=== PATIENT | female | born 1975 | race Caucasian/White ===

== ENCOUNTER → 2018-08-14 | Outpatient (CLI) | payer BC, SELFPAY ==
[2018-08-14 13:14] VITALS: BMI 26.8
[2018-08-19 13:08] LABS: HPV APTIMA, High Risk Negative (Negative)
== END | disposition home or self-care (01) ==
LOC: LABSPEC 17:12
PROVIDERS: Referring Provider Nurse Practitioner Women's Health; Visit Provider Nurse Practitioner Women's Health
DX: Z12.4 Encounter for screening for malignant neoplasm of cervix (principal)
CPT/HCPCS: 87624; 88175; G0145

== ENCOUNTER → 2018-08-22 07:54 | Outpatient (CLI) | payer BC, SELFPAY ==
[2018-08-14 13:14] VITALS: BMI 26.8
--- NOTE | 2018-08-22 07:56 | US_ITS ---
STUDY: ULTRASOUND TRANSVAGINAL CLINICAL: Female, 42 years old. Menorrhagia. Uterine fibroid. LMP: July 20, 2018 TECHNIQUE: Transabdominal and Transvaginal, the latter used to improve visualization in this patient with a nearly empty urinary bladder. COMPARISON: None. FINDINGS: Normal size of the retroverted uterus, tilted right of midline, measuring 9.5 x 5.5 x 5.2 cm. There are no myometrial masses. Upper normal endometrial thickness measuring 9 mm. Endometrium is hyperechoic. There are no endometrial masses, and there is no fluid in the endometrial cavity. There is a well-defined nearly 1 cm anechoic nabothian cyst in the cervix. Normal right ovary, measuring 3.2 x 2.0 x 1.3 cm. There are a few small follicles without a dominant cyst. Normal left ovary, measuring 3.2 x 3.0 x 2.4 cm. There are 1 or 2 small follicles without a dominant cyst. Also seen is a poorly defined, heterogeneous 1.7 x 1.5 x 1.3 cm area of indeterminate etiology. There is no free fluid in the pelvis. The volume of the urinary bladder at the time of scanning was 77.7 mL. Polycystic ovary disease: No. US/Pelvic (Non ) IMPRESSION: 1. Retroverted uterus, tilted to the right of midline, with upper normal endometrial thickness and 1 cm nabothian cyst in the cervix. There is no demonstrated myometrial mass/fibroid. 2. 1.7 cm heterogeneous, incompletely defined solid lesion of indeterminate etiology seen in the left ovary. Differential includes a recently ruptured/collapsed dominant follicle, and follow-up immediately following the next 1-2 menstrual cycles would be useful in demonstrating stability or resolution. 3. Unremarkable right ovary. Electronically Signed: Flaco Quick MD at 18:09 EDT , Service support ,
--- NOTE | 2018-08-22 07:56 | US_ITS ---
STUDY: ULTRASOUND TRANSVAGINAL CLINICAL: Female, 42 years old. Menorrhagia. Uterine fibroid. LMP: July 20, 2018 TECHNIQUE: Transabdominal and Transvaginal, the latter used to improve visualization in this patient with a nearly empty urinary bladder. COMPARISON: None. FINDINGS: Normal size of the retroverted uterus, tilted right of midline, measuring 9.5 x 5.5 x 5.2 cm. There are no myometrial masses. Upper normal endometrial thickness measuring 9 mm. Endometrium is hyperechoic. There are no endometrial masses, and there is no fluid in the endometrial cavity. There is a well-defined nearly 1 cm anechoic nabothian cyst in the cervix. Normal right ovary, measuring 3.2 x 2.0 x 1.3 cm. There are a few small follicles without a dominant cyst. Normal left ovary, measuring 3.2 x 3.0 x 2.4 cm. There are 1 or 2 small follicles without a dominant cyst. Also seen is a poorly defined, heterogeneous 1.7 x 1.5 x 1.3 cm area of indeterminate etiology. There is no free fluid in the pelvis. The volume of the urinary bladder at the time of scanning was 77.7 mL. Polycystic ovary disease: No. US/Transvaginal Non- IMPRESSION: 1. Retroverted uterus, tilted to the right of midline, with upper normal endometrial thickness and 1 cm nabothian cyst in the cervix. There is no demonstrated myometrial mass/fibroid. 2. 1.7 cm heterogeneous, incompletely defined solid lesion of indeterminate etiology seen in the left ovary. Differential includes a recently ruptured/collapsed dominant follicle, and follow-up immediately following the next 1-2 menstrual cycles would be useful in demonstrating stability or resolution. 3. Unremarkable right ovary. Electronically Signed: Flaco Quick MD at 18:09 EDT , Service support ,
== END ==
PROVIDERS: Referring Provider Nurse Practitioner Women's Health; Visit Provider Nurse Practitioner Women's Health
DX: N92.0 Excessive and frequent menstruation with regular cycle (principal); D25.9 Leiomyoma of uterus, unspecified
CPT/HCPCS: 76830; 76856; 93976

== ENCOUNTER → 2018-09-01 07:39 | Outpatient (CLI) | payer BC, SELFPAY ==
[2018-08-14 13:14] VITALS: BMI 26.8
[2018-08-27 13:48] VITALS: BMI 26.8
--- NOTE | 2018-09-01 07:41 | BI_ITS ---
MAMMOGRAPHY - BILATERAL SCREENING REASON FOR EXAM: Female, 42 years old. Routine annual screening examination. PERTINENT HISTORY: Aunt with breast cancer. TECHNIQUE: Digital bilateral breast carmen (3D mammographic acquisition) in the CC and MLO projections. 2-D mediolateral oblique (MLO) and craniocaudad (CC) views of both breasts were obtained. CAD: Full Field Digital Mammography with Computer Added Detection was performed. COMPARISON: No comparison mammograms available at this time. If any prior films become available, an addendum to this report can be generated. FINDINGS: Breast Composition: The breasts are heterogeneously dense, which may obscure small masses. There are no dominant masses or suspicious calcifications. Small benign-appearing bilateral axillary lymph nodes. No other significant abnormalities are identified. BI/SCREEN MAMM (CAD) W/CARMEN BILAT IMPRESSION: Negative screening mammogram. Yearly followup mammogram recommended. (A) ASSESSMENT CATEGORY: BIRADS Category 2: Benign. A letter regarding these results will be sent to the patient by the facility within 30 days. Approximately 10% of breast cancers are not detected by mammography. A normal mammogram should not delay biopsy of a clinically suspicious abnormality. [id number] Electronically Signed: Sergio Buchanan, at 9:14 EDT , Service support ,
== END ==
PROVIDERS: Referring Provider Nurse Practitioner Women's Health; Visit Provider Nurse Practitioner Women's Health
DX: Z12.31 Encounter for screening mammogram for malignant neoplasm of breast (principal)
CPT/HCPCS: 77063; 77067

== ENCOUNTER → 2018-10-03 13:05 | Outpatient (CLI) | payer BC, SELFPAY ==
[2018-10-03 12:08] VITALS: BMI 26.8
--- NOTE | 2018-10-03 12:36 | EMB_PTH ---
PATIENT: CIARRA ALBA LOC: [facility] U#:[id number] AGE/SX: 49/F ROOM: RE10/03/[address]: Dr. Natasha Banegas MD : 1975 BED: DIS: SPEC #: [id number] RECD: 10/03/18 13:03 STATUS: CHRISTINA OFELIA #: [id number] DELTA: 10/03/18 12:[address]: Natasha Banegas DEPT: SURGICAL PATHOLOGY RECD BY: Deborah Cuello ENTERED: 10/03/18 14:52 SP TYPE: ENDOM BX/C BETI DR: No Primary Care Phys Tissues: Endometrium, NOS Procedures: Surgery Specimen Level IV HEADER OPERATION: Endometrial biopsy PRE-OP DIAGNOSIS: Menorrhagia with irregular cycle TISSUE SUBMITTED: Endometrial lining MICROSCOPIC DIAGNOSIS Endometrium, biopsy: Secretory endometrium. Rare strips of benign superficial endocervix. AM:doris 10/06/18 MICROSCOPIC DESCRIPTION Slides are reviewed. GROSS DESCRIPTION Received is one container labeled with the patient's name and not further designated. The specimen consists of multiple irregular fragments of pink soft tissue that in aggregate measure 2.5 x 2 x 0.2 cm. The entire specimen is submitted in one cassette. / SJ:doris 10/03/18 TC:5 CPT: 96111
== END ==
PROVIDERS: Referring Provider Obstetrics & Gynecology; Visit Provider Obstetrics & Gynecology
DX: N92.0 Excessive and frequent menstruation with regular cycle (principal)
CPT/HCPCS: 88305

== ENCOUNTER → 2018-10-07 16:23 | Outpatient (CLI) | payer BC, SELFPAY ==
[2018-10-03 12:08] VITALS: BMI 26.8
--- NOTE | 2018-10-07 16:24 | US_ITS ---
HISTORY: Menorrhagia COMPARISON: None. TECHNIQUE: Real-time transvaginal sonographic imaging of the pelvis was performed. # of images incl. paperwork: 78 FINDINGS: Uterus: Uterus measures 10.2 x 5.7 x 4.9cm. No focal myoma. Endometrium: Endometrium measures 23mm in thickness. No endometrial fluid. Ovaries: The ovaries are normal in size with physiologic follicles. Normal arterial and venous waveforms are seen within bilateral ovaries. Adnexa: No adnexal mass or abnormality. Free fluid: No free fluid in the pelvic cul-de-sac. US/Pelvic (Non ) IMPRESSION: 1. Thickened endometrium measuring 23 mm. Correlate with LMP to determine whether further evaluation to exclude endometrial hyperplasia/neoplasia is warranted. at 2027 Reported and signed by: Pepito Ernandez MD Electronically Signed: Pepito Ernandez MD at 20:26 EDT Tel , Service support ,
--- NOTE | 2018-10-07 16:34 | US_ITS ---
HISTORY: Menorrhagia COMPARISON: None. TECHNIQUE: Real-time transvaginal sonographic imaging of the pelvis was performed. # of images incl. paperwork: 78 FINDINGS: Uterus: Uterus measures 10.2 x 5.7 x 4.9cm. No focal myoma. Endometrium: Endometrium measures 23mm in thickness. No endometrial fluid. Ovaries: The ovaries are normal in size with physiologic follicles. Normal arterial and venous waveforms are seen within bilateral ovaries. Adnexa: No adnexal mass or abnormality. Free fluid: No free fluid in the pelvic cul-de-sac. US/Transvaginal Non- IMPRESSION: 1. Thickened endometrium measuring 23 mm. Correlate with LMP to determine whether further evaluation to exclude endometrial hyperplasia/neoplasia is warranted. at 2027 Reported and signed by: Pepito Ernandez MD Electronically Signed: Pepito Ernandez MD at 20:26 EDT Tel , Service support ,
== END ==
PROVIDERS: Referring Provider Obstetrics & Gynecology; Visit Provider Obstetrics & Gynecology
DX: N92.0 Excessive and frequent menstruation with regular cycle (principal)
CPT/HCPCS: 76830; 76856; 93976

== ENCOUNTER 2018-10-16 11:34 | Day surgery (SDC) | payer BC, SELFPAY ==
[2018-08-27 13:48] VITALS: BMI 26.8
[2018-10-03 12:08] VITALS: BMI 26.8
--- NOTE | 2018-10-09 23:45 | HP.PCM_ITS ---
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 Supplemental Nurse Required: No Is patient in pain?: No Allergies No Known Allergies Allergy (Verified 10/03/18 12:07) Medications NK 08/14/18 [History Confirmed 10/03/18] Is last menstrual period known: Yes Last Menstral Period: 09/15/18 Post menopausal: No Patient : No : No PFSH Surgical History S/P bunionectomy (Resolved) s/p right hand surgery (Resolved) Family History Grandfather Lung cancer Social History (Updated 10/03/18 @ 13:44 by Natasha Banegas MD) Smoking Status: Never smoker alcohol intake: never substance use type: does not use caffeine: Yes what type of physical activity do you participate in: other details: crossfit frequency: 5-6 times per week seatbelt use: always do you feel safe at home: Yes additional social history: [employer] employed Patient works [employer] 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 she has AUB nd an endocervical polyp. also has an ovarian cyst and needs repeat imaging. Female Reproductive History Last Menstral Period: 09/15/18 Pregancy History 2 Elective abortions Hx Para 2 Spontaneous abortions Hx # Term Pregnancies Ectopic pregnancies Hx # Pregnancies Multiple births # of living children Past Pregnancies Del. Date Name GA/Weeks Outcome Route Bth Weight Gen Labor Lgth Anesthesia Del Locatn Provider FOB Unknown Kevin-2000 Unknown Keshawn-2002 ROS Const Constitutional: Denies fatigue, fever(s), headache(s), increased appetite, poor appetite, weight gain or weight loss Cardio Card: Denies chest pain Resp Resp: Denies cough or dyspnea GI GI: Reports as per HPI; denies abdominal pain, constipation, nausea or vomiting : Reports as per HPI; denies difficulty urinating, painful urination, nipple discharge, urinary frequency, urinary incontinence, urinary hesitancy, urinary urgency, vaginal discharge, vaginal dryness, vaginal odor or vaginal itching Skin Skin/Breast: Denies change in hair, breast lump, breast pain, breast skin changes or nipple discharge Exam Const General: cooperative, healthy appearing, comfortable, no acute distress, well developed Nutritional Appearance: average body habitus Orientation: alert [facility] Head: normal to inspection, normocephalic Neck Neck: normal visual inspection, trachea midline Thyroid: thyroid normal Resp Effort & Inspection: normal respiratory effort GI Inspection: normal to inspection, non-distended Palpation: soft, no hepatosplenomegaly General: bladder normal to palpation External Female Exam: normal external appearance, normal appearance of the urethra Urethra: normal appearance of the urethra, normal palpation, no discharge Speculum Exam - Vagina: normal appearance of the vagina, normal vaginal discharge Speculum Exam - Cervix: abnormal appearance of the cervix, cervical lesion (3 cm x 3 cm), nontender Bimanual Exam- Vagina & Uterus: normal bimanual exam, uterine size normal, bladder normal to palpation, uterine shape normal, No cervical tenderness, uterine mobility normal, uterine consistency normal, normal cervical palpation, uterus non-tender Bimanual Exam- Adnexa, other: normal adnexae, adnexae mobile, no adnexal masses, pelvic support normal Pelvic Support: normal Skin General: no rashes or lesions noted Office Procedures Endometrial Biopsy Endometrial Biopsy Details: Cervix prepped with betadine and pipelle inserted into uterus without complication. Specimen obtained and sent to lab for analysis. All instruments removed from vagina without complications. Excellent hemostasis noted. Assessment & Plan Problems 1. Menorrhagia with regular cycle N92.0 emb done recommend ablation 2. Endocervical polyp N84.1 recommend removal at time of ablation Plan discussed surgical risks including risks of anesthesia, infection, bleeding, injury to bowel, bladder or blood vessels, and patient wishes to proceed with surgery. Orders Orders: Endometrial Biopsy Today Coding Level of Care Code No Charge Diagnoses Menorrhagia with regular cycle N92.0 Endocervical polyp N84.1 UPDATE- I have seen the patient and performed any clinically relevant updates to the history and physical exam. Natasha Banegas MD
[2018-10-16] VITALS (7 sets, daily range): BP systolic 106–114; BP diastolic 69–79; PULSE 54–69; RESP 16; TEMP 36–37.2; O2SAT 100; BMI 26.1
[2018-10-16 12:04] LABS: Internal QC Validated? YES +Cl - CLEAR BKGD; Pregnancy, Urine Negative Negative
[2018-10-16 12:07] LABS: Hematocrit 38.8 % (37-47); Hemoglobin 12.6 g/dL (12.0-15.0); Mean Corp Hgb Conc 32.5 g/dL (32-36); Mean Corpuscular Hgb 27.5 pg (27.0-32.0); Mean Corpuscular Volume 84.5 fL (81-99); Mean Platelet Vol. 10.6 fl (6.2-12.0); Platelet Count 267 K/mm3 (150-450); RBC Distribution Width CV 13.5 % (11.6-14.6); RBC Distribution Width SD 41.1 fl (35.1-43.9); Red Blood Count 4.59 M/mm3 (4.2-5.4); White Blood Count 6.3 K/mm3 (4.4-11.0)
--- NOTE | 2018-10-16 13:15 | EMB_PTH ---
PATIENT: CIARRA ALBA LOC: [facility] [place] U#:[id number] AGE/SX: 43/F ROOM: RE10/16/[address]: Dr. Natasha Banegas MD : 1975 BED: DIS: 10/16/2018 SPEC #: [id number] RECD: 10/16/18 16:00 STATUS: CHRISTINA OFELIA #: [id number] DELTA: 10/16/18 13:[address]: Natasha Banegas DEPT: SURGICAL PATHOLOGY RECD BY: Naga Nelson ENTERED: 10/17/18 08:04 SP TYPE: ENDOM BX/C OT DR: Lluvia Primary Care Phys Tissues: A - Endometrium, NOS B - Endometrium, NOS Procedures: Surgery Specimen Level IV HEADER OPERATION: Hysteroscopy D & C; removal of endometrial mass PRE-OP DIAGNOSIS: Menorrhagia with regular cycle; endocervical polyp TISSUE SUBMITTED: A - Endometrial curettings, B - Endometrial mass MICROSCOPIC DIAGNOSIS A. Endometrium, curettings: Transitional endometrium with glandular and stromal breakdown. Rare fragments of benign superficial endocervix and squamous mucosa. B. Endometrial mass, biopsy: Fragment of benign ectocervical-endocervical polyp with nabothian cysts, mildly inflamed. See comment. AM:doris 10/20/18 COMMENT B. Endometrium is not represented in the biopsy. Clinical correlation is suggested. MICROSCOPIC DESCRIPTION Slides are reviewed. GROSS DESCRIPTION A - Received in fixative is one container labeled with the patient's name and designated endometrial curettings. The specimen consists of multiple irregular fragments of light to dark garcia soft tissue that in aggregate measure 2 x 1.2 x 0.1 cm. The specimen is totally submitted in one cassette. B - Received in fixative is one container labeled with the patient's name and designated endocervical mass. The specimen consists of polypoid fragments of pink-garcia soft tissue that in aggregate measure 4.5 x 4 x 0.2 cm. The specimen is submitted in its entirety in three cassettes. / AM:doris 10/17/18 TC:1 CPT:67121 x2
[2018-10-16] MEDS: FERRIC SUBSULFATE 8 GM SOLN (13:39)
--- NOTE | 2018-10-16 15:08 | DCINST_ITS ---
Discharge Diet: No Restrictions Discharge Activity: Return to Normal Activity, May Shower, May Take a Tub Bath Allergies/Adverse Reactions: Allergies No Known Allergies Allergy (Verified 10/06/18 13:00) Medications to take at Discharge NK 08/14/18 Primary Care Physician: Care Physician,No Primary [Primary Care Provider] - Test Results: Test results from this visit will be discussed in further detail at your follow- up appointment, if applicable. Please Follow Up With: Natasha Banegas MD - [phone]
--- NOTE | 2018-10-17 04:28 | PCM.OPRPT ---
Problem List (1) Endocervical polyp Status: Acute Comment: recommend removal at time of ablation (2) Menorrhagia with regular cycle Status: Acute Comment: emb done recommend ablation Report of Operation Date of Procedure: 10/16/18 Pre-Operative Diagnosis: polyp, aub Post-Operative Diagnosis: same Surgery/Procedure Performed:: Partial LEEP of the cervix, D&C hysteroscopy Description of Surgical Findings:: Large endocervical polyp with significant cervical dilation Type of Anesthesia:: Local MAC Special Medications: monsels Specimen's removed: Endocervical polyp and endometrial curettings Drains: none Estimated Blood Loss (mL): 100 Fluids Replaced: crystalloid Description of Procedure: Patient was taken to the operating room and placed under MAC local anesthesia was prepped and draped in normal sterile fashion in dorsolithotomy position. Paracervical block was performed with 1% lidocaine and large endocervical polyp was seen which was initially removed with a ring forcep but had significant bleeding and involved a large portion of the inside of the cervix and therefore a partial LEEP was performed of the posterior cervical lip to remove the entire base of the lesion. Significant vasculature was noted and was cauterized with the ball electrode. Hysteroscopy was then attempted and the lining of the uterus was noted to be within normal limits with no significant abnormalities. Significant cervical dilation was noted due to the large polyp that was extending up into the endocervical canal. I was unable to maintain distention and seal of the endocervical canal and therefore the sanya ablation was not able to be performed. Sharp curettage of the lining of the uterus was performed. monsel's paste Applied to the cervix and excellent hemostasis noted Grafts/Implants Used: none - Complications none Multi Select Codes - Urinary/Genital Urinary/Genital CPT Codes: 38478 Hysteroscopy biopsy, Other Procedure See Report - [id number]
== END 2018-10-16 15:29 | disposition home or self-care (01) ==
LOC: SDC 11:37 → AC 11:37
PROVIDERS: Referring Provider Obstetrics & Gynecology; Visit Provider Obstetrics & Gynecology
PROC: 0U5B8ZZ Destruction of Endometrium, Via Natural or Artificial Opening Endoscopic (ICD-10-PCS; CPT 58558; principal; 2018-10-16 13:00)
DX: N84.1 Polyp of cervix uteri (principal); N88.8 Other specified noninflammatory disorders of cervix uteri; N92.0 Excessive and frequent menstruation with regular cycle
CPT/HCPCS: 57522; 36415; 81025; 85027; 86850; 86900; 88305; J7120; J2405

== ENCOUNTER 2018-12-11 09:42 | Day surgery (SDC) | payer BC, SELFPAY ==
[2018-11-18 13:14] VITALS: BMI 26.1
--- NOTE | 2018-12-11 04:48 | PCM.HPOB.BLA ---
- Problem List (1) Menorrhagia with regular cycle Status: Acute Comment: emb done recommend ablation History and Physical Date of Admission: 12/11/18 Intake Vital Signs 11/18/18 Body Mass Index (BMI) 26.1 11/18/18 Height 5 ft 5 in 11/18/18 Weight: 167 lb 2 oz 11/18/18 Body Mass Index (BMI) 27.8 11/18/18 Blood Pressure 116/80 Intake Visit Reasons: post op discussion Protective Signal Operator Required: No Is patient in pain?: No Allergies No Known Allergies Allergy (Verified 11/18/18 13:09) Medications NK 08/14/18 [History Confirmed 11/18/18] Post menopausal: No Patient : No : No PFSH Surgical History (Updated 11/18/18 @ 13:10 by Mihaela Peña) S/P LEEP (Acute ~10/16/18) S/P bunionectomy (Resolved) s/p right hand surgery (Resolved) Family History Grandfather Lung cancer Social History (Updated 11/18/18 @ 13:26 by Natasha Banegas MD) Smoking Status: Never smoker alcohol intake: never substance use type: does not use caffeine: Yes what type of physical activity do you participate in: other details: crossfit frequency: 5-6 times per week seatbelt use: always do you feel safe at home: Yes additional social history: [employer] employed Patient works [employer] HPI post op discussion: Details: CIARRA ALBA is a 43 year old who presents for endometrial ablation consult. she had a recent surgery but was too dilated to do an ablation Pregancy History 2 Elective abortions Hx Para 2 Spontaneous abortions Hx # Term Pregnancies Ectopic pregnancies Hx # Pregnancies Multiple births # of living children Past Pregnancies Del. Date Name GA/Weeks Outcome Route Bth Weight Infant Gen Labor Lgth Anesthesia Del Locatn Provider FOB Unknown Kevin-2000 Unknown Keshawn-2002 ROS Const Constitutional: Denies fatigue, fever(s), headache(s), increased appetite, poor appetite, weight gain or weight loss Cardio Card: Denies chest pain Resp Resp: Denies cough or dyspnea GI GI: Reports as per HPI; denies abdominal pain, constipation, nausea or vomiting : Reports as per HPI; denies difficulty urinating, painful urination, nipple discharge, urinary frequency, urinary incontinence, urinary hesitancy, urinary urgency, vaginal discharge, vaginal dryness, vaginal odor or vaginal itching Skin Skin/Breast: Denies change in hair, breast lump, breast pain, breast skin changes or nipple discharge Exam Const General: cooperative, healthy appearing, comfortable, no acute distress, well developed Nutritional Appearance: average body habitus Orientation: alert [facility] Head: normal to inspection, normocephalic Neck Neck: normal visual inspection, trachea midline Thyroid: thyroid normal Resp Effort & Inspection: normal respiratory effort GI Inspection: normal to inspection, non-distended Palpation: soft, no hepatosplenomegaly General: bladder normal to palpation External Female Exam: normal external appearance, normal appearance of the urethra Urethra: normal appearance of the urethra, normal palpation, no discharge Speculum Exam - Vagina: normal appearance of the vagina, normal vaginal discharge Speculum Exam - Cervix: normal appearance of the cervix, nontender Bimanual Exam- Vagina & Uterus: normal bimanual exam, uterine size normal, bladder normal to palpation, uterine shape normal, No cervical tenderness, uterine mobility normal, uterine consistency normal, normal cervical palpation, uterus non-tender Bimanual Exam- Adnexa, other: normal adnexae, adnexae mobile, no adnexal masses, pelvic support normal Pelvic Support: normal Skin General: no rashes or lesions noted Assessment & Plan Problems 1. Menorrhagia with regular cycle N92.0 emb done recommend ablation Plan plan sanya ablation Coding Level of Care Code No Charge Diagnoses Menorrhagia with regular cycle N92.0
[2018-12-11 09:58] VITALS: BP 121/80; PULSE 63; RESP 16; TEMP 36.8; O2SAT 100; BMI 28.3
[2018-12-11 10:06] LABS: Hematocrit 37.1 % (37-47); Hemoglobin 11.5 g/dL (12.0-15.0); Mean Corpuscular Hgb 25.6 pg (27.0-32.0); Mean Corpuscular Volume 82.6 fL (81-99); Mean Platelet Vol. 10.2 fl (6.2-12.0); Platelet Count 247 K/mm3 (150-450); RBC Distribution Width CV 13.3 % (11.6-14.6); RBC Distribution Width SD 40.2 fl (35.1-43.9); Red Blood Count 4.49 M/mm3 (4.2-5.4); White Blood Count 8.5 K/mm3 (4.4-11.0)
[2018-12-11 10:11] LABS: Internal QC Validated? YES +Cl - CLEAR BKGD; Pregnancy, Urine Negative Negative
[2018-12-11] MEDS: Lactated Ringers 1,000 ML 100 ML IV (10:11)
[2018-12-11 13:16] VITALS: BP 121/80; BP 122/82; PULSE 70; RESP 16; TEMP 36.5; O2SAT 97
[2018-12-11 13:30] VITALS: BP 116/84; BP 121/80; PULSE 60; RESP 16; O2SAT 96
[2018-12-11 13:45] VITALS: BP 113/79; BP 121/80; PULSE 65; RESP 16; O2SAT 98
--- NOTE | 2018-12-11 13:53 | PCM.OPRPT ---
Problem List (1) Menorrhagia with regular cycle Status: Acute Comment: emb done recommend ablation Report of Operation Date of Procedure: 12/12/18 Pre-Operative Diagnosis: aub Post-Operative Diagnosis: same Surgery/Procedure Performed:: shanthi ablation Type of Anesthesia:: MAC Special Medications: none Specimen's removed: none Drains: none Estimated Blood Loss (mL): 10 Fluids Replaced: crystalloid Description of Procedure: Patient was prepped and draped in a normal sterile fashion under MAC anesthesia. A weighted speculum was placed in the vagina and the anterior lip of the cervix was grasped with a single-tooth tenaculum. Cervix was progressively dilated to allow The Shanthi device which was opened and the cavity length was found to be 5.5cm. Device was inserted into the uterus and balloon inflated and device deployed. Integrity of the cavity was confirmed and a 2 minute treatment cycle was completed with one interruption with 34 sec less, handpiece was replaced and the full treatment cycle completed All instruments were removed from the vagina and excellent hemostasis was noted. Patient was awoken and taken to recovery in stable condition. Grafts/Implants Used: none - Complications none - Admit VTE Documentation VTE Present on Admission: No Multi Select Codes - Urinary/Genital Urinary/Genital CPT Codes: 54328 Shanthi/Novasure
--- NOTE | 2018-12-11 13:57 | DCINST_ITS ---
Discharge Diet: No Restrictions Discharge Activity: Return to Normal Activity, May Shower, May Take a Tub Bath Allergies/Adverse Reactions: Allergies No Known Allergies Allergy (Verified 12/11/18 09:57) Medications to take at Discharge NK 08/14/18 Primary Care Physician: Care Physician,No Primary [Primary Care Provider] - Test Results: Test results from this visit will be discussed in further detail at your follow- up appointment, if applicable. Please Follow Up With: Natasha Banegas MD - [phone]
[2018-12-11 14:07] VITALS: BP 116/78; BP 121/80; PULSE 52; RESP 16; TEMP 36.9; O2SAT 99
[2018-12-11] MEDS: HYDROcodone Bitartrate/Apap 5/325 Tablet PO ×2 (14:28→15:34)
[2018-12-11 16:00] VITALS: BP 121/80
== END 2018-12-11 16:11 | disposition home or self-care (01) ==
LOC: SDC 09:42 → AC 09:43
PROVIDERS: Anesthesiology; Referring Provider Obstetrics & Gynecology; Visit Provider Obstetrics & Gynecology
PROC: 0U5B8ZZ Destruction of Endometrium, Via Natural or Artificial Opening Endoscopic (ICD-10-PCS; CPT 58558; principal; 2018-12-11 11:20)
DX: N92.0 Excessive and frequent menstruation with regular cycle (principal)
CPT/HCPCS: 00940; 58353; 36415; 81025; 85027; 86850; 86900; 86901; J7120; J2405

== ENCOUNTER → 2019-10-19 15:45 | Outpatient (CLI) | payer BC, SELFPAY ==
[2019-10-19 15:05] VITALS: BMI 28.3
[2019-10-19 16:47] LABS: Absolute Lymphocyte Count 2.22 X10^3/uL (0.83-4.51); Absolute Neutrophil Count 4.2 X10^3/uL (2.0-7.7); Basophil# 0.02 X10^3/uL; Basophil% 0.3 % (0-1); Eosinophil# 0.08 X10^3/uL; Eosinophils% 1.2 % (0-5); Hematocrit 42.6 % (37-47); Hemoglobin 14.1 g/dL (12.0-15.0); Lymphocyte # 2.22 X10^3/ul (4.0); Lymphocyte % 32.1 % (19-41); Mean Corp Hgb Conc 33.1 g/dL (32-36); Mean Corpuscular Hgb 29.1 pg (27.0-32.0); Mean Platelet Vol. 10.3 fl (6.2-12.0); Monocyte# 0.44 X10^3/uL; Monocyte% 6.4 % (0-10); NRBC Flagged by Analyzer 0 % (0-5); Neutrophil # 4.15 X10^3/uL (2.7-7.7); Neutrophil % 59.9 % (47-70); Platelet Count 233 K/mm3 (150-450); RBC Distribution Width CV 12.8 % (11.6-14.6); RBC Distribution Width SD 41.1 fl (35.1-43.9); Red Blood Count 4.84 M/mm3 (4.2-5.4); White Blood Count 6.9 K/mm3 (4.4-11.0)
[2019-10-19 17:03] LABS: AST(SGOT) 20 U/L (15-37); Alanine Aminotransfer ALT/SGPT 22 U/L (13-56); Albumin, Serum 3.9 g/dL (3.2-5.0); Alkaline Phosphatase 58 U/L (45-117); Anion Gap 4 (5-15); BUN 11 mg/dL (7-18); BUN/Creat Ratio 12.9 RATIO (10-20); Calcium,Total 8.7 mg/dL (8.5-10.1); Chloride 108 mmol/L (98-107); Cholesterol 202 mg/dL (200); Creatinine, Serum 0.85 mg/dL (0.55-1.02); EST Glomerular Filtration Rate 77 mL/min (>60); Est Glom Filt Rate - Afr Amer 94 mL/min (>60); Globulin 3.9 g/dL (2.2-4.2); Glucose 92 mg/dL (74-106); High Density Lipoprotein 33 mg/dL; Potassium 3.9 mmol/L (3.5-5.1); Protein, Total 7.8 g/dL (6.4-8.2); Sodium Level 139 mmol/L (136-145); Triglycerides 433 mg/dL
== END ==
PROVIDERS: PCP Internal Medicine; Referring Provider Internal Medicine; Visit Provider Internal Medicine
DX: Z00.00 Encounter for general adult medical examination without abnormal findings (principal); K64.9 Unspecified hemorrhoids
CPT/HCPCS: 36415; 80053; 80061; 85025

== ENCOUNTER → 2019-10-20 07:11 | Outpatient (CLI) | payer BC, SELFPAY ==
[2018-12-25 10:47] VITALS: BMI 28.3
[2019-10-19 15:05] VITALS: BMI 28.3
--- NOTE | 2019-10-20 07:12 | BI_ITS ---
MAMMOGRAPHY - BILATERAL SCREENING REASON FOR EXAM: Female, 44 years old. Routine annual screening examination. PERTINENT HISTORY: Aunt with breast cancer. TECHNIQUE: Digital bilateral breast carmen (3D mammographic acquisition) in the CC and MLO projections. 2-D mediolateral oblique (MLO) and craniocaudad (CC) views of both breasts were obtained. CAD: Full Field Digital Mammography with Computer Added Detection was performed. COMPARISON: Comparison is made with prior study dated 09/01/2018. FINDINGS: Breast Composition: The breasts are extremely dense, which lowers the sensitivity of mammography. There are no dominant masses or suspicious calcifications. No other significant abnormalities are identified. There has been no significant change since the prior study. BI/SCREEN MAMM (CAD) W/CAREMN BILAT IMPRESSION: Stable bilateral screening mammogram. Yearly follow-up mammogram recommended. (A) ASSESSMENT CATEGORY: BIRADS Category 1: Negative. A letter regarding these results will be sent to the patient by the facility within 30 days. Approximately 10% of breast cancers are not detected by mammography. A normal mammogram should not delay biopsy of a clinically suspicious abnormality. [id number] Electronically Signed: Sergio Buchanan, at 9:03 EDT , Service support ,
== END ==
PROVIDERS: PCP Internal Medicine; Referring Provider Obstetrics & Gynecology; Visit Provider Obstetrics & Gynecology
DX: Z12.31 Encounter for screening mammogram for malignant neoplasm of breast (principal); Z80.3 Family history of malignant neoplasm of breast
CPT/HCPCS: 77063; 77067

== ENCOUNTER 2019-12-12 20:09 | Emergency (ER) | payer BC, SELFPAY ==
[2019-10-19 15:05] VITALS: BMI 28.3
[2019-12-12 20:09] VITALS: BP 152/91; PULSE 90; RESP 18; TEMP 36.2; O2SAT 100; BMI 28.3
--- NOTE | 2019-12-12 20:22 | EKG12_ITS ---
Test Reason : DYSRHYTHMIA Blood Pressure : / mmHG Vent. Rate : 087 BPM Atrial Rate : 087 BPM P-R Int : 172 ms QRS Dur : 098 ms QT Int : 368 ms P-R-T Axes : 046 031 029 degrees QTc Int : 442 ms Normal sinus rhythm Normal ECG Confirmed by MARIA LUISA CARTER, ALDO ([id number]), features editor ADAN BENAVIDEZ ([id number]) on 12/17/2019 8:23:22 AM Referred By: RORY Confirmed By:ZACK GLASS MD
--- NOTE | 2019-12-12 20:24 | ED.VISSUMM ---
- ER Visit Summary Date of Service: 12/12/19 Chief Complaint: Shortness of breath History of Present Illness: The patient is a [address] Smart. She reports that she has had shortness of breath intermittently over the past 2 weeks. It is much worse today. She denies a cough. No fever or chills. Patient reports that she has chest tightness that began this morning is been constant all day. Is 3 out of 10 in severity currently and at worst. There is no change with exertion or walking. Nothing seems to make this better. Patient reports that her father was diagnosed with coronavirus November 15. She had not seen him for 10 days prior to that. She denies any known exposure to coronavirus. No personal family hist DVT. No recent travel. No ankle swelling or calf pain. Physical Examination: Vitals: Stable. Afebrile. General: Well-nourished and well-developed. Head: Normocephalic atraumatic. Neck: Supple, no lymphadenopathy. No JVD. Nontender. Cardiovascular: Regular rate and rhythm. No murmurs. Respiratory: No respiratory distress. Clear to auscultation bilaterally. Abdominal: Soft, nontender, nondistended, normal bowel sounds. No guarding, rebound, or peritoneal signs. Back: Nontender. Extremities: Nontender, no edema. Skin: Normal color, no rash. Neurologic: Alert and oriented ?3. Cranial nerves II through XII are intact. Normal strength and sensation. Psych: Normal affect. Test Results: EKG is sinus at [address] changes. Troponin is negative. D-dimer is negative. test is negative. Chem-7 shows a chloride of 108. CBC is normal. Clinical Impression(s) from Imaging Studies Chest X-Ray 12/12/19 20:50 IMPRESSION: Normal x-ray examination of the chest. Electronically Signed: Keyur Contreras MD at 21:23 EDT , Service support , Emergency Department Course and Treatment: Patient is rested comfortably during her stay here. Her COVID-19 is pending. Treatment Plan: This time I do not have an alternative explanation for her dyspnea. Patient is instructed to quarantine until she is improved. Follow-up with her primary care physician in 10 to 14 days if not improving. Return to the emergency department for any worsening symptoms. Disposition: To home in improved and stable condition. Impression: 1. Dyspnea, uncertain cause. This note was generated with [employer] dictation software. It may contain incorrect words, spelling, and punctuation that were not noted in review of the chart prior to signing ED Disposition - Plan for ED Patient: Instructions: ED Dyspnea Referrals: Claribel Smart MD [Primary Care Provider] - 10-14 Days if not better
[2019-12-12] MEDS: 0.9% Normal Saline 1,000 ML 150 ML IV (20:38)
[2019-12-12 20:49] VITALS: BP 127/74; PULSE 95; RESP 18; TEMP 36.2; O2SAT 97
[2019-12-12 20:50] LABS: Absolute Lymphocyte Count 2.22 X10^3/uL (0.83-4.51); Absolute Neutrophil Count 4.6 X10^3/uL (2.0-7.7); Basophil# 0.02 X10^3/uL; Basophil% 0.3 % (0-1); Eosinophil# 0.06 X10^3/uL; Eosinophils% 0.8 % (0-5); Hematocrit 40.1 % (37-47); Hemoglobin 13.6 g/dL (12.0-15.0); Lymphocyte # 2.22 X10^3/ul (4.0); Lymphocyte % 30.2 % (19-41); Mean Corp Hgb Conc 33.9 g/dL (32-36); Mean Corpuscular Hgb 30.4 pg (27.0-32.0); Mean Corpuscular Volume 89.5 fL (81-99); Mean Platelet Vol. 10.1 fl (6.2-12.0); Monocyte# 0.44 X10^3/uL; NRBC Flagged by Analyzer 0 % (0-5); Neutrophil % 62.6 % (47-70); Platelet Count 233 K/mm3 (150-450); RBC Distribution Width CV 12.7 % (11.6-14.6); RBC Distribution Width SD 41.5 fl (35.1-43.9); Red Blood Count 4.48 M/mm3 (4.2-5.4); White Blood Count 7.4 K/mm3 (4.4-11.0)
--- NOTE | 2019-12-12 20:50 | RAD_ITS ---
STUDY: X-RAY CHEST REASON FOR EXAM: Female, 44 years old. Shortness of breath x2 weeks worsening today. TECHNIQUE: Single AP portable view of the chest. COMPARISON: None. FINDINGS: The lungs are clear and expanded. There is no demonstrated pleural abnormality. Normal size heart. Normal mediastinum and leo. Normal visualized pulmonary arteries. Normal visualized aortic arch and descending thoracic aorta. Normal visualized thoracic spine. Normal visualized ribs, clavicles, and shoulders. There is no demonstrated abnormality of the visualized soft tissue structures of the upper abdomen. RAD/Chest 1 View (Portable) IMPRESSION: Normal x-ray examination of the chest. Electronically Signed: Keyur Contreras MD at 21:23 EDT , Service support ,
[2019-12-12 21:02] LABS: D-Dimer Quantitative (DVT/PE) 0.45 FEU/ug/m (0.27-0.49); Internal QC Validated? YES +Cl - CLEAR BKGD; Pregnancy, Serum, hCG Quali. NEGATIVE Negative
[2019-12-12 21:13] LABS: Anion Gap 4 (5-15); BUN 9 mg/dL (7-18); BUN/Creat Ratio 10.6 RATIO (10-20); Calcium,Total 8.9 mg/dL (8.5-10.1); Chloride 108 mmol/L (98-107); Creatinine, Serum 0.85 mg/dL (0.55-1.02); EST Glomerular Filtration Rate 78 mL/min (>60); Est Glom Filt Rate - Afr Amer 94 mL/min (>60); Estimated Creatinine Clearance 76.79 ml/min; Glucose 99 mg/dL (74-106); Potassium 3.8 mmol/L (3.5-5.1); Sodium Level 139 mmol/L (136-145)
[2019-12-12 21:48] VITALS: BP 128/80; PULSE 83; RESP 21; O2SAT 97
== END 2019-12-12 22:01 | disposition home or self-care (01) ==
LOC: ED 20:41
PROVIDERS: Emergency Provider Emergency Medicine; PCP Internal Medicine
DX: R06.00 Dyspnea, unspecified (principal); R06.02 Shortness of breath; R07.89 Other chest pain
CPT/HCPCS: 71045; 80048; 84484; 84703; 85025; 85379; 87635; 93005; 96360; 96361; 99284; J7030; A4216; U0003

== ENCOUNTER → 2019-12-21 09:19 | Outpatient (CLI) | payer BC, SELFPAY ==
[2019-12-21 08:50] VITALS: BMI 28.3
[2019-12-23 06:57] LABS: SARS-COV-2 TOTAL ABS Nonreactive (Nonreactive)
== END ==
PROVIDERS: PCP Internal Medicine; Visit Provider Internal Medicine
DX: Z20.828 Contact with and (suspected) exposure to other viral communicable diseases (principal)
CPT/HCPCS: 36415; 86769

== ENCOUNTER → 2020-10-31 08:42 | Outpatient (CLI) | payer OTHER, SELFPAY ==
[2020-10-31 08:22] VITALS: BMI 28.3
[2020-10-31 12:02] LABS: Absolute Lymphocyte Count 1.97 X10^3/uL (0.83-4.51); Absolute Neutrophil Count 3.2 X10^3/uL (2.0-7.7); Basophil# 0.03 X10^3/uL; Basophil% 0.5 % (0-1); Eosinophils% 1.7 % (0-5); Hematocrit 41.4 % (37-47); Hemoglobin 13.7 g/dL (12.0-15.0); Lymphocyte # 1.97 X10^3/ul (0.83-4.51); Lymphocyte % 34.2 % (19-41); Mean Corp Hgb Conc 33.1 g/dL (32-36); Mean Corpuscular Hgb 29.1 pg (27.0-32.0); Mean Corpuscular Volume 87.9 fL (81-99); Mean Platelet Vol. 10.6 fl (6.2-12.0); Monocyte# 0.42 X10^3/uL; Monocyte% 7.3 % (0-10); NRBC Flagged by Analyzer 0 % (0-5); Neutrophil # 3.23 X10^3/uL (2.7-7.7); Neutrophil % 56.1 % (47-70); Platelet Count 240 K/mm3 (150-450); RBC Distribution Width CV 12.6 % (11.6-14.6); RBC Distribution Width SD 41.2 fl (35.1-43.9); Red Blood Count 4.71 M/mm3 (4.2-5.4); White Blood Count 5.8 K/mm3 (4.4-11.0)
[2020-10-31 12:15] LABS: ALB/GLOB Ratio 1.1 RATIO (0.9-2.4); AST(SGOT) 20 U/L (15-37); Alanine Aminotransfer ALT/SGPT 27 U/L (13-56); Albumin, Serum 3.9 g/dL (3.2-5.0); Alkaline Phosphatase 68 U/L (45-117); Anion Gap 4 (5-15); BUN 12 mg/dL (7-18); BUN/Creat Ratio 14.2 RATIO (10-20); Calcium,Total 8.8 mg/dL (8.5-10.1); Chloride 106 mmol/L (98-107); Cholesterol 173 mg/dL (200); Creatinine, Serum 0.85 mg/dL (0.55-1.02); EST Glomerular Filtration Rate 77 mL/min (>60); Est Glom Filt Rate - Afr Amer 94 mL/min (>60); Globulin 3.6 g/dL (2.2-4.2); Glucose 85 mg/dL (74-106); High Density Lipoprotein 43 mg/dL; Potassium 3.9 mmol/L (3.5-5.1); Protein, Total 7.5 g/dL (6.4-8.2); Sodium Level 139 mmol/L (136-145); Triglycerides 107 mg/dL; Very Low Density Lipoprotein 21 mg/dL (5-40)
== END ==
PROVIDERS: PCP Internal Medicine; Referring Provider Internal Medicine; Visit Provider Internal Medicine
DX: E78.5 Hyperlipidemia, unspecified (principal)
CPT/HCPCS: 36415; 80053; 80061; 85025

== ENCOUNTER → 2020-11-17 16:23 | Outpatient (CLI) | payer OTHER, SELFPAY ==
--- NOTE | 2020-11-17 16:25 | BI_ITS ---
MAMMOGRAPHY - BILATERAL SCREENING 3-D TOMOSYNTHESIS REASON FOR EXAM: Female, 45 years old. Breat Cancer Screening PERTINENT HISTORY: No significant family history. TECHNIQUE: 2-D mammograms and 3-D Tomosynthesis of the breast (s) were performed. CAD was performed. COMPARISON: 10/20/2019 FINDINGS: The breast composition is Extermely dense tissue. Scattered benign calcifications are seen. No dense spiculated masses or suspicious microcalcifications are identified. No architectural distortion is identified. There is no skin thickening or retraction. There has been no significant change since the prior study. BI/SCRN MAMM (CAD)W/CARMEN BILAT IMPRESSION: No mammographic signs of malignancy. Routine yearly mammograms recommended. ASSESSMENT CATEGORY: BIRADS Category 1: Negative. A letter regarding these results will be sent to the patient by the facility within 30 days. FOLLOW UP RECOMMENDATION: Yearly follow up mammogram recommended. (A) Approximately 10% of breast cancers are not detected by mammography. A normal mammogram should not delay biopsy of a clinically suspicious abnormality. Electronically Signed: Kayden Blas MD at 17:20 EDT Tel , Service support ,
== END ==
PROVIDERS: PCP Internal Medicine; Referring Provider Internal Medicine; Visit Provider Internal Medicine
DX: Z12.31 Encounter for screening mammogram for malignant neoplasm of breast (principal)
CPT/HCPCS: 77063; 77067

== ENCOUNTER 2021-04-30 15:39 | Emergency (ER) | payer BC, SELFPAY ==
[2021-04-30 15:40] VITALS: BP 125/75; PULSE 79; RESP 18; TEMP 35.5; O2SAT 97; BMI 25.2
--- NOTE | 2021-04-30 16:02 | RAD_ITS ---
HISTORY: injury to 5th digit, left hand. TECHNIQUE: XR Fingers Min 2 Views. Number of images including paperwork: 3. COMPARISON: None. FINDINGS: OSSEOUS STRUCTURES: No acute fracture. Mineralization unremarkable. JOINT SPACES: Dorsal dislocation of the fifth proximal interphalangeal joint. SOFT TISSUES: Overlying soft tissue deformity. RAD/Finger(s) Min 2 Views IMPRESSION: Dislocation of the left fifth proximal interphalangeal joint. at 1618 Reported and signed by: Karen Haider MD Electronically Signed: Karen Haider MD at 16:16 EST ,
[2021-04-30] MEDS: Lidocaine 1% (20 ml mdv) 20 ML Vial 10 ML INFILT (16:38)
--- NOTE | 2021-04-30 16:43 | EDS_ITS ---
HPI History of Present Illness Chief Complaint: Upper Extremity Injury Informant: patient Onset/Context/Timing Onset: Today Current Severity: Moderate Maximum Severity: Moderate Narrative Narrative: Patient presents secondary to left fifth finger injury. Her finger was met with another person's foot. She is an obvious deformity to the PIP joint of the left fifth finger. She is right-hand dominant. [facility] Medical History GERD (gastroesophageal reflux disease) Health care maintenance Hyperlipemia Home Medications hydrocortisone 2.5 % topical cream with perineal applicator 1 applic RC QD-BID PRN #30 g 10/19/19 [Rx Last Taken Unknown] gemfibrozil 600 mg tablet 600 mg PO BID #180 tab 09/13/20 [Rx Last Taken Unknown] omeprazole 40 mg capsule,delayed release 40 mg PO DAILY #90 cap 09/13/20 [Rx Last Taken Unknown] Allergy/AdvReac Type Severity Reaction Status Date / Time No Known Allergies Allergy Verified 04/30/21 15:40 Family History Grandfather Lung cancer Surgical History History of endometrial ablation S/P bunionectomy S/P LEEP (~10/16/18) s/p right hand surgery Social History Smoking Status: Never smoker alcohol intake: never substance use type: does not use caffeine: Yes what type of physical activity do you participate in: other details: crossfit frequency: 5-6 times per week seatbelt use: always do you feel safe at home: Yes additional social history: Htntrvj-Lnnx-Zasy employed Patient works [employer] ROS ROS ED Constitutional Constitutional ED: Denies chills or fever(s) Eyes Eyes: Denies change in vision ENT ENT ED: Denies sore throat Cardiovascular Cardiovascular: Denies chest pain Respiratory/Chest Respiratory/Chest: Denies cough or dyspnea Gastrointestinal Gastrointestinal: Denies abdominal pain, nausea or vomiting Musculoskeletal Musculoskeletal: Reports other Details: Left hand pain ; Denies back pain Integumentary Denies rash Neurologic Neurologic: Reports paresthesias; Denies headache(s) or weakness Psychiatric Psychiatric: Denies anxiety or depression Allergic/Immunologic Allergic/Immunologic ED: Denies urticaria EXAM Physical Exam Const Vital Signs: 04/30/21 15:40 Temperature 96 F L Temperature Source Temporal Pulse Rate 79 Respiratory Rate 18 Blood Pressure 125/75 H Blood Pressure Mean 91 Pulse Ox 97 Oxygen Delivery Method Room Air Positive well nourished and well developed General Appearance ED: well developed Eyes PERRL and EOMs intact bilaterally Neck supple Chest Wall inspection of chest normal and palpation of chest normal Resp normal respiratory effort and clear to auscultation bilaterally Cardio regular rate and regular rhythm Extremity Extremity Narrative: Deformity noted at the PIP joint of the left fifth finger. Good cap refill distally. Neuro oriented x3 Sensorium / Orientation: alert MDM MDM MDM Narrative Medical decision making narrative: Left fifth finger x-rays obtained per nursing protocol. Radiography Diagnostic Testing: Clinical Impression(s) from Imaging Studies Finger X-Ray 04/30/21 16:02 IMPRESSION: Dislocation of the left fifth proximal interphalangeal joint. at 1618 Reported and signed by: Karen Haider MD Electronically Signed: Karen Haider MD at 16:16 EST , Treatment and Re-Evaluation Comments:: X-ray discussed with patient and spouse. Digital block performed with 2 cc of 1% lidocaine. Following this traction on the digit reduced the dislocation easily. Patient does have good range of motion following reduction. She will be placed in an AlumaFoam splint. Discharge Plan Triage Chief Complaint: Upper Extremity Injury ED Provider: Padmini Velez Dx/Rx/DC Orders Clinical Impression: Dislocated finger Instructions: ED Finger Dislocation Prescriptions: No Action hydrocortisone 2.5 % cream with perineal applicator 1 applic RC QD-BID PRN (Reason: hemorrhoids) Qty: 30 RF: 2 gemfibrozil 600 mg tablet 600 mg PO BID Qty: 180 RF: 2 omeprazole 40 mg capsule,delayed release(DR/EC) 40 mg PO DAILY Qty: 90 RF: 2 Primary Care Provider: Claribel Smart Referrals: Claribel Smart MD [Primary Care Provider] - As Needed Disposition Disposition: Home, Self Care
[2021-04-30 16:59] VITALS: BP 120/59; PULSE 64; RESP 15; O2SAT 100
== END 2021-04-30 17:00 | disposition home or self-care (01) ==
PROVIDERS: Emergency Provider Emergency Medicine; PCP Internal Medicine; Visit Provider Emergency Medicine
DX: S63.287A Dislocation of proximal interphalangeal joint of left little finger, initial encounter (principal); W51.XXXA Accidental striking against or bumped into by another person, initial encounter; E78.5 Hyperlipidemia, unspecified; K21.9 Gastro-esophageal reflux disease without esophagitis
CPT/HCPCS: 73140; 99283

== ENCOUNTER 2021-08-31 08:30 | Outpatient (RCR) | payer BC, SELFPAY ==
--- NOTE | 2021-07-18 15:11 | HP.OTEVAL_ITS ---
Patient's Visit Information CIARRA ALBA is a 45 year old F, referred to Occupational Therapy by Dr. Steve Webb MD, with a diagnosis of dislocation of L finger PIP joint. Date of Evaluation: 07/18/21 Occupational Therapist: Alla Crawley, MIGELR/L, CHT - Subjective Pt. is a 45 y/o female who injured her L PF on April 30, 2021, while playing game blindfolded colliding with brother and family. She had went to ER stating it was dislocated. Iced for awhile. Pt. then felt that it was bothering her and so she pursued orthopedic consult. Pt. then went to [facility] last week and is recommending serial casting. Dr. Webb referred her for dislocation of L finger PIP joint. Feels that her watch and clock repairer strength is challenged in L hand. She would like to return to [facility] with work and exercise routine. - ADLs Kitchen: Open jars Comments: lives with and 2 boys. pt. voiced no difficulties with ADL's. 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 does cross fit for exercise. - ROM MP: L +10/90 PIP: L -11/85 DIP: L 0/55 ROM Comments: can make composite fist on L. R hand WNL - Strength Door Hanger: R 65# L 40# Lateral Pinch: R 14#, L 16# Tripod Pinch: R 18#, L 17# Tip-to-Tip Pinch: R 16#, L 17# - Sensation Sensation Comments: No c/o of numbness, tingling or decreased sensation - Quick DASH-Disab of Arm,Shoulder& Hand Quick DASH Score: 5.0000 - Goals Goal:: Pt. will increase watch and clock repairer strength by 15# from 40# to 55# to increase participation with cross fit exercises by dc. Goal:: Pt. will increase L PF PIP extension by 11* (from-11* to 0*) to use keyboard with body positioning/hand positioning by dc Goal:: Pt. will tolerate serial casting and demonstrate understanding of precautions related to skin care by end of 1st session. - Rehabilitation General Assessment: Dr. Webb referred her for dislocation of L finger PIP joint. is recommending serial casting to increase pts extension followed with flexion after extension is gained. Pt. dislocated her LF 04-30-21, 11 weeks ago. CHT educated pt. on serial casting and monitoring. She has L watch and clock repairer strength deficit and ROM deficits related to dislocation. She would benefit from skilled OT services 1 x week for 4-6 weeks to monitor Left LF serial cast/refit and then strengthening and ROM to return to PLOF. Pt. verbalized understanding and agree to POC. ( therapy session was directly supervised and doc. reviewed and approved by Alla Crawley OTR/L,CHT. Rehabilitation Potential: Good - Anticipated Interventions A/AAROM/PROM, Strengthening, Orthoses, Education re Skin Care and Precautions, Home Program - Visit Plan Frequency: 1x/Week Duration: 6 Weeks General Plan: check on serial casting 1 x week for 6 weeks. TEXT: Thank you for the opportunity to evaluate your patient. For Medicare and Medicare HMO plans, please review the plan of care and approve it. It will need to be FAXED BACK to us at [phone] for Medicare purposes. Please let me know if there are questions or concerns regarding this plan of care. Physician Signature: Date:
== END 2021-08-31 19:00 | disposition home or self-care (01) ==
LOC: OT 08:30
PROVIDERS: PCP Internal Medicine; Referring Provider Orthopaedic Surgery Hand Surgery; Visit Provider Orthopaedic Surgery Hand Surgery
DX: S63.289D Dislocation of proximal interphalangeal joint of unspecified finger, subsequent encounter (principal)
CPT/HCPCS: 97110; 97140; 97166; 97763

== ENCOUNTER → 2021-11-06 | Outpatient (CLI) | payer BC, SELFPAY ==
[2021-11-06 12:37] LABS: Absolute Lymphocyte Count 2.24 X10^3/uL (0.83-4.51); Absolute Neutrophil Count 3.1 X10^3/uL (2.0-7.7); Basophil# 0.02 X10^3/uL; Basophil% 0.3 % (0-1); Eosinophils% 1.7 % (0-5); Hematocrit 41.3 % (37-47); Hemoglobin 13.8 g/dL (12.0-15.0); Lymphocyte # 2.24 X10^3/ul (0.83-4.51); Lymphocyte % 37.9 % (19-41); Mean Corp Hgb Conc 33.4 g/dL (32-36); Mean Corpuscular Hgb 29.9 pg (27.0-32.0); Mean Corpuscular Volume 89.6 fL (81-99); Mean Platelet Vol. 10.7 fl (6.2-12.0); Monocyte# 0.48 X10^3/uL; Monocyte% 8.1 % (0-10); NRBC Flagged by Analyzer 0 % (0-5); Neutrophil # 3.06 X10^3/uL (2.7-7.7); Neutrophil % 51.8 % (47-70); Platelet Count 220 K/mm3 (150-450); RBC Distribution Width SD 42.5 fl (35.1-43.9); Red Blood Count 4.61 M/mm3 (4.2-5.4); White Blood Count 5.9 K/mm3 (4.4-11.0)
[2021-11-06 12:59] LABS: AST(SGOT) 19 U/L (15-37); Alanine Aminotransfer ALT/SGPT 19 U/L (13-56); Albumin, Serum 3.8 g/dL (3.2-5.0); Alkaline Phosphatase 54 U/L (45-117); Anion Gap 7 (5-15); BUN 11 mg/dL (7-18); BUN/Creat Ratio 13.5 RATIO (10-20); Calcium,Total 8.8 mg/dL (8.5-10.1); Chloride 108 mmol/L (98-107); Cholesterol 175 mg/dL (200); Creatinine, Serum 0.81 mg/dL (0.55-1.02); EST Glomerular Filtration Rate 81 mL/min (>60); Est Glom Filt Rate - Afr Amer 98 mL/min (>60); Globulin 3.7 g/dL (2.2-4.2); Glucose 85 mg/dL (74-106); High Density Lipoprotein 46 mg/dL; Potassium 4.2 mmol/L (3.5-5.1); Protein, Total 7.5 g/dL (6.4-8.2); Sodium Level 139 mmol/L (136-145); Triglycerides 62 mg/dL; Very Low Density Lipoprotein 12 mg/dL (5-40)
== END | disposition home or self-care (01) ==
LOC: BIMLAB 08:32
PROVIDERS: PCP Internal Medicine; Referring Provider Internal Medicine; Visit Provider Internal Medicine
DX: Z00.00 Encounter for general adult medical examination without abnormal findings (principal)
CPT/HCPCS: 36415; 80053; 80061; 85025

== ENCOUNTER → 2021-12-18 | Outpatient (CLI) | payer BC, SELFPAY ==
--- NOTE | 2021-12-18 08:11 | BI_ITS ---
MAMMOGRAPHY - BILATERAL SCREENING REASON FOR EXAM: Female, 46 years old. Routine annual screening examination. PERTINENT HISTORY: Non-contributory. TECHNIQUE: Digital bilateral breast carmen (3D mammographic acquisition) in the CC and MLO projections. 2-D mediolateral oblique (MLO) and craniocaudad (CC) views of both breasts were obtained. CAD: Full Field Digital Mammography with Computer Added Detection was performed. COMPARISON: Comparison is made with prior study 11/17/2020 and 10/20/2019. FINDINGS: Breast Composition: The breasts are extremely dense, which lowers the sensitivity of mammography. There are no dominant masses or suspicious calcifications. No other significant abnormalities are identified. There has been no significant change since the prior study. BI/SCRN MAMM (CAD)W/CARMEN BILAT IMPRESSION: Stable bilateral screening mammogram. Yearly follow-up mammogram recommended. (A) ASSESSMENT CATEGORY: BIRADS Category 1: Negative. A letter regarding these results will be sent to the patient by the facility within 30 days. Approximately 10% of breast cancers are not detected by mammography. A normal mammogram should not delay biopsy of a clinically suspicious abnormality. [id number] Electronically Signed: Sergio Buchanan MD at 10:19 EDT ,
== END | disposition home or self-care (01) ==
LOC: OPBI 08:10
PROVIDERS: PCP Internal Medicine; Visit Provider Internal Medicine
DX: Z12.31 Encounter for screening mammogram for malignant neoplasm of breast (principal)
CPT/HCPCS: 77063; 77067

== ENCOUNTER 2022-03-02 07:55 | Day surgery (SDC) | payer BC, SELFPAY ==
[2022-03-02 08:33] VITALS: BP 114/79; PULSE 90; RESP 18; TEMP 36.4; O2SAT 100; BMI 28.2
[2022-03-02] MEDS: Lactated Ringers 1,000 ML 15 ML IV (08:35)
--- NOTE | 2022-03-02 08:56 | H&P.OPEN ---
HPI - General HPI Narrative CIARRA ALBA, is a 46 F who presents for screening colonoscopy. Patient is never had a colonoscopy in the past. She denies abdominal pain or family history of colon cancer. [facility] Medical History (Updated 03/01/22 @ 09:38 by Denise Hickman) Colon cancer screening Gastric reflux GERD (gastroesophageal reflux disease) Health care maintenance High cholesterol Hyperlipemia Preventative health [facility] Medications hydrocortisone 2.5 % topical cream with perineal applicator 1 applic GA QD-BID PRN hemorrhoids #30 grams 05/16/21 [Rx Last Taken Unknown] gemfibrozil 600 mg tablet 600 mg PO DAILY 11/06/21 [History Last Taken Unknown] omeprazole 40 mg capsule,delayed release 40 mg PO DAILY #90 caps 12/11/21 [Rx Last Taken Unknown] Cholest Md 2 tab PO/SL DAILY 03/01/22 [History Last Taken Unknown] krill 1,000 mg-omega-3 170 mg-dha 50 mg-epa 80 xr-zcxxte-geevl capsule (krill oil) 2 cap PO DAILY 03/01/22 [History Last Taken 02/28/22] Allergy/AdvReac Type Severity Reaction Status Date / Time No Known Allergies Allergy Verified 03/02/22 08:27 Family History Grandfather Lung cancer Surgical History History of endometrial ablation S/P bunionectomy S/P LEEP (~10/16/18) s/p right hand surgery Social History Smoking Status: Never smoker alcohol intake: never substance use type: does not use caffeine: Yes what type of physical activity do you participate in: other details: crossfit frequency: 5-6 times per week seatbelt use: always do you feel safe at home: Yes additional social history: Ojyqpsj-Rgiw-Iidh employed Patient works [employer] Past Medical/Surgical History Planned Operation Planned Operative Procedure/s: COLONOSCOPY-OA S.O.S: No Previous Hospitalizations/Surgeries HX Hospitalizations: No HX of Surgeries: hand surgery 1998 1996 foot surgery lasik bilat eyes epidural with childbirth x2 hysteroscopy d&c 10/2018 Any Problems With Anesthesia: Yes (n/v post epidural/delivery.. no issues with 10/2018 surgery) You/Your Family Experience Fever (Hyperthermia) With Anes: No Cholinesterase deficiency: No Cardiovascular Hx Chest Pain within Last 2 months: No Hx of Irregular Heartbeat and/or Afib: No Hx Heart Attack: No Hx Congestive Heart Failure: No Hx Rheumatic Fever: No Hx Hypertension: No Hx Internal Defibrillator: No Hx Pacemaker: No Hx Cardiac Catheterization: No Hx Cardiac Surgery/Stents/Etc.: No Hx Stress Test: No Hx Pain in Legs when Walking/Leg Cramps: No Respiratory Chronic Cough: No HX of Shortness of Breath: No (denies) Hoarseness: No Hx Chronic Obstructive Pulmonary Disease (COPD): No Hx Asthma: No Hx Emphysema: No Hx Sleep Apnea: No Hx Respiratory Tract Infection/Cold (presently): No Do You Snore Loudly (louder than talking or can be heard): No Do You Often Feel Tired/ Fatigued/ Sleepy Dring Daytime?: No Has Anyone Observed You Stop Breathing During Sleep?: No Result (for STOP score): Negative Hx Smoking: No Smoking Status: Never smoker Gastrointestinal Hx Gastroesophageal Reflux: No Hx Gastrointestinal Disorders: No Hx Gastrointestinal Bleed: No Hx Ulcer: No Hx Hiatal Hernia: No Difficulty Chewing/Swallowing: No Special diet followed at home: No Hx Unplanned Weight Loss of 20#: No HX Unplanned Weight Gain of 20#: No Neurological Hx Seizures: No HX Syncope/Blackout Spells/Unconsciousness: No Hx Transient Ischemic Attacks (TIA): No Hx Multiple Sclerosis: No Hx Parkinson's Disease: No Hx Head/Neck Injury: No Hx Headaches: No Hx Back Injury/Pain: No Recent Onset of Speech Difficulty: No Restless Legs: No Does patient have nerve stimulator: No Blood Disorder Hx Leukemia: No Bleeding Tendencies: No Hx Deep Vein Thrombosis: No Hx High Cholesterol: No Blood Transmitted Disease: No Hx Hepatitis: No Hx Cirrhosis: No Hx Anemia: No Hx Blood Disorders: No Reproduction : No Is Patient Lactating: No Hx Hysterectomy: No Hx Tubal Ligation: No Are You Post Menopause: No Genitourinary Hx Renal Disease: No Musculoskeletal Hx Arthritis: No Hx Rheumatoid Arthritis: No Hx Gout: No Recent Onset of an Orthopedic Problem: No Endocrine Hx Diabetes: No Thyroid Disease: No Hx Steroid Therapy: No Psycho/Social Hx Substance Use: No Hx Alcohol Use: No Hx Anxiety: No Hx Depression: No Mental Illness: No Hx Dementia: No Miscellaneous Hx Cancer: No Recent Exposure to Contagious Disease: No Hx of C-Diff: No Any Loose Teeth: No Allergies No Known Allergies Allergy (Verified 03/02/22 08:27) Discharge Is Pt Admitted From a Alf, or a Long Term: No After D/C, Where Do you Plan to Go: Return Home Vital Signs Vital Signs Vital Signs: 03/02/22 08:33 03/02/22 08:33 Temperature 97.6 F L Temperature Source Temporal Pulse Rate 90 Respiratory Rate 18 Respiratory Pattern Normal Blood Pressure 114/79 Blood Pressure Mean 90 Blood Pressure Source Monitor Blood Pressure Position Sitting Blood Pressure Location Left Arm Pulse Ox 100 Oxygen Delivery Method Room Air Weight Weight: 169 lb 12.095 oz Body Mass Index (BMI) 28.2 Physical Exam Const alert and oriented x3 HEENT normocephalic Eyes PERRL Resp normal respiratory effort and normal air movement Cardio regular rate and regular rhythm GI soft to palpation, non-tender and non-distended Extremity normal to inspection Assessment & Plan Assessment/Plan (1) Colon cancer screening: PLAN: I explained endoscopy in detail to the patient. I explained the risks including but not limited to stroke or heart attack with anesthesia, perforation of the GI tract, bleeding, infection. I explained that any of these could necessitate further emergency surgery. The patient understands and all questions were answered sufficiently. The patient wishes to proceed with procedure. Calos Mcgill MD Pager: [facility] [address] [place] [address], [address] [place] [address] Office: Surgery Risks - Colonoscopy Risks Include but are not Limited To: Risks include but are not limited to: Bleeding, perforation requiring further surgery, inability to complete colonoscopy requiring barium enema.
[2022-03-02 09:35] VITALS: BP 114/79; BP 96/65; PULSE 84; RESP 16; TEMP 37; O2SAT 99
--- NOTE | 2022-03-02 09:35 | OP.COLON_ITS ---
Patient Name: Deisy Chi Procedure Date: 03/02/2022 9:03 AM Date of : 1975 Age: 46 Procedure: Colonoscopy Indications: Screening for colorectal malignant neoplasm Providers: Calos Mcgill MD Medicines: Monitored Anesthesia Care Patient Profile: This is a 46 year old female. Refer to note in patient chart for documentation of history and physical. Last Colonoscopy: none. The patient's first colonoscopy is today. Complications: No immediate complications. Procedure: Pre-Anesthesia Assessment: - Prior to the procedure, a History and Physical was performed, and patient medications and allergies were reviewed. The patient's tolerance of previous anesthesia was also reviewed. The risks and benefits of the procedure and the sedation options and risks were discussed with the patient. All questions were answered, and informed consent was obtained. Prior Anticoagulants: The patient has taken no previous anticoagulant or antiplatelet agents. After reviewing the risks and benefits, the patient was deemed in satisfactory condition to undergo the procedure. After I obtained informed consent, the scope was passed under direct vision. Throughout the procedure, the patient's blood pressure, pulse, and oxygen saturations were monitored continuously. The colonoscope was introduced through the anus and advanced to the cecum, identified by appendiceal orifice and ileocecal valve. The colonoscopy was performed without difficulty. The patient tolerated the procedure well. The quality of the bowel preparation was good. Scope In: 9:13:24 AM Scope Withdrawal Time 0 hours 6 minutes 18 seconds Scope Out: 9:28:38 AM Total Procedure Duration Time 0 hours 15 minutes 14 seconds Findings: The entire examined colon appeared normal on direct and retroflexion views. Impression: - The entire examined colon is normal on direct and retroflexion views. - No specimens collected. Recommendation: - Discharge patient to home. - Resume previous diet. - Continue present medications. - Repeat colonoscopy in 10 years for screening purposes. Procedure Code(s): --- Professional --- 81816, Colonoscopy, flexible; diagnostic, including collection of specimen(s) by brushing or washing, when performed (separate procedure) Diagnosis Code(s): --- Professional --- Z12.11, Encounter for screening for malignant neoplasm of colon CPT copyright 2017 [employer]. All rights reserved. The codes documented in this report are preliminary and upon shore hand dredge or barge review may be revised to meet current compliance requirements. Calos Mcgill MD 03/02/2022 9:34:44 AM This report has been signed electronically. Number of Addenda: 0 Note Initiated On: 03/02/2022 9:03 AM
--- NOTE | 2022-03-02 09:36 | OP.CCLET_ITS ---
03/02/2022 Claribel Smart MD [address] [place] [address] [place] [address] Re : Colonoscopy procedure for Deisy Segalanabelle Dear Dr. Smart This procedure was performed on Wednesday, March 02, 2022. My impressions and recommendations are as follows: Impressions : - The entire examined colon is normal on direct and retroflexion views. - No specimens collected. Recommendations : - Discharge patient to home. - Resume previous diet. - Continue present medications. - Repeat colonoscopy in 10 years for screening purposes. My findings are described in the full procedure note, which is enclosed. If I can be of further assistance, please feel free to contact me at Doctor phone number(s): , Work: . Sincerely, Calos Mcgill MD 03/02/2022 9:34:44 AM This report has been signed electronically.
[2022-03-02 09:40] VITALS: BP 114/79; BP 99/60; PULSE 82; RESP 16; O2SAT 100
[2022-03-02 09:45] VITALS: BP 102/65; BP 114/79; PULSE 77; RESP 16; O2SAT 100
[2022-03-02 09:50] VITALS: BP 102/62; BP 114/79; PULSE 72; RESP 16; TEMP 37.2; O2SAT 100
[2022-03-02 10:19] VITALS: BP 114/79
== END 2022-03-02 10:30 | disposition home or self-care (01) ==
LOC: EN 07:56 → AC 08:02
PROVIDERS: PCP Internal Medicine; Referring Provider Internal Medicine; Visit Provider Surgery
PROC: 0DJD8ZZ Inspection of Lower Intestinal Tract, Via Natural or Artificial Opening Endoscopic (ICD-10-PCS; CPT 45378; principal; 2022-03-02 08:55)
DX: Z12.11 Encounter for screening for malignant neoplasm of colon (principal); K21.9 Gastro-esophageal reflux disease without esophagitis; Z79.899 Other long term (current) drug therapy
CPT/HCPCS: G0121; J7120; J2405

== ENCOUNTER → 2022-05-03 | Outpatient (CLI) | payer BC, SELFPAY ==
[2022-05-03 12:37] LABS: Vitamin B12 485 pg/mL (211-911)
[2022-05-03 12:43] LABS: Thyroid Stim Hormone (TSH) 1.02 uIU/mL (0.358-3.74)
[2022-05-03 12:45] LABS: Hemoglobin A1c 5.5 % (3.8-5.6)
== END | disposition home or self-care (01) ==
LOC: MFPLAB 10:24
PROVIDERS: PCP Family Medicine; Referring Provider Family Medicine; Visit Provider Family Medicine
DX: Z13.1 Encounter for screening for diabetes mellitus (principal); Z13.29 Encounter for screening for other suspected endocrine disorder; K21.9 Gastro-esophageal reflux disease without esophagitis
CPT/HCPCS: 36415; 82607; 83036; 84443

== ENCOUNTER → 2022-10-29 | Outpatient (CLI) | payer BC, SELFPAY ==
[2022-10-29 12:52] LABS: Cholesterol 197 mg/dL (200); High Density Lipoprotein 40 mg/dL; Triglycerides 147 mg/dL; Very Low Density Lipoprotein 29 mg/dL (5-40)
== END | disposition home or self-care (01) ==
LOC: MFPLAB 10:12
PROVIDERS: PCP Family Medicine; Visit Provider Family Medicine
DX: E78.5 Hyperlipidemia, unspecified (principal)
CPT/HCPCS: 36415; 80061

== ENCOUNTER → 2022-12-20 | Outpatient (CLI) | payer BC, SELFPAY ==
--- NOTE | 2022-12-20 07:56 | BI_ITS ---
MAMMOGRAPHY - BILATERAL SCREENING REASON FOR EXAM: Female, 47 years old. Routine annual screening examination. PERTINENT HISTORY: Non-contributory. TECHNIQUE: Digital bilateral breast carmen (3D mammographic acquisition) in the CC and MLO projections. 2-D mediolateral oblique (MLO) and craniocaudad (CC) views of both breasts were obtained. CAD: Full Field Digital Mammography with Computer Added Detection was performed. COMPARISON: Comparison is made with prior study dated December 18, 2021 and November 17, 2020. FINDINGS: Breast Composition: The breasts are extremely dense, which lowers the sensitivity of mammography. There are no dominant masses or suspicious calcifications. No other significant abnormalities are identified. There has been no significant change since the prior study. BI/SCRN MAMM (CAD)W/CARMEN BILAT IMPRESSION: Stable bilateral screening mammogram. Yearly follow-up mammogram recommended. (A) ASSESSMENT CATEGORY: BIRADS Category 1: Negative. A letter regarding these results will be sent to the patient by the facility within 30 days. Approximately 10% of breast cancers are not detected by mammography. A normal mammogram should not delay biopsy of a clinically suspicious abnormality. [id number] Electronically Signed: Sergio Buchanan MD at 8:43 EDT ,
== END | disposition home or self-care (01) ==
PROVIDERS: PCP Family Medicine; Referring Provider Nurse Practitioner Women's Health; Visit Provider Nurse Practitioner Women's Health
DX: Z12.31 Encounter for screening mammogram for malignant neoplasm of breast (principal)
CPT/HCPCS: 77063; 77067

== ENCOUNTER → 2023-05-16 | Outpatient (CLI) | payer BC, SELFPAY ==
--- NOTE | 2023-05-16 09:08 | RAD_ITS ---
STUDY: X-RAY - ABDOMEN/PELVIS REASON FOR EXAM: Female, 47 years old. No BM for one week TECHNIQUE: Frontal views COMPARISON: None. FINDINGS: Normal visualized lung bases. There is an unremarkable bowel gas pattern. There is no demonstrated free abdominal air. The visualized liver, spleen and kidneys are grossly normal in size and morphology. Normal soft tissue structures. Normal visualized osseous structures. RAD/Abdomen Single View IMPRESSION: No significant colonic fecal retention. Electronically Signed: Suresh Fitzpatrick DO at 23:30 EST ,
--- OUTSIDE RECORDS SUMMARY | 2023-05-16 10:17 | XMS RPT_ITS | CCD ---
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 Name Role Phone Jon CARTER, Steve Mccullough Unavailable Medications Completed/Discontinued Medications Medication Drug Class(es) Dates Sig (Normalized) Sig (Original) gemfibrozil 600 mg oral tablet (1 source) Peroxisome Proliferator Receptor alpha Agonist take 1 tablet by mouth once daily GEMFIBROZIL 600 MG TABS 1 tablet by mouth once a day gemfibrozil [id number] Elza Moyer AT Problems Active Problems Problem Classification Problem Date Documented Date Episodic/Chronic Joint disorders and dislocations; trauma-related (1 source) Dislocation of digit of hand; Translations: [Dislocation of proximal interphalangeal joint of unspecified finger, initial encounter] Onset: 07-10-2021 07-10-2021 Episodic Past or Other Problems Problem Classification Problem Date Documented Da te Episodic/Chronic Unclassified (1 source) Problem Results Test Name Value Interpretation Reference Range Facil ity Vital Signs Date Time Vital Sign Value Performing Clinician Facility NEGATED: Highlighted [id number] 09:16-0400 Body height 165.1 cm Elza Comfort AT [facility] Work Phone: NEGATED: Highlighted [id number] 09:16040 Body height 165 cm Elza Moyer AT [facility] Work Phone: NEGATED: Highlighted [id number] 09:16-0400 Body mass index (BMI) [Ratio] 28.06 kg/m2 Elza Comfort AT [facility] Work Phone: NEGATED: Highlighted [id number] 09:16-0400 Body weight 76.2 kg Elza Moyer AT [facility] Work Phone: NEGATED: Highlighted [id number] 09:160400 Body weight 76 kg Elza Moyer AT [facility] Work Phone: Encounters Encounter Date Encounter Type Care Provider Facility Start: 07-10-2021 End: 07-10-2021 Ot evaluation Steve Webb MD Work Phone: [facility] Work Phone: Procedures Date Procedure Procedure Detail Performing Clinician Start: 07-10-2021 End: 07-11-2021 BP scrn no perf at interval Steve Webb MD Work Phone: Start: 07-10-2021 End: 07-11-2021 Calc BMI out nrm ras nof/u Steve Webb MD Work Phone: Start: 07-10-2021 End: 07-11-2021 Current tobacco non-user cad cap copd pv dm Steve Webb MD Work Phone: Start: 07-10-2021 End: 07-11-2021 Docrev cur meds by hank Webb MD Work Phone: Start: 07-10-2021 End: 07-10-2021 FO w/o joints CF Steve Tripathi Work Phone: Start: 07-10-2021 End: 07-11-2021 Pain doc pos and plan Steve Webb MD Work Phone: Start: 07-10-2021 End: 07-11-2021 Patient encounter procedure Steve Webb MD Work Phone: Start: 07-10-2021 End: 07-10-2021 Radex hand minimum 3 views Steve Webb MD Work Phone: NEGATED: Highlighted rowStart: 07-10-2021 End: 07-10-2021 Documentation of current medications Elza Moyer AT Plan of Treatment Date Care Activity Detail Author Start: 08-07-2021 End: 08-07-2021 Patient encounter procedure Appointment [facility] Work Phone: Social History Date Type Detail Facility NEGATED: Highlighted rowStart: 07-10-2021 End: 07-10-2021 Alcohol use Alcohol use [facility] Work Phone: NEGATED: Highlighted rowStart: 07-10-2021 End: 07-10-2021 Details of drug misuse behavior Details of drug misuse behavior [facility] Work Phone: NEGATED: Highlighted rowStart: 07-10-2021 End: 07-10-2021 How many days of moderate to strenuous exercise, like a brisk walk, did you do in the last 7 days? How many days of moderate to strenuous exercise, like a brisk walk, did you do in the last 7 days? [facility] Work Phone: NEGATED: Highlighted rowStart: 07-10-2021 End: 07-10-2021 Assertion Never smoker [facility] Work Phone: Evaluation note Note Date & Type Note Facility Evaluation note There may be informa tion available, but it has not been provided by the sender. [facility] Work Phone: Instructions Note Date & Type Note Facility [facility] Work Phone: Chief Complaint Chief Complaint Description Start Date left hand pain Preliminary chief co mplaint data, not yet signed by the author as of Advance Directives There may be information available, but it has not been provided by the sender. Family History There may be information available, but it has not been provided by the sender. Additional Source Comments Reason for Visit (unrecogniz ed section and content) FOR RECORDS PERTAINING TO PATIENTS WHO ARE OR HAVE BEEN ENROLLED IN A CHEMICAL DEPENDENCY/SUBSTANCEABUSE PROGRAM, SOME INFORMATION MAY BE OMITTED. This clinical summary was aggregated from multiple sources. Caution should be exercised in using it in the provision of clinical care. This summary normalizes information from multiple sources, and as a consequence, information in this document may materially change the coding, format and clinical context of patient data. In addition, data may be omitted in some cases. CLINICAL DECISIONS SHOULD BE BASED ON THE PRIMARY CLINICAL RECORDS. [facility]. provides no warranty or guarantee of the accuracy or completeness of information in this document.
== END | disposition home or self-care (01) ==
PROVIDERS: PCP Family Medicine; Referring Provider Family Medicine; Visit Provider Family Medicine
DX: R10.30 Lower abdominal pain, unspecified (principal)
CPT/HCPCS: 74018

== ENCOUNTER → 2023-06-04 | Outpatient (CLI) | payer BC, SELFPAY ==
[2023-06-04 17:58] LABS: Absolute Neutrophil Count 3.9 X10^3/uL (2.0-7.7); Basophil# 0.01 X10^3/uL; Basophil% 0.1 % (0-1); Eosinophil# 0.07 X10^3/uL; Hematocrit 42.1 % (37-47); Hemoglobin 13.8 g/dL (12.0-15.0); Lymphocyte % 32.9 % (19-41); Mean Corp Hgb Conc 32.8 g/dL (32-36); Mean Corpuscular Hgb 29.2 pg (27.0-32.0); Mean Corpuscular Volume 89.2 fL (81-99); Mean Platelet Vol. 10.3 fl (6.2-12.0); Monocyte% 7.5 % (0-10); NRBC Flagged by Analyzer 0 % (0-5); Neutrophil # 3.89 X10^3/uL (2.7-7.7); Neutrophil % 58.2 % (47-70); Platelet Count 256 K/mm3 (150-450); RBC Distribution Width CV 12.6 % (11.6-14.6); RBC Distribution Width SD 41.4 fl (35.1-43.9); Red Blood Count 4.72 M/mm3 (4.2-5.4); White Blood Count 6.7 K/mm3 (4.4-11.0)
[2023-06-04 18:24] LABS: Hemoglobin A1c 5.2 % (3.8-5.6)
[2023-06-04 18:41] LABS: ALB/GLOB Ratio 1.1 RATIO (0.9-2.4); AST(SGOT) 19 U/L (15-37); Alanine Aminotransfer ALT/SGPT 22 U/L (13-56); Albumin, Serum 3.9 g/dL (3.2-5.0); Alkaline Phosphatase 53 U/L (45-117); Anion Gap 6 (5-15); BUN 7 mg/dL (7-18); BUN/Creat Ratio 7.2 RATIO (10-20); Calcium,Total 9.1 mg/dL (8.5-10.1); Chloride 104 mmol/L (98-107); Cholesterol 196 mg/dL (200); Creatinine, Serum 0.97 mg/dL (0.55-1.02); EST Glomerular Filtration Rate 66 mL/min (>60); Est Glom Filt Rate - Afr Amer 79 mL/min (>60); Globulin 3.6 g/dL (2.2-4.2); Glucose 89 mg/dL (74-106); High Density Lipoprotein 41 mg/dL; Protein, Total 7.5 g/dL (6.4-8.2); Sodium Level 138 mmol/L (136-145); Thyroid Stim Hormone (TSH) 1.21 uIU/mL (0.358-3.74); Triglycerides 246 mg/dL; Very Low Density Lipoprotein 49 mg/dL (5-40)
== END | disposition home or self-care (01) ==
LOC: MFPLAB 15:25
PROVIDERS: PCP Family Medicine; Visit Provider Family Medicine
DX: Z13.228 Encounter for screening for other metabolic disorders (principal); Z13.0 Encounter for screening for diseases of the blood and blood-forming organs and certain disorders involving the immune mechanism
CPT/HCPCS: 36415; 80053; 80061; 83036; 84443; 85025

== ENCOUNTER → 2023-07-11 | Outpatient (CLI) | payer BC, OTHER, SELFPAY ==
--- NOTE | 2023-07-11 14:56 | CT_ITS ---
STUDY: CT ABDOMEN AND PELVIS WITH CONTRAST REASON FOR EXAM: Female, 47 years old. lower abdominal pain RADIATION DOSAGE (If Supplied By Facility): CTDIvol = ( 11.84 ) mGy, DLP = ( 676.65 ) mGycm TECHNIQUE: Transaxial images were obtained from the dome of the diaphragm to the symphysis pubis with oral contrast. Oral and amp; IV Readi-CAT and amp; 100mL Isovue-300 was administered. Sagittal and coronal images were reconstructed. Individualized dose optimization techniques were used for this CT. COMPARISON: None. FINDINGS: The visualized lung bases are unremarkable. The visualized portions of the heart are within normal limits. There is decreased attenuation of the liver consistent with steatosis. There is a 1.4 cm probable liver cyst. Normal gallbladder and extrahepatic biliary system. Normal spleen. Normal pancreas. Normal bilateral adrenal glands. Normal right kidney. Normal left kidney. Normal visualized stomach. Normal small intestine. Normal colon. The appendix is visualized and appears normal. Normal abdominal aorta. Normal inferior vena cava. Normal retroperitoneum. Normal urinary bladder. Normal visualized uterus. There is a 4.9 cm fluid density mass of the right pelvis most likely ovarian cyst. Recommend pelvic ultrasound. Normal abdominal wall. Normal osseous structures. CT/Abdomen/Pelvis WITH Contrast IMPRESSION: 4.9 cm fluid density mass of the right pelvis most likely ovarian cyst. Recommend pelvic ultrasound. No other definite acute or significant abnormality seen. Electronically Signed: Keyur Contreras MD at 16:45 EDT ,
== END | disposition home or self-care (01) ==
PROVIDERS: PCP Family Medicine; Referring Provider Family Medicine; Visit Provider Family Medicine
DX: R10.30 Lower abdominal pain, unspecified (principal)
CPT/HCPCS: 74177; Q9967

== ENCOUNTER → 2023-07-16 | Outpatient (CLI) | payer BC, OTHER, SELFPAY ==
--- NOTE | 2023-07-16 12:13 | US_ITS ---
STUDY: ULTRASOUND OF THE FEMALE PELVIS - COMPLETE REASON FOR EXAM: Female, 47 years old. pelvic pain LMP: TECHNIQUE: Transabdominal and transvaginal TECHNICAL QUALITY: Adequate. COMPARISON: CT on July 11, 2023 FINDINGS: The uterus is anteverted and is in a midline position. The uterus measures 8.9 x 5.4 x 4.8 cm. Normal uterine cervix. The endometrium measures 4.3 mm in thickness, and is hyperechoic. There is no demonstrated endometrial mass. Myometrium is heterogeneous however there is no discrete fibroid.. I.U.D. - The patient does not have an I.U.D. The right ovary is visualized. The right ovary measures 3.5 x 2.9 x 1.6 cm. There is a cyst measuring 2.1 x 1.2 x 2.06. There is no visualized right adnexal mass or complex lesion. There is normal arterial and normal venous vascularity. The left ovary is visualized. The left ovary measures 2.8 x 2.5 x 1.9 cm. There is no left ovarian cyst or ovarian mass. There is no visualized left adnexal mass or complex lesion. There is normal arterial and normal venous vascularity. There is no fluid in the cul-de-sac. The pre void volume of the bladder was 645 ml. US/Pelvic w/ Transvaginal IMPRESSION: Small right ovarian cyst measuring approximately 2.1 x 1.2 x 2.06 cm Electronically Signed: Jose Rivera MD at 16:56 EDT ,
== END | disposition home or self-care (01) ==
PROVIDERS: PCP Family Medicine; Referring Provider Nurse Practitioner Women's Health; Visit Provider Nurse Practitioner Women's Health
DX: R10.2 Pelvic and perineal pain (principal)
CPT/HCPCS: 76830; 76856

== ENCOUNTER → 2023-07-17 | Outpatient (CLI) | payer BC, OTHER, SELFPAY | END | disposition home or self-care (01) | LOC: LABSPEC 17:09 | PROVIDERS: PCP Family Medicine; Referring Provider Nurse Practitioner Women's Health; Visit Provider Nurse Practitioner Women's Health | DX: R10.2 Pelvic and perineal pain (principal) | CPT/HCPCS: 87070; 87205 ==

== ENCOUNTER → 2023-07-23 | Outpatient (CLI) | payer BC, OTHER, SELFPAY ==
[2023-07-23 14:01] LABS: Estradiol 76.7 pg/mL; Follicle Stimulating Hormone 8.6 mIU/mL
== END | disposition home or self-care (01) ==
PROVIDERS: PCP Family Medicine; Referring Provider Obstetrics & Gynecology; Visit Provider Obstetrics & Gynecology
DX: R10.2 Pelvic and perineal pain (principal)
CPT/HCPCS: 36415; 82670; 83001; 87086

== ENCOUNTER → 2023-09-16 | Outpatient (CLI) | payer BC, OTHER, SELFPAY ==
--- NOTE | 2023-09-16 14:25 | US_ITS ---
INDICATION: pelvic pain EXAMINATION: Ultrasound US Pelvis Non OB Complete With Transvaginal Imaging TECHNIQUE: Transabdominal and transvaginal pelvic ultrasound was performed. Grayscale, spectral waveform, and color flow Doppler evaluation of the adnexa. COMPARISON: Prior study dated: 07/16/2023 FINDINGS: UTERUS: Anteverted and heterogeneous. The uterus measures 7 x 5.3 x 3.9 cm. There are 2 small lesions/fibroids measuring about 9 mm and 5 mm. The endometrial stripe measures 9 mm in AP diameter which is within normal limits. Nabothian cysts are seen in the cervix. RIGHT OVARY: 3.4 x 2.2 x 1.9 cm. Non-enlarged, normal echogenicity prominent follicle measuring about 1.4 cm. There is normal arterial inflow and venous outflow present in the right ovary. LEFT OVARY: 2.6 x 2.1 x 1.6 cm. Prominent follicle measures 1.3 cm. Non-enlarged, normal echogenicity. There is normal arterial inflow and venous outflow present in the left ovary. FREE FLUID: None. US/Pelvic w/ Transvaginal IMPRESSION: 1. Small uterine fibroids. 2. Nabothian cysts in the cervix. Electronically Signed: Ta Canchola MD at 15:35 EDT ,
== END | disposition home or self-care (01) ==
LOC: US 14:25
PROVIDERS: PCP Family Medicine; Referring Provider Obstetrics & Gynecology; Visit Provider Obstetrics & Gynecology
DX: R10.2 Pelvic and perineal pain (principal)
CPT/HCPCS: 76830; 76856

== ENCOUNTER → 2023-12-09 | Outpatient (CLI) | payer BC, OTHER, SELFPAY ==
[2023-12-16 15:08] LABS: HPV APTIMA, High Risk Negative (Negative)
== END | disposition home or self-care (01) ==
LOC: LABSPEC 14:51
PROVIDERS: PCP Family Medicine; Referring Provider Nurse Practitioner Women's Health; Visit Provider Nurse Practitioner Women's Health
DX: Z12.4 Encounter for screening for malignant neoplasm of cervix (principal)
CPT/HCPCS: 87624; 88175; G0145

== ENCOUNTER → 2024-03-25 | Outpatient (CLI) | payer BC, OTHER, SELFPAY ==
--- NOTE | 2024-03-25 12:16 | BI_ITS ---
MAMMOGRAPHY - BILATERAL SCREENING REASON FOR EXAM: Female, 48 years old. Routine annual screening examination. PERTINENT HISTORY: Non-contributory. TECHNIQUE: Digital bilateral breast carmen (3D mammographic acquisition) in the CC and MLO projections. 2-D mediolateral oblique (MLO) and craniocaudad (CC) views of both breasts were obtained. CAD: Full Field Digital Mammography with Computer Added Detection was performed. COMPARISON: Comparison is made with prior study dated December 20, 2022 and December 18, 2021. FINDINGS: Breast Composition: The breasts are extremely dense, which lowers the sensitivity of mammography. There are no dominant masses or suspicious calcifications. No other significant abnormalities are identified. There has been no significant change since the prior study. BI/SCRN MAMM (CAD)W/CARMEN BILAT IMPRESSION: Stable bilateral screening mammogram. Yearly follow-up mammogram recommended. (A) ASSESSMENT CATEGORY: BIRADS Category 1: Negative. A letter regarding these results will be sent to the patient by the facility within 30 days. Approximately 10% of breast cancers are not detected by mammography. A normal mammogram should not delay biopsy of a clinically suspicious abnormality. [id number] Electronically Signed: Sergio Buchanan MD at 12:57 EST ,
== END | disposition home or self-care (01) ==
LOC: OPBI 12:14
PROVIDERS: PCP Family Medicine; Referring Provider Nurse Practitioner Women's Health; Visit Provider Nurse Practitioner Women's Health
DX: Z12.31 Encounter for screening mammogram for malignant neoplasm of breast (principal)
CPT/HCPCS: 77063; 77067

== ENCOUNTER → 2024-04-30 | Outpatient (CLI) | payer BC, OTHER, SELFPAY ==
--- NOTE | 2024-04-30 08:23 | US_ITS ---
EXAM: US Pelvis Transvaginal CLINICAL INDICATION: TECHNIQUE: Real-time transvaginal pelvic ultrasound with image documentation. Transvaginal imaging was used for better evaluation of the endometrium and adnexa. COMPARISON: No relevant prior studies available. FINDINGS: UTERUS/CERVIX: Uterine fibroid measuring up to 1.0 cm. Normal endometrial stripe thickness. The uterus measures 8.3 x 6.0 x 7.7 cm. RIGHT OVARY: Unremarkable. Normal blood flow. The right ovary measures 2.8 x 3.0 x 1.9 cm. LEFT OVARY: Unremarkable. Normal blood flow. The left ovary measures 2.5 x 2.2 x 1.5 cm. FREE FLUID: No free fluid. BLADDER: Empty bladder which cannot be evaluated with this probe. US/Pelvic w/ Transvaginal IMPRESSION: Uterine fibroid. Reading Location: [facility]
== END | disposition home or self-care (01) ==
LOC: OPUS 08:22
PROVIDERS: PCP Family Medicine; Referring Provider Obstetrics & Gynecology; Visit Provider Obstetrics & Gynecology
DX: R10.2 Pelvic and perineal pain (principal); N80.03 Adenomyosis of the uterus
CPT/HCPCS: 76830; 76856

== ENCOUNTER 2024-06-02 16:43 | Observation (INO) | payer BC, OTHER, SELFPAY ==
--- NOTE | 2024-05-25 08:28 | EKG12_ITS ---
Test Reason : PREOP Blood Pressure : */* mmHG Vent. Rate : 71 BPM Atrial Rate : 71 BPM P-R Int : 168 ms QRS Dur : 92 ms QT Int : 390 ms P-R-T Axes : 41 37 27 degrees QTcB Int : 423 ms Normal sinus rhythm with sinus arrhythmia Low voltage QRS Borderline ECG Confirmed by Pepito Calvo ([id number]), loan expeditor DEWAYNE MORAN ([id number]) on 05/25/2024 11:02:11 AM Referred By: Natasha Banegas Confirmed By: Pepito Calvo
--- NOTE | 2024-05-25 12:24 | PAT.ANESEVAL ---
Pre-Assessment Diagnosis/Proposed Procedure Planned Operative Procedure(s): TOTAL VAGINAL HYSTERECTOMY, BILATERAL SALPINGECTOMY Anesthesia History Anesthesia History - senior health consultant: Anesthesia History - senior health consultant Hx Hospitalization No 05/19/24 15:25 Any Problems With Anesthesia No 05/19/24 15:25 Cholinesterase deficiency No 05/19/24 15:25 You/Your Family Experience No 05/19/24 15:25 fever (hyperthermia) with Relationship Recent Exposure to Contagious No 03/13/24 12:50 Disease Does patient have nerve No 05/19/24 15:25 stimulator Patient instructed to have device shut off --Does patient have Pacemaker or ICD? When Was Last Pacemaker Check QUESTION #4 FULL TEXT: You/Your Family Experience fever (hyperthermia) with Anesthesia Last Oral Intake Last Oral intake: Last Oral Intake NPO since Meds taken in AM with sips of water? Meds patient instructed to take am of surgery PONV PONV - senior health consultant: PONV - senior health consultant Female Yes 05/19/24 15:25 HX of Motion Sickness Yes 05/19/24 15:25 HX of N/V After Surgery No 05/19/24 15:25 Non-Smoker Yes 05/19/24 15:25 Duration of Surgery greater Yes 05/19/24 15:25 than 60 minutes Number of Risk Factors 4 05/19/24 15:25 PONV Score Severe Risk 05/19/24 15:25 Height & Weight Height & Weight: Anesthesia: Height & Weight Height 5 ft 5 in 03/13/24 12:50 Respiratory Assessment Respiratory Assessment - senior health consultant: Respiratory Tract Infection Hx - senior health consultant Hx Respiratory Tract Infection No 05/19/24 15:25 STOP Sleep Apnea STOP Sleep Apnea - senior health consultant: STOP Sleep Apnea - senior health consultant Hx Hypertension No 05/19/24 15:25 Hx Sleep Apnea No 05/19/24 15:25 CPAP BIPAP Do you snore loudly (louder No 05/19/24 15:25 than talking or can be heard Do you often feel tired/ No 05/19/24 15:25 fatigued/ sleepy during daytime? Has anyone observed you stop No 05/19/24 15:25 breathing during sleep? STOP Results Negative 05/19/24 15:25 QUESTION #5 FULL TEXT : Do you snore loudly (louder than talking or can be heard through closed doors)? 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 Specify any problems Hx of Preganancy in last 3 No 05/19/24 15:25 Months Nurse Filling Out Transfusion [id number] 05/19/24 15:25 & Questions: Date: 05/19/24 05/19/24 15:25 Time: 15:32 05/19/24 15:25 Patient unable to answer at this time (ie. confused, unrespo /Reproduction History /Reproductive History - senior health consultant: /Reproductive Hx- senior health consultant Hx Now No 05/19/24 15:25 Gestational Age (in weeks): EDC: Hx Hx Para Hx Section SAB No 05/19/24 15:25 PFSH Medical History (Updated 05/25/24 @ 10:[address] Natasha Banegas MD) Wears glasses Thyroid nodule High cholesterol Gastric reflux GERD (gastroesophageal reflux disease) Hyperlipemia Home Medications ?Medication ?Instructions ?Recorded ?Last Taken ?Type Saccharomyces boulardii 250 mg 250 mg PO DAILY 11/28/22 Unknown History capsule (Daily Probiotic (S. boulardii)) naproxen 500 mg tablet 500 mg PO BID PRN pain #30 tabs 10/07/23 Unknown Rx Allergy/AdvReac Type Severity Reaction Status Date / Time No Known Allergies Allergy Verified 05/25/24 09:29 Family History Grandfather Lung cancer Surgical History (Updated 05/25/24 @ 10:[address] Natasha Banegas MD) History of endometrial ablation S/P LEEP (~10/16/18) S/P bunionectomy s/p right hand surgery Social History Smoking Status: Never smoker alcohol intake: never substance use type: does not use caffeine: Yes what type of physical activity do you participate in: other details: crossfit frequency: 5-6 times per week seatbelt use: always do you feel safe at home: Yes additional social history: [employer] employed Patient works [employer] Audit: Pertinent Findings Pertinent Findings EKG Perinent findings: 05/25/2024. Normal sinus rhythm with sinus arrhythmia. 71 bpm. Recommendation Anesthesia Recommendation Anesthesia recommendation: OPTIMIZED for anesthesia
[2024-05-27 12:09] LABS: Hematocrit 43.3 % (37-47); Hemoglobin 14.3 g/dL (12.0-15.0); Mean Corpuscular Hgb 29.4 pg (27.0-32.0); Mean Corpuscular Volume 88.9 fL (81-99); Mean Platelet Vol. 10.6 fl (6.2-12.0); Platelet Count 254 K/mm3 (150-450); RBC Distribution Width CV 12.8 % (11.6-14.6); RBC Distribution Width SD 42.1 fl (35.1-43.9); Red Blood Count 4.87 M/mm3 (4.2-5.4); White Blood Count 6.2 K/mm3 (4.4-11.0)
[2024-05-27 12:54] LABS: Magnesium 2.3 mg/dL (1.5-2.2)
[2024-06-02] VITALS (13 sets, daily range): BP systolic 102–115; BP diastolic 58–83; PULSE 66–105; RESP 14–16; TEMP 36.1–36.9; O2SAT 93–100; BMI 28.2
--- NOTE | 2024-06-02 07:28 | HP.PCM_ITS ---
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 boulardii)) naproxen 500 mg tablet 500 mg PO BID PRN pain #30 tabs 10/07/23 05/25/24 Rx Is last menstrual period known: Yes Last Menstrual Period: 05/18/24 Post menopausal: No Patient : No : No PFSH PFSH Medical History (Updated 05/25/24 @ 10:[address] Natasha Banegas MD) Wears glasses Thyroid nodule High cholesterol Gastric reflux GERD (gastroesophageal reflux disease) Hyperlipemia Surgical History (Updated 05/25/24 @ 10:[address] Natasha Banegas MD) History of endometrial ablation S/P LEEP (~10/16/18) S/P bunionectomy s/p right hand surgery Family History Grandfather Lung cancer Social History Smoking Status: Never smoker alcohol intake: never substance use type: does not use caffeine: Yes what type of physical activity do you participate in: other details: crossfit frequency: 5-6 times per week seatbelt use: always do you feel safe at home: Yes additional social history: [employer] employed Patient works [employer] History 2 Elective abortions Hx Para 2 Spontaneous abortions Hx # Term Pregnancies Ectopic pregnancies Hx # Pregnancies Multiple births # of living children Past Pregnancies Del. Date Name GA/Weeks Outcome Route Bth Weight Gen Labor Lgth Anesthe eric Del Locatn Provider FOB Unknown Kevin-2000 Unknown Keshawn-2002 HPI hyst Details: CIARRA ALBA is a 48 year old who presents for preop visit. she has had persistent lower pelvic pain and irergular bleeding, had an ablationg 5 years ago that worked intiially but now is failing. she hasn't had an EMB but had a repeat pelvic US. discussed hysterecotmy back in september but was waiting to normalize thyroid and see if it helped and it hasn't. Female Reproductive History Last Menstrual Period: 05/18/24 Menopausal Symptoms: No night sweats ROS Const Constitutional: Denies fatigue, night sweats, weight gain or weight loss ENT ENT: Reports system reviewed and no additional complaints, except as documented Cardio Card: Denies chest pain Resp Resp: Denies cough or dyspnea GI GI: Reports as per HPI; Denies abdominal pain, constipation, nausea or vomiting : Denies nipple discharge, urinary frequency, urinary incontinence, urinary hesitancy, urinary urgency, vaginal discharge, vaginal dryness, vaginal odor or vaginal pruritus Musc Musc: Denies arthralgias, back pain or muscle weakness Skin Skin/Breast: Denies alopecia, change in hair, dry skin, breast mass, breast pain, breast skin changes or nipple discharge Neuro Neuro: Reports system reviewed and no additional complaints, except as documented Psych Psych: Reports system reviewed and no additional complaints, except as documented Endo Endo: Denies cold intolerance, excessive sweating, heat intolerance or polydipsia Owen/Lymph Hematologic/Lymphatic: Denies easy bleeding, Denies easy bruising and Denies lymphadenopathy Exam Const General: cooperative, healthy appearing, comfortable, no acute distress and well developed Orientation: alert [facility] Head: normal to inspection and normocephalic Ears: hearing grossly normal bilaterally and external ears normal Nose: external nose normal and nares normal Face and sinus: normal facial exam Neck Neck: normal visual inspection and no lymphadenopathy Thyroid: thyroid normal Chest Chest palpation & inspection: normal inspection of the chest Resp Effort & Inspection: normal respiratory effort Auscultation: clear to auscultation bilaterally Cardio Rate: regular rate Rhythm: regular rhythm Heart Sounds: S1 normal and S2 normal GI Inspection: normal to inspection and non-distended Palpation: soft and no hepatosplenomegaly General: bladder normal to palpation External Female Exam: normal external appearance and normal appearance of the urethra Urethra: normal appearance of the urethra, normal palpation and no discharge Speculum Exam - Vagina: normal appearance of the vagina and normal vaginal discharge Speculum Exam - Cervix: normal appearance of the cervix and nontender Bimanual Exam- Vagina & Uterus: normal bimanual exam, uterine size normal, bladder normal to palpation, uterine shape normal, No tender, uterine mobility normal, consistency normal, normal palpation and non-tender Bimanual Exam- Adnexa, other: normal adnexae, adnexae mobile, no masses and normal Pelvic Support: normal Musc Other: gross motor intact no deficits, full bilateral strength Skin General: no rashes or lesions noted Neuro General: patient alert, patient awake, moves all extremities and no focal motor deficits Motor: muscle tone normal throughout Extrem General: normal to inspection and no pedal edema Psych Appearance: grossly normal Mental Status: mental status grossly normal Affect: normal affect Speech and Movement: speech and movement normal Office Procedures Endometrial Biopsy Endometrial Biopsy Test: Yes Not Applicable Consent Signed: Yes Time out checklist: patient, procedure, site marked/identified, positioning of patient, supplies available, allergies confirmed and team agrees on procedure tenaculum used: No dilator used: No Details: Cervix prepped with betadine and pipelle attempted to be inserted and unable to be completed due to cervical stenosis. patient councseled regarding risk of not having preop emb and will proceed with surgery Results POC Urine Office , Urine Negative Last Edit by Jocelin Mancini on 05/25/24 09:4 1 Coding Level of Care Code Attention Location Manager Diagnoses Pelvic pain R10.2 Adenomyosis N80.03 CPT Codes Endometrial Biopsy (24027) Assessment and Plan Assessment and Plan (1) Pelvic pain: Status: Acute Comment: s/p pelvic US. suspect due to adenomyosis or pelvic congestion, post endometrial ablation. plan NSAIDs/failed. proceed with hysterectomy. unable to do EMB due to to stenosis. (2) Adenomyosis: Status: Acute Comment: discussed options for treatments, having pain, trial of NSAIDs/failed. Wishes to schedule w/ Sm TVHbs. Orders: Orders POC Urine Today Z30.9 - Encounter for contraceptive management, unspecified Endometrial Biopsy Today Plan After discussing the patient's diagnosis and treatment plan options, patient wishes to proceed with surgical management. I have discussed with the patient the risks, benefits, and alternatives of the procedure which include but are not limited to risks of anesthesia, bleeding, infection, possible damage to bowel, bladder, or surrounding vasculature which could lead to additional surgery to evaluate any complications. Patient agrees to procedure and wishes to proceed. ACOG/uptodate references given for additional information regarding procedure.
[2024-06-02] MEDS: Lactated Ringers 1,000 ML 40 ML IV (09:35)
[2024-06-02 09:44] LABS: Internal QC Validated? YES +Cl - CLEAR BKGD; Pregnancy, Urine Negative Negative; Record Kit Lot#,Urine Preg 899023
[2024-06-02] MEDS: Magnesium 1 GM over 15 mins IV (09:45)
[2024-06-02] MEDS: Enoxaparin 40 MG/0.4 ML Syringe SC (09:45)
[2024-06-02] MEDS: Scopolamine 1mg/72hr Patch 1 PATCH TD (09:58)
[2024-06-02] MEDS: Gabapentin 600 MG Tablet PO (09:59)
[2024-06-02] MEDS: Celecoxib 200 MG Capsule 400 MG PO (09:59)
[2024-06-02] MEDS: Acetaminophen 500 MG Tablet 1000 MG PO ×2 (09:59→18:21)
--- NOTE | 2024-06-02 10:10 | PCM.PRE.AN2 ---
ASA Classification* ASA Classification ASA Classification: 2 Assessment & Plan Anesthesia* Anesthesia Assessment Anesthesia Assessment: Discussed sedation and/or anesthesia options, risks, benefits, and alternatives with patient/parents/legal guardian/POA. Questions invited. The patient/parents/legal guardian/POA seems to understand and agrees to proceed with anesthesia plan. Reviewed the physical assessment, medical history, allergy history and patient home medications list prior to surgery/procedure/anesthetic and documented any changes. Performed airway and anesthesia risk assessments. Anesthesia Type Anesthesia Type: General History Source History Obtained from:: Patient and Chart Anesthesia Focused Assessment* Temperature: 98.4 F Pulse Rate: 74 Blood Pressure: 115/78 Respiratory Rate: 16 Pulse Ox: 100 Oxygen Delivery Method: Room Air Airway Assessment Mouth opens: >3 cm Mallampati Score: II Teeth Condition: Intact and Caps/Crowns (x1) Neck Range of motion (ROM): Full ROM Focused Labs Anesthesia Preop lab: CBC WBC 6.2 K/mm3 (4.4-11.0) 05/27/24 08:37 05/27/24 RBC 4.87 M/mm3 (4.2-5.4) 05/27/24 08:37 05/27/24 Hgb 14.3 g/dL (12.0-15.0) 05/27/24 08:37 05/27/24 Hct 43.3 % (37-47) 05/27/24 08:37 05/27/24 Plt Count 254 K/mm3 (150-450) 05/27/24 08:37 05/27/24 CHEMISTRY Potassium 4.0 mmol/L (3.5-5.1) 06/04/23 15:25 06/04/23 Sodium 138 mmol/L (136-145) 06/04/23 15:25 06/04/23 Magnesium 2.3 mg/dL (1.5-2.2) H 05/27/24 08:36 05/27/24 BUN 7 mg/dL (7-18) 06/04/23 15:25 06/04/23 Creatinine 0.97 mg/dL (0.55-1.02) 06/04/23 15:25 06/04/23 Glucose 89 mg/dL (74-106) 06/04/23 15:25 06/04/23 TSH 1.800 uIU/mL (0.300-4.200) 05/27/24 08:37 05/27/24 COAG Urine Test Negative Negative 06/02/24 09:22 06/02/24 Tst Clinic Negative 05/25/24 09:41 05/25/24 Pre-Assessment Diagnosis/Proposed Procedure Planned Operative Procedure(s): TOTAL VAGINAL HYSTERECTOMY, BILATERAL SALPINGECTOMY Anesthesia History 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 When Was Last Pacemaker Check QUESTION #4 FULL TEXT: You/Your Family Experience fever (hyperthermia) with Anesthesia Last Oral Intake Last Oral intake: Last Oral Intake NPO since 07:30 06/02/24 09:30 Meds taken in AM with sips of No 06/02/24 09:30 water? 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 Female Yes 05/19/24 15:25 HX of Motion Sickness Yes 05/19/24 15:25 HX of N/V After Surgery No 05/19/24 15:25 Non-Smoker Yes 05/19/24 15:25 Duration of Surgery greater Yes 05/19/24 15:25 than 60 minutes Number of Risk Factors 4 05/19/24 15:25 PONV Score Severe Risk 05/19/24 15:25 Height & Weight Height & Weight: Anesthesia: Height & Weight Height 5 ft 5 in 06/02/24 09:30 Weight: 77 kg 06/02/24 09:30 Body Mass Index (BMI) 28.2 06/02/24 09:30 Respiratory Assessment Respiratory Assessment - hydraulics teacher: Respiratory Tract Infection Hx - hydraulics teacher Hx Respiratory Tract Infection No 05/19/24 15:25 STOP Sleep Apnea STOP Sleep Apnea - hydraulics teacher: STOP Sleep Apnea - hydraulics teacher Hx Hypertension No 05/19/24 15:25 Hx Sleep Apnea No 05/19/24 15:25 CPAP BIPAP Do you snore loudly (louder No 05/19/24 15:25 than talking or can be heard Do you often feel tired/ No 05/19/24 15:25 fatigued/ sleepy during daytime? Has anyone observed you stop No 05/19/24 15:25 breathing during sleep? STOP Results Negative 05/19/24 15:25 QUESTION #5 FULL TEXT : Do you snore loudly (louder than talking or can be heard through closed doors)? 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 Specify any problems Hx of Preganancy in last 3 No 05/19/24 15:25 Months Nurse Filling Out Transfusion [id number] 05/19/24 15:25 & Questions: Date: 05/19/24 05/19/24 15:25 Time: 15:32 05/19/24 15:25 Patient unable to answer at this time (ie. 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: /Reproductive Hx- hydraulics teacher Hx Now No 05/19/24 15:25 Gestational Age (in weeks): EDC: Hx Hx Para Hx Section SAB No 05/25/24 09:32 Active Medications Active Medications: Current Medications Generic Name Dose Route Start Last Admin Trade Name Freq PRN Reason Stop Dose Admin Acetaminophen 1,000 mg 06/02/24 11:00 06/02/24 09:59 Acetaminophen 500 Mg Tablet PO 06/02/24 11:01 1,000 mg PREOP ONE Administration Celecoxib 400 mg 06/02/24 11:00 06/02/24 09:59 Celecoxib 200 Mg Capsule PO 06/02/24 11:01 400 mg X1 ONE Administration Enoxaparin Sodium 40 mg 06/02/24 11:00 06/02/24 09:45 Enoxaparin 40 Mg/0.4 Ml Syringe SC 06/02/24 11:01 40 mg X1 ONE Administration Gabapentin 600 mg 06/02/24 11:00 06/02/24 09:59 Gabapentin 600 Mg Tablet PO 06/02/24 11:01 600 mg PREOP ONE Administration Lactated Ringer's 1,000 mls @ 40 mls/hr 06/02/24 11:00 06/02/24 09:35 IV 40 mls/hr .Q25H CATHI Administration Cefazolin Sodium 2 gm/ N/A 20 mls @ 400 mls/hr 06/02/24 11:00 IV 06/02/24 11:02 PREOP ONE Magnesium Sulfate 1 gm/ 102 mls @ 408 mls/hr 06/02/24 11:00 06/02/24 09:45 Dextrose IV 06/02/24 11:14 408 mls/hr X1 ONE Administration Insulin Human Lispro 0 unit 06/02/24 11:00 Insulin Lispro 100 Unit/Ml Insuln.Pen SC 06/02/24 18:00 Q4H PRN PRN BG >/= 180, SEE PROTOCOL Protocol Ondansetron HCl 4 mg 06/02/24 11:00 Ondansetron 4 Mg/2 Ml Vial IV 06/02/24 11:01 X1 ONE Scopolamine HBr 1 patch 06/02/24 11:00 06/02/24 09:58 Scopolamine 1mg/72hr Patch TD 06/02/24 11:01 1 mg X1 ONE Administration PFSH Medical History Wears glasses Thyroid nodule High cholesterol Gastric reflux GERD (gastroesophageal reflux disease) Hyperlipemia Home Medications ?Medication ?Instructions ?Recorded ?Last Taken ?Type Saccharomyces boulardii 250 mg 250 mg PO DAILY 11/28/22 Unknown History capsule (Daily Probiotic (S. boulardii)) naproxen 500 mg tablet 500 mg PO BID PRN pain #30 tabs 10/07/23 05/31/24 Rx Allergy/AdvReac Type Severity Reaction Status Date / Time No Known Allergies Allergy Verified 06/02/24 09:45 Family History Grandfather Lung cancer Surgical History History of endometrial ablation S/P LEEP (~10/16/18) S/P bunionectomy s/p right hand surgery Social History Smoking Status: Never smoker alcohol intake: never substance use type: does not use caffeine: Yes what type of physical activity do you participate in: other details: crossfit frequency: 5-6 times per week seatbelt use: always do you feel safe at home: Yes additional social history: [employer] employed Patient works [employer] Addt'l Information Additional Findings: EKG: NSR with sinus arrhythmia Review of Systems (Anesthesia) ROS Narrative System reviewed and no additional complaints, except as documented. Physical Exam Const alert, oriented x3 and average body habitus Resp normal respiratory effort, normal air movement and clear to auscultation bilaterally Cardio regular rate, regular rhythm, no murmurs and diaphoretic
--- NOTE | 2024-06-02 11:00 | HYST_PTH ---
PATIENT: CIARRA ALBA LOC: MS3 U#:[id number] AGE/SX: 48/F ROOM: [facility] [place]02/[address]: Dr. Natasha Banegas MD : 1975 BED: 1 DIS: 06/03/2024 SPEC #: [id number] RECD: 06/03/24 09:13 STATUS: CHRISTINA GILBERT #: [id number] DELTA: 06/02/24 11:[address]: Natasha Banegas DEPT: SURGICAL PATHOLOGY RECD BY: Elie Nielson ENTERED: 06/03/24 09:13 SP TYPE: HYSTERECT OTHR DR: Katja Baron MD Tissues: A - Uterus, NOS Procedures: Surgery Specimen Level V HEADER OPERATION: ERAS, total vaginal hysterectomy converted to laparoscopic PRE-OP DIAGNOSIS: Pelvic pain, adenomyosis, adhesions TISSUE SUBMITTED: A- Uterus, cervix, bilateral fallopian tubes MICROSCOPIC DIAGNOSIS Uterus, cervix, and bilateral fallopian tubes, hysterectomy:Cervix: Nabothian cysts Chronic cervicitis and squamous metaplasiaEndometrium: Basal to secretory endometriumMyometrium: LeiomyomaBilateral fallopian tubes: 2 completely transected fallopian tubes 1 with cystic Lamine's nests Lauren Owens MD, 06/15/24 MICROSCOPIC DESCRIPTION Slides are reviewed. GROSS DESCRIPTION A. Received in fixative is one container labeled with the patient's name and designated Uterus, cervix, bilateral fallopian tubes. The specimen consists of one uterus and detached fallopian tubes weighing 126.5gm. One fallopian tube measures 4cm in length and 0.6cm in diameter. The second fallopian tube measures 4.5cm in length and 0.8cm in diameter. The uterus is 10cm in height, 6cm in width and 4.5cm in depth. The ectocervix measures 3.9 x 4cm. The os is 1.2 x 0.6cm. The uterus does not appear to be distorted by leiomyomata. The posterior uterine wall contains one small leiomyoma measuring 0.7 x 0.6 x 1cm. The entire uterine wall is 2.8cm in thickness. The endometrium appears to be 0.3cm of that total distance. Racing Secretary sections are submitted as follows: A1- anterior cervix A2- posterior cervix A3- anterior uterine wall A4- anterior uterine wall A5- anterior uterine wall A6-posterior uterine wall A7- posterior uterine wall A8- posterior uterine wall A9- one fallopian tube A10- second fallopian tube JS.mr 06/03/2024 CPT:88794, TC:4
[2024-06-02] MEDS: Cefazolin 2 GM in Syringe 10 ML IV (12:05)
[2024-06-02] MEDS: Vasopressin 20 UNITS/ML Vial (12:45)
[2024-06-02] MEDS: Bupivacaine 0.25% 30 ML Vial (16:25)
--- NOTE | 2024-06-02 16:39 | RAD_ITS ---
PROCEDURE: PELVIS 1 OR 2 VIEWS 06/02/2024 REASON FOR EXAM: CLOSING COUNT DISCREPANCY TECHNIQUE: 1 view(s) of the pelvis. FINDINGS: Hardware: No radiopaque density is demonstrated. Bones: Unremarkable Joints: Normal alignment at the hips and sacroiliac joints. soft tissues: Soft tissues are unremarkable. Other: RAD/Pelvis 1 or 2 Views IMPRESSION: No radiopaque density is demonstrated. Reading Location: [facility]
--- NOTE | 2024-06-02 16:56 | PCM.POST.ANE ---
Anesthesia: Postop Eval I Current Vital Signs Temperature: 97 F Pulse Rate: 85 Blood Pressure: 106/62 Respiratory Rate: 16 Pulse Ox: 93 Assessment Airway patent: Yes Spontaneous unlabored respirations: Yes nausea: No Vomiting: No Anesthesia Complication: No Fluid Hydration Crystalloid volume administer (ml): 2,800 Total IV fluid infused: 2,800 Progress Note Anesthesia document: Postop Eval 1 completed: Yes
--- NOTE | 2024-06-02 17:00 | PCM.OPRPT ---
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 Yield Improvement Engineer: Ventura Tucker Tasks completed by certified surgical tech/first assistant: Opening & closing, Trocar and Retracting Additional home based assistant?: No Type of Anesthesia: General RN Documented Start/Stop Times: Operation Date: 06/02/24 11:00 Case Time Into Pre-Op 06/02/24 09:02 Out of Pre-Op 06/02/24 11:56 Anesthesia Start 06/02/24 12:05 Into Room 06/02/24 12:05 Procedure Start 06/02/24 12:32 Procedure End 06/02/24 16:35 Anesthesia End 06/02/24 16:51 Out of Room 06/02/24 16:51 Into Recovery 06/02/24 16:55 Out of Recovery 06/02/24 17:58 Procedure Start Time: 12:32 Procedure Stop Time: 06:35 Select all DRAINS/GRAFTS/IMPLANTS that apply: None Estimated Blood Loss: 500 Fluids Replaced: crystalloid Specimen collected: Yes Description of specimen(s) removed: uterus tubes Description of surgery: Patient received preoperative antibiotics and SCDs were on preoperatively. Patient was taken back to the operating room and placed in the dorsal lithotomy position. General anesthesia was induced and patient was prepped and draped in normal sterile fashion. Haskins catheter placed in the bladder. Cervix was grasped with Archie clamps and circumferential incision was made after injecting with dilute vasopressin. The vaginal mucosa was dissected off of the cervix anteriorly and posteriorly. It was attempted to enter and posteriorly but dense tissue was encountered therefore anterior dissection was completed which was easy to enter and the anterior cul-de-sac was entered without complication. Attention was then paid to the posterior cul-de-sac which continued sharp dissection was made but was unable to be entered and therefore the first bite was taken bilaterally with the uterosacrals clamped cut and suture-ligated. Additional dissection hugging the uterus posteriorly to perform sharp dissection was performed and eventually entry was made into the posterior cul-de-sac and was evident that there were dense adhesions from the posterior cul-de-sac to the posterior uterine corpus with obliteration of the cul-de-sac. These were able to be swept down digitally and a endometriosis inclusion cyst was seen on the posterior wall of the uterus that was ruptured at this time is also noted that some of the pararectal space had been opened up although no bowel injury or compromise was seen. At this time due to the amount of scarring and the length of the surgery still yet to remain the decision was made to convert to laparoscopy. The bulb was placed in the vagina to maintain pneumoperitoneum. Drape was removed and the patient was prepped and draped in the normal sterile fashion for a laparoscopic procedure. The umbilicus was grasped with towel clamps and an intraumbilical incision was made after injecting with quarter percent Marcaine and a Veress needle entered into the abdomen confirmed to be intra-abdominal with a low opening pressure. Abdomen was insufflated with CO2 gas and the Veress needle removed and the 5 mm trocar was placed under direct visualization without complication. Right and left lower quadrants were transilluminated and injected with quarter percent Marcaine and 5 mm ports placed under direct visualization. Additional suprapubic port was placed to provide uterine manipulation since the uterine manipulator was unable to be placed. Additional rectosigmoid to uterine posterior wall adhesions were noted and taken down with the LigaSure. The pararectal space was inspected and no obvious signs of injury noted however the decision to consult general surgery for their opinion was also made. Dr Perdomo called and observed surgery and didn't see any areas of concern. He supervised the dissection of the posterior cul de sac and then stated he would return at the end of the procedure to evaluate. Bilateral fallopian tubes were transected across the mesosalpinx and the bilateral utero-ovarian ligaments were transected with the LigaSure. Broad ligament opened up and uterine arteries ligated with the LigaSure bilaterally. Additional dissection to meet the previous anterior colpotomy made. Additional scar tissue taken down and the left sigmoid to left anterior abdominal wall scar tissue taken down. Attention was then paid again to the vaginal portion of the procedure which 1 pedicle was clamped and cut bilaterally to separate the uterus from the pelvic sidewall bilaterally which was clamped cut and suture-ligated with 0 Monocryl and 0 Vicryl. Additional sutures were used to obtain hemostasis along the vaginal cuff due to increased pelvic vasculature. Good visualization after the uterus was removed was seen of the cul-de-sac and area of dissection where the scar tissue had been noted. The posterior vaginal mucosa was reapproximated with 3-0 Vicryl Rapide. The area of the dissection in the cul-de-sac was oversewn and connected to the cuff to obtain hemostasis. Heema blast had been placed over the area prior to this closure. Vaginal cuff closed with [id number] Vicryl sutures. Attention was then paid back to the abdominal portion of the procedure. Pelvis and cul-de-sac well-visualized and noted to be hemostatic. Right ovary had some bleeding which was cauterized for hemostasis. Dr Perdomo returned and observed then laparoscopically and approved of the cuff closure and reapproximation of the cul-de-sac. He filled the sigmoid colon with air as I looked laparoscopically and filled the lower pelvis with fluid and no air bubbles were seen so integrity of the bowel was confirmed. Fluid removed and pressure was taken down and the areas visualized and noted of excellent hemostasis. All ports were removed under direct visualization without complication and the abdomen was desufflated of air. The instruments removed from the abdomen and the vagina vaginal sweep was negative. Port sites on the abdomen were closed with 4-0 Monocryl interrupted sutures and Steri's and windows were applied. She was awoken and taken recovery in stable condition. Surgical Findings: obliteration of the cul de sac, endometriosis, sigmoid colon adhesions. Complications Complications: Yes Complication Details: unexpected adhesions, conversion to LAVH, adhesiolysis over 2 hours
[2024-06-02 17:19] LABS: Absolute Lymphocyte Count 1.01 X10^3/uL (0.83-4.51); Absolute Neutrophil Count 12.4 X10^3/uL (2.0-7.7); Basophil# 0.03 X10^3/uL; Basophil% 0.2 % (0-1); Hematocrit 37.2 % (37-47); Hemoglobin 12.6 g/dL (12.0-15.0); Lymphocyte # 1.01 X10^3/ul (0.83-4.51); Lymphocyte % 7.4 % (19-41); Mean Corp Hgb Conc 33.9 g/dL (32-36); Mean Corpuscular Hgb 29.9 pg (27.0-32.0); Mean Corpuscular Volume 88.4 fL (81-99); Mean Platelet Vol. 10.1 fl (6.2-12.0); Monocyte# 0.25 X10^3/uL; Monocyte% 1.8 % (0-10); NRBC Flagged by Analyzer 0 % (0-5); Neutrophil # 12.39 X10^3/uL (2.7-7.7); Neutrophil % 90.4 % (47-70); Platelet Count 189 K/mm3 (150-450); RBC Distribution Width CV 12.8 % (11.6-14.6); RBC Distribution Width SD 40.9 fl (35.1-43.9); Red Blood Count 4.21 M/mm3 (4.2-5.4); White Blood Count 13.7 K/mm3 (4.4-11.0)
--- NOTE | 2024-06-02 17:47 | POSTOPAN2_ITS ---
Anesthesia Postop Eval I Sum Postop Eval Completion status Anesthesia document: Postop Eval 1 completed: Yes Anesthesia Postop Eval I Summary Anesthesia Postop Eval I Summary: Anesthesia Postop Eval I: Assessment Summary Airway patent Yes 06/02/24 16:56 AEGIS CONSOLE OPERATOR [email or web address] Spontaneous unlabored Yes 06/02/24 16:56 AEGIS CONSOLE OPERATOR [email or web address] respirations Mental status nausea No 06/02/24 16:56 AEGIS CONSOLE OPERATOR [email or web address] Vomiting No 06/02/24 16:56 AEGIS CONSOLE OPERATOR [email or web address] Anesthesia Postop Eval I: Fluid Summary Crystalloid volume administer 2,800 06/02/24 16:56 AEGIS CONSOLE OPERATOR [email or web address] (ml) Colloids volume administered ( ml) Blood Product volume administered (ml) Total IV fluid infused 2,800 06/02/24 16:56 AEGIS CONSOLE OPERATOR [email or web address] Anesthesia Postop Eval I: Summary Notes Anesthesia Complication No 06/02/24 16:56 AEGIS CONSOLE OPERATOR [email or web address] Anesthesia Complication Comment: Post-operative progress note Anesthesia: Postop Eval II Evaluation Mental status: Awake and Calm Pain Level: 0 nausea: No Vomiting: No
--- NOTE | 2024-06-02 17:47 | PCM.POSTANE2 ---
Anesthesia Postop Eval I Sum Postop Eval Completion status Anesthesia document: Postop Eval 1 completed: Yes Anesthesia Postop Eval I Summary Anesthesia Postop Eval I Summary: Anesthesia Postop Eval I: Assessment Summary Airway patent Yes 06/02/24 16:56 BENCH LAY OUT [email or web address] Spontaneous unlabored Yes 06/02/24 16:56 BENCH LAY OUT [email or web address].[email or web address] respirations Mental status nausea No 06/02/24 16:56 BENCH LAY OUT [email or web address].[email or web address] Vomiting No 06/02/24 16:56 BENCH LAY OUT [email or web address] Anesthesia Postop Eval I: Fluid Summary Crystalloid volume administer 2,800 06/02/24 16:56 BENCH LAY OUT [email or web address].CSIR (ml) Colloids volume administered ( ml) Blood Product volume administered (ml) Total IV fluid infused 2,800 06/02/24 16:56 BENCH LAY OUT [email or web address] Anesthesia Postop Eval I: Summary Notes Anesthesia Complication No 06/02/24 16:56 BENCH LAY OUT [email or web address].[email or web address] Anesthesia Complication Comment: Post-operative progress note Anesthesia: Postop Eval II Evaluation Mental status: Awake and Calm Pain Level: 0 nausea: No Vomiting: No
[2024-06-02] MEDS: Ketorolac 30 MG/ML Syringe IV (18:21)
[2024-06-02] MEDS: Lactated Ringers 1,000 ML 70 ML IV (18:24)
--- NOTE | 2024-06-02 18:52 | DCINST_ITS ---
Discharge Instructions Diet Discharge Diet: No restrictions DC O2, CPAP, BIPAP needs Home O2 Discharge instructions: No Dressing / Incision May resume sexual activity in: 6 weeks Weight Bearing Status: Full weight bearing Dressing / Incision Call your doctor if your incision/area has: Continuous Slow Oozing, Sudden Increased Bleeding, Increased Pain/ Swelling, Increased Redness and Foul Smelling Discharge Call your doctor if you observe: Fever of 101 or Higher, Using more than 1 pad per hour, Shortness of breath, Chest pain and Uncontrolled pain Suture Line Care: Avoid Pulling/Pushing and Avoid Pinching/Bending Remove Dressing in: 1 week (if present) Cleanse incision/area with: Soap & Water and Keep Dressing Clean & Dry Follow Up Care Please Follow Up With: Natasha Banegas MD When: Call to make an appointment with your doctor for a postop visit in 2 and 6 weeks. Test Results: Test results from this visit will be discussed in further detail at your follow- up appointment, if applicable. Discharge Plan Admission Admit Date/Time: 06/02/24 16:43 Attending Provider: Natasha Banegas Primary Care Provider: Katja Baron Discharge Orders/Prescriptions Prescriptions: New oxycodone-acetaminophen [Percocet] 5-325 mg tablet 1 tab PO Q4H PRN (Reason: pain) 7 Days Qty: 20 0RF naproxen 500 mg tablet 500 mg PO BID PRN PRN (Reason: Pain) Qty: 30 1RF No Action Saccharomyces boulardii [Daily Probiotic (S. boulardii)] 250 mg capsule 250 mg PO DAILY naproxen 500 mg tablet 500 mg PO BID PRN (Reason: pain) Qty: 30 2RF Rx Instructions: administer with food or milk Other Ambulatory Orders: 12 Lead EKG (Routine) Timeframe: [id number] Location: None Selected Ordered By: Dr. Natasha Banegas Referrals / Follow Up: Katja Baron MD [Primary Care Provider] - Disposition Disposition (needs filled in before D/C Order can be placed): Home, Self Care
[2024-06-02] MEDS: Cefazolin 2 GM in Syringe IV (19:45)
[2024-06-02] MEDS: oxyCODONE 5 MG Tablet PO (20:03)
[2024-06-02] MEDS: Docusate Sodium 100 MG Capsule PO (21:09)
[2024-06-03] VITALS (9 sets, daily range): BP systolic 102–120; BP diastolic 59–78; PULSE 74–100; RESP 16–18; TEMP 36.7–37.1; O2SAT 94–98
[2024-06-03] MEDS: Cefazolin 2 GM in Syringe IV ×3 (00:11→11:44)
[2024-06-03] MEDS: Acetaminophen 500 MG Tablet 1000 MG PO ×3 (00:18→11:43)
[2024-06-03] MEDS: Ketorolac 30 MG/ML Syringe IV ×3 (00:18→11:43)
[2024-06-03] MEDS: 0.9% Saline Lock 10 ML Syringe IV ×2 (00:44→06:28)
[2024-06-03] MEDS: oxyCODONE 5 MG Tablet PO (04:38)
--- NOTE | 2024-06-03 06:42 | NURSING ---
pt sat on the edge of the bed. pt felt dizzy. she states the longer she sits the better she feels, but she didn't feel like she would be able to stand. removed scope patch.
--- NOTE | 2024-06-03 07:16 | PN.OBGYN_ITS ---
Subjective Subjective Patient doing well without complaints. Tolerating PO. hasn't ambulated yet was feeling dizzy- will get up more today. Denies chest pain, shortness of breath, calf pain/swelling, fevers, chills. Objective Data Objective Data Vital Signs: Vital Signs Temp Pulse Resp BP Pulse Ox O2 Del Method O2 Flow Rate 98.7 F 86 16 102/61 94 Room Air 2 06/03/24 04:32 06/03/24 06:37 06/03/24 04:32 06/03/24 06:37 06/03/24 04:32 06/03/24 06:37 06/03/24 00:15 Oxygen Flow Rate (L/min) 2 Oxygen Delivery Method Room Air Weight: 169 lb 12.095 oz Body Mass Index (BMI) 28.2 Intake & Output: Intake and Output for Last 24 Hours 06/01/24 06/02/24 06/03/24 23:59 23:59 23:59 Intake Total 2512.67 / 2512.67 40 / 40 Output Total 600 / 1050 1300 / 1300 Balance 1912.67 / 1462.67 -1260 / -1260 Lab / Micro Data 06/02/24 17:14 Labs: Laboratory Results - last 24 hr 06/02/24 09:22: Urine Test Negative 06/02/24 17:14: WBC 13.7 H, RBC 4.21, Hgb 12.6, Hct 37.2, MCV 88.4, MCH 29.9, MCHC 33.9, RDW Std Deviation 40.9, RDW Coeff of Brittany 12.8, Plt Count 189, MPV 10.1, Immature Gran % (Auto) 0.200, Neut % (Auto) 90.4 H, Lymph % (Auto) 7.4 L, Churchill % (Auto) 1.8, Eos % (Auto) 0.0, Baso % (Auto) 0.2, Absolute Neuts (auto) 12.4 H, Absolute Lymphs (auto) 1.01, Nucleated RBC % 0 Radiography Diagnostic Testing: Radiology Impression Pelvis X-Ray 06/02/24 16:39 IMPRESSION: No radiopaque density is demonstrated. Reading Location: [facility] Constitutional Constitutional: Reports systems reviewed and no addt'l complaints, except as documented Cardiovascular Cardiovascular: Reports systems reviewed and no addt'l complaints, except as documented Respiratory/Chest Respiratory/Chest: Reports systems reviewed and no addt'l complaints, except as documented Gastrointestinal Gastrointestinal: Reports systems reviewed and no addt'l complaints, except as documented Physical Exam Const alert, oriented x3 and no apparent distress HEENT Head and Scalp: atraumatic Resp normal respiratory effort GI soft to palpation and non-tender Assessment & Plan (1) Status post bilateral salpingectomy: (2) S/P laparoscopic assisted vaginal hysterectomy (LAVH): (3) Pelvic adhesions: (4) Endometriosis: PLAN: Plan patient is s/p lavhbs pelvic adhesions POD 1 1. routine ERAS protocol postop care- increase ambulation, encourage oral intake and oral control of pain. lovenox and scds for dvt prophylaxis, once meeting all criteria patient will be stable for discharge to home.
[2024-06-03 07:17] LABS: Hematocrit 33.7 % (37-47); Hemoglobin 11.4 g/dL (12.0-15.0); Mean Corp Hgb Conc 33.8 g/dL (32-36); Mean Corpuscular Hgb 29.8 pg (27.0-32.0); Mean Corpuscular Volume 88.2 fL (81-99); Mean Platelet Vol. 10.7 fl (6.2-12.0); Platelet Count 202 K/mm3 (150-450); Red Blood Count 3.82 M/mm3 (4.2-5.4); White Blood Count 13.6 K/mm3 (4.4-11.0)
[2024-06-03] MEDS: Ensure Plus High Protein 120 ML LIQUID PO ×2 (08:24→11:44)
[2024-06-03] MEDS: Lactated Ringers 1,000 ML 70 ML IV (08:24)
[2024-06-03] MEDS: Docusate Sodium 100 MG Capsule PO (11:49)
[2024-06-03] MEDS: Enoxaparin 40 MG/0.4 ML Syringe SC (11:49)
--- NOTE | 2024-06-03 14:32 | PHA.DC_ITS ---
Pharmacy [facility] has performed discharge medication reconciliation and counseling for this patient. 1. OXYCODONE/ACETAMINOPHEN 5/325MG 1T PO Q4H PRN PAIN 2. NAPROXEN 500MG PO BID PRN PAIN The patient's discharge medication list was reviewed for discrepancies and discrepancies were resolved. The patient was counseled on the following discharge medications and changes in medications for homegoing were reviewed. The Reason for Use, instructions for use, and potential side effects were reviewed for all new medications. The patient's questions regarding all of their medications were answered. The patient was able to verbally demonstrate an understanding of their discharge medications. Medications at Discharge Home Medications Saccharomyces boulardii 250 mg capsule (Daily Probiotic (S. boulardii)) 250 mg PO DAILY 11/28/22 naproxen 500 mg tablet 500 mg PO BID PRN PRN Pain #30 tabs 06/02/24 oxycodone-acetaminophen 5 mg-325 mg tablet (Percocet) 1 tab PO Q4H PRN pain 7 days #20 tabs 06/02/24
[2024-06-03] MEDS: Ondansetron ODT 4 MG Tablet PO (15:27)
== END 2024-06-03 15:40 | disposition home or self-care (01) ==
LOC: SDC 18:04 → MS3 18:04
PROVIDERS: Anesthesiology; Admitting Provider Obstetrics & Gynecology; PCP Family Medicine; Referring Provider Obstetrics & Gynecology; Visit Provider Obstetrics & Gynecology
PROC: (CPT 58260; principal; 2024-06-02 10:40)
DX: N80.03 Adenomyosis of the uterus (principal); E78.00 Pure hypercholesterolemia, unspecified; N73.6 Female pelvic peritoneal adhesions (postinfective); K21.9 Gastro-esophageal reflux disease without esophagitis; Z79.899 Other long term (current) drug therapy
CPT/HCPCS: 58552; 00840; 36415; 72170; 81025; 83735; 84443; 85025; 85027; 86850; 86900; 86901; 88307; 93005; 94668; 96365; 96372; 96375; 96376; 99221; A4216; G0378; J2405; J3475

== ENCOUNTER → 2024-11-03 | Outpatient (CLI) | payer BC, OTHER, SELFPAY ==
[2024-11-06 08:09] LABS: Immunoglobulin A 241 mg/dL (87-352)
== END | disposition home or self-care (01) ==
LOC: MFPLAB 16:39
PROVIDERS: PCP Family Medicine; Referring Provider Family Medicine; Visit Provider Family Medicine
DX: K29.70 Gastritis, unspecified, without bleeding (principal)
CPT/HCPCS: 36415; 82784; 83516; 86003; 86005; 86255

== ENCOUNTER → 2024-11-13 | Outpatient (CLI) | payer BC, OTHER, SELFPAY ==
--- NOTE | 2024-11-13 07:11 | US_ITS ---
PROCEDURE: GALLBLADDER 11/13/2024 REASON FOR EXAM: EPIGASTRIC PAIN COMPARISON: None FINDINGS: Liver: Diffusely echogenic suggesting fatty infiltration. Liver measures 17.1 cm. Gallbladder: No stones, sludge, wall thickening or tenderness. Common bile duct: Normal measuring 3 mm. . Pancreas: Normal Other: Findings suggestive of a 7 mm x 7 mm x 6 mm echogenic nodule in the superior pole of the right kidney. This may represent an angiomyolipoma. US/Gallbladder IMPRESSION: Fatty infiltration of the liver. 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 Reading Location: [facility]
--- OUTSIDE RECORDS SUMMARY | 2024-11-13 07:26 | XMS RPT_ITS | CCD ---
Author Organization [facility] Care Team Providers Care Inspector Wire Products Name Role Phone Jon CARTER, Steve Mccullough Unavailable Dr. Claribel Smart Primary Care Provider [phone] Dr. Claribel Smart Attending Provider [phone] Dr. Claribel Smart Referring Provider [phone] Dr. Claribel Smart Primary Care Provider [phone] Dr. Claribel Smart Attending Provider [phone] Dr. Claribel Smart Referring Provider [phone] Pamela Marques Attending Provider Unavailable Dr. Calos Mcgill Attending Provider Dr. Calos Mcgill Other Provider Dr. Claribel Smart Primary Care Provider [phone] Dr. Claribel Smart Referring Provider [phone] DO Abi Jefferson Primary Care Provider DO Abi Jefferson Referring Provider Piter COATER HELPER, COATER HELPER-C Jocelin Attending Provider [phone] Dr. Natasha Banegas Attending Provider Unavailable Primary Care Provider Unavailabl e IZZY, JESUSITA Referring Unavailable IZZY, JESUSITA Admitting Unavailable JESUSITA MAGANA Attending Unavailable Katja Baron MD Primary Care Provider [phone] Piter COATER HELPER-C, Jocelin Attending Provider [phone] Piter COATER HELPER-C, Jocelin Referring Provider [phone] Makenzie CARTER, Dr. Kaur Attending Provider Dr. Natasha Banegas MD Referring Provider Katja Baron MD Referring Provider [phone] Makenzie CARTER, Dr. Kaur Other Provider [phone] Makenzie CARTER, Dr. Kaur Admit Provider [phone] DINORA OGLESBY Referring Unavailable IZZY, JESUSITA Attending Unavailable IZZY, JESUSITA Attending Unavailable EL PRASANTH, NAGA Attending Unavailable EL PRASANTH, NAGA Referring Unavailable EL PRASANTH, NAGA Attending Unavailable EL PRASANTH, NAGA Referring Unavailable IZZY, JESUSITA Attending Unavailable Tod CARTER, Katja Primary Care Provider Tod CARTER, Katja Referring Provider [phone] Makenzie CARTER, Dr. Kaur Attending Provider [phone] Katja Baron MD Attending Provider Dr. Calos Mcgill MD Attending Provider Tod, Chalon Primary Care Unavailable Marcanthony, Natasha Referring Unavailable Marcanthony, Natasha Attending Unavailable Tod, Chalon Primary Care Unavailable Tod, Chalon Referring Unavailable Tod, Chalon Attending Unavailable Tod, Chalon Primary Care Unavailable Marcanthony, Natasha Admitting Unavailable Marcanthony, Natasha Referring Unavailable Marcanthony, Natasha Attending Unavailable Tod, Chalon Primary Care Unavailable Calabretta, Calos Referring Unavailable Calabretta, Calos Attending Unavailable Tod, Chalon Primary Care Unavailable Marcanthony, Natasha Consulting Unavailable Marcanthony, Natasha Referring Unavailable Marcanthony, Natasha Attending Unavailable Tod, Chalon Primary Care Unavailable Marcanthony, Natasha Consulting Unavailable Marcanthony, Natasha Admitting Unavailable Marcanthony, Natasha Referring Unavailable Marcanthony, Natasha Attending Unavailable Tod, Chalon Primary Care Unavailable Tod, Chalon Referring Unavailable Marcanthony, Natasha Attending Unavailable Tod, Chalon Primary Care Unavailable Tod, Chalon Referring Unavailable Antabrheike, Calos Attending Unavailable Alma COATER HELPER, Jocelin Attending Unavailable Tod, Chalon Primary Care Unavailable Abi Jefferson Referring Unavailable Tod, Chalon Primary Care Unavailable Tod, Chalon Referring Unavailable Natasha Banegas Attending Unavailable Tod, Chalon Primary Care Unavailable Tod, Chalon Referring Unavailable Natasha Banegas Attending Unavailable Tod, Chalon Primary Care Unavailable Sailors, Juan Referring Unavailable Sailors, Juan Attending Unavailable Tod, Chalon Primary Care Unavailable Calos Mcgill Attending Unavailable Alma COATER HELPER, Jocelin Attending Unavailable Tod, Chalon Primary Care Unavailable Piter COATER HELPER, Jocelin Referring Unavailable Alma COATER HELPER, Jocelin Attending Unavailable Tod, Chalon Primary Care Unavailable Piter COATER HELPER, Jocelin Referring Unavailable Medications Current Medications Medication Drug Class(es) Dates Sig (Normalized) Sig (Original) azithromycin 250 mg oral tablet (6 sources) Macrolide Antimicrobial Start: 07-02-2014 End: 04-27-2024 azithromycin (ZITHROMAX Z-LEE) 250 mg tablet Take 2 tablets by mouth day one, then 1 tablet daily until gone. 1 Package 0 07/02/2014 04/27/2024 Discontinued pantoprazole 40 mg delayed release oral tablet (4 sources) Proton Pump Inhibitor Start: 07-23-2024 take 1 tablet by mouth once daily Pantoprazole 40 mg tablet,delayed release (DR/EC) Active 40 mg PO daily November 10, 2024 12:00am Sucralfate (1 source) Aluminum Complex Start: 11-10-2024 take 1 tablet by mouth four times daily Sucralfate 1 gram tablet Active 1 g PO 4 TIMES DAILY November 10, 2024 12:00am Completed/Discontinued Medications Medication Drug Class(es) Dates Sig (Normalized) Sig (Original) acetaminophen 325 mg / oxyCODONE hydrochloride 5 mg oral tablet (3 sources) Opioid Agonist Start: 06-02-2024 End: 06-15-2024 Oxycodone-Acetamino phen (Percocet) 5-325 mg tablet Discontinued 1 {tbl} PO Q4H as needed for pain 20 7 0 June 02, 2024 June 15, 2024 10:59am Status post laparoscopy-assiste d vaginal hysterectomy Acquired absence of both cervix and uterus Lucas Carter (12 sources) Start: 03-01-2022 End: 11-28-2022 Cholest Md Discontinued 2 {tbl} SL/PO DAILY March 01, 2022 1:00am November 28, 2022 3:06pm Start: 03-01-2022 End: 11-28-2022 take 2 tablets by mouth once daily Cholest Md Discontinued 2 TABLET SL/PO DAILY March 01, 2022 1:00am November 28, 2022 3:06pm Start: 03-01-2022 End: 11-28-2022 take 2 tablets by mouth once daily Cholest Md Discontinued 2 TABLET SL/PO DAILY March 01, 2022 12:00am November 28, 2022 2:06pm Start: 03-01-2022 take 2 tablets by mo uth once daily Cholest Md Active 2 TABLET SL/PO DAILY March 01, 2022 1:00am Start: 03-01-2022 take 2 tablets by mo uth once daily Cholest Md Active 2 TABLET SL/PO DAILY March 01, 2022 12:00am Dhlcunro-Xzddmgshi-Suhxzqitp rn (3 sources) Start: 08-04-2023 End: 10-07-2023 Ohzbhuip-Mvknbljpp-Ttbpkeuxw rn ([facility]) 300-1-0.5mg(AM) /300 mg(PM) capsule, sequential Discontinued 0 PO .COMPLEX 56 August 04, 2023 12:00am October 07, 2023 4:32pm take 1 YELLOW (multi-ingredient) capsule each morning; take 1 BLUE (elagolix) capsule each evening PO Start: 08-04-2023 End: 10-07-2023 Ofccmmot-Fvdceeswu-Pbjvpycuj rn ([facility]) 300-1-0.5mg(AM) /300 mg(PM) capsule, sequential Discontinued 0 PO .COMPLEX 56 August 04, 2023 12:00am October 07, 2023 4:32pm take 1 YELLOW (multi-ingredient) capsule each morning; take 1 BLUE (elagolix) capsule each evening PO fluconazole 150 mg oral tablet (5 sources) Azole Antifungal Start: 07-23-2023 End: 12-09-2023 Fluconazole 150 mg tablet Discontinued 150 mg PO .COMPLEX 2 0 July 23, 2023 12:00am December 09, 2023 1:32pm 150 mg PO now and in 72 hours gemfibrozil 600 mg oral tablet (20 sources) Peroxisome Proliferator Receptor alpha Agonist Start: 11-06-2021 End: 11-28-2022 take 1 tablet by mouth once daily Gemfibrozil 600 mg tablet Discontinued 600 mg PO DAILY November 06, 2021 8:07am November 28, 2022 3:06pm Start: 12-28-2019 End: 11-06-2021 take 1 tablet by mouth twice daily Gemfibrozil 600 mg tablet Discontinued 600 mg PO TWICE A DAY 120 July 19, 2021 10:28am November 06, 2021 8:07am take 1 tablet by mabel th once daily GEMFIBROZIL 600 MG TABS 1 tablet by mouth once a day gemfibrozil [id number] Elza Ziats AT hydrocortisone 25 mg/ml topical cream (20 sources) Corticosteroid Start: 05-16-2021 End: 11-28-2022 Hydrocortisone 2.5 % cream with perineal applicator Discontinued 1 NMA RC 1 to 2 times per day as needed for hemorrhoids 30 2 May 16, 2021 11:38am November 28, 2022 3:06pm Start: 10-19-2019 End: 11-28-2022 Hydrocortisone 2.5 % cream w ith perineal applicator Discontinued 1 NMA RC 1 to 2 times per day as needed for hemorrhoids 30 2 October 19, 2019 12:00am May 16, 2021 11:39am ibuprofen 200 mg oral tablet (5 sources) Nonsteroidal Anti-inflammatory Drug Start: 07-23-2023 End: 10-07-2023 take 1 tablet by mouth every six hours Ibuprofen (Advil) 200 mg tablet Discontinued 200 mg PO EVERY 6 HOURS July 23, 2023 12:00am October 07, 2023 4:35pm krill oil (12 sources) Start: 03-01-2022 End: 11-28-2022 take 1 capsule by mouth once daily Adptt-Iu-6-Dha-Epa -Phospho-Ast (Krill Oil) 1,171-124-43-80 mg Capsule Discontinued 2 NMA PO DAILY March 01, 2022 1:00am November 28, 2022 3:06pm Start: 03-01-2022 End: 11-28-2022 Qngmx-Ef-4-Osz-Slk-Mrrfdmi-A st (Krill Oil) 1,696-693-99-80 mg Capsule Discontinued 2 CAP PO DAILY March 01, 2022 1:00am November 28, 2022 3:06pm Start: 03-01-2022 End: 11-28-2022 Ddoti-Ih-1-Ery-Gza-Nezdemc-A st (Krill Oil) 1,063-983-75-80 mg Capsule Discontinued 2 CAP PO DAILY March 01, 2022 12:00am November 28, 2022 2:06pm Start: 03-01-2022 Hbefd-Jo-2-Dha -Ylk-Wzpjabz-Skm (Krill Oil) 1,169-332-71-80 mg Capsule Active 2 CAP PO DAILY March 01, 2022 1:00am Start: 03-01-2022 Gbnvd-Xm-7-Dha -Wjr-Foazqit-Yrl (Krill Oil) 1,787-117-07-80 mg Capsule Active 2 CAP PO DAILY March 01, 2022 12:00am naproxen 500 mg oral tablet (6 sources) Nonsteroidal Anti-inflammatory Drug Start: 10-07-2023 End: 07-17-2024 take 1 tablet by mouth twice daily as needed for pain Naproxen 500 mg tablet Discontinued 500 mg PO TWICE DAILY NEEDED as needed for Pain 16 04June 02, 2024 12:00am July 17, 2024 11:00am omeprazole 20 mg delayed release oral capsule (20 sources) Proton Pump Inhibitor Start: 05-19-2024 End: 05-25-2024 take 1 capsule by mouth once daily Omeprazole 20 mg capsule,delayed release(DR/EC) Discontinued 20 mg PO DAILY May 19, 2024 1:00am May 25, 2024 9:29am Start: 12-21-2019 End: 11-28-2022 take 1 capsule by mouth once daily Omeprazole 40 mg capsule,delayed release(DR/EC) Discontinued 40 mg PO DAILY December 11, 2021 8:01am November 28, 2022 3:06pm Zegxyodjr-Kuiuqxdop-Vkdromfi (5 sources) Start: 07-23-2023 End: 10-07-2023 Zstlrfshu-Jurhgwfkb-Pjyzjyvd [place] 40-1-0.5 mg tablet Discontinued 1 {tbl} PO DAILY 16 03July 23, 2023 12:00am October 07, 2023 4:31pm Start: 07-23-2023 End: 10-07-2023 Slejopzdp-Ygqiskwwh-Janewfhe dr ([place]) 40-1-0.5 mg tablet Discontinued 1 {tbl} PO DAILY July 23, 2023 12:00am October 07, 2023 4:31pm Start: 07-23-2023 take 1 tablet by mabel once daily Mkcjnxwff-Lkdjtbxeh-Axyketyeio (Myfembre e) 40-1-0.5 mg tablet Active 1 TABLET PO DAILY July 23, 2023 12:00am saccharomyces boulardii 250 mg oral capsule (9 sources) Start: 11-28-2022 End: 11-10-2024 take 1 capsule by mouth once daily Saccharomyces Boulardii (Daily Probiotic (S. Boulardii)) 250 mg capsule Discontinued 250 mg PO DAILY November 28, 2022 12:00am November 10, 2024 2:15pm Start: 11-28-2022 take 1 capsule by [facility] twice daily Saccharomyces Boulardii (Daily Probiotic (S. Boulardii)) 250 mg capsule Active 250 MG PO TWICE A DAY November 28, 2022 12:00am Problems Active Problems Problem Classification Problem Date Documented Date Episodic/Chronic Abdominal pain (20 sources) Pain in pelvis; Translations: [Pelvic and perineal pain] Onset: 05-14-2024 07-15-2023 Episodic Comment on above: s/p pelvic US. suspe ct due to adenomyosis or pelvic congestion, post endometrial ablation. plan NSAIDs/failed. proceed with hysterectomy. unable to do EMB due to to stenosis. Benign neoplasm of uterus (15 sources) Uterine leiomyoma; Translations: [Leiomyoma of uterus, unspecified] 10-03-2018 Episodic Disorders of lipid metabolism (15 sources) Hyperlipidemia; Translations: [Hyperlipidemia, unspecified] 12-21-2019 Chronic Endometriosis (16 sources) Uterine adenomyosis; Translations: [Adenomyosis of uterus] Onset: 06-17-2024 07-23-2023 Chronic Comment on above: discussed options fo r treatments, having pain, trial of NSAIDs/failed. Wishes to schedule w/ Sm TVHbs. Esophageal disorders (20 sources) Gastroesophageal reflux disease; Translations: [Gastro-esophageal reflux disease without esophagitis] Onset: 04-13-2024 Chronic Gastritis and duodenitis (1 source) Gastritis, unspecified, without bleeding; Translations: [Gastritis, unspecified, without bleeding] Onset: 11-09-2024 Episodic Hemorrhoids (15 sources) Hemorrhoids; Translations: [Unspecified hemorrhoids] 10-19-2019 Episodic Joint disorders and dislocations; trauma-related (16 sources) Dislocation of digit of hand; Translations: [Dislocation of proximal interphalangeal joint of unspecified finger, initial encounter] Onset: 07-10-2021 07-10-2021 Episodic Menstrual disorders (15 sources) Menorrhagia; Translations: [Excessive and frequent menstruation with regular cycle] 10-03-2018 Chronic Comment on above: emb done recommend a blation Other female genital disorders (15 sources) Endocervical polyp; Translations: [Polyp of cervix uteri] 10-09-2018 Episodic Comment on above: recommend removal at time of ablation Residual codes; unclassified (3 sources) Family history of malignant neoplasm of thyroid; Translations: [Family history of malignant neoplasm of other organs or systems] 12-09-2023 Episodic Comment on above: Both sons, ages 21 a nd 23 for diagnosis, thyroidectomy, Radioactive iodine. 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 Residual codes; unclassified (4 sources) History of vaginal hysterectomy; Translations: [Acquired absence of both cervix and uterus] 06-02-2024 Episodic Thyroid disorders (20 sources) Multinodular goiter; Translations: [Nontoxic multinodular goiter] Onset: 02-23-2024 12-30-2023 Chronic Unclassified (2 sources) Adenomyosis of the uterus; Translations: [Adenomyosis of the uterus] Onset: 06-17-2024 Past or Other Problems Problem Classification Problem Date Documented Date Episodic/Chronic Contraceptive and procreative management (1 source) Encounter for contraceptive management, unspecified; Translations: [Encounter for contraceptive management, unspecified] Onset: 05-25-2024 Episodic Inflammatory diseases of female pelvic organs (5 sources) Adhesion of pelvis; Translations: [Female pelvic peritoneal adhesions (postinfective)] Onset: 06-17-2024 06-02-2024 Episodic Other screening for suspected conditions (not mental disorders or infectious disease) (14 sources) Patient encounter status; Translations: [Encounter for screening for malignant neoplasm of colon] Onset: 12-31-2023 Episodic Residual codes; unclassified (1 source) Acquired absence of both cervix and uterus; Translations: [Acquired absence of both cervix and uterus] Onset: 06-17-2024 Episodic Residual codes; unclassified (1 source) Acquired absence of other genital organ(s); Translations: [Acquired absence of other genital organ(s)] Onset: 06-17-2024 Episodic Unclassified (1 source) Problem Results Test Name Value Interpretation Reference Range Facility Allergen, Food Profile 14on 11-10-2024 BEEF <0.10 Normal Class 0 [facility] Comment on above: Performed By: #### L 5500.0550, L3410.2400 ####[facility] [address] [place], [address] CHOCOLATE <0.10 Normal Class 0 [facility] Comment on above: Performed By: #### L 5500.0550, L3410.2400 ####[facility] [address] [place], [address] CODFISH <0.10 Normal Class 0 [facility] Comment on above: Performed By: #### L 5500.0550, L3410.2400 ####[facility] [address] [place], [place], [address] COMMENT Comment Normal . [facility] Comment on above: Result Comment: Morenita gandhi of Specific IgE Class Description of Class ----- < 0.10 0 Negative 0.10 - 0.31 0/I Equivocal/Low 0.32 - 0.55 I Low 0.56 - 1.40 II Moderate 1.41 - 3.90 III High 3.91 - 19.00 IV Very High 19.01 - 100.00 V Very High >100.00 Very High Performed By: #### L 5500.0550, L3410.2400 ####[facility] [address] [place], [address] CORN <0.10 Normal Class 0 [facility] Comment on above: Performed By: #### L 5500.0550, L3410.2400 ####[facility] [address] [place], [address] EGG, WHOLE <0.10 Normal Class 0 [facility] Comment on above: Result Comment: Perf ormed at: - [facility] [address] [id number] Catholic Priest: Seth Bean MD, Phone: [phone] Performed By: #### L 5500.0550, L3410.2400 ####[facility] [address] [place], [address] MILK (COW) <0.10 Normal Class 0 [facility] Comment on above: Performed By: #### L 5500.0550, [id number] ####[facility] [address] [place], [address] MUSSELS <0.10 Normal Class 0 [facility] Comment on above: Performed By: #### L 5500.0550, [id number] ####[facility] [address] [place], [address] PEANUT <0.10 Normal Class 0 [facility] Comment on above: Performed By: #### L 5500.0550, [id number] ####[facility] [address] [place], [address] PORK <0.10 Normal Class 0 [facility] Comment on above: Performed By: #### L 5500.0550, L3410.2400 ####[facility] [address] [place], [address] SALMON <0.10 Normal Class 0 [facility] Comment on above: Performed By: #### L 5500.0550, [id number] ####[facility] [address] [place], [address] SHRIMP <0.10 Normal Class 0 [facility] Comment on above: Performed By: #### L 5500.0550, L3410.2400 ####[facility] [address] [place], [address] SOYBEAN <0.10 Normal Class 0 [facility] Comment on above: Performed By: #### L 5500.0550, [id number] ####[facility] [address] [place], [address] TUNA <0.10 Normal Class 0 [facility] Comment on above: Performed By: #### L 5500.0550, L3410.2400 ####[facility] [address] [place], [address] WHEAT <0.10 Normal Class 0 [facility] Comment on above: Performed By: #### L 5500.0550, L3410.2400 ####[facility] [address] [place], [address] Surgery Visit Reporton 11-10 Surgery Visit Report [facility] [address] [place] [address] OFFICE VISIT Date of Service: 11/10/24 MR#: [id number] Acct: [id number] Name: CIARRA ALBA LÓPEZ Rep #: [id number] : 1975 Provider: Dr. Calos erickson MD Age/Sex: 49/F Location: [facility] Status: Signed Intake Vital Signs 07/17/24 11:01 11/10/24 14:14 Height 5 ft 5 in 5 ft 5 in Weight: 165 lb 4 oz BMI 27.5 BP 127/81 H Blood Pressure Location Rt brachial Position Sitting Respiration 18 Pulse 81 Pulse Source Monitor Temp 97.6 F L Temp Source Temporal Pulse Oximetry (%) 99 Oxygen Delivery Method room air Intake Visit Reasons: Gastroesophageal reflux disease (GERD) Chief Complaint: GERD Is patient in pain?: No Allergies No Known Allergies Allergy (Verified 11/10/24 14:15) Medications ???Medication ???Instructions ???Recorded ???Confirmed ???Type pantoprazole 40 mg tablet,delayed 40 mg PO QDAY 11/10/24 11/10/24 H istory release sucralfate 1 gram tablet 1 g PO 4X/DAY 11/10/24 11/10/24 Hi story [facility] Medical History (Updated 11/10/24 @ 14:[address] Calos Mcgill MD) Epigastric pain Wears glasses Thyroid nodule High cholesterol Gastric reflux GERD (gastroesophageal reflux disease) Hyperlipemia Surgical History H/O: hysterectomy History of endometrial ablation S/P LEEP ( 10/16/18) S/P bunionectomy s/p right hand surgery Family History Grandfather Lung cancer Social History Smoking Status: Never smoker alcohol intake: never substance use type: does not use caffeine: Yes what type of physical activity do you participate in: other details: crossfit frequency: 5-6 times per week seatbelt use: always do you feel safe at home: Yes additional social history: Cgykjcv-Zqur-Srkg employed Patient works [employer] HPI HPI HPI: Patient is a 49-year-old female who is here for burning in the epigastric region. She reports that the pain does not go into her esophagus and she does not feel like it is reflux only mostly epigastric pain but sometimes it radiates to the right upper quadrant. She says that eating does not help she says the only thing that does help is when she takes Carafate. She denies nausea or vomiting. She denies any dysphagia. ROS General General: No weight change, appetite, fatigue, colon cancer, breast cancer or weakness HEENT HEENT: No difficulty swallowing, eye injury, eye surgery, swollen glands or hoarseness Endo Endocrine: No thyroid disease, diabetes mellitus, thyroid cancer, Hair loss, heat intolerance or cold intolerance Skin Skin: No rash or changing moles Musc Musculoskeletal: No back problems, arthritis, rheumatoid arthritis, gout or joint pain Cardio Cardiovascular: No murmur, pacemaker, heart disease, atrial fibrillation, high blood pressure, heart attack, heart stent, palpitations, shortness of breath with exertion or chest pain Psych Psychiatric: No depression, anxiety or hearing voices Resp Respiratory: No shortness of breath, No sleep apnea, No cough, No COPD, No asthma, No emphysema and No wheezing Gastro Gastrointestinal: Yes abdominal pain, No nausea or vomiting, No diarrhea, No constipation, No blood in stool, Yes acid reflux, Yes hemorrhoids, No ulcers, No gallbladder problem and No black,tarry stools Owen Hematologic: No blood thinners, No blood disorders, No bleeding, No anemia and No blood clots Neuro Neurologic: No numbness, No tingling and No weakness Exam Const General: cooperative Orientation: alert and oriented x3 HENMT Head: normal to inspection Neck Neck: normal visual inspection and full ROM Chest Chest palpation inspection: normal inspection of the chest Resp Effort Inspection: normal respiratory effort Auscultation: clear to auscultation bilaterally Cardio Rate: regular rate Rhythm: regular rhythm GI Inspection: non-distended Palpation: soft and nontender Skin General: no rashes or lesions noted Neuro General: patient alert and patient oriented x3 Extrem General: full ROM Psych Appearance: grossly normal Mental Status: mental status grossly normal Assessment and Plan Assessment and Plan (1) GERD (gastroesophageal reflux disease): Status: Chronic Qualifiers: Esophagitis presence: esophagitis presence not specified Qualified Code(s): K21.9 - Gastro- esophageal reflux disease without esophagitis Plan: The patient is having epigastric burning suggesting gastritis. She has been on a PPI and Carafate several times and reports that every time she comes off of the Carafate she begins burning (more content not included)... Normal [facility] Celiac Disease Profileon ENDOMYSIAL IGA Negative Normal Negative [facility] Comment on above: Performed By: #### L 5500.0550, L3410.2400 ####[facility] [address] [place], [address] IMMUNOGLOB A QN 241 mg/dL Normal 87-352 [facility] Comment on above: Result Comment: Perf ormed at: - [facility] [address] [id number] Catholic Priest: Franklin Ellis PhD, Phone: [phone] Performed By: #### L 5500.0550, [id number] ####[facility] [address] [place], [address] tTG IGA <2 Normal 0-3 [facility] Comment on above: Result Comment: Nega tive 0 - 3 Weak Positive 4 - 10 Positive >10 Tissue Transglutaminase (tTG) has been identified as the endomysial antigen. Studies have demonstr- ated that endomysial IgA antibodies have over 99% specificity for gluten sensitive enteropathy. Performed By: #### L 5500.0550, L3410.6341 ####[facility] [address] [place], [place], [id number] Laboratory - Miscellaneous t estsOrdered By: Katja Baron on 11-03-2024 Service comment (Unsp spec) [Interp] Comment . [facility] Comment on above: Levels of Specific I gE Class Description of Class ----- < 0.10 0 Negative 0.10 - 0.31 0/I Equivocal/Low 0.32 - 0.55 I Low 0.56 - 1.40 II Moderate 1.41 - 3.90 III High 3.91 - 19.00 IV Very High 19.01 - 100.00 V Very High >100.00 Very High Serum beef IgE antibody assa y (units/volume)Ordered By: Katja Baron on 11-03-2024 Beef IgE Qn (S) <0.10 kU/L Class 0 [facility] Serum codfish IgE antibody a ssay (units/volume)Ordered By: Katja Baron on 11-03-2024 Codfish IgE Qn (S) <0.10 kU/L Class 0 [facility] Serum corn IgE antibody assa y (units/volume)Ordered By: Katja Baron on 11-03-2024 [place] IgE Qn (S) <0.10 kU/L Class 0 [facility] Serum cow milk IgE antibody assay (units/volume)Ordered By: Katja Baron on 11-03-2024 Cow milk IgE Qn (S) <0.10 kU/L Class 0 [facility] Serum or plasma IgA measurem ent (mass/volume)Ordered By: Katja Baron on 11-03-2024 IgA [Mass/Vol] 241 mg/dL 87-352 [facility] Comment on above: Performed at: [address] [id number] Director: Franklin Ellis PhD, Phone: [phone] Serum peanut IgE antibody as say (units/volume)Ordered By: Katja Baron on 11-03-2024 Peanut IgE Qn (S) <0.10 kU/L Class 0 [facility] Serum pork IgE antibody assa y (units/volume)Ordered By: Katja Baron on 11-03-2024 Pork IgE Qn (S) <0.10 kU/L Class 0 [facility] Serum salmon IgE antibody as say (units/volume)Ordered By: Katja Baron on 11-03-2024 [place] IgE Qn (S) <0.10 kU/L Class 0 [facility] Serum soybean IgE antibody a ssay (units/volume)Ordered By: Katja Baron on 11-03-2024 Soybean IgE Qn (S) <0.10 kU/L Class 0 [facility] Serum tissue transglutaminas e (tTG) IgA antibody assay (units/volume)Ordered By: Katja Baron on 11-03-2024 tTG IgA Qn (S) <2 U/mL 0-3 [facility] Comment on above: Negative 0 - 3 Weak Positive 4 - 10 Positive >10 Tissue Transglutaminase (tTG) has been identified as the endomysial antigen. Studies have demonstr- ated that endomysial IgA antibodies have over 99% specificity for gluten sensitive enteropathy. Serum tuna IgE antibody assa y (units/volume)Ordered By: Katja Baron on 11-03-2024 Tuna IgE Qn (S) <0.10 kU/L Class 0 [facility] Serum wheat IgE antibody ass ay (units/volume)Ordered By: Katja Baron on 11-03-2024 Wheat IgE Qn (S) <0.10 kU/L Class 0 [facility] Serum whole egg IgE antibody assay (units/volume)Ordered By: Katja Baron on 11-03-2024 Whole Egg IgE Qn (S) <0.10 kU/L Class 0 [facility] Comment on above: Performed at: [address] [id number] Director: Seth Bean MD, Phone: [phone] Sury 10-27-2024 CNOV Office Visit (ENDOSO ) CIARAR ALBA ([id number]) 1975 F Date Time Provider Department 10/27/24 2:10 PM NAGA CAMPBELL During your visit today, we recorded the following information about you: Pulse Respiration Blood pressure Weight 78/minute 16/minute 117/74 75.6 kg Height 1.651 m Naga Campbell MD 10/27/2024 3:01 PM Signed Endocrinology Follow up Ciarra Alba is here for follow up regarding: thyroid nodule Last visit: 12/2023 PCP is No primary care provider on file. History of Present Illness Ciarra Alba is a 49 year old female, visit for follow up of thyroid nodules 2 son's with thyroid cancer Never been told she has thyroid issues Not on LT4 Here with her MGGM: goiter - s/p thyroidecotmy Lump sensation is gone S/p RFA in 04/2024 Past History, Medications, Allergies PAST MEDICAL HISTORY Diagnosis Date Hypercholesteremia PAST SURGICAL HISTORY Procedure Laterality Date COLONOSCOPY SCREENING HYSTEROSCOPY ENDOMETRIAL ABLATION PAST SURGICAL HISTORY OF 03/18/1997 BUNIONECTOMY / RIGHT FOOT PAST SURGICAL HISTORY OF 03/18/1998 HAND INJURY, Right hand Current Outpatient Medications Medication Sig Dispense Refill pantoprazole DR (PROTONIX) 40 mg tablet Take 1 tablet by mouth once daily. No current facility-administered medications for this visit. ALLERGIES No Known Allergies FAMILY HISTORY Problem Relation Age of Onset Hypertension Maternal Grandmother Cancer Maternal Grandfather Anesthesia Problems No Family History Social History Tobacco Use Smoking status: Never Smokeless tobacco: Never Vaping Use Vaping status: Never Used Substance Use Topics Alcohol use: No Drug use: No Review of Systems Answers submitted by the patient for this visit: Endocrine Review of Systems (Submitted on 10/20/2024) Fatigue: No Night sweats: No Recent unintentional weight change: No Skin Color Changes: No Post-Nasal Drip: No Thyroid Pain (lower neck): No Trouble Swallowing: No Vision Disturbance: No Chest pain: No Leg Swelling: No Blood Clots?: No Leg Pain while walking?: No Difficulty Breathing?: No Heartburn: Yes Nausea: No Vomiting: No Diarrhea: No Constipation: No Abdominal pain: Yes Bone Pain?: No Muscle aches: No Muscle weakness: No Joint pain or stiffness: No Headaches: No Dizziness: No Numbness?: No Urgency to Urinate?: No Increased Urination: No Slow or Small Urine Stream?: No Are your menstrual cycles regular?: Yes Are your menstrual cycles irregular?: No Have your menstrual cycles stopped?: Yes Flushing: No Hot Flashes?: No Increased Thirst: No Change in Body Hair?: No Cold Intolerance: No Heat Intolerance: No Physical examination BP 117/74 Pulse 78 Resp 16 Ht 165.1 cm (5' 5) Wt 75.6 kg (166 lb 10.7 oz) LMP 03/23/2024 (Within Months) SpO2 98% BMI 27.73 kg/m? GENERAL: Well nourished, well hydrated, in no distress and oriented x 3 COMMUNICATION: Hearing: normal; VOICE: normal EYES: no thyroid eye signs, Fundi normal, cornea normal and EOMI NECK: no visible nodules or goiter LUNGS: no audible wheezing or respiratory distress NEURO: normal strength and no tremor SKIN: No rash or visible wound. ENDOCRINE: No cushingoid or acromegalic features Previous Laboratory Results Latest Ref Rng 02/23/2024 TSH 0.358 - 3.740 mIU/L 1.213 Cytology 12/2023: A - Thyroid, Aspirate/Fine Needle Aspirate - Left Benign. Consistent with colloid nodule. Imaging Thyroid US (12/2023): Subcentimetric right sided nodule and 2 cm mixed left thyroid nodule Impression/Recommenda momo Ciarra Alba is a 48 year old female, visit for follow up of thyroid nodules. 2 son's with thyroid cancer Not on LT4 Thyroid Nodules: -- 2 Sons with thyroid cancer -- ? [facility] with thyroid issues -- Thyroid US in 12/2023 showed a 2 cm left mixed nodule -- FNA in 12/2023 was benign -- S/p RFA in 04/2024 -- Left nodule size: -- 12/2023: 2.12 x 1.49 x 1.44 cm -- 07/2024: 1.48 x 1.06 x 1.03 cm -- 10/2024: 1.27 x 1.03 x 0.86 cm -- Compressive symptom resolved after RFA -- Will repeat TSH (she is not on LT4) -- Thyroid US in 1 year The patient will follow up in 1 year MD Abdi Garcia Lea, MD 10/27/2024 3:01 PM Signed Thyroid/parathyroid/n juma ultrasound (October 27, 2024): Primary Care Physcian: No primary care provider on file. Reason for the study: Follow up of thyroid nodule s/p RFA or left 2 cm nodule in 04/2024 Comparison: 07/2024 and 12/2023 Equipment: [employer] Transducer: Linear/Trapezoidal multifrequency Regions examined: Thyroid Technique: Sonography was performed. Color and power Doppler were applied when indicated. Images were obtained and stored in a permanent archive. Right lobe: L 4.61 x W 1.12 x AP 1.49 cm; Homogeneous Isthmus: 0.30 cm; Homogeneous Left lobe: L (more content not included)... Normal [facility] TSH SerPl-aCncon 10-27-2024 TSH Qn 1.500 m[IU]/L Normal 0.270-4.200 [facility] Comment on above: Order Comment: Speci men Type: BLOOD SPECIMENOrdering Facility: [facility] Address: [address] [place] [address] Result Comment: If t he patient is , TSH reference range varies by gestational period: First Trimester (weeks 9-12): 0.180-2.990 mIU/L Second Trimester: 0.110-3.980 mIU/L Third Trimester: 0.480-4.710 mIU/L Nasir Benson et al. A Practical Approach for the Verifications and Determination of Site- and Trimester-Specific Reference Intervals for Thyroid Function tests in . Thyroid, 2019:29:3:412-420. Yasmani Gutierrez, et al. 2017 Guidelines of the [place] Thyroid Association for the Diagnosis and Management of Thyroid Disease during and the . Thyroid, 2017:27:3:315-389. Performed By: #### 3 016-3 ####[facility] LABCLIA [id number] [place] [address] [place] Thyroid glandon [facility] Radiology Study observation (narrative) Magalys amador [facility] CNOVon 07-29-2024 CNOV Office Visit (ENSUMN ) CIARRA ALBA ([id number]) 1975 F Date Time Provider Department 07/29/24 3:00 PM JESUSITA MAGANA During your visit today, we recorded the following information about you: Pulse Blood pressure Weight Last Period 90/minute 129/79 77.4 kg 03/23/24 Moo He MA 07/29/2024 2:51 PM Signed Thank you for choosing the [facility] Department of Endocrinology, Diabetes and Metabolism. Did you know that you need to call 48 hours in advance of your scheduled visit, if you are unable to make your appointment? The Endocrinology and Metabolism [place] thanks you for your commitment, because patients not showing to their appointment results in a lost opportunity for patients to receive [facility] health care at the [facility]. To Cancel an appointment, please choose one of the following: - Call the Appointment Call Center at [phone] - From [place], Go to Appointments - Cancel Appts If cancelling, consider your need to reschedule to prevent further delays in your care. To Schedule an appointment, please choose one of the following: - Call the Appointment Call Center at [phone] - [facility] [place], Go to Appointments - Request an Appt Jesusita Magana MD 07/29/2024 3:54 PM Signed The patient presents for a post op f/u s/p thyroid RFA for thyroid nodule on 04/27/24. She does not have any complaints today. Exam in unremarkable. A neck ultrasound was done in the office today. This showed a left thyroid nodule measuring 10.6x10.3x14.8 mm with preoperative measures of 15.9x13.1x16.1mm. Impression: Satisfactory 3-month follow up. Plan: Follow up with Dr. Ty in 3 months. MD Janet Castañeda Daniel 08/04/2024 8:47 AM Signed 10/27 2:[address] Abdi Anguiano in [place] Allergies As of Date: 07/29/2024 (No Known Allergies) Date Reviewed: 07/29/2024 Reviewed by: Moo He MA - Fully Assessed Reason for Visit: Thyroid Nodule [3960] Primary Visit Diagnosis:Multiple thyroid nodules [E04.2] Prescriptions as of 08/04/2024 - pantoprazole DR (PROTONIX) 40 mg tablet Take 1 tablet by mouth once daily. Problem List As Of Date 07/29/2024 Noted Resolved Multiple thyroid nodules [E04.2] 02/26/2024 Nontoxic single thyroid nodule [E04.1] 02/26/2024 Acid reflux [K21.9] 04/13/2024 Other instructions from your clinician: Thank you for choosing the [facility] Department of Endocrinology, Diabetes and Metabolism. Did you know that you need to call 48 hours in advance of your scheduled visit, if you are unable to make your appointment? The Endocrinology and Metabolism [place] thanks you for your commitment, because patients not showing to their appointment results in a lost opportunity for patients to receive [facility] health care at the [facility]. To Cancel an appointment, please choose one of the following: - Call the Appointment Call Center at [phone] - [facility] [place], Go to Appointments - Cancel Appts If cancelling, consider your need to reschedule to prevent further delays in your care. To Schedule an appointment, please choose one of the following: - Call the Appointment Call Center at [phone] - From [place], Go to Appointments - Request an Appt Encounter Status:Closed by JESUSITA MAGANA on 07/29/24 Normal [facility] Hazardous Substances Engineer Office Visit Reporton 07-17-2024 Hazardous Substances Engineer Office Visit Report [facility] [address], [address] [place] [address] OFFICE VISIT Date of Service: 07/17/24 MR#: [id number] Acct: [id number] Name: CIARRA ALBA Rep #: [id number] : 1975 Provider: Dr. Natasha youssef MD Age/Sex: 48/F Location: [facility] Status: Signed Intake Vital Signs 03/13/24 12:50 06/15/24 10:56 07/17/24 11:00 07/17/24 11:01 Height 5 ft 5 in 5 ft 5 in 5 ft 5 in 5 ft 5 in Weight: 169 lb 2 oz 169 lb 6 oz BMI 28.1 28.1 BP 111/78 125/78 H Intake Visit Reasons: 6 wk TVHBS Nursing Administrator Required: No Is patient in pain?: Yes (still some discomfort) Allergies No Known Allergies Allergy (Verified 06/15/24 10:58) Medications ???Medication ???Instructions ???Recorded ???Confirmed ???Type Saccharomyces boulardii 250 mg 250 mg PO DAILY 11/28/22 07/17/24 History capsule (Daily Probiotic (S. boulardii)) Is last menstrual period known: No Patient : No : No PFSH Medical History Wears glasses Thyroid nodule High cholesterol Gastric reflux GERD (gastroesophageal reflux disease) Hyperlipemia Surgical History (Updated 07/17/24 @ 11:01 by Jocelin Mancini) H/O: hysterectomy History of endometrial ablation S/P LEEP ( 10/16/18) S/P bunionectomy s/p right hand surgery Family History Grandfather Lung cancer Social History Smoking Status: Never smoker alcohol intake: never substance use type: does not use caffeine: Yes what type of physical activity do you participate in: other details: crossfit frequency: 5-6 times per week seatbelt use: always do you feel safe at home: Yes additional social history: Wpjkcfj-Udux-Ofbn employed Patient works [employer] HPI 6 wk TVHBS Details: CIARRA ALBA is a 48 year old who presents for postop still trying to get back to normal but better some spotting persistent History 2 Elective abortions Hx Para 2 Spontaneous abortions Hx # Term Pregnancies Ectopic pregnancies Hx # Pregnancies Multiple births # of living children Past Pregnancies Del. Date Name GA/Weeks Outcome Route Bth Weight Infant Gen Labor Lgth Anesthesia Del Locatn Provider FOB Unknown Kevin-2000 Unknown Keshawn-2002 ROS Const Constitutional: Reports system reviewed and no additional complaints, except as documented GI GI: Denies abdominal pain, cramping, nausea or vomiting : Denies pelvic pain, urinary frequency, urinary incontinence, urinary urgency, vaginal discharge, vaginal dryness or vaginal odor Exam Const General: cooperative, healthy appearing, comfortable and no acute distress External Female Exam: normal external appearance and normal appearance of the urethra Urethra: normal appearance of the urethra Speculum Exam - Vagina: normal appearance of the vagina and other (normal vaginal length, apex well supprted and healed, intact no granulation) Speculum Exam - Cervix: absent Bimanual Exam- Vagina Uterus: uterus absent Bimanual Exam- Adnexa, other: normal and non-tender Pelvic Support: normal Other: vaginal cuff normal and intact, good vaginal length, granulation tissue present- treated with silver nitrate Coding Level of Care Code No Charge Diagnoses Pelvic pain R10.2 Adenomyosis N80.03 Assessment and Plan Assessment and Plan (1) Pelvic pain: Status: Acute Comment: s/p pelvic US. suspect due to adenomyosis or pelvic congestion, post endometrial ablation. plan NSAIDs/failed. proceed with hysterectomy. unable to do EMB due to to stenosis. (2) Adenomyosis: Status: Acute Comment: discussed options for treatments, having pain, trial of NSAIDs/failed. Wishes to schedule w/ Sm TVHbs. Orders: Orders SCRN MAMM (CAD)W/CARMEN AZAEL 07/17/24 Z12.31 - Encounter for screening mammogram for malignant neoplasm of breast Plan fu annually 07/18/24 0909 Date Natasha Banegas MD Cosigner Signature: Date (if applicable) CC: Normal [facility] Hazardous Substances Engineer Office Visit Reporton 06-15-2024 Hazardous Substances Engineer Office Visit Report [facility] [address], [address] [place] [address] OFFICE VISIT Date of Service: 06/15/24 MR#: [id number] Acct: [id number] Name: CIARRA ALBA LÓPEZ Rep #: [id number] : 1975 Provider: Dr. Natasha youssef MD Age/Sex: 48/F Location: [facility] Status: Signed Intake Vital Signs 03/13/24 12:50 06/02/24 18:53 06/15/24 10:56 Height 5 ft 5 in 5 ft 5 in 5 ft 5 in Weight: 169 lb 2 oz BMI 28.1 BP 111/78 Intake Visit Reasons: 2 wk TVHBS Nursing Administrator Required: No Is patient in pain?: Yes (still some discomfort, pain has gotten much better) Allergies No Known Allergies Allergy (Verified 06/15/24 10:58) Medications ???Medication ???Instructions ???Recorded ???Confirmed ???Type Saccharomyces boulardii 250 mg 250 mg PO DAILY 11/28/22 06/15/24 History capsule (Daily Probiotic (S. boulardii)) naproxen 500 mg tablet 500 mg PO BID PRN PRN Pain #30 tab s 06/02/24 06/15/24 Rx Patient : No : No PFSH Medical History Wears glasses Thyroid nodule High cholesterol Gastric reflux GERD (gastroesophageal reflux disease) Hyperlipemia Surgical History History of endometrial ablation S/P LEEP ( 10/16/18) S/P bunionectomy s/p right hand surgery Family History Grandfather Lung cancer Social History Smoking Status: Never smoker alcohol intake: never substance use type: does not use caffeine: Yes what type of physical activity do you participate in: other details: crossfit frequency: 5-6 times per week seatbelt use: always do you feel safe at home: Yes additional social history: Tcvdsht-Wfqo-Pebc employed Patient works [employer] HPI 2 wk TVHBS Details: CIARRA ALBA is a 48 year old who presents for postop visit doing well overall increasing activity normal bowel function still taking some tylenol and motrin History 2 Elective abortions Hx Para 2 Spontaneous abortions Hx # Term Pregnancies Ectopic pregnancies Hx # Pregnancies Multiple births # of living children Past Pregnancies Del. Date Name GA/Weeks Outcome Route Bth Weight Infant Gen Labor Lgth Anesthesia Del Locatn Provider FOB Unknown Kevin-2000 Unknown Keshawn-2002 ROS Const Constitutional: Reports system reviewed and no additional complaints, except as documented GI GI: Denies abdominal pain, cramping, nausea or vomiting : Denies pelvic pain, urinary frequency, urinary incontinence, urinary urgency, vaginal discharge, vaginal dryness or vaginal odor Exam Const General: cooperative, healthy appearing, comfortable and no acute distress GI Inspection: normal to inspection Palpation: soft and nontender Other: Incisions: C/D/I Coding Level of Care Code No Charge Diagnoses Status post bilateral salpingectomy Z90.79 S/P laparoscopic assisted vaginal hysterectomy (LAVH) Z90.710 Assessment and Plan Assessment and Plan (1) Status post bilateral salpingectomy: Status: Acute (2) S/P laparoscopic assisted vaginal hysterectomy (LAVH): Status: Acute Plan Problem list updated and treatment plans were reviewed with the patient and relevant educational handouts given. See problem list details for specific plan information. 06/16/24 1556 Date Natasha Fields Signature: Date (if applicable) CC: Normal [facility] CBC-Complete Blood Cnt No Di ffon 06-03-2024 Erythrocyte distribution width (RBC) [Ratio] 13.0 % Normal 11.6-14.6 [facility] Comment on above: Performed By: #### L 100.0500 #### [facility] [address] [place], [address] Hematocrit (Bld) [Volume fraction] 33.7 % Low 37-47 [facility] Comment on above: Performed By: #### L 100.0500 #### [facility] [address] [place], [address] Hemoglobin (Bld) [Mass/Vol] 11.4 g/dL Low 12.0-15.0 [facility] Comment on above: Performed By: #### L 100.0500 #### [facility] [address] [place], [address] MCH (RBC) [Entitic mass] 29.8 pg Normal 27.0-32.0 [facility] Comment on above: Performed By: #### L 100.0500 #### [facility] [address] [place], [address] MCHC (RBC) [Mass/Vol] 33.8 g/dL Normal 32-36 [facility] Comment on above: Performed By: #### L 100.0500 #### [facility] [address] [place], [address] MCV (RBC) [Entitic vol] 88.2 fL Normal 81-99 [facility] Comment on above: Performed By: #### L 100.0500 #### [facility] [address] [place], [address] Platelet mean volume (Bld) [Entitic vol] 10.7 fL Normal 6.2-12.0 [facility] Comment on above: Performed By: #### L 100.0500 #### [facility] [address] [place], [address] Platelets (Bld) [#/Vol] 202 10*3/uL Normal 150-450 [facility] Comment on above: Performed By: #### L 100.0500 #### [facility] [address] [place], [address] RBC (Bld) [#/Vol] 3.82 10*6/uL Low 4.2-5.4 [facility] Comment on above: Performed By: #### L 100.0500 #### [facility] [address] [place], [address] RDW SD 42.0 fl Normal 35.1-43.9 [facility] Comment on above: Performed By: #### L 100.0500 #### [facility] [address] [place], [address] WBC (Bld) [#/Vol] 13.6 10*3/uL High 4.4-11.0 [facility] Comment on above: Performed By: #### L 100.0500 #### [facility] [address] [place], [address] Erythrocyte distribution wid th ratioOrdered By: Natasha Banegas on 06-03-2024 Erythrocyte distribution width (RBC) [Ratio] 13.0 % 11.6-14.6 [facility] Erythrocyte distribution wid th standard deviationOrdered By: Natasha Banegas on 06-03-2024 Erythrocyte distribution width (RBC) [Entitic vol] 42.0 fL 35.1-43.9 [facility] Hematocrit Auto (Bld) [Volum e fraction]Ordered By: Natasha Banegas on 06-03-2024 Hematocrit (Bld) [Volume fraction] 33.7 % Low 37-47 [facility] Hemoglobin measurementOrdere d By: Natasha Banegas on 06-03-2024 Hemoglobin (Bld) [Mass/Vol] 11.4 g/dL Low 12.0-15.0 [facility] MCV (mean corpuscular volume ) determinationOrdered By: Natasha Banegas on 06-03-2024 MCV (RBC) [Entitic vol] 88.2 fL 81-99 [facility] Mean corpuscular hemoglobin (MCH) determinationOrdered By: Natasha Banegas on 06-03-2024 MCH (RBC) [Entitic mass] 29.8 pg 27.0-32.0 [facility] Mean corpuscular hemoglobin concentration (MCHC) determinationOrdered By: Natasha Banegas on 06-03-2024 MCHC (RBC) [Mass/Vol] 33.8 g/dL 32-36 [facility] Mean platelet volume determi nationOrdered By: Natasha Banegas on 06-03-2024 Platelet mean volume (Bld) [Entitic vol] 10.7 fL 6.2-12.0 [facility] Platelet countOrdered By: Jeanna Banegas on 06-03-2024 Platelets (Bld) [#/Vol] 202 10*3/uL 150-450 [facility] RBC Auto (Bld) [#/Vol]Ordere d By: Natasha Banegas on 06-03-2024 RBC (Bld) [#/Vol] 3.82 10*6/uL Low 4.2-5.4 [facility] White blood cell (WBC) count Ordered By: Natasha Banegas on 06-03-2024 WBC (Bld) [#/Vol] 13.6 10*3/uL High 4.4-11.0 [facility] Absolute neutrophil countOrd ered By: Natasha Banegas on 06-02-2024 Neutrophils (Bld) [#/Vol] 12.4 10*3/uL High 2.0-7.7 [facility] Basophil percentageOrdered B y: Natasha Banegas on 06-02-2024 Basophils/100 WBC (Bld) 0.2 % 0-1 [facility] CBC W/Diff, Automatedon 05-16 Absolute Lymph 1.01 X10 3/uL Normal 0.83-4.51 [facility] Comment on above: Performed By: #### L 100.0100 ####[facility] [id number] [place], [address] Absolute Neut 12.4 X10 3/uL High 2.0-7.7 [facility] Comment on above: Performed By: #### L 100.0100 ####[facility] [id number] [place], [address] Basophils/100 WBC (Bld) 0.2 % Normal 0-1 [facility] Comment on above: Performed By: #### L 100.0100 ####[facility] [address] [place], [address] Eosinophils/100 WBC (Bld) 0.0 % Normal 0-5 [facility] Comment on above: Performed By: #### L 100.0100 ####[facility] [address] [place], [address] Erythrocyte distribution width (RBC) [Ratio] 12.8 % Normal 11.6-14.6 [facility] Comment on above: Performed By: #### L 100.0100 ####[facility] [address] [place], [address] Hematocrit (Bld) [Volume fraction] 37.2 % Normal 37-47 [facility] Comment on above: Performed By: #### L 100.0100 ####[facility] [address] [place], [address] Hemoglobin (Bld) [Mass/Vol] 12.6 g/dL Normal 12.0-15.0 [facility] Comment on above: Performed By: #### L 100.0100 ####[facility] [address] [place], [address] IG% 0.200 Normal 0.0-0.9 [facility] Comment on above: Result Comment: IG% - Immature Granulocytes (promyelocytes, myelocytes and metamyelocytes) > 1% indicates that a LEFT SHIFT is Present. Performed By: #### L 100.0100 ####[facility] [address] [place], [address] Lymphocytes/100 WBC (Bld) 7.4 % Low 19-41 [facility] Comment on above: Performed By: #### L 100.0100 ####[facility] [address] [place], [address] MCH (RBC) [Entitic mass] 29.9 pg Normal 27.0-32.0 [facility] Comment on above: Performed By: #### L 100.0100 ####[facility] [address] [place], [address] MCHC (RBC) [Mass/Vol] 33.9 g/dL Normal 32-36 [facility] Comment on above: Performed By: #### L 100.0100 ####[facility] [address] [place], [address] MCV (RBC) [Entitic vol] 88.4 fL Normal 81-99 [facility] Comment on above: Performed By: #### L 100.0100 ####[facility] [address] [place], [address] Monocytes/100 WBC (Bld) 1.8 % Normal 0-10 [facility] Comment on above: Performed By: #### L 100.0100 ####[facility] [address] [place], [address] Neutrophils/100 WBC (Bld) 90.4 % High 47-70 [facility] Comment on above: Performed By: #### L 100.0100 ####[facility] [address] [place], [address] Nucleated RBC (Bld) [#/Vol] 0 10*3/uL Normal 0-5 [facility] Comment on above: Performed By: #### L 100.0100 ####[facility] [address] [place], [address] Platelet mean volume (Bld) [Entitic vol] 10.1 fL Normal 6.2-12.0 [facility] Comment on above: Performed By: #### L 100.0100 ####[facility] [address] [place] [place], [address] Platelets (Bld) [#/Vol] 189 10*3/uL Normal 150-450 [facility] Comment on above: Performed By: #### L 100.0100 ####[facility] [address] [place], [address] RBC (Bld) [#/Vol] 4.21 10*6/uL Normal 4.2-5.4 [facility] Comment on above: Performed By: #### L 100.0100 ####[facility] [address] [place], [address] RDW SD 40.9 fl Normal 35.1-43.9 [facility] Comment on above: Performed By: #### L 100.0100 ####[facility] [address] [place], [address] WBC (Bld) [#/Vol] 13.7 10*3/uL High 4.4-11.0 [facility] Comment on above: Performed By: #### L 100.0100 ####[facility] [address] [place], [address] Discharge Instructionon 05-16 Discharge Instruction [facility] Medical Records Department [address] [place] [address] Instructions for Home/Discharge Instructions 06/02/24 1852 MR#: [id number] Acct: [id number] Name: CIARRA ALBA Rep #: [id number] : 1975 48 From: Natasha Banegas MD PCP: Dr. Katja Baron MD Status:ADM LEE Discharge Instructions Diet Discharge Diet: No restrictions DC O2, CPAP, BIPAP needs Home O2 Discharge instructions: No Dressing / Incision May resume sexual activity in: 6 weeks Weight Bearing Status: Full weight bearing Dressing / Incision Call your doctor if your incision/area has: Continuous Slow Oozing, Sudden Increased Bleeding, Increased Pain/ Swelling, Increased Redness and Foul Smelling Discharge Call your doctor if you observe: Fever of 101 or Higher, Using more than 1 pad per hour, Shortness of breath, Chest pain and Uncontrolled pain Suture Line Care: Avoid Pulling/Pushing and Avoid Pinching/Bending Remove Dressing in: 1 week (if present) Cleanse incision/area with: Soap Water and Keep Dressing Clean Dry Follow Up Care Please Follow Up With: Natasha Banegas MD When: Call to make an appointment with your doctor for a postop visit in 2 and 6 weeks. Test Results: Test results from this visit will be discussed in further detail at your follow-up appointment, if applicable. Discharge Plan Admission Admit Date/Time: 06/02/24 16:43 Attending Provider: Natasha Banegas Primary Care Provider: Katja Baron Discharge Orders/Prescriptions Prescriptions: New oxycodone-acetaminoph en [Percocet] 5-325 mg tablet 1 tab PO Q4H PRN (Reason: pain) 7 Days Qty: 20 0RF naproxen 500 mg tablet 500 mg PO BID PRN PRN (Reason: Pain) Qty: 30 1RF No Action Saccharomyces boulardii [Daily Probiotic (S. boulardii)] 250 mg capsule 250 mg PO DAILY naproxen 500 mg tablet 500 mg PO BID PRN (Reason: pain) Qty: 30 2RF Rx Instructions: administer with food or milk Other Ambulatory Orders: 12 Lead EKG (Routine) Timeframe: 20240525 Location: None Selected Ordered By: Dr. Natasha Banegas Referrals / Follow Up: Katja Baron MD [Primary Care Provider] - Disposition Disposition (needs filled in before D/C Order can be placed): Home, Self Care 06/02/241853 Natasha Banegas MD CC: Dr. Katja Baron MD Signed Normal [facility] Eosinophil percentageOrdered By: Natasha Banegas on 06-02-2024 Eosinophils/100 WBC (Bld) 0.0 % 0-5 [facility] Immature granulocytes/100 WB C Auto (Bld)Ordered By: Natasha Banegas on 06-02-2024 Immature granulocytes/100 WBC (Bld) 0.200 % 0.0-0.9 [facility] Comment on above: IG% - Immature Granu locytes (promyelocytes, myelocytes and metamyelocytes) > 1% indicates that a LEFT SHIFT is Present. Lymphocytes Auto (Unsp spec) [#/Vol]Ordered By: Natasha Banegas on 06-02-2024 Lymphocytes (Bld) [#/Vol] 1.01 10*3/uL 0.83-4.51 [facility] Lymphocytes/100 WBC Auto (Un sp spec)Ordered By: Natasha Banegas on 06-02-2024 Lymphocytes/100 WBC (Bld) 7.4 % Low 19-41 [facility] MR/POSTOP.ANEon 06-02-2024 MR/POSTOP.ANE [facility] Medical Records Department [address] [place] [address] Anesthesia Postop Eval I 06/02/24 1656 MR#: [id number] Acct: [id number] Name: PARTHCIARRA LÓPEZ Rep #: [id number] : 1975 48 From: Judy Kendrick PCP: Dr. Katja Baron MD Status:REG SDC Y Race: C Location: [place] [address] Anesthesia: Postop Eval I Current Vital Signs Temperature: 97 F Pulse Rate: 85 Blood Pressure: 106/62 Respiratory Rate: 16 Pulse Ox: 93 Assessment Airway patent: Yes Spontaneous unlabored respirations: Yes nausea: No Vomiting: No Anesthesia Complication: No Fluid Hydration Crystalloid volume administer (ml): 2,800 Total IV fluid infused: 2,800 Progress Note Anesthesia document: Postop Eval 1 completed: Yes 06/02/24 1656 Date Judy Jacobsonignopal Signature: Date CC: Signed Normal [facility] MR/KGWINHVJ1fv 06-02-2024 /[facility] Medical Records Department [address] [place] [address] Anesthesia Postop Eval II 06/02/24 1747 MR#: [id number] Acct: [id number] Name: CIARRA ALBA LÓPEZ Rep #: [id number] : 1975 48 From: Judy Kendrick PCP: Dr. Katja Baron MD Status:[place] [facility] [place] Race: C [place] [facility] [id number] Anesthesia Postop Eval I Sum Postop Eval Completion status Anesthesia document: Postop Eval 1 completed: Yes Anesthesia Postop Eval I Summary Anesthesia Postop Eval I Summary: Anesthesia Postop Eval I: Assessment Summary Airway patent Yes 06/02/24 16:56 [employer]CSIR Spontaneous unlabored Yes 06/02/24 16:56 [employer]CS[employer] respirations Mental status nausea No 06/02/24 16:56 [employer]CSIR Vomiting No 06/02/24 16:56 [employer]CSIR Anesthesia Postop Eval I: Fluid Summary Crystalloid volume administer 2,800 06/02/24 16:56 [employer].CSIR (ml) Colloids volume administered ( ml) Blood Product volume administered (ml) Total IV fluid infused 2,800 06/02/24 16:56 [employer].CSIR Anesthesia Postop Eval I: Summary Notes Anesthesia Complication No 06/02/24 16:56 [employer].CSIR Anesthesia Complication Comment: Post-operative progress note Anesthesia: Postop Eval II Evaluation Mental status: Awake and Calm Pain Level: 0 nausea: No Vomiting: No 06/02/24 1747 Date Judy Lay Signature: Date CC: Signed Normal [facility] Monocyte percentageOrdered B y: Natasha Banegas on 06-02-2024 Monocytes/100 WBC (Bld) 1.8 % 0-10 [facility] Neutrophil percentageOrdered By: Natasha Banegas on 06-02-2024 Neutrophils/100 WBC (Bld) 90.4 % High 47-70 [facility] Nucleated red blood cell per centageOrdered By: Natasha Banegas on 06-02-2024 Nucleated RBC/100 WBC (Bld) [Ratio] 0 % 0-5 [facility] Operative Reporton Operative Report [facility] Medical Records Department [address] [place] [address] Operative Report 06/02/24 1700 MR#: [id number] Acct: [id number] Name: CIARRA ALBA LÓPEZ Rep #: [id number] : 1975 48 From: Natasha Banegas MD PCP: Dr. 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 Builder: Ventura Tucker Tasks completed by certified surgical tech/first assistant: Opening closing, Trocar and Retracting Additional engineering inspection assistant?: No Type of Anesthesia: General RN Documented Start/Stop Times: Operation Date: 06/02/24 11:00 Case Time Into Pre-Op 06/02/24 09:02 Out of Pre-Op 06/02/24 11:56 Anesthesia Start 06/02/24 12:05 Into Room 06/02/24 12:05 Procedure Start 06/02/24 12:32 Procedure End 06/02/24 16:35 Anesthesia End 06/02/24 16:51 Out of Room 06/02/24 16:51 Into Recovery 06/02/24 16:55 Out of Recovery 06/02/24 17:58 Procedure Start Time: 12:32 Procedure Stop Time: 06:35 Select all DRAINS/GRAFTS/IMPLANT S that apply: None Estimated Blood Loss: 500 Fluids Replaced: crystalloid Specimen collected: Yes Description of specimen(s) removed: uterus tubes Description of surgery: Patient received preoperative antibiotics and SCDs were on preoperatively. Patient was taken back to the operating room and placed in the dorsal lithotomy position. General anesthesia was induced and patient was prepped and draped in normal sterile fashion. Haskins catheter placed in the bladder. Cervix was grasped with Archie clamps and circumferential incision was made after injecting with dilute vasopressin. The vaginal mucosa was dissected off of the cervix anteriorly and posteriorly. It was attempted to enter and posteriorly but dense tissue was encountered therefore anterior dissection was completed which was easy to enter and the anterior cul-de-sac was entered without complication. Attention was then paid to the posterior cul-de-sac which continued sharp dissection was made but was unable to be entered and therefore the first bite was taken bilaterally with the uterosacrals clamped cut and suture-ligated. Additional dissection hugging the uterus posteriorly to perform sharp dissection was performed and eventually entry was made into the posterior cul-de-sac and was evident that there were dense adhesions from the posterior cul-de-sac to the posterior uterine corpus with obliteration of the cul-de-sac. These were able to be swept down digitally and a endometriosis inclusion cyst was seen on the posterior wall of the uterus that was ruptured at this time is also noted that some of the pararectal space had been opened up although no bowel injury or compromise was seen. At this time due to the amount of scarring and the length of the surgery still yet to remain the decision was made to convert to laparoscopy. The bulb was placed in the vagina to maintain pneumoperitoneum. Drape was removed and the patient was prepped and draped in the normal sterile fashion for a laparoscopic procedure. The umbilicus was grasped with towel clamps and an intraumbilical incision was made after injecting with quarter percent Marcaine and a Veress needle entered into the abdomen confirmed to be intra-abdominal with a low opening pressure. Abdomen was insufflated with CO2 gas and the Veress needle removed and the 5 mm trocar was placed under direct visualization without complication. Right and left lower quadrants were transilluminated and injected with quarter percent Marcaine and 5 mm ports placed under direct visualization. Additional suprapubic port was placed to provide uterine manipulation since the uterine manipulator was unable to be placed. Additional rectosigmoid to uterine posterior wall adhesions were noted and taken down with the LigaSure. The pararectal space was inspected and no obvious signs of injury noted however the decision to consult general surgery for their opinion was also made. Dr Perdomo called and observed surgery and didn't see any areas of concern. He supervised the dissection of the posterior cul de sac and then stated he would return at the end of the procedure to evaluate. Bilateral fallopian tubes were transected across the mesosalpinx and the bilateral utero-ovarian ligaments were transected with the LigaSure. Broad ligament opened up and uterine arteries liga (more content not included)... Normal [facility] Pelvis 1 or 2 Viewson 2024 Pelvis 1 or 2 Views [facility] Imaging Services [address] [place] [address] Pelvis 1 or 2 Views MR#: [id number] Acct: [id number] Name: CIARRA ALBA LÓPEZ Rep #: [id number] : 1975 F 48 From: Gabby Chacon DO PCP: Dr. Katja Baron MD Status: [facility] Study: Pelvis 1 or 2 Views Date of Exam: 06/02/24 Exam# [id number] Ordering Dr: Natasha Banegas PROCEDURE: PELVIS 1 OR 2 VIEWS 06/02/2024 REASON FOR EXAM: CLOSING COUNT DISCREPANCY TECHNIQUE: 1 view(s) of the pelvis. FINDINGS: Hardware: No radiopaque density is demonstrated. Bones: Unremarkable Joints: Normal alignment at the hips and sacroiliac joints. soft tissues: Soft tissues are unremarkable. Other: RAD/Pelvis 1 or 2 Views IMPRESSION: No radiopaque density is demonstrated. Reading Location: [facility] CC: Dr. Katja Baron MD; Dr. Natasha Banegas MD Anesthesiologist Physician: Signed Normal [facility] ,Urineon 06-02-2024 Beta HCG ( test) Ql (U) Negative Normal [facility] Comment on above: Result Comment: Very dilute urine specimens, as indicated by a low specific gravity, may not contain medical representative levels of hCG. If is still suspected, a first morning urine specimen should be collected 48 hours later and tested. Performed By: #### L 400.7600 ####[facility] [address] [place], [address] Surgery Specimen Level Von 0 06-02-2024 Surgery Specimen Level V -------- Patient Age/Sex Location Account Attending Physician -------- CIARRA ALBA 48/F MS3 [id number] Dr. Natasha Banegas MD -------- Specimen: [id number] Received: 06/03/24 Status: CHRISTINA Jon Num: [id number] Spec Type: HYSTERECT Subm Dr: Dr. Natasha Banegas MD HEADER OPERATION: ERAS, total vaginal hysterectomy converted to laparoscopic PRE-OP DIAGNOSIS: Pelvic pain, adenomyosis, adhesions TISSUE SUBMITTED: A- Uterus, cervix, bilateral fallopian tubes -------- MICROSCOPIC DIAGNOSIS Uterus, cervix, and bilateral fallopian tubes, hysterectomy:Cervix: Nabothian cysts Chronic cervicitis and squamous metaplasiaEndometrium : Basal to secretory endometriumMyometrium : LeiomyomaBilateral fallopian tubes: 2 completely transected fallopian tubes 1 with cystic Lamine's nests Lauren Owens MD, 06/15/24 MICROSCOPIC DESCRIPTION Slides are reviewed. GROSS DESCRIPTION A. Received in fixative is one container labeled with the patient's name and designated Uterus, cervix, bilateral fallopian tubes. The specimen consists of one uterus and detached fallopian tubes weighing 126.5gm. One fallopian tube measures 4cm in length and 0.6cm in diameter. The second fallopian tube measures 4.5cm in length and 0.8cm in diameter. The uterus is 10cm in height, 6cm in width and 4.5cm in depth. The ectocervix measures 3.9 x 4cm. The os is 1.2 x 0.6cm. The uterus does not appear to be distorted by leiomyomata. The posterior uterine wall contains one small leiomyoma measuring 0.7 x 0.6 x 1cm. The entire uterine wall is 2.8cm in thickness. The endometrium appears to be 0.3cm of that total distance. Music Director sections are submitted as follows: A1- anterior cervix A2- posterior cervix A3- anterior uterine wall A4- anterior uterine wall A5- anterior uterine wall A6-posterior uterine wall A7- posterior uterine wall A8- posterior uterine wall A9- one fallopian tube A10- second fallopian tube JS. 06/03/2024 CPT:06830, TC:4 -------- Patient Age/Sex Location Account Attending Physician -------- CIARRA ALBA 48/F MS3 [id number] Dr. Natasha Banegas MD -------- Signed (signature on file) Dr. Juan Owens MD 06/15/24 0041 -------- Normal [facility] Comment on above: Performed By: #### P SUV ####[facility] [address] [place], [address] Urine testOrdered By: Natasha Banegas on 06-02-2024 HCG ( test) Ql (U) Negative [facility] Comment on above: Very dilute urine sp ecimens, as indicated by a low specificgravity, may not contain medical representative levels of hCG. If is still suspected, a first morning urinespecimen should be collected 48 hours later and tested. CBC-Complete Blood Cnt No Di ffon 05-27-2024 Erythrocyte distribution width (RBC) [Ratio] 12.8 % Normal 11.6-14.6 [facility] Comment on above: Performed By: #### L 501.9520, L100.0500, BTSPAT #### [facility] [address] [place], [address] Hematocrit (Bld) [Volume fraction] 43.3 % Normal 37-47 [facility] Comment on above: Performed By: #### L 501.9520, L100.0500, BTSPAT #### [facility] [address] [place], [address] Hemoglobin (Bld) [Mass/Vol] 14.3 g/dL Normal 12.0-15.0 [facility] Comment on above: Performed By: #### L 501.9520, L100.0500, BTSPAT #### [facility] [address] [place], [address] MCH (RBC) [Entitic mass] 29.4 pg Normal 27.0-32.0 [facility] Comment on above: Performed By: #### L 501.9520, L100.0500, BTSPAT #### [facility] [address] [place], [address] MCHC (RBC) [Mass/Vol] 33.0 g/dL Normal 32-36 [facility] Comment on above: Performed By: #### L 501.9520, L100.0500, BTSPAT #### [facility] [address] [place], [address] MCV (RBC) [Entitic vol] 88.9 fL Normal 81-99 [facility] Comment on above: Performed By: #### L 501.9520, L100.0500, BTSPAT #### [facility] [address] [place], [address] Platelet mean volume (Bld) [Entitic vol] 10.6 fL Normal 6.2-12.0 [facility] Comment on above: Performed By: #### L 501.9520, L100.0500, BTSPAT #### [facility] [address] [place], [address] Platelets (Bld) [#/Vol] 254 10*3/uL Normal 150-450 [facility] Comment on above: Performed By: #### L 501.9520, L100.0500, BTSPAT #### [facility] [address] [place], [address] RBC (Bld) [#/Vol] 4.87 10*6/uL Normal 4.2-5.4 [facility] Comment on above: Performed By: #### L 501.9520, L100.0500, BTSPAT #### [facility] [address] [place], [address] RDW SD 42.1 fl Normal 35.1-43.9 [facility] Comment on above: Performed By: #### L 501.9520, L100.0500, BTSPAT #### [facility] [address] [place], [address] WBC (Bld) [#/Vol] 6.2 10*3/uL Normal 4.4-11.0 [facility] Comment on above: Performed By: #### L 501.9520, L100.0500, BTSPAT #### [facility] [address] [place], [address] Magnesiumon 05-27-2024 Magnesium [Mass/Vol] 2.3 mg/dL High 1.5-2.2 [facility] Comment on above: Performed By: #### L 501.5200 #### [facility] [address] [place], [address] Magnesium (Unsp spec) [Mass/ Vol]Ordered By: Don Marks on 05-27-2024 Magnesium [Mass/Vol] 2.3 mg/dL High 1.5-2.2 [facility] TSH DL <= 0.005 mIU/L QnOrde red By: Natasha Bangeas on 05-27-2024 Thyroid Stimulating Hormone (TSH) 1.800 uIU/mL 0.300-4.200 [facility] Thyroid Stim Hormone (TSH)on 05-27-2024 TSH 1.800 uIU/mL Normal 0.300-4.200 [facility] Comment on above: Performed By: #### L 501.9520, L100.0500, BTSPAT #### [facility] [address] [place], [address] Type AND Screen - PAT ONLYon 05-27-2024 ABO and Rh group Nom (Bld) Blood group A Rh(D) positive Normal [facility] Comment on above: Order Comment: Reaso n for Laboratory Test PREOP [id number] No N N S HYSTERECTOMY Performed By: #### L 501.9520, L100.0500, BTSPAT #### [facility] [address] [place], [address] 12 Lead EKGon 03-10-2025 12 Lead EKG [facility] Cardiovascular Services [address] [place] [address] 12 Lead EKG 05/25/24 0837 MR#: [id number] Acct: [id number] Name: CIARRA ALBA LÓPEZ Rep #: [id number] : 1975 48 From: Pepito Calvo MD Attending Dr: Dr. Natasha Banegas MD Status: PRE SDC Ordering Dr: Natasha Banegas MD Date: 05/25/24 [place] [facility] [place] F C Admitted: Test Reason : PREOP Blood Pressure : */* mmHG Vent. Rate : 71 BPM Atrial Rate : 71 BPM P-R Int : 168 ms QRS Dur : 92 ms QT Int : 390 ms P-R-T Axes : 41 37 27 degrees QTcB Int : 423 ms Normal sinus rhythm with sinus arrhythmia Low voltage QRS Borderline ECG Confirmed by Pepito Calvo ([id number]), assignment desk editor DEWAYNE MORAN ([id number]) on 05/25/2024 11:02:11 AM Referred By: Natasha Banegas Confirmed By: Pepito Calvo 05/25/24 1102 Date Pepito Calvo MD CC: Dr. Katja Baron MD; Dr. Natasha Banegas MD Signed Normal [facility] Electrocardiogram reportOrde red By: Pepito Calvo on 05-25-2024 EKG study [facility] Cardiovascular Services [address] [place] [address] 12 Lead EKG 05/25/24 0837 MR#: [id number] Acct: [id number] Name: CIARRA ALBA LÓPEZ Rep #:[id number] : 1975 48 From: Pepito post MD Attending Dr: Dr. Natasha Banegas MD Status: PRE SDC Ordering Dr: Natasha Banegas MD Prateek e: 05/25/24 [place] [facility] [place] F C Admitted: Test Reason : PREOP Blood Pressure : */* mmHG Vent. Rate : 71 BPM Atrial Rate : 71 BPM P-R Int : 168 ms QRS Dur : 92 ms QT Int : 390 ms P-R-T Axes : 41 37 27 degrees QTcB Int : 423 ms Normal sinus rhythm with sinus arrhythmia Low voltage QRS Borderline ECG Confirmed by Pepito Calvo ([id number]), assignment desk editor DEWAYNE MORAN ([id number]) on 05/25/2024 11:02:11 AM Referred By: Natasha Banegas Confirmed By: Pepito Calvo 05/25/24 1102 Date _ Pepito Calvo MD CC: Dr. Katja Baron MD; Dr. Natasha Banegas MD ~ Signed [facility] Other Laboratory - Chemistry and C hemistry - challengeOrdered By: Natasha Banegas on 05-25-2024 HCG ( test) Ql (U) Negative [facility] MR/PAT.ANEselina 05-25-2024 MR/PAT.[facility] Medical Records Department [address] [place] [address] PAT - Anesthesia 05/25/24 1224 MR#: [id number] Acct: [id number] Name: CIARRA ALBA LÓPEZ Rep #: [id number] : 1975 48 From: Jevon Chen MD PCP: Dr. Katja Baron MD Status:PRE [facility] [place] Race: C [place] [facility] Pre-Assessment Diagnosis/Proposed Procedure Planned Operative Procedure(s): TOTAL VAGINAL HYSTERECTOMY, BILATERAL SALPINGECTOMY Anesthesia History Anesthesia History - medical staff coordinator: Anesthesia History - medical staff coordinator Hx Hospitalization No 05/19/24 15:25 Any Problems With Anesthesia No 05/19/24 15:25 Cholinesterase deficiency No 05/19/24 15:25 You/Your Family Experience No 05/19/24 15:25 fever (hyperthermia) with Relationship Recent Exposure to Contagious No 03/13/24 12:50 Disease Does patient have nerve No 05/19/24 15:25 stimulator Patient instructed to have device shut off --Does patient have Pacemaker or ICD? When Was Last Pacemaker Check QUESTION #4 FULL TEXT: You/Your Family Experience fever (hyperthermia) with Anesthesia Last Oral Intake Last Oral intake: Last Oral Intake NPO since Meds taken in AM with sips of water? Meds patient instructed to take am of surgery PONV PONV - medical staff coordinator: PONV - medical staff coordinator Female Yes 05/19/24 15:25 HX of Motion Sickness Yes 05/19/24 15:25 HX of N/V After Surgery No 05/19/24 15:25 Non-Smoker Yes 05/19/24 15:25 Duration of Surgery greater Yes 05/19/24 15:25 than 60 minutes Number of Risk Factors 4 05/19/24 15:25 PONV Score Severe Risk 05/19/24 15:25 Height Weight Height Weight: Anesthesia: Height Weight Height 5 ft 5 in 03/13/24 12:50 Respiratory Assessment Respiratory Assessment - medical staff coordinator: Respiratory Tract Infection Hx - medical staff coordinator Hx Respiratory Tract Infection No 05/19/24 15:25 STOP Sleep Apnea STOP Sleep Apnea - medical staff coordinator: STOP Sleep Apnea - medical staff coordinator Hx Hypertension No 05/19/24 15:25 Hx Sleep Apnea No 05/19/24 15:25 CPAP BIPAP Do you snore loudly (louder No 05/19/24 15:25 than talking or can be heard Do you often feel tired/ No 05/19/24 15:25 fatigued/ sleepy during daytime? Has anyone observed you stop No 05/19/24 15:25 breathing during sleep? STOP Results Negative 05/19/24 15:25 QUESTION #5 FULL TEXT : Do you snore loudly (louder than talking or can be heard through closed doors)? 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 Specify any problems Hx of Preganancy in last 3 No 05/19/24 15:25 Months Nurse Filling Out Transfusion CPOWERS2 05/19/24 15:25 Questions: Date: 05/19/24 05/19/24 15:25 Time: 15:32 05/19/24 15:25 Patient unable to answer at this time (ie. confused, unrespo /Reproductio n History /Reproductiv e History - medical staff coordinator: /Reproductiv e Hx- medical staff coordinator Hx Now No 05/19/24 15:25 Gestational Age (in weeks): EDC: Hx Hx Para Hx Section SAB No 05/19/24 15:25 [facility] Medical History (Updated 05/25/24 @ 10:[address] Natasha Banegas MD) Wears glasses Thyroid nodule High cholesterol Gastric reflux GERD (gastroesophageal reflux disease) Hyperlipemia Home Medications ???Medication ???Instructions ???Recorded ???Last Taken ???Type Saccharomyces boulardii 250 mg 250 mg PO DAILY 11/28/22 Unknown H istory capsule (Daily Probiotic (S. boulardii)) naproxen 500 mg tablet 500 mg PO BID PRN pain #30 tabs Unknown Rx Allergy/AdvReac Type Severity Reaction Status Date / Time No Known Allergies Allergy Verified 05/25/24 09:29 Family History Grandfather Lung cancer Surgical History (Updated 05/25/24 @ 10:[address] Natasha Banegas MD) History of endometrial ablation S/P LEEP ( 10/16/18) S/P bunionectomy s/p right hand surgery Social History Smok (more content not included)... Normal [facility] Hazardous Substances Engineer Office Visit Reporton 05-25-2024 Hazardous Substances Engineer Office Visit Report [facility] [address], [address] [place] [address] OFFICE VISIT Date of Service: 05/25/24 MR#: [id number] Acct: [id number] Name: CIARRA ALBA Rep #: [id number] : 1975 Provider: Dr. Natasha youssef MD Age/Sex: 48/F Location: [facility] [place] Status: Signed Intake Vital Signs 12/09/23 13:34 03/13/24 12:50 05/25/24 09:27 05/25/24 09:32 Height 5 ft 5 in 5 ft 5 in 5 ft 5 in 5 ft 5 in Weight: 173 lb 8 oz BMI 28.8 BP 127/87 H Intake Visit Reasons: hyst Nursing Administrator Required: No Is patient in pain?: Yes (some pelvic pain) Allergies No Known Allergies Allergy (Verified 05/25/24 09:29) Medications ???Medication ???Instructions ???Recorded ???Confirmed ???Type Saccharomyces boulardii 250 mg 250 mg PO DAILY 11/28/22 05/25/24 History capsule (Daily Probiotic (S. boulardii)) naproxen 500 mg tablet 500 mg PO BID PRN pain #30 tabs 05/25/24 Rx Is last menstrual period known: Yes Last Menstrual Period: 05/18/24 Post menopausal: No Patient : No : No PFSH PFSH Medical History (Updated 05/25/24 @ 10:[address] Natasha Banegas MD) Wears glasses Thyroid nodule High cholesterol Gastric reflux GERD (gastroesophageal reflux disease) Hyperlipemia Surgical History (Updated 05/25/24 @ 10:[address] Natasha Banegas MD) History of endometrial ablation S/P LEEP ( 10/16/18) S/P bunionectomy s/p right hand surgery Family History Grandfather Lung cancer Social History Smoking Status: Never smoker alcohol intake: never substance use type: does not use caffeine: Yes what type of physical activity do you participate in: other details: crossfit frequency: 5-6 times per week seatbelt use: always do you feel safe at home: Yes additional social history: [employer] employed Patient works [employer] History 2 Elective abortions Hx Para 2 Spontaneous abortions Hx # Term Pregnancies Ectopic pregnancies Hx # Pregnancies Multiple births # of living children Past Pregnancies Del. Date Name GA/Weeks Outcome Route Bth Weight Gen Labor Lgth Anesthesia Del Locatn Provider FOB Unknown Kevin-2000 Unknown Keshawn-2002 HPI hyst Details: CIARRA ALBA is a 48 year old who presents for preop visit. she has had persistent lower pelvic pain and irergular bleeding, had an ablationg 5 years ago that worked intiially but now is failing. she hasn't had an EMB but had a repeat pelvic US. discussed hysterecotmy back in september but was waiting to normalize thyroid and see if it helped and it hasn't. Female Reproductive History Last Menstrual Period: 05/18/24 Menopausal Symptoms: No night sweats ROS Const Constitutional: Denies fatigue, night sweats, weight gain or weight loss ENT ENT: Reports system reviewed and no additional complaints, except as documented Cardio Card: Denies chest pain Resp Resp: Denies cough or dyspnea GI GI: Reports as per HPI; Denies abdominal pain, constipation, nausea or vomiting : Denies nipple discharge, urinary frequency, urinary incontinence, urinary hesitancy, urinary urgency, vaginal discharge, vaginal dryness, vaginal odor or vaginal pruritus Musc Musc: Denies arthralgias, back pain or muscle weakness Skin Skin/Breast: Denies alopecia, change in hair, dry skin, breast mass, breast pain, breast skin changes or nipple discharge Neuro Neuro: Reports system reviewed and no additional complaints, except as documented Psych Psych: Reports system reviewed and no additional complaints, except as documented Endo Endo: Denies cold intolerance, excessive sweating, heat intolerance or polydipsia Owen/Lymph Hematologic/Lymphatic : Denies easy bleeding, Denies easy bruising and Denies lymphadenopathy Exam Const General: cooperative, healthy appearing, comfortable, no acute distress and well developed Orientation: alert [facility] Head: normal to inspection and normocephalic Ears: hearing grossly normal bilaterally and external ears normal Nose: external nose normal and nares normal Face and sinus: normal facial exam Neck Neck: normal visual inspection and no lymphadenopathy Thyroid: thyroid normal Chest Chest palpation inspection: normal inspection of the chest Resp Effort Inspection: normal respiratory effort Auscultation: clear to auscultation bilaterally Cardio Rate: regular rate Rhythm: regular rhythm Heart Sounds: S1 normal and S2 normal GI Inspection: normal to inspection and non-distended Palpation: soft and no hepatosplenomegaly General: bladder normal to palpation External Female Exam: normal external a (more content not included)... Normal [facility] CNOVon 05-13-2024 CNOV Office Visit (ENSUMN ) CIARRA ALBA ([id number]) 1975 F Date Time Provider Department 05/13/24 3:00 PM JESUSITA MAGANA During your visit today, we recorded the following information about you: Pulse Blood pressure Weight 81/minute 115/83 77 kg Chinyere Barclay MA 05/13/2024 2:47 PM Signed Thank you for choosing the [facility] Department of Endocrinology, Diabetes and Metabolism. Did you know that you need to call 48 hours in advance of your scheduled visit, if you are unable to make your appointment? The Endocrinology and Metabolism [place] thanks you for your commitment, because patients not showing to their appointment results in a lost opportunity for patients to receive [facility] health care at the [facility]. To Cancel an appointment, please choose one of the following: - Call the Appointment Call Center at [phone] - From [place], Go to Appointments - Cancel Appts If cancelling, consider your need to reschedule to prevent further delays in your care. To Schedule an appointment, please choose one of the following: - Call the Appointment Call Center at [phone] - From [place], Go to Appointments - Request an Appt Jesusita Magana MD 05/13/2024 3:25 PM Signed Endocrinology Metabolism [place] [facility] Jesusita Magana M.D. Section of Endocrine Surgery and Advanced Laparoscopic Surgery [address] [place] [address], [place] [address] ENDOCRINE SURGERY POST OPERATIVE FOLLOW UP NOTE NAME: Ciarra Alba [facility] NO: [id number] : 1975 Surgeon: Dr. Jesusita Magana HPI: Ciarra Alba presents to clinic for a postoperative visit after radiofrequency ablation of left thyroid nodule on 04/27/2024. The patient reports doing well post-operatively. The patient has no complaints. PHYSICAL EXAM: On physical exam, the patient is well appearing, alert, and oriented. On inspection, the skin over the anterior neck is smooth, no mass is visualized. Palpation revealed neck to be supple, No lymphadenopathy was palpated on either side of the neck. NECK US: A neck US was performed today in the office showing a left thyroid nodule measuring 30c10g49 mm with preoperative measures of 15.9x13.1x16.1mm. LABS: None IMPRESSION: Ciarra Alba is doing well after RFA of a symptomatic left thyroid nodule. PLAN: F/u in 3 months Jesusita Magana MD 05/13/2024 Allergies As of Date: 05/13/2024 (No Known Allergies) Date Reviewed: 05/13/2024 Reviewed by: Chinyere Barclay MA - Fully Assessed Reason for Visit: Post Op [174] Primary Visit Diagnosis:Multiple thyroid nodules [E04.2] Problem List As Of Date 05/13/2024 Noted Resolved Multiple thyroid nodules [E04.2] 02/26/2024 Nontoxic single thyroid nodule [E04.1] 02/26/2024 Acid reflux [K21.9] 04/13/2024 Other instructions from your clinician: Thank you for choosing the [facility] Department of Endocrinology, Diabetes and Metabolism. Did you know that you need to call 48 hours in advance of your scheduled visit, if you are unable to make your appointment? The Endocrinology and Metabolism [place] thanks you for your commitment, because patients not showing to their appointment results in a lost opportunity for patients to receive world class health care at the [facility]. To Cancel an appointment, please choose one of the following: - Call the Appointment Call Center at [phone] - From [place], Go to Appointments - Cancel Appts If cancelling, consider your need to reschedule to prevent further delays in your care. To Schedule an appointment, please choose one of the following: - Call the Appointment Call Center at [phone] - From [place], Go to Appointments - Request an Appt Encounter Status:Closed by JESUSITA MAGANA on 05/13/24 Normal [facility] Pelvic w/ Transvaginalon Pelvic w/ Transvaginal [facility] Imaging Services [address] [place] [address] [place], [place] [address] Pelvic w/ Transvaginal MR#: [id number] Acct: [id number] Name: CIARRA ALBA Rep #: [id number] : 1975 F 48 From: Ru Chew MD PCP: Dr. Katja Baron MD Status: REG CLI Study: Pelvic w/ Transvaginal Date of Exam: 04/30/24 Exam# [id number] Ordering Dr: Natasha Banegas EXAM: US Pelvis Transvaginal CLINICAL INDICATION: TECHNIQUE: Real-time transvaginal pelvic ultrasound with image documentation. Transvaginal imaging was used for better evaluation of the endometrium and adnexa. COMPARISON: No relevant prior studies available. FINDINGS: UTERUS/CERVIX: Uterine fibroid measuring up to 1.0 cm. Normal endometrial stripe thickness. The uterus measures 8.3 x 6.0 x 7.7 cm. RIGHT OVARY: Unremarkable. Normal blood flow. The right ovary measures 2.8 x 3.0 x 1.9 cm. LEFT OVARY: Unremarkable. Normal blood flow. The left ovary measures 2.5 x 2.2 x 1.5 cm. FREE FLUID: No free fluid. BLADDER: Empty bladder which cannot be evaluated with this probe. US/Pelvic w/ Transvaginal IMPRESSION: Uterine fibroid. Reading Location: [facility] CC: Dr. Katja Baron MD; Dr. Natasha Banegas MD Anesthesiologist Physician: Signed Normal [facility] ANES POSTPROC EVALon 025 ANES POSTPROC EVAL HNO ID: [id number] Author: ALIA IRIZARRY MD Service: Anesthesiology Author Type: Anesthesiologist Type: Anesthesia Postprocedure Evaluation Filed: 04/27/2024 10:42 Note Text: POST ANESTHESIA EVALUATION NOTE : 1975 Procedure Summary Date: 04/27/24 Room / Location: OR / MM OR Anesthesia Start: 729 Anesthesia Stop: 0836 Procedure: THYROID RF ABAL W/US (Thyroid) Diagnosis: Multiple thyroid nodules Nontoxic multinodular goiter (Multiple thyroid nodules [E04.2]) (Nontoxic multinodular goiter [E04.2]) Surgeons: Jesusita Magana MD Responsible Provider: Alia Irizarry MD Anesthesia Type: MAC ASA Status: 3 Anesthesia Type: MAC Last Vitals Vitals Value Taken Time BP 111/73 04/27/24 1030 Temp 36.3 ?C (97.3 ?F) 04/27/24 0838 Pulse 66 04/27/24 1041 Resp 15 04/27/24 1041 SpO2 97 % 04/27/24 1041 Vitals shown include unfiled device data. Post Anesthesia Patient Status Patient Evaluation: PACU. PACU/ICU Patient Condition: stable. Anticipated Disposition: phase 2 then home. Neurological Status: aware and responsive. Pulmonary Status: breathing comfortably on room air Airway Control: returned to baseline unsupported. Cardiovascular Status: stable. Pain Management: clinically adequate - multimodal analgesia pain management approach Postoperative Hydration: acceptable. Intraoperative Events: no significant anesthesia events Recommendation: continue current plan of care. Anesthesia Observations No Documentation SIGNATURE: Alia Irizarry MD PATIENT NAME: Ciarra Alba DATE: April 27, 2024 TIME: 10:42 AM CSN: [id number] [facility] ANES PRE-OPon 04-27-2024 ANES PRE-OP HNO ID: [id number] Author: ALIA IRIZARRY MD Service: Anesthesiology Author Type: Anesthesiologist Type: Anesthesia Preprocedure Evaluation Filed: 04/27/2024 07:26 Note Text: ANESTHESIOLOGY DAY OF SURGERY NOTE : 1975 Procedure Information Date/Time: 04/27/2430 Procedure: THYROID RF ABAL W/US (Left: Thyroid) Location: MM OR05 / [facility] OR Surgeons: Jesusita Magana MD Estimated body mass index is 29.29 kg/m? as calculated from the following: Height as of 04/13/24: 165.1 cm (5' 5). Weight as of 04/13/24: 79.8 kg (176 lb). Most recent hematocrit and potassium results: Hematocrit 44.7 03/28/2024 Potassium 4.1 03/28/2024 Relevant Problems GI (+) Acid reflux I - PHYSICAL EVALUATION AIRWAY Patient intubated: No. Tracheostomy tube not present Mallampati: III. TM distance: >3 FB. Neck ROM: full ROM without neurological symptoms. Mouth opening: adequate. Short neck: no. Thick neck: no Additional exam findings: no II - ANESTHESIA PLAN ASA Score: 3 Anesthetic Plan: MAC NPO Status: adequate Anesthetic plan additional comments: GA backup. Beta Rashel Monitoring Plan Monitoring plan: standard ASA. Post Procedure Analgesic Plan Postoperative analgesic plan: parenteral or oral opioids and multimodal analgesia. Patient / Surrogate agrees to blood products: blood products not planned Significant changes in the patient condition since the History and Physical, not otherwise documented in primary service progress note: no. Vitals Value Taken Time BP 116/82 04/27/24652 Pulse 83 04/27/24652 Resp Temp 36.3 ?C (97.3 ?F) 04/27/24652 SpO2 98 % 04/27/24652 Facility-Administered Medications as of 04/27/2024 Medication Dose Route Frequency NaCl 0.9% iv infusion 75 mL/hr INTRAVENOUS CONTINUOUS Outpatient Medications as of 04/27/2024 Medication Sig azithromycin (ZITHROMAX Z-LEE) 250 mg tablet Take 2 tablets by mouth day one, then 1 tablet daily until gone. (Patient not taking: Reported on 02/26/2024) I have interviewed and examined the patient. I have reviewed the medical record and/or the pre-anesthesia evaluation, pertinent labs, and test results. This contains updated information obtained within 48 hours of Surgery/Procedure. SIGNATURE: Alia Irizarry MD PATIENT NAME: Ciarra Alba DATE: April 27, 2024 TIME: 7:25 AM CSN: [id number] [facility] BRIEF OP NOTon 04-27-2024 BRIEF OP NOT HNO ID: [id number] Author: DINORA OGLESBY MD Service: Endocrine Surgery Author Type: Physician Type: Brief Op Note Filed: 04/27/2024 08:34 Note Text: Brief Operative Note Patient Name: Ciarra Alba LOG ID: [id number] Surgery/Procedure Date: 04/27/2024 Surgeon(s)/Procedural ist(s) and Manager Discovery(s): Surgeons and Role: * Jesusita Magana MD - Primary * Dinora Oglesby MD - Resident - Assisting * Migue Garcia MD - Resident - Observing Procedure(s): Left thyroid nodule radiofrequency ablation Incision/Procedure Start Time: 7:59 AM Incision Close/Procedure End Time: 8:20 AM Anesthesia: Monitored Anesthesia Care Findings: 1.6 cm left thyroid nodule Input: Crystalloid: See anesthesia record Output: See anesthesia record Estimated Blood Loss: 1 mL Specimens: * No specimens in log * Implants: * No implants in log * Drains: None Wound Classification: Class 1, operative wound clean, non-traumatic, with no inflammation encountered, no break in technique, gastrointestinal and genitor-urinary tracts not entered Pre-Op/Pre-Procedure Diagnosis: Symptomatic left thyroid nodule Post-Op/Post-Procedur e Diagnosis: same Post-Op Plan: Recover in PACU. SIGNATURE: Dinora Oglesby MD DATE: 04/27/24 TIME: 8:34 AM [facility] OPERATIVE NOon 04-27-2024 OPERATIVE NO HNO ID: [id number] Author: JESUSITA MAGANA MD Service: Endocrine Surgery Author Type: Physician Type: Operative Report Filed: 04/27/2024 08:29 Note Text: NAME:CIARRA ALBA : 1975 DATE OF SURGERY/PROCEDURE: 04/27/2024 INCISION/PROCEDURE START TIME:07:57 PROCEDURE END TIME: 08:20 PREOPERATIVE DIAGNOSIS: Symptomatic thyroid nodule POSTOPERATIVE DIAGNOSIS: Same SURGEON: Jesusita Magana MD TELEVISION SCRIPT WRITER: Dinora Tovar MD SURGERY/PROCEDURE: Percutaneous radiofrequency ablation of a thyroid nodule under ultrasound guidance, intraoperative neck ultrasound. ANESTHESIA: Monitored anesthesia care (Local anesthesia with sedation) HISTORY: This is an 48-year-old patient with a 1.6 cm left thyroid nodule, with pressure symptoms. Consent was obtained for thyroid radiofrequency ablation. OPERATIVE FINDINGS: Intraoperative neck ultrasound demonstrated multinodular goiter, with a dominant left thyroid nodule, measuring 1.59X13.1 X1.61cm. This nodule was treated with RFA at 10 -15 W. Ablation time and energy delivered were 18 mins and 66011 J. Using the Tenfoot Star 5 mm RFA needle, multiple ablations were performed using a moving target technique around the nodule using 10 W for a total of 2972 J. The procedure was performed uneventfully under monitored anesthesia (10 cc of 1% Lidocaine plus sedation-Versed, Fentanyl). Patient's ultrasound images have been archived into her chart. DESCRIPTION OF PROCEDURE: Patient was placed supine on the operative table. Neck was positioned in beanbag. Intraoperative neck ultrasound was performed. These images have been archived into the patient's chart. Neck was prepped and draped. Lidocaine was used to inject the skin and also the thyroid capsule. Ultrasound was performed with the findings above. Then the ablation needle was taken into the field and the nodule was ablated with the parameters above. A completion ultrasound did not reveal any complications. At this time a sterile dressing was applied to the needle entry sites. COMPLICATIONS: None. ESTIMATED BLOOD LOSS: None. COUNTS: Sponge and instrument counts were correct. SPECIMENS: None I attest, as I was the primary surgeon, scrubbed for whole case. Since there were no residents available, Dr. Dinora Oglesby was asked with the first assistance of this case. His help included assistance with the ultrasound and RFA portion of the case. Jesusita Magana MD [facility] US Neckon 04-27-2024 [facility] Radiology Study observation (narrative) [facility] HISTORY PHYSICALon HISTORY PHYSICAL HNO ID: [id number] Author: DULCE ROMERO PA-C Service: ? Author Type: Physician Manager Discovery Type: H&P Filed: 04/13/2024 09:35 Note Text: HISTORY AND PHYSICAL EXAMINATION SERVICE DATE: 04/13/2024 SERVICE TIME: 9:35 AM PRIMARY CARE PHYSICIAN: No primary care provider on file. REASON FOR VISIT: Ciarra Alba is a 48 year old female who is scheduled for Procedure(s): THYROID RF ABAL W/US (Left) at the request of Jesusita Helms MD for consultation. My final recommendation will be communicated back to the requesting physician by way of shared medical record or letter. Subjective The patient has the following: ACTIVE PROBLEM LIST Multiple Thyroid Nodules Nontoxic Single Thyroid Nodule Acid Reflux COVID-19 Immunization Status Overdue - Covid-19 Vaccine () Overdue since 11/17/2023 09/11/2021 Imm Admin: COVID-19 original vaccine, full dose, monovalent (MODERNA) 07/19/2021 Imm Admin: COVID-19 original vaccine, full dose, monovalent (MODERNA) CHIEF COMPLAINT: Pre-Op HPI: Ciarra Alba is a 48 year old female presenting for pre-anesthesia consultation. Pt has history of thyroid nodules. Above procedure recommended to manage symptoms. Procedure scheduled on 04/27/2024 at [facility]. REVIEW OF SYSTEMS: General: No weight loss, malaise or fevers. Neurological: Negative for: headaches, multiple sclerosis, Parkinson's disease, seizures and strokes. Respiratory: Negative for: asthma, COPD, current cough, dyspnea, tobacco use, URI < 2 weeks and obstructive sleep apnea. Cardiovascular: Negative for: AICD/PPM, anticoagulation therapy, arrhythmia, CAD, chest pain, CHF, DVT/PE, hyperlipidemia, hypertension, recent ME, murmur/valvular heart disease, open heart surgery and valve surgery. GI: Positive for: GERD (prn tums) Negative for: abdominal pain, dysphagia, liver disease, nausea and vomiting. : Negative for: on dialysis, dysuria, hematuria and renal failure. Endocrine: Negative for: diabetes mellitus, hyperthyroidism and hypothyroidism. Hematology: Negative for: anemia, bruises/bleeds easily, factor V Leiden, hemophilia, thrombocytopenia, von Willebrand disease and chronic anti-coagulation/plat elet meds. Oncology: No history of CA metastasis, chemo within 30 days, or radiotherapy within 90 days. No history of oncological symptoms or problems. Psych: Negative for: anxiety, bipolar disorder and depression. Musculoskeletal: Negative for joint pain or swelling, back pain or muscle pain. Skin: Negative for lesions, rash and itching. PAST MEDICAL HISTORY Diagnosis Date Hypercholesteremia PAST SURGICAL HISTORY Procedure Laterality Date COLONOSCOPY SCREENING HYSTEROSCOPY ENDOMETRIAL ABLATION PAST SURGICAL HISTORY OF 03/18/1997 BUNIONECTOMY / RIGHT FOOT PAST SURGICAL HISTORY OF 03/18/1998 HAND INJURY, Right hand FAMILY HISTORY Problem Relation Age of Onset Hypertension Maternal Grandmother Cancer Maternal Grandfather Anesthesia Problems No Family History Social History Tobacco Use Smoking status: Never Smokeless tobacco: Never Vaping Use Vaping status: Never Used Substance Use Topics Alcohol use: No Drug use: No Prior to Admission medications as of 04/13/24 0933 Medication Sig Last Dose Taking azithromycin (ZITHROMAX Z-LEE) 250 mg tablet Take 2 tablets by mouth day one, then 1 tablet daily until gone. Patient not taking: Reported on 02/26/2024 No medication comments found. ALLERGIES No Known Allergies Objective PHYSICAL EXAM: General: alert and oriented and healthy appearance. Pertinent negatives noted - not distressed. Skin: normal color, no rash or lesions. HEENT: EOM intact, pupils equal round and pupils reactive to light. Pertinent negatives noted - no carotid bruit. Cardiovascular: regular rate and rhythm, normal S1 and S2, no rub, murmurs, or gallop. Respiratory: normal breath sounds, no wheezes or crackles. No chest wall deformity or tenderness. Abdomen: bowel sounds present and soft. Pertinent negatives noted - not tender. Extremities: no deformity, no edema or tenderness, no joint swelling or clubbing. Neurological: normal cognition and motor skills. Gait normal. No weakness or sensory deficit. PAIN ASSESSMENT: VITALS: BP 138/82 Pulse 78 Temp (Src) 97.3 (Temporal) Resp 14 Ht 5' 5 (1.65m) Wt 176 lb (79.8kg) SpO2 96% LMP 03/23/2024 BMI 29.29 kg/(m2). Diagnostic tests reviewed for today's visit: Lab Value Units Date High Low HB 14.9 g/dL 03/28/2024 15.5 11.5 HCT 44.7 % 03/28/2024 46.0 36.0 WBC 7.76 k/uL 03/28/2024 11.00 3.70 PLT 232 k/uL 03/28/2024 400 150 NA 140 mmol/L 03/28/2024 144 136 K 4.1 mmol/L 03/28/2024 5.1 3.7 GLUC 108 mg/dL 03/28/2024 99 74 BUN 11 mg/dL 03/28/2024 21 7 CREAT 0.76 mg/dL 03/28/2024 0.96 0.58 PTSEC No results within date range. INR No results within date range. APTT No results within date range. ALT No (more content not included)... Normal [facility] Basic metabolic 2000 panelon 03-28-2024 Anion gap [Moles/Vol] 13 mmol/L Normal 8-15 [facility] Comment on above: Order Comment: Speci men Type: BLOOD SPECIMENOrdering Facility: [facility] Address: [address] [id number] Performed By: #### 2 4321-2 ####[facility] LABCLIA [id number] [address] [address] [place] Calcium [Mass/Vol] 9.6 mg/dL Normal 8.5-10.2 [facility] Comment on above: Order Comment: Speci men Type: BLOOD SPECIMENOrdering Facility: [facility] Address: [address] [place], [place] [address] Performed By: #### 2 4321-2 ####[facility] LABCLIA [id number] [place] [address] [place] Chloride [Moles/Vol] 104 mmol/L Normal 98-107 [facility] Comment on above: Order Comment: Speci men Type: BLOOD SPECIMENOrdering Facility: [facility] Address: [address] [place] [address] Performed By: #### 2 4321-2 ####[facility] LABCLIA [id number] [place] [address] [place] CO2 [Moles/Vol] 23 mmol/L Normal 22-30 [facility] Comment on above: Order Comment: Speci men Type: BLOOD SPECIMENOrdering Facility: [facility] Address: [address] [place], [place] [address] Performed By: #### 2 4321-2 ####[facility] LABCLIA [id number] [place] [id number] [place] Creatinine [Mass/Vol] 0.76 mg/dL Normal 0.58-0.96 [facility] Comment on above: Order Comment: Speci men Type: BLOOD SPECIMENOrdering Facility: [facility] Address: [address] [place], [place] [address] Performed By: #### 2 4321-2 ####[facility] LABCLIA [id number] [place] [address] [place] Creatinine and Glomerular filtration rate.predicted panel (S/P/Bld) 97 mL/min/1.73m??? Normal >=60 [facility] Comment on above: Order Comment: Alberto forde Type: BLOOD SPECIMENOrdering Facility: [facility] Address: [address] [place] [address] Result Comment: Rosalba mated Glomerular Filtration Rate (eGFR) is calculated using the 2020 CKD-EPI creatinine equation. This equation utilizes serum creatinine, sex, and age as parameters. The creatinine assay has traceable calibration to isotope dilution-mass spectrometry. Refer to KDIGO guidelines for clinical interpretation. In patients with unstable renal function, e.g. those with acute kidney injury, the eGFR may not accurately reflect actual GFR. Performed By: #### 2 4321-2 ####[facility] LABCLIA [id number] [place] [address] [place] Glucose [Mass/Vol] 108 mg/dL High 74-99 [facility] Comment on above: Order Comment: Alberto forde Type: BLOOD SPECIMENOrdering Facility: [facility] Address: [address] [place] [address] Result Comment: The [place] Diabetes Association (ADA) provides guidance for cutoff values for fasting glucose and random glucose. The ADA defines fasting as no caloric intake for at least 8 hours. Fasting plasma glucose results between 100 to 125 mg/dL indicate increased risk for diabetes (prediabetes). Fasting plasma glucose results greater than or equal to 126 mg/dL meet the criteria for diagnosis of diabetes. In the absence of unequivocal hyperglycemia, results should be confirmed by repeat testing. In a patient with classic symptoms of hyperglycemia or hyperglycemic crisis, random plasma glucose results greater than or equal to 200 mg/dL meet the criteria for diagnosis of diabetes. Reference: Standards of Medical Care in Diabetes 2016, [place] [employer] Association. Diabetes Care. 2016.39(Suppl 1). Performed By: #### 2 4321-2 ####[facility] LABCLIA [id number] [place] [address] [place] Potassium [Moles/Vol] 4.1 mmol/L Normal 3.7-5.1 [facility] Comment on above: Order Comment: Speci men Type: BLOOD SPECIMENOrdering Facility: [facility] Address: [address] [place] [address] Performed By: #### 2 4321-2 ####[facility] LABCLIA [id number] [place] [address] [place] Sodium [Moles/Vol] 140 mmol/L Normal 136-144 [facility] Comment on above: Order Comment: Speci men Type: BLOOD SPECIMENOrdering Facility: [facility] Address: [address] [place] [address] Performed By: #### 2 4321-2 ####[facility] LABCLIA [id number] [place] [address] [place] Urea nitrogen [Mass/Vol] 11 mg/dL Normal 7-21 [facility] Comment on above: Order Comment: Speci men Type: BLOOD SPECIMENOrdering Facility: [facility] Address: [address] [place] [address] Performed By: #### 2 4321-2 ####[facility] LABIA [id number] [place] [address] [place] CBC W Auto Differential pane l (Bld)on 03-28-2024 Basophils (Bld) [#/Vol] 0.04 10*3/uL Normal <0.11 [facility] Comment on above: Order Comment: Speci men Type: BLOOD SPECIMENOrdering Facility: [facility] Address: [address] [place] [address] Performed By: #### 5 7021-8 ####[facility] LABCLIA [id number] [place] [address] [place] Basophils/100 WBC (Bld) 0.5 % Normal [facility] Comment on above: Order Comment: Speci men Type: BLOOD SPECIMENOrdering Facility: [facility] Address: [address] [place], [place] [address] Performed By: #### 5 7021-8 ####[facility] LABCLIA [id number] [place] [address] [place] Differential cell count method Nom (Bld) Auto Normal [facility] Comment on above: Order Comment: Speci men Type: BLOOD SPECIMENOrdering Facility: [facility] Address: [address] [place] [address] Performed By: #### 5 7021-8 ####[facility] LABCLIA [id number] [place] [address] [place] Eosinophils (Bld) [#/Vol] 0.18 10*3/uL Normal <0.46 [facility] Comment on above: Order Comment: Speci men Type: BLOOD SPECIMENOrdering Facility: [facility] Address: [address] [place] [address] Performed By: #### 5 7021-8 ####[facility] LABIA [id number] [place] [address] [place] Eosinophils/100 WBC (Bld) 2.3 % Normal [facility] Comment on above: Order Comment: Speci men Type: BLOOD SPECIMENOrdering Facility: [facility] Address: [address] [place] [address] Performed By: #### 5 7021-8 ####[facility] LABIA [id number] [place] [address] [place] Erythrocyte distribution width (RBC) [Ratio] 12.3 % Normal 11.5-15.0 [facility] Comment on above: Order Comment: Speci men Type: BLOOD SPECIMENOrdering Facility: [facility] Address: [address] [place] [address] Performed By: #### 5 7021-8 ####[facility] LABCLIA [id number] [place] [address] [place] Hematocrit (Bld) [Volume fraction] 44.7 % Normal 36.0-46.0 [facility] Comment on above: Order Comment: Speci men Type: BLOOD SPECIMENOrdering Facility: [facility] Address: [address] [place] [address] Performed By: #### 5 7021-8 ####[facility] LABCLIA [id number] [place] [address] [place] Hemoglobin (Bld) [Mass/Vol] 14.9 g/dL Normal 11.5-15.5 [facility] Comment on above: Order Comment: Speci men Type: BLOOD SPECIMENOrdering Facility: [facility] Address: [address] [place] [address] Performed By: #### 5 7021-8 ####[facility] LABIA [id number] [place] [address] [place] Immature granulocytes (Bld) [#/Vol] 10*3/uL Normal <0.10 [facility] Comment on above: Order Comment: Speci men Type: BLOOD SPECIMENOrdering Facility: [facility] Address: [address] [place] [address] Performed By: #### 5 7021-8 ####[facility] LABIA [id number] [place] [address] [place] Immature granulocytes/100 WBC (Bld) 0.3 % Normal [facility] Comment on above: Order Comment: Speci men Type: BLOOD SPECIMENOrdering Facility: [facility] Address: [address] [place] [address] Performed By: #### 5 7021-8 ####[facility] LABIA [id number] [place] [address] [place] Lymphocytes (Bld) [#/Vol] 2.78 10*3/uL Normal 1.00-4.00 [facility] Comment on above: Order Comment: Speci men Type: BLOOD SPECIMENOrdering Facility: [facility] Address: [address] [place] [address] Performed By: #### 5 7021-8 ####[facility] LABIA [id number] [place] [address] [place] Lymphocytes/100 WBC (Bld) 35.8 % Normal [facility] Comment on above: Order Comment: Speci men Type: BLOOD SPECIMENOrdering Facility: [facility] Address: [address] [place] [address] Performed By: #### 5 7021-8 ####[facility] LABIA [id number] [place] [address] [place] MCH (RBC) [Entitic mass] 29.7 pg Normal 26.0-34.0 [facility] Comment on above: Order Comment: Speci men Type: BLOOD SPECIMENOrdering Facility: [facility] Address: [address] [place] [address] Performed By: #### 5 7021-8 ####[facility] LABIA [id number] [place] [address] [place] MCHC (RBC) [Mass/Vol] 33.3 g/dL Normal 30.5-36.[address] [facility] Comment on above: Order Comment: Speci men Type: BLOOD SPECIMENOrdering Facility: [facility] Address: [address] [place] [address] Performed By: #### 5 7021-8 ####[facility] LABIA [id number] [place] [address] [place] MCV (RBC) [Entitic vol] 89.2 fL Normal 80.0-100.0 C [facility] Comment on above: Order Comment: Speci men Type: BLOOD SPECIMENOrdering Facility: [facility] Address: [address] [place] [address] Performed By: #### 5 7021-8 ####[facility] LABIA [id number] [address] [address] [place] Monocytes (Bld) [#/Vol] 0.54 10*3/uL Normal <0.87 [facility] Comment on above: Order Comment: Speci men Type: BLOOD SPECIMENOrdering Facility: [facility] Address: [address] [place] [address] Performed By: #### 5 7021-8 ####[facility] LABCLIA [id number] [place] [address] [place] Monocytes/100 WBC (Bld) 7.0 % Normal [facility] Comment on above: Order Comment: Speci men Type: BLOOD SPECIMENOrdering Facility: [facility] Address: [address] [place] [address] Performed By: #### 5 7021-8 ####[facility] LABCLIA [id number] [place] [address] [place] Neutrophils (Bld) [#/Vol] 4.20 10*3/uL Normal 1.45-7.50 [facility] Comment on above: Order Comment: Speci men Type: BLOOD SPECIMENOrdering Facility: [facility] Address: [address] [place] [address] Performed By: #### 5 7021-8 ####[facility] LABCLIA [id number] [place] [address] [place] Neutrophils/100 WBC (Bld) 54.1 % Normal [facility] Comment on above: Order Comment: Speci men Type: BLOOD SPECIMENOrdering Facility: [facility] Address: [address] [place] [address] Performed By: #### 5 7021-8 ####[facility] LABCLIA [id number] [place] [address] [place] Nucleated RBC (Bld) [#/Vol] 10*3/uL Normal <0.01 [facility] Comment on above: Order Comment: Speci men Type: BLOOD SPECIMENOrdering Facility: [facility] Address: [address] [place] [address] Performed By: #### 5 7021-8 ####[facility] LABCLIA [id number] [place] [address] [place] Nucleated RBC/100 WBC (Bld) [Ratio] 0.0 /100 WBC Normal [facility] Comment on above: Order Comment: Speci men Type: BLOOD SPECIMENOrdering Facility: [facility] Address: [address] [place] [address] Performed By: #### 5 7021-8 ####[facility] LABIA [id number] [place] [address] [place] Platelet mean volume (Bld) [Entitic vol] 10.5 fL Normal 9.0-12.7 [facility] Comment on above: Order Comment: Speci men Type: BLOOD SPECIMENOrdering Facility: [facility] Address: [address] [place] [address] Performed By: #### 5 7021-8 ####[facility] LABIA [id number] [place] [address] [place] Platelets (Bld) [#/Vol] 232 10*3/uL Normal 150-400 [facility] Comment on above: Order Comment: Speci men Type: BLOOD SPECIMENOrdering Facility: [facility] Address: [address] [place] [address] Performed By: #### 5 7021-8 ####[facility] LABCLIA [id number] [place] [address] [place] RBC (Bld) [#/Vol] 5.01 10*6/uL Normal 3.90-5.20 [facility] Comment on above: Order Comment: Speci men Type: BLOOD SPECIMENOrdering Facility: [facility] Address: [address] [place] [address] Performed By: #### 5 7021-8 ####[facility] LABCLIA [id number] [place] [id number] [place] WBC (Bld) [#/Vol] 7.76 10*3/uL Normal 3.70-11.00 [facility] Comment on above: Order Comment: Speci men Type: BLOOD SPECIMENOrdering Facility: [facility] Address: [address] [place] [address] Performed By: #### 5 7021-8 ####[facility] LABCLIA [id number] [place] [id number] [place] SCRN MAMM (CAD)W/CARMEN BILATo n 03-25-2024 SCRN MAMM (CAD)W/CARMEN BILAT [facility] [address] [place] [address] SCRN MAMM (CAD)W/CARMEN BILAT MR#: [id number] Acct: [id number] Name: CIARRA LABA LÓPEZ Rep #: [id number] : 1975 F 48 From: Sergio buckner MD PCP: Dr. Katja Baron MD Status: [facility] Study: SCRN MAMM (CAD)W/CARMEN BILAT Date of Exam: 11/09 Exam# [id number] Ordering Dr: Jocelin Dumas COATER HELPER COATER HELPER -C [id number] MAMMOGRAPHY - BILATERAL SCREENING REASON FOR EXAM: Female, 48 years old. Routine annual screening examination. PERTINENT HISTORY: Non-contributory. TECHNIQUE: Digital bilateral breast carmen (3D mammographic acquisition) in the CC and MLO projections. 2-D mediolateral oblique (MLO) and craniocaudad (CC) views of both breasts were obtained. CAD: Full Field Digital Mammography with Computer Added Detection was performed. COMPARISON: Comparison is made with prior study dated December 20, 2022 and December 18, 2021. FINDINGS: Breast Composition: The breasts are extremely dense, which lowers the sensitivity of mammography. There are no dominant masses or suspicious calcifications. No other significant abnormalities are identified. There has been no significant change since the prior study. BI/SCRN MAMM (CAD)W/CARMEN BILAT IMPRESSION: Stable bilateral screening mammogram. Yearly follow-up mammogram recommended. (A) ASSESSMENT CATEGORY: BIRADS Category 1: Negative. A letter regarding these results will be sent to the patient by the facility within 30 days. Approximately 10% of breast cancers are not detected by mammography. A normal mammogram should not delay biopsy of a clinically suspicious abnormality. [id number] Electronically Signed: Sergio Buchanan MD at 12:57 EST , CC: MARY Dumas; Dr. Katja Baron MD Anesthesiologist Physician: Signed Normal [facility] 02-26-[address] [facility] Office Visit (CHELI ) CIARRA ALBA ([id number]) 1975 F Date Time Provider Department 02/26/24 10:00 AM JESUSITA MAGANA During your visit today, we recorded the following information about you: Pulse Blood pressure Weight Height 78/minute 132/83 77.2 kg 1.673 m Last Period 02/18/24 Steph Patel MA 02/26/2024 9:46 AM Signed Thank you for choosing the [facility] Department of Endocrinology, Diabetes and Metabolism. Did you know that you need to call 48 hours in advance of your scheduled visit, if you are unable to make your appointment? The Endocrinology and Metabolism [place] thanks you for your commitment, because patients not showing to their appointment results in a lost opportunity for patients to receive [facility] care at the [facility]. To Cancel an appointment, please choose one of the following: - Call the Appointment Call Center at [phone] - [facility], Go to Appointments - Cancel Appts If cancelling, consider your need to reschedule to prevent further delays in your care. To Schedule an appointment, please choose one of the following: - Call the Appointment Call Center at [phone] - [facility], Go to Appointments - Request an Appt Jesusita Magana MD 02/26/2024 10:28 AM Signed Endocrinology Metabolism [place] [facility] Jesusita Magana M.D. Section of Endocrine Surgery and Advanced Laparoscopic Surgery [address] [place] [address], [place] [address] ENDOCRINE SURGERY NEW CONSULTATION NAME: Ciarra Nanci [facility]3] NO: [id number] : 1975 Surgeon: Dr. Jesusita Magana REFERRING PROVIDER: Naga Anguiano [facility] [place] [address] The patient was referred by the above provider and my findings and recommendations will be communicated by way of the shared medical record. HPI: The patient was evaluated today for a consultation regarding a 2.0 cm single left thyroid nodule with a benign FNA (Dec 2023). Patient has no compressive symptoms but has significant family history of thyroid cancer in 2 sons. Patient is here to discuss surgical treatment or RFA. She has been having constant pressure in her neck and dysphagia. History of head and neck radiation: No Family history of thyroid cancer: No History of previous thyroid biopsy or any cervical operation: Yes, FNA on December 2023 on left thyroid nodule, cytology benign. PMH: PAST MEDICAL HISTORY Diagnosis Date PMH - PAST MEDICAL HISTORY OF None PSH: PAST SURGICAL HISTORY Procedure Laterality Date PAST SURGICAL HISTORY OF 1997 BUNIONECTOMY / RIGHT FOOT PAST SURGICAL HISTORY OF 1998 HAND INJURY, Right hand Medications: Current Outpatient Medications on File Prior to Visit Medication Sig azithromycin (ZITHROMAX Z-LEE) 250 mg tablet Take 2 tablets by mouth day one, then 1 tablet daily until gone. No current facility-administered medications on file prior to visit. All: ALLERGIES No Known Allergies SH: Social History Tobacco Use Smoking status: Never Smokeless tobacco: Never Substance Use Topics Alcohol use: No Drug use: No FH: Pertinent history above; otherwise, non-contributory REVIEW OF SYSTEMS: GENERAL: Well-appearing, no malaise or fevers Dyspnea:No. Dysphagia:No. Pressure symptoms:No. PHYSICAL EXAM: On physical exam, Ciarra Alba is well appearing, alert, and oriented and appears euthyroid. On inspection, the skin over the anterior neck is smooth, no mass is visualized. Palpation revealed no thyroid enlargement. No lymphadenopathy was palpated on either side of the neck. ULTRASOUND EXAMINATION: Ultrasound examination was performed in the office today. This demonstrated nodules involving both thyroid lobes. The largest nodule was in the left lobe measuring 1.40X1.46X 1.75 cm, was hypoechoic and was Solid. No worrisome lymphadenopathy was appreciated in either bilateral central neck or lateral jugular chain compartments. A fine needle aspiration biopsy not performed. LABS: None CYTOLOGY (12/30/2023): FINAL DIAGNOSIS A - Thyroid, Aspirate/Fine Needle Aspirate - Left Benign. Consistent with colloid nodule. The following cell blocks were associated with this case: A1 Cell Block, Alcohol Fixed ASSESSMENT: In summary, Ciarra Alba has multinodular goiter with a symptomatic 1.8 cm left thyroid nodule. PLAN: We went over the options of monitoring, left thyroid lobectomy vs RFA. The patient is interested in the RFA procedure due to her symptoms. Will schedule. I appreciate being involved in the care of your patient, and please feel free to contact me should you have additional questions. Sincerely, Jesusita Magana MD 02/26/2024 CC: Naga Anguiano [id number] [facility] [address] Fax: Referring Provider: NAGA CAMPBELL (more content not included)... Normal [facility] TSH SerPl-aCncon 02-23-2024 TSH Qn 1.213 m[IU]/L Normal 0.358-3.740 [facility] Comment on above: Order Comment: Speci men Type: BLOOD SPECIMEN Ordering Facility: [facility] Address: [address] [place] [address] Result Comment: 3rd generation ultra sensitive TSH. Performed By: #### 3 016-3 #### [facility] CLIA [id number] [address] [place], [place] [address] [place] CNPLyn 02-14-2024 CNPN Telephone (ENSUMN) CIARRA ALBA ([id number]) 1975 F Date Time Provider Department 02/14/24 JESUSITA MAGANA During your visit today, we recorded the following information about you: Benigno Barnes 02/14/2024 1:23 PM Signed 02/14/2024 INTAKE COMPLETED-NEED TSH ENDOCRINE SURGERY PATIENT WORKSHEET Initial Call Date: February 14, 2024 Reason for Consult/ Referral: Thyroid Nodule PATIENT DEMOGRAPHICS Name: Ciarra A Parth [facility]#: [id number] : 1975 AGE: [age] year old Contact Numbers: Home: (home) Work: (work) PATIENT PHYSICIAN INFORMATION Referring Doctor: DR.EL ANGUIANO Address: Phone: Cornice Maker: DR. ABDI ANGUIANO Address: Phone: PCP: To use this Smartlink, specify the provider ID whose address you want to display, e.g., .PROVADDR[1 (where 1 is the provider ID). PAST TREATMENT Office notes: SEE [facility] Medications: NONE THAT APPLY Pre-Visit Testing STUDY/TEST DATE ORDERED/REQUESTED DATE RECEIVED/COMPLETED ENTIRE PANEL TSH 02/14/2024 FREE T4 FREE T3 Imaging Reports: SEE [facility] CD of Images: SEE [facility] FNA: yes: 12/2023 FNA Slides: FNA performed at [facility] Has the patient ever had thyroid or parathyroid surgery before: No Operative Reports: NONE AVAILABLE Pathology Reports: SEE EPIC Benigno Barnes 02/20/2024 2:37 PM Signed Addended by: BENIGNO BARNES on: 02/20/2024 02:37 PM Modules accepted: Orders Allergies As of Date: 02/14/2024 (No Known Allergies) Date Reviewed: 12/30/2023 Reviewed by: Naga Campbell MD - Fully Assessed Reason for Visit: Consult [173] Cmt: FACE SHEET Primary 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 Problem List As Of Date: 02/14/2024 (None) Encounter Status:Closed by BENIGNO BARNES on 02/14/24 [facility] CNCOon 01-04-2024 CNCO Letter Text [facility] CNPNon 01-04-2024 CNPN Telephone (ENDOSO) CIARRA ALBA ([id number]) 1975 F Date Time Provider Department 01/04/24 NAGA CAMPBELL ENDOSO During your visit today, we recorded the following information about you: Allergies As of Date: 01/04/2024 (No Known Allergies) Date Reviewed: 12/30/2023 Reviewed by: Naga Campbell MD - Fully Assessed Primary Visit Diagnosis:Multiple thyroid nodules [E04.2] Order(s):US THYROID/PARATHYROID [0733631] Order #: [id number] FUTURE Prescriptions as of 01/04/2024 - azithromycin (ZITHROMAX Z-LEE) 250 mg tablet Take 2 tablets by mouth day one, then 1 tablet daily until gone. Problem List As Of Date: 01/04/2024 (None) Encounter Status:Closed by NAGA CAMPBELL on 01/04/24 Normal [facility] CNOVon 12-30-2023 CNOV Office Visit (ENDOSO ) CIARRA ALBA ([id number]) 1975 F Date Time Provider Department 12/30/23 11:20 AM NAGA CAMPBELL During your visit today, we recorded the following information about you: Pulse Respiration Blood pressure Weight 76/minute 16/minute 136/85 77.1 kg Height Last Period 1.626 m 12/16/23 Naga Campbell MD 12/31/2023 9:36 AM Addendum Endocrinology Initial Thyroid Assessment Ciarra Alba is here for a consultation upon the request of Eliana Robert MS regarding: thyroid nodule My final recommendations will be communicated back by way of shared medical record or by US mail. PCP is No primary care provider on file. History of Present Illness Ciarra Alba is a 48 year old female, visit for evaluation of possible thyroid cancer. 2 son's with thyroid cancer Never been told she has thyroid issues Not on LT4 Here with her MGGM: goiter - s/p thyroidecotmy Past History, Medications, Allergies PAST MEDICAL HISTORY Diagnosis Date PMH - PAST MEDICAL HISTORY OF None PAST SURGICAL HISTORY Procedure Laterality Date PAST SURGICAL HISTORY OF 1997 BUNIONECTOMY / RIGHT FOOT PAST SURGICAL HISTORY OF 1998 HAND INJURY, Right hand Current Outpatient Medications Medication Sig Dispense Refill azithromycin (ZITHROMAX Z-LEE) 250 mg tablet Take 2 tablets by mouth day one, then 1 tablet daily until gone. 1 Package 0 No current facility-administered medications for this visit. ALLERGIES No Known Allergies FAMILY HISTORY Problem Relation Age of Onset Cancer Maternal Grandfather Hypertension Maternal Grandmother Social History Tobacco Use Smoking status: Never Smokeless tobacco: Never Substance Use Topics Alcohol use: No Drug use: No Review of Systems Answers submitted by the patient for this visit: Endocrine Review of Systems (Submitted on 12/23/2023) Fatigue: No Night sweats: No Recent unintentional weight change: No Skin Color Changes: No Post-Nasal Drip: No Thyroid Pain (lower neck): No Trouble Swallowing: No Vision Disturbance: No Chest pain: No Leg Swelling: No Blood Clots?: No Leg Pain while walking?: No Difficulty Breathing?: No Heartburn: Yes Nausea: No Vomiting: No Diarrhea: No Constipation: No Abdominal pain: No Bone Pain?: No Muscle aches: No Muscle weakness: No Joint pain or stiffness: No Headaches: No Dizziness: No Numbness?: No Urgency to Urinate?: No Increased Urination: No Slow or Small Urine Stream?: No Are your menstrual cycles regular?: Yes Are your menstrual cycles irregular?: No Have your menstrual cycles stopped?: No Flushing: No Hot Flashes?: No Increased Thirst: No Change in Body Hair?: No Cold Intolerance: No Heat Intolerance: No Physical examination BP 136/85 Pulse 76 Resp 16 Ht 162.6 cm (5' 4) Wt 77.1 kg (169 lb 15.6 oz) LMP 12/16/2023 (Approximate) SpO2 100% BMI 29.18 kg/m? GENERAL: Well nourished, well hydrated, in no distress and oriented x 3 COMMUNICATION: Hearing: normal; VOICE: normal EYES: no thyroid eye signs, Fundi normal and cornea normal. EOMI NECK: no visible nodules or goiter, no bruit, no tenderness and no adenopathies EXTREMITIES: No clubbing, no edema, no cyanosis and normal nails NEURO: normal strength, no tremor and normal reflexes SKIN: No rash or lesion Previous Laboratory Results - Cytology - Pathology - Imaging Thyroid US done today (12/2023): Subcentimetric right sided nodule and 2 cm mixed left thyroid nodule Impression/Recommenda tions Ciarra Alba is a 48 year old female, visit for evaluation of possible thyroid cancer. 2 son's with thyroid cancer Never been told she hs thyroid issues Not on LT4 Here with her Thyroid Nodules: -- 2 Sons with thyroid cancer -- ? PGGM with thyroid issues -- Thyroid US done today showed a 2 cm left mixed nodule -- No compressive symptoms -- Thyroid US images reviewed with the patient -- Discussed thyroid nodules, risk of cancer and indications for FNA -- Discussed FNA procedure and risk -- Dicussed FNA results and management -- FNA of left 2 cm thyroid nodule done today The patient will follow up in 6 months. MD Abdi Garcia Lea, MD 12/30/2023 12:20 PM Signed Fine needle aspiration of Thyroid Nodule (December 30, 2023) Referring Physician: No ref. provider found Primary Care Physician: No primary care provider on file. 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 Patient on anti-platelet or anticoagulant drugs: No The risks, benefits (more content not included)... Normal [facility] CYTOLOGY NON-GYNon CASE REPORT Normal [facility] Comment on above: Order Comment: Speci men Type: SPECIMEN OBTAINED BY ASPIRATIONOrdering Facility: [facility] Address: [address] [place] [address] Result Comment: [facility] Cytology Report Case: [id number] Authorizing Provider: Naga Campbell MD Collected: 12/30/2023 12:09 PM Ordering Location: Endocrinology Received: 12/30/2023 03:57 PM Pathologist: Dottie Garcia MD Specimen: Thyroid, Left Performed By: #### C YTONON ####[facility] LABIA [id number] [place] [address] [place] CLINICAL HISTORY thyroid nodules Normal [facility] Comment on above: Order Comment: Speci men Type: SPECIMEN OBTAINED BY ASPIRATIONOrdering Facility: [facility] Address: [address] [place] [address] Result Comment: Delvin lindo collected Performed By: #### C YTONON ####[facility] LABCLIA [id number] [place] [address] [place] FINAL DIAGNOSIS Normal [facility] Comment on above: Order Comment: Speci men Type: SPECIMEN OBTAINED BY ASPIRATIONOrdering Facility: [facility] Address: [address] [place] [address] Result Comment: A - Thyroid, Aspirate/Fine Needle Aspirate - Left Benign. Consistent with colloid nodule. The following cell blocks were associated with this case: A1\X09\Cell Block, Alcohol Fixed\X09\ Performed By: #### C YTONON ####[facility] LABCLIA [id number] [place] [address] [place] FINAL PERFORMING LAB Normal [facility] Comment on above: Order Comment: Speci men Type: SPECIMEN OBTAINED BY ASPIRATIONOrdering Facility: [facility] Address: [address] [place] [address] Result Comment: Tech nical component, senior health consultant screening performed at [facility], [address] [place] [address] CLIA# [id number] Diagnostic interpretation performed at [facility], [address] [place] [address] CLIA# [id number] Real Estate Development Manager: Gordon Grover M.D. Performed By: #### C YTONON ####[facility] LABCLIA [id number] [address] [place] GROSS DESCRIPTION A. Thyroid Normal [facility] Comment on above: Order Comment: Speci men Type: SPECIMEN OBTAINED BY ASPIRATIONOrdering Facility: [facility] Address: [address] [place] [address] Result Comment: 30 c c clear colorless CytoLyt with scant particles. ThinPrep and Cell Block prepared and 4 smears. Afirma received Performed By: #### C YTONON ####[facility] LABCLIA [id number] [place] [address] [place] US Thyroid glandon [facility] Radiology Study observation (narrative) [facility] Radiology Study observation (narrative) [facility] PAP IG HPV APTIMA 16/18,45on 12-16-2023 ADEQ Comment Normal . [facility] Comment on above: Order Comment: Speci men Comment: [id number] Specimen Comment: Source.............Cervix Specimen Comment: No. of containers..01 ThinPrep Vial Result Comment: Sati sfactory for evaluation. Endocervical and/or squamous metaplastic cells (endocervical component) are present. Performed By: #### L 7400.0280 #### [facility] [address] [place], [place], [id number] COMM . Normal . [facility] Comment on above: Order Comment: Speci men Comment: [id number] Specimen Comment: Source.............Cervix Specimen Comment: No. of containers..01 ThinPrep Vial Performed By: #### L 7400.0280 #### [facility] [address] [place], [place], [id number] COMMENT Comment Normal . [facility] Comment on above: Order Comment: Speci men Comment: [id number] Specimen Comment: Source.............Cervix Specimen Comment: No. of containers..01 ThinPrep Vial Result Comment: This liquid based ThinPrep(R) pap test was screened with the use of an image guided system. Performed By: #### L 7400.0280 #### [facility] [address] [place], [place], [address] DIAG Comment Normal . [facility] Comment on above: Order Comment: Speci men Comment: [id number] Specimen Comment: Source.............Cervix Specimen Comment: No. of containers..01 ThinPrep Vial Result Comment: NEGA TIVE FOR INTRAEPITHELIAL LESION OR MALIGNANCY. Performed By: #### L 7400.0280 #### [facility] [address] [place], [address] HPV APTIMA, HR Negative Normal Negative [facility] Comment on above: Order Comment: Speci men Comment: [id number] Specimen Comment: Source.............Cervix Specimen Comment: No. of containers..01 ThinPrep Vial Result Comment: This nucleic acid amplification test detects fourteen high- risk HPV types (16,18,31,33,35,39,45,51,52,56,58,59,66,68) without differentiation. Performed By: #### L 7400.0280 #### [facility] [address] [place], [address] HPV Dilia Rfx Comment Normal . [facility] Comment on above: Order Comment: Speci men Comment: [id number] Specimen Comment: Source.............Cervix Specimen Comment: No. of containers..01 ThinPrep Vial Result Comment: Crit eria not met, HPV Genotype not performed. Performed at: - [address] [id number] Catholic Priest: Josette George MD, Phone: [phone] Performed at: = - [facility] [id number] Catholic Priest: Josette George MD, Phone: [phone] Performed By: #### L 7400.0280 #### [facility] [address] [place], [place], [id number] PAPSMR Comment Normal . [facility] Comment on above: Order Comment: Speci men Comment: [id number] Specimen Comment: Source.............Cervix Specimen Comment: No. of containers..01 ThinPrep Vial Result Comment: The Pap smear is a screening test designed to aid in the detection of premalignant and malignant conditions of the uterine cervix. It is not a diagnostic procedure and should not be used as the sole means of detecting cervical cancer. Both false-positive and false-negative reports do occur. Performed By: #### L 7400.0280 #### [facility] [address] [place], [address] PERFORM Comment Normal . [facility] Comment on above: Order Comment: Speci men Comment: [id number] Specimen Comment: Source.............Cervix Specimen Comment: No. of containers..01 ThinPrep Vial Result Comment: Stacie Carlin, Middle School Librarian (ASCP) Performed By: #### L 7400.0280 #### [facility] [address] 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 boulardii)) naproxen 500 mg tablet 500 mg PO BID PRN pain #30 tabs 10/07/23 12/09/23 Rx Is last menstrual period known: No Post menopausal: No Patient : No : No [facility] Medical History High cholesterol Gastric reflux GERD (gastroesophageal reflux disease) Hyperlipemia Surgical History History of endometrial ablation S/P LEEP ( 10/16/18) S/P bunionectomy s/p right hand surgery Family History Grandfather Lung cancer Social History Smoking Status: Never smoker alcohol intake: never substance use type: does not use caffeine: Yes what type of physical activity do you participate in: other details: crossfit frequency: 5-6 times per week seatbelt use: always do you feel safe at home: Yes additional social history: [employer] employed Patient works [employer] History 2 Elective abortions Hx Para 2 Spontaneous abortions Hx # Term Pregnancies Ectopic pregnancies Hx # Pregnancies Multiple births # of living children Past Pregnancies Del. Date Name GA/Weeks Outcome Route Bth Weight Gen Labor Lgth Anesthesia Del Locatn Provider FOB Unknown Kevin-2000 Unknown Keshawn-2002 HPI Encounter for routine gynecological examination Details: CIARRA ALBA is a 48 year old who presents for annual exam. Both sons ages 21 and 23 diagnosed with thyroid cancern. 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 She had seen Dr Banegas for her pelvic pain, was given naproxen. States not as helpful as she had hoped. She is wanting to proceed with vaginal hysterectomy if nothing thyroid reynoso needs done. Last PAP: 2018 History of abnormal PAP: no Last mammogram: 12/2022 History of abnormal mammogram: no Colon cancer screenin Other preventative health care screenings: Tod ROS Const Constitutional: Denies fatigue, weight gain or weight loss Cardio Card: Denies chest pain Resp Resp: Denies cough or dyspnea on exertion GI GI: Denies abdominal pain, bloating, change in stool character, constipation or vomiting : Reports as per HPI; Denies difficulty voiding, pelvic pain, urinary frequency, urinary incontinence, urinary urgency, vaginal discharge or vaginal pruritus Exam Const General: cooperative, healthy appearing, no acute distress and well developed Orientation: alert, oriented to person and oriented to place HENMT Head: normal to inspection Neck Neck: normal visual inspection Thyroid: thyroid normal Lymphatic: no lymphadenopathy noted Chest Breast inspection: normal inspection of the breasts and normal inspection of the axillae Breast palpation: normal palpation of the breasts, normal palpation of the axillae and no axillary lymphadenopathy Resp Effort Inspection: normal respiratory effort GI Palpation: soft, no masses and nontender Rectal Exam: deferred External Female Exam: normal external appearance and normal appearance of the urethra Urethra: normal appearance of the urethra and normal palpation Speculum Exam - Vagina: normal appearance of the vagina and normal vaginal discharge Speculum Exam - Cervix: normal appearance of the cervix Bimanual Exam- Vagina Uterus: normal bimanual exam, uterine size normal, uterine shape normal and non-tender Bimanual Exam- Adnexa, other: normal adnexae, no masses, normal and non-tender Pelvic Support: normal Neuro General: patient alert and patient oriented x3 Psych Affect: normal affect Coding Level of Care Code Off vis,est,prev 40-64yrs Diagnoses Encounter for gynecological examination with abnormal finding Z01.411 Gynecological examination findings: abnormal findings PRES (more content not included)... Normal [facility] Culture, urineOrdered By: Jeanna Banegas on 07-23-2023 Bacteria identified Cx Nom (U) Culture exhibits no growth. [facility] No Panel InformationOrdered By: Natasha Banegas on 07-23-2023 Estradiol (E2) Level 76.7 pg/mL [facility] Comment on above: NORMAL REFERENCE RAN GES FEMALE FOLLICULAR 21.4 - 164.8 pg/mL MID-CYCLE PEAK 49.9 - 367.2 pg/mL LUTEAL 40.2 - 259.0 pg/mL POST-MENOPAUSAL ON MHT <11.0 - 462.1 pg/mL NOT ON MHT <11.0 - 58.3 pg/mL MALE <11.0 - 52.5 pg/mL NOTE:[employer] HAS CONFIRMED THE DRUG FULVETRANT (FASLODEX) MAY CAUSE FALSELY ELEVATED ESTRADIOL RESULTS WHEN USING THIS TEST METHOD. IF PATIENT IS TAKING FULVESTRANT AN ALTERNATIVE METHOD SHOULD BE USED TO DETERMINE ESTRADIOL CONCENTRATION. Follicle Stimulating Hormone 8.6 mIU/mL [facility] Comment on above: NORMAL REFERENCE RAN GES FEMALE FOLLICULAR 2.3 - 12.6 mIU/mL MID-CYCLE PEAK 5.2 - 17.5 mIU/mL LUTEAL 1.7 - 12.9 mIU/mL POST-MENOPAUSAL ON MHT 5.9 - 72.8 mIU/mL NOT ON MHT 12.7 - 132.2 mlU/mL MALE 0.7 - 10.8 mIU/mL Gram stain for investigation of transfusion reactionOrdered By: Jocelin Dumas on 07-17-2023 Microscopic observation Gram stain Nom (Unsp spec) [facility] No Panel InformationOrdered By: Jocelin Dumas on 07-17-2023 Genital Culture Yeast, not Britta albicans [facility] Absolute lymphocyte countOrd ered By: Abi Jefferson on 06-04-2023 Lymphocytes Auto (Unsp spec) [#/Vol] 2.20 10*3/uL 0.83-4.51 [facility] Automated lymphocyte count a s percentage of total leukocytesOrdered By: Abi Jefferson on 06-04-2023 Lymphocytes/100 WBC Auto (Unsp spec) 32.9 % 19-41 [facility] Basophil percentageOrdered B y: Abi Jefferson on 06-04-2023 Basophils/100 WBC (Bld) 0.1 % 0-1 [facility] Bilirubin [Mass/Vol] 0.90 mg/dL 0.20-1.00 [facility] Comment on above: For patients on eltr ombopag therapy, use of Dimension [place] TBIL is not recommended. Chloride [Moles/Vol] 104 mmol/L 98-107 [facility] Cholesterol [Mass/Vol] 196 mg/dL <200 [facility] Comment on above: <200 mg/dL Desirable 200-240 mg/dL Borderline >240 mg/dL High Risk Eosinophils/100 WBC (Bld) 1.0 % 0-5 [facility] Glucose [Mass/Vol] 89 mg/dL 74-106 [facility] Hemoglobin (Bld) [Mass/Vol] 13.8 g/dL 12.0-15.0 [facility] Monocytes/100 WBC (Bld) 7.5 % 0-10 [facility] Neutrophils (Bld) [#/Vol] 3.9 10*3/uL 2.0-7.7 [facility] Neutrophils/100 WBC (Bld) 58.2 % 47-70 [facility] Potassium [Moles/Vol] 4.0 mmol/L 3.5-5.1 [facility] Protein [Mass/Vol] 7.5 g/dL 6.4-8.2 [facility] Sodium [Moles/Vol] 138 mmol/L 136-145 [facility] Triglyceride [Mass/Vol] 246 mg/dL <199 [facility] Comment on above: The drugs N-Acetylcy steine and Metamizole may falsely depress this assay.Serum Triglycerides Reference Interval Normal <150 mg/dL Borderline high 150 - 199 mg/dL High 200 - 499 mg/dL Very High > or = 500 mg/dL WBC (Bld) [#/Vol] 6.7 10*3/uL 4.4-11.0 [facility] Determination of erythrocyte mean corpuscular volume (MCV)Ordered By: Abi Jefferson on 06-04-2023 MCV (RBC) [Entitic vol] 89.2 fL 81-99 [facility] Erythrocyte distribution wid th ratioOrdered By: Abi Jefferson on 06-04-2023 Erythrocyte distribution width (RBC) [Ratio] 12.6 % 11.6-14.6 [facility] Erythrocyte distribution wid th standard deviationOrdered By: Abi Jefferson on 06-04-2023 Erythrocyte distribution width (RBC) [Entitic vol] 41.4 fL 35.1-43.9 [facility] Hematocrit Auto (Bld) [Volum e fraction]Ordered By: Abi Jefferson on 06-04-2023 Hematocrit (Bld) [Volume fraction] 42.1 % 37-47 [facility] Immature granulocytes/100 WB C Auto (Bld)Ordered By: Abi Jefferson on 06-04-2023 Immature granulocytes/100 WBC (Bld) 0.300 % 0.0-0.9 [facility] Comment on above: IG% - Immature Granu locytes (promyelocytes, myelocytes and metamyelocytes) > 1% indicates that a LEFT SHIFT is Present. Laboratory - Chemistry and C hemistry - challengeOrdered By: Abi Jefferson on 06-04-2023 Albumin/Globulin [Mass ratio] 1.1 {ratio} 0.9-2.4 [facility] ALP [Catalytic activity/Vol] 53 U/L 45-117 [facility] ALT [Catalytic activity/Vol] 22 U/L 13-56 [facility] Cholesterol in HDL [Mass/Vol] 41 mg/dL >40 [facility] Comment on above: The drugs N-Acetylcy steine and Metamizole may falsely depress this assay. Reference Range HDL <40 mg/dL Low HDL Cholesterol HDL >or= 60 mg/dL High HDL Cholesterol Cholesterol in LDL [Mass/Vol] 106 mg/dL 0-130 [facility] CO2 [Moles/Vol] 28.0 mmol/L 21.0-32.0 [facility] Globulin (S) [Mass/Vol] 3.6 g/dL 2.2-4.2 [facility] Urea nitrogen/Creatinine [Mass ratio] 7.2 mg/mg 10-20 [facility] Laboratory - Hematology and Cell countsOrdered By: Abi Jefferson on 06-04-2023 MCH (RBC) [Entitic mass] 29.2 pg 27.0-32.0 [facility] MCHC (RBC) [Mass/Vol] 32.8 g/dL 32-36 [facility] Nucleated RBC/100 WBC (Bld) [Ratio] 0 % 0-5 [facility] Platelet mean volume (Bld) [Entitic vol] 10.3 fL 6.2-12.0 [facility] Platelets (Bld) [#/Vol] 256 10*3/uL 150-450 [facility] No Panel InformationOrdered By: Abi Jefferson on 06-04-2023 Estimated GFR (MDRD) Amer 79 mL/min >60 [facility] Comment on above: GFR Calc Estimated GFR (MDRD) Non-Af Amer 66 mL/min >60 [facility] Comment on above: Non- GFR Calc VLDL Cholesterol 49 mg/dL 5-40 [facility] RBC Auto (Bld) [#/Vol]Ordere d By: Abi Jefferson on 06-04-2023 RBC (Bld) [#/Vol] 4.72 10*6/uL 4.2-5.4 [facility] Serum or plasma calcium whitney urement (mass/volume)Ordered By: Abi Jefferson on 06-04-2023 Calcium [Mass/Vol] 9.1 mg/dL 8.5-10.1 [facility] Serum or plasma creatinine m easurement (mass/volume)Ordered By: Abi Jefferson on 06-04-2023 Creatinine [Mass/Vol] 0.97 mg/dL 0.55-1.02 [facility] Comment on above: The validity of the calculated GFR & GFRAA in patients over 70 years has not been determined. Clinical correlation is essential. Serum or plasma thyroid stim ulating hormone (TSH) measurement (units/volume)Ordered By: Abi Jefferson on 06-04-2023 TSH Qn 1.21 uIU/mL 0.358-3.74 [facility] Serum or plasma urea nitroge n measurement (mass/volume)Ordered By: Abi Jefferson on 06-04-2023 Urea nitrogen [Mass/Vol] 7 mg/dL 7-18 [facility] Thin prep Papanicolaou smear with manual screeningOrdered By: Abi Jefferson on 06-04-2023 Thin prep Papanicolaou smear with manual screening 3.9 g/dL 3.2-5.0 [facility] Thin prep Papanicolaou smear with manual screening 19 U/L 15-37 [facility] Thin prep Papanicolaou smear with manual screening 6 5-15 [facility] Whole blood hemoglobin A1c/t otal hemoglobin ratio (mass fraction)Ordered By: Abi Jefferson on 06-04-2023 HbA1c (Bld) [Mass fraction] 5.2 % 3.8-5.6 [facility] Comment on above: Normal < 5.7 % Predi abetic 5.7 - 6.4 % Diabetic >or= 6.5 % Please note range changes. Basophil percentageOrdered B y: Abi Jefferson on 10-29-2022 Cholesterol [Mass/Vol] 197 mg/dL <200 [facility] Comment on above: <200 mg/dL Desirable 200-240 mg/dL Borderline >240 mg/dL High Risk Triglyceride [Mass/Vol] 147 mg/dL <199 [facility] Comment on above: The drugs N-Acetylcy steine and Metamizole may falsely depress this assay.Serum Triglycerides Reference Interval Normal <150 mg/dL Borderline high 150 - 199 mg/dL High 200 - 499 mg/dL Very High > or = 500 mg/dL Serum or plasma cholesterol in HDL measurement (mass/volume)Ordered By: Abi Jefferson on 10-29-2022 Cholesterol in HDL [Mass/Vol] 40 mg/dL >40 [facility] Comment on above: The drugs N-Acetylcy steine and Metamizole may falsely depress this assay. Reference Range HDL <40 mg/dL Low HDL Cholesterol HDL >or= 60 mg/dL High HDL Cholesterol Serum or plasma cholesterol in VLDL measurement (mass/volume)Ordered By: Abi Jefferson on 10-29-2022 Cholesterol in VLDL [Mass/Vol] 29 mg/dL 5-40 [facility] Serum or plasma low density lipoprotein (LDL) cholesterol measurement (mass/volume)Ordered By: Abi Jefferson on 10-29-2022 Cholesterol in LDL [Mass/Vol] 128 mg/dL 0-130 [facility] Laboratory - Chemistry and C hemistry - challengeOrdered By: Abi Jefferson on 05-03-2022 Cobalamin (Vitamin B12) [Mass/Vol] 485 pg/mL 211-911 [facility] No Panel InformationOrdered By: Abi Jefferson on 05-03-2022 Thyroid Stimulating Hormone (TSH) 1.02 uIU/mL 0.358-3.74 [facility] Whole blood hemoglobin A1c/t otal hemoglobin ratio (mass fraction)Ordered By: Abi Jefferson on 05-03-2022 HbA1c (Bld) [Mass fraction] 5.5 % 3.8-5.6 [facility] Comment on above: Normal < 5.7 % Predi abetic 5.7 - 6.4 % Diabetic >or= 6.5 % Please note range changes. Absolute lymphocyte counton 11-06-2021 Lymphocytes Auto (Unsp spec) [#/Vol] 2.24 10*3/uL 0.83-4.51 [facility] Work Phone: Basophil percentageon 2021 Basophils/100 WBC (Bld) 0.3 % 0-1 [facility] Work Phone: Bilirubin [Mass/Vol] 0.30 mg/dL 0.20-1.00 [facility] Work Phone: Comment on above: For patients on eltr ombopag therapy, use of Dimension [place] TBIL is not recommended. Chloride [Moles/Vol] 108 mmol/L 98-107 [facility] Work Phone: Cholesterol [Mass/Vol] 175 mg/dL <200 [facility] Work Phone: Comment on above: <200 mg/dL Desirable 200-240 mg/dL Borderline >240 mg/dL High Risk Eosinophils/100 WBC (Bld) 1.7 % 0-5 [facility] Work Phone: Glucose [Mass/Vol] 85 mg/dL 74-106 [facility] Work Phone: Neutrophils (Bld) [#/Vol] 3.1 10*3/uL 2.0-7.7 [facility] Work Phone: Neutrophils/100 WBC (Bld) 51.8 % 47-70 [facility] Work Phone: Potassium [Moles/Vol] 4.2 mmol/L 3.5-5.1 [facility] Work [facility]: Protein [Mass/Vol] 7.5 g/dL 6.4-8.2 [facility] Work Phone: [phone] Sodium [Moles/Vol] 139 mmol/L 136-145 [facility] Work Phone: Triglyceride [Mass/Vol] 62 mg/dL <199 [facility] Work Phone: [phone] Comment on above: The drugs N-Acetylcy steine and Metamizole may falsely depress this assay.Serum Triglycerides Reference Interval Normal <150 mg/dL Borderline high 150 - 199 mg/dL High 200 - 499 mg/dL Very High > or = 500 mg/dL WBC (Bld) [#/Vol] 5.9 10*3/uL 4.4-11.0 [facility] Work Phone: Blood erythrocytes count (nu mber/volume)on 11-06-2021 RBC (Bld) [#/Vol] 4.61 10*6/uL 4.2-5.4 [facility] Work Phone: Blood hemoglobin measurement (mass/volume)on 11-06-2021 Hemoglobin (Bld) [Mass/Vol] 13.8 g/dL 12.0-15.0 [facility] Work Phone: Blood lymphocytes/100 leukoc yteson 11-06-2021 Lymphocytes/100 WBC (Bld) 37.9 % 19-41 [facility] Work Phone: Blood monocytes/100 leukocyt eson 11-06-2021 Monocytes/100 WBC (Bld) 8.1 % 0-10 [facility] Work Phone: Blood platelet mean volumeon 11-06-2021 Platelet mean volume (Bld) [Entitic vol] 10.7 fL 6.2-12.0 [facility] Work Phone: Determination of erythrocyte mean corpuscular volume (MCV)on 11-06-2021 MCV (RBC) [Entitic vol] 89.6 fL 81-99 [facility] Work Phone: Hematocrit Auto (Bld) [Volum e fraction]on 11-06-2021 Hematocrit (Bld) [Volume fraction] 41.3 % 37-47 [facility] Work Phone: Laboratory - Chemistry and C hemistry - challengeon 11-06-2021 ALP [Catalytic activity/Vol] 54 U/L 45-117 [facility] Work Phone: ALT [Catalytic activity/Vol] 19 U/L 13-56 [facility] Work Phone: CO2 [Moles/Vol] 24.0 mmol/L 21.0-32.0 [facility] Work Phone: Globulin (S) [Mass/Vol] 3.7 g/dL 2.2-4.2 [facility] Work Phone: Urea nitrogen/Creatinine [Mass ratio] 13.5 mg/mg 10-20 [facility] Work Phone: Laboratory - Hematology and Cell countson 11-06-2021 Erythrocyte distribution width (RBC) [Entitic vol] 42.5 fL 35.1-43.9 [facility] Work Phone: Erythrocyte distribution width (RBC) [Ratio] 13.0 % 11.6-14.6 [facility] Work Phone: Immature granulocytes/100 WBC (Bld) 0.200 % 0.0-0.9 [facility] Work Phone: Comment on above: IG% - Immature Granu locytes (promyelocytes, myelocytes and metamyelocytes) > 1% indicates that a LEFT SHIFT is Present. MCH (RBC) [Entitic mass] 29.9 pg 27.0-32.0 [facility] Work Phone: Nucleated RBC/100 WBC (Bld) [Ratio] 0 % 0-5 [facility] Work Phone: MCHC Auto (RBC) [Mass/Vol]on 11-06-2021 MCHC (RBC) [Mass/Vol] 33.4 g/dL 32-36 [facility] Work Phone: No Panel Informationon 11-06 Estimated GFR (MDRD) Amer 98 mL/min >60 [facility] Work Phone: Comment on above: GFR Calc Estimated GFR (MDRD) Non-Af Amer 81 mL/min >60 [facility] Work Phone: Comment on above: Non- GFR Calc Platelets bldon 11-06-2021 Platelets (Bld) [#/Vol] 220 10*3/uL 150-450 [facility] Work Phone: Serum or plasma albumin whitney urement (mass/volume)on 11-06-2021 Albumin [Mass/Vol] 3.8 g/dL 3.2-5.0 [facility] Work Phone: Serum or plasma albumin/glob ulin mass ratioon 11-06-2021 Albumin/Globulin [Mass ratio] 1.0 {ratio} 0.9-2.4 [facility] Work Phone: Serum or plasma calcium whitney urement (mass/volume)on 11-06-2021 Calcium [Mass/Vol] 8.8 mg/dL 8.5-10.1 [facility] Work Phone: Serum or plasma cholesterol in HDL measurement (mass/volume)on 11-06-2021 Cholesterol in HDL [Mass/Vol] 46 mg/dL >40 [facility] Work Phone: Comment on above: The drugs N-Acetylcy steine and Metamizole may falsely depress this assay. Reference Range HDL <40 mg/dL Low HDL Cholesterol HDL >or= 60 mg/dL High HDL Cholesterol Serum or plasma cholesterol in VLDL measurement (mass/volume)on 11-06-2021 Cholesterol in VLDL [Mass/Vol] 12 mg/dL 5-40 [facility] Work Phone: Serum or plasma creatinine m easurement (mass/volume)on 11-06-2021 Creatinine [Mass/Vol] 0.81 mg/dL 0.55-1.02 [facility] Work Phone: Comment on above: The validity of the calculated GFR & GFRAA in patients over 70 years has not been determined. Clinical correlation is essential. Serum or plasma low density lipoprotein (LDL) cholesterol measurement (mass/volume)on 11-06-2021 Cholesterol in LDL [Mass/Vol] 117 mg/dL 0-130 [facility] Work Phone: Serum or plasma urea nitroge n measurement (mass/volume)on 11-06-2021 Urea nitrogen [Mass/Vol] 11 mg/dL 7-18 [facility] Work Phone: Thin prep Papanicolaou smear with manual screeningon 11-06-2021 Thin prep Papanicolaou smear with manual screening 19 U/L 15-37 [facility] Work Phone: Thin prep Papanicolaou smear with manual screening 7 5-15 [facility] Work Phone: Clinical Summary: Karthik thompson 07-10-2021 MC25 OP Hand Invalid Interpretation Code [facility] Work Phone: Clinical Summary: Jovan Smithon 07-10-2021 Data entered by patient exercise frequency 5 days per week Invalid Interpretation Code [facility] Work Phone: Data entered by patient exercise type jogging strength training Invalid Interpretation Code [facility] Work Phone: data entered by patient, alcohol (ethanol or ETOH) use No Invalid Interpretation Code [facility] Work Phone: data entered by patient, drug (of abuse) use No Invalid Interpretation Code [facility] Work Phone: data entered by patient, Employer Name Employed Invalid Interpretation Code [facility] Work Phone: data entered by patient, exercise history Yes Invalid Interpretation Code [facility] Work Phone: Data entered by patient, history of past surgeries Foot surgery Hand surgery Invalid Interpretation Code [facility] Work Phone: data entered by patient, past medical history High cholesterol Invalid Interpretation Code [facility] Work Phone: data entered by patient, social history, current smoker never smoker Invalid Interpretation Code [facility] Work Phone: data entered by patient, social history, marital status Invalid Interpretation Code [facility] Work Phone: father of patient is alive or Alive Invalid Interpretation Code [facility] Work Phone: Housing Type: apartment, house, jail, trailer, none House Invalid Interpretation Code [facility] Work Phone: housing unit size (asthma environmental history, housing) (from single family to don't know) 3 Floors Invalid Interpretation Code [facility] Work Phone: mother of patient is alive or Alive Invalid Interpretation Code [facility] Work Phone: Number of dependent children No Invalid Interpretation Code [facility] Work Phone: Office Visit: New - 1st visi t with practice, Rm: 5on 07-10-2021 NEGATED: Highlighted rowTobacco smoking status Tobacco smoking status Invalid Interpretation Code [facility] Work Phone: NEGATED: Highlighted rowxray history of the Left hand on 07/05/[address] [facility] Invalid Interpretation Code [facility] Work Phone: Vital Signs Date Time Vital Sign Value Performing Clinician Facility 11-10-2024 14:14-0400 Body height 165.1 cm Katja Baron MD Work Phone: [facility] 11-10-2024 14:14-0400 Body mass index (BMI) [Ratio] 27.5 kg/m2 Katja Baron MD Work Phone: [facility] 11-10-2024 14:14-0400 Body temperature 97.6 [degF] Katja Baron MD Work Phone: [facility] 11-10-2024 14:14-0400 Body weight 74.95 kg Katja Baron MD Work Phone: [facility] 11-10-2024 14:14-0400 Diastolic blood pressure 81 mm[Hg] Katja Baron MD Work Phone: [facility] 11-10-2024 14:14-0400 Heart rate 81 /min Katja Baron MD Work Phone: [facility] 11-10-2024 14:14-0400 Respiratory rate 18 /min Katja Baron MD Work Phone: [facility] 11-10-2024 14:14-0400 SaO2% (BldA) [Mass fraction] 99 % Katja Baron MD Work Phone: [facility] 11-10-2024 14:14-0400 Systolic blood pressure 127 mm[Hg] Katja Baron MD Work Phone: [facility] 10-27-2024 13:58-0400 Body height 165.1 cm Naga Anguiano MD Work Phone: [facility] 10-27-2024 13:58-0400 Body mass index (BMI) [Ratio] 27.73 kg/m2 Naga Anguiano MD Work Phone: [facility] 10-27-2024 13:58-0400 Body weight 75.6 kg Naga Anguiano MD Work Phone: [facility] 10-27-2024 13:58-0400 Diastolic blood pressure 74 mm[Hg] Naga Anguiano MD Work Phone: [facility] 10-27-2024 13:58-0400 Heart rate 78 /min Naga Anguiano MD Work Phone: [facility] 10-27-2024 13:58-0400 Respiratory rate 16 /min Naga Anguiano MD Work Phone: [facility] 10-27-2024 13:58-0400 SaO2% (BldA) [Mass fraction] 98 % Naga Anguiano MD Work Phone: [facility] 10-27-2024 13:58-0400 Systolic blood pressure 117 mm[Hg] Naga Anguiano MD Work Phone: [facility] 07-29-2024 14:53-0400 Body mass index (BMI) [Ratio] 28.4 kg/m2 Jesusita Magana MD Work Phone: [facility] 07-29-2024 14:53-0400 Body weight 77.4 kg Jesusita Magana MD Work Phone: [facility] 07-29-2024 14:53-0400 Diastolic blood pressure 79 mm[Hg] Jesusita Magana MD Work Phone: [facility] 07-29-2024 14:53-0400 Heart rate 90 /min Jesusita Magana MD Work Phone: [facility] 07-29-2024 14:53-0400 Systolic blood pressure 129 mm[Hg] Jesusita Magana MD Work Phone: [facility] 07-17-2024 11:01-0400 Body height 165.1 cm Katja Baron MD Work Phone: [facility] 07-17-2024 11:00-0400 Body mass index (BMI) [Ratio] 28.1 kg/m2 Katja Baron MD Work Phone: [facility] 07-17-2024 11:00-0400 Body weight 76.82 kg Katja Baron MD Work Phone: [facility] 07-17-2024 11:00-0400 Diastolic blood pressure 78 mm[Hg] Katja Baron MD Work Phone: [facility] 07-17-2024 11:00-0400 Systolic blood pressure 125 mm[Hg] Katja Baron MD Work Phone: [facility] 06-03-2024 15:16-0400 Body temperature 98.7 [degF] Katja Baron MD Work Phone: [facility] 06-03-2024 15:16-0400 Diastolic blood pressure 78 mm[Hg] Katja Baron MD Work Phone: [facility] 06-03-2024 15:16-0400 Heart rate 74 /min Katja Baron MD Work Phone: [facility] 06-03-2024 15:16-0400 Respiratory rate 18 /min Katja Baron MD Work Phone: [facility] 06-03-2024 15:16-0400 SaO2% (BldA) [Mass fraction] 98 % Katja Baron MD Work Phone: [facility] 06-03-2024 15:16-0400 Systolic blood pressure 120 mm[Hg] Katja Baron MD Work Phone: [facility] 06-03-2024 00:15-0400 Inhaled oxygen flow rate 2 L/min Katja Baron MD Work Phone: [facility] 06-02-2024 18:53-0400 Body height 165.1 cm Katja Baron MD Work Phone: [facility] 06-02-2024 18:53-0400 Body mass index (BMI) [Ratio] 28.2 kg/m2 Katja Baron MD Work Phone: [facility] 06-02-2024 18:53-0400 Body weight 77 kg Katja Baron MD Work Phone: [facility] 05-25-2024 09:27-0400 Body mass index (BMI) [Ratio] 28.8 kg/m2 Katja Baron MD Work Phone: [facility] 05-25-2024 09:27-0400 Body weight 78.69 kg Katja Baron MD Work Phone: [facility] 05-25-2024 09:27-0400 Diastolic blood pressure 87 mm[Hg] Katja Baron MD Work Phone: [facility] 05-25-2024 09:27-0400 Systolic blood pressure 127 mm[Hg] Katja Baron MD Work Phone: [facility] 05-13-2024 14:49-0500 Body mass index (BMI) [Ratio] 28.25 kg/m2 Jesusita Magana MD Work Phone: [facility] 05-13-2024 14:49-0500 Body weight 77 kg Jesusita Magana MD Work Phone: [facility] 05-13-2024 14:49-0500 Diastolic blood pressure 83 mm[Hg] Jesusita Magaan MD Work Phone: [facility] 05-13-2024 14:49-0500 Heart rate 81 /min Jesusita Magana MD Work Phone: [facility] 05-13-2024 14:49-0500 Systolic blood pressure 115 mm[Hg] Jesusita Magana MD Work Phone: [facility] 04-13-2024 09:10-0500 Body height 165.1 cm Pacc 1 Work Phone: [facility] 04-13-2024 09:10-0500 Body mass index (BMI) [Ratio] 29.29 kg/m2 Pacc 1 Work Phone: [facility] 04-13-2024 09:10-0500 Body temperature 97.3 [degF] Pacc 1 Work Phone: [facility] 04-13-2024 09:10-0500 Body weight 79.83 kg Pacc 1 Work Phone: [facility] 04-13-2024 09:10-0500 Diastolic blood pressure 82 mm[Hg] Pacc 1 Work Phone: [facility] 04-13-2024 09:10-0500 Heart rate 78 /min Pacc 1 Work Phone: [facility] 04-13-2024 09:10-0500 Respiratory rate 14 /min Pacc 1 Work Phone: [facility] 04-13-2024 09:10-0500 SaO2% (BldA) [Mass fraction] 96 % Pacc 1 Work Phone: [facility] 04-13-2024 09:10-0500 Systolic blood pressure 138 mm[Hg] Pacc 1 Work Phone: [facility] 02-26-2024 09:48-0500 Body height 167.3 cm Jesusita Magana MD Work Phone: [facility] 02-26-2024 09:48-0500 Body mass index (BMI) [Ratio] 27.58 kg/m2 Jesusita Magana MD Work Phone: [facility] 02-26-2024 09:48-0500 Body weight 77.2 kg Jesusita Magana MD Work Phone: [facility] 02-26-2024 09:48-0500 Diastolic blood pressure 83 mm[Hg] Jesusita Magana MD Work Phone: [facility] 02-26-2024 09:48-0500 Heart rate 78 /min Jesusita Magana MD Work Phone: [facility] 02-26-2024 09:48-0500 Systolic blood pressure 132 mm[Hg] Jesusita Magana MD Work Phone: [facility] 12-30-2023 11:12-0400 Body height 162.6 cm Naga Anguiano MD Work Phone: [facility] 12-30-2023 11:12-0400 Body mass index (BMI) [Ratio] 29.18 kg/m2 Naga Anguiano MD Work Phone: [facility] 12-30-2023 11:12-0400 Body weight 77.1 kg Naga Anguiano MD Work Phone: [facility] 12-30-2023 11:12-0400 Diastolic blood pressure 85 mm[Hg] Naga Anguiano MD Work Phone: [facility] 12-30-2023 11:12-0400 Heart rate 76 /min Naga Anguiano MD Work Phone: [facility] 12-30-2023 11:12-0400 Respiratory rate 16 /min Naga Anguiano MD Work Phone: [facility] 12-30-2023 11:12-0400 SaO2% (BldA) [Mass fraction] 100 % Naga Anguiano MD Work Phone: [facility] 12-30-2023 11:12-0400 Systolic blood pressure 136 mm[Hg] Naga Anguiano MD Work Phone: [facility] 07-23-2023 10:24-0400 Body height 165.1 cm DO Abi Ronny Work Phone: [facility] 07-23-2023 10:24-0400 Body mass index (BMI) [Ratio] 26.9 kg/m2 DO Abi Ronny Work Phone: [facility] 07-23-2023 10:24-0400 Body weight 73.48 kg DO Abi Ronny Work Phone: [facility] 07-23-2023 10:24-0400 Diastolic blood pressure 82 mm[Hg] DO Abi Ronny Work Phone: [facility] 07-23-2023 10:24-0400 Systolic blood pressure 121 mm[Hg] DO Abi Ronny Work Phone: [facility] 07-17-2023 14:55-0400 Body height 165.1 cm DO Abi Ronny Work Phone: [facility] 07-17-2023 14:52-0400 Body mass index (BMI) [Ratio] 26.9 kg/m2 DO Abi Ronny Work Phone: [facility] 07-17-2023 14:52-0400 Body weight 73.25 kg DO Abi Ronny Work Phone: [facility] 07-17-2023 14:52-0400 Diastolic blood pressure 72 mm[Hg] DO Abi Ronny Work Phone: [facility] 07-17-2023 14:52-0400 Systolic blood pressure 124 mm[Hg] DO Abi Ronny Work Phone: [facility] 03-02-2022 09:50-0500 Body temperature 99 [degF] Dr. Claribel Smart Work Phone: [facility] 03-02-2022 09:50-0500 Diastolic blood pressure 62 mm[Hg] Dr. Claribel Smart Work Phone: [facility] 03-02-2022 09:50-0500 Heart rate 72 /min Dr. Claribel Smart Work Phone: [facility] 03-02-2022 09:50-0500 Respiratory rate 16 /min Dr. Claribel Smart Work Phone: [facility] 03-02-2022 09:50-0500 SaO2% (BldA) [Mass fraction] 100 % Dr. Claribel Smart Work Phone: [facility] 03-02-2022 09:50-0500 Systolic blood pressure 102 mm[Hg] Dr. Claribel Smart Work Phone: [facility] 03-02-2022 08:33-0500 Body height 165.[address] Claribel Smart Work Phone: [facility] 03-02-2022 08:33-0500 Body mass index (BMI) [Ratio] 28.2 kg/m2 Dr. Claribel Smart Work Phone: [facility] 03-02-2022 08:33-0500 Body weight [address] Claribel Smart Work Phone: [facility] 01-09-2022 08:15-0400 Body height 165.[address] Claribel Smart Work Phone: [facility] Work Phone: 01-09-2022 08:15-0400 Body mass index (BMI) [Ratio] 26.6 kg/m2 Dr. Claribel Smart Work Phone: [facility] Work Phone: 01-09-2022 08:15-0400 Body weight 72.[address] Claribel Smart Work Phone: [facility] Work Phone: 11-06-2021 08:08-0400 Body mass index (BMI) [Ratio] 28.3 kg/m2 Dr. Claribel Smart Work Phone: [facility] Work Phone: 11-06-2021 08:06-0400 Body height 165.[address] Claribel Smart Work Phone: [facility] Work Phone: 11-06-2021 08:06-0400 Body temperature 97 [degF] Dr. Claribel Smart Work Phone: [facility] Work Phone: 11-06-2021 08:06-0400 Body weight 76.[address] Claribel Smart Work Phone: [facility] Work Phone: 11-06-2021 08:06-0400 Diastolic blood pressure 70 mm[Hg] Dr. Claribel Smart Work Phone: [facility] Work Phone: 11-06-2021 08:06-0400 Heart rate 62 /min Dr. Claribel Smart Work Phone: [facility] Work Phone: 11-06-2021 08:06-0400 Respiratory rate 18 /min Dr. Claribel Smart Work Phone: [facility] Work Phone: 11-06-2021 08:06-0400 SaO2% (BldA) [Mass fraction] 99 % Dr. Claribel Smart Work Phone: [facility] Work Phone: 11-06-2021 08:06-0400 Systolic blood pressure 108 mm[Hg] Dr. Claribel Smart Work Phone: [facility] Work Phone: NEGATED: Highlighted [id number] 09:16-0400 Body height 165.1 cm Elza Moyer AT [facility] Work Phone: NEGATED: Highlighted [id number] 09:16-0400 Body height 165 cm Elza Moyer AT [facility] Work Phone: NEGATED: Highlighted [id number] 09:16-0400 Body mass index (BMI) [Ratio] 28.06 kg/m2 Elza Moyer AT [facility] Work Phone: NEGATED: Highlighted [id number] 09:16-0400 Body weight 76.2 kg Elza Moyer AT [facility] Work Phone: NEGATED: Highlighted [id number] 09:160400 Body weight 76 kg Elza Moyer AT [facility] Work Phone: Encounters Encounter Date Encounter Type Care Provider Facility Start: 11-27-2024 ambulatory Katja Tod Facility:[facility] Start: 11-13-2024 ambulatory [facility] Facility:[facility] Start: 11-11-2024 End: 11-12-2024 ambulatory Naga Anguiano MD Work Phone: Endocrinology Comment on above: Nighat arango irtual visits tomorrow Start: 11-10-2024 End: 11-10-[address] Calos Mcgill MD -[facility] Work Phone: Start: 11-10-2024 End: 11-10-2024 ambulatory Katja Baron MD Work Phone: -[facility] Start: 11-03-2024 End: 11-03-2024 ambulatory Katja Baron MD Work Phone: -[facility] Start: 11-03-2024 End: 11-03-[address] Katja Baron MD -[facility] Start: 11-03-2024 End: 11-03-2024 ambulatory Katja Baron Facility:[facility] Start: 10-27-2024 End: 10-27-2024 Patient encounter procedure Naga Anguiano MD Work Phone: Endocrinology Comment on above: Multiple thyroid nod ules (Primary Dx) Start: 10-27-2024 End: 10-27-2024 ambulatory NAGA ANGUIANO Facility:[facility] Start: 07-29-2024 End: 07-29-2024 Patient encounter procedure Jesusita Magana MD Work Phone: Endocrine Surgery Comment on above: Multiple thyroid nod ules (Primary Dx) Start: 07-29-2024 End: 07-29-2024 ambulatory JESUSITA MAGANA Facility:[facility] Start: 07-17-2024 End: 07-17-[address] Natasha Banegas MD -[facility] Work Phone: Start: 07-17-2024 End: 07-17-2024 ambulatory Chalon Tod Facility:[facility] Start: 06-17-2024 Encounter for other preprocedural examination Natasha Banegas [facility] Start: 06-15-2024 End: 06-15-2024 ambulatory Chalon Tod Facility:[facility] Start: 06-02-2024 End: 06-03-2024 Evaluation and management of inpatient Dr. Natasha Baneags MD -[facility] Work Phone: Start: 06-02-2024 End: 06-03-2024 observation encounter Katja Baron MD Work Phone: [facility] Work Phone: Start: 06-02-2024 End: 06-03-2024 ambulatory Chalon Tod Facility:[facility] Start: 06-02-2024 ambulatory Chalon Tod Facility:[facility] Start: 06-02-2024 Non-patient / Non-visit Dr. Jeanna Banegas MD -[facility] Start: 05-25-2024 End: 05-25-[address] Natasha Banegas MD -[facility] Work Phone: Start: 05-25-2024 End: 05-25-2024 ambulatory Chalon Tod Facility:[facility] Start: 05-13-2024 End: 05-13-2024 Patient encounter procedure Jesusita Magana MD Work Phone: Endocrine Surgery Comment on above: Multiple thyroid nod ules (Primary Dx) Start: 05-13-2024 End: 05-13-2024 ambulatory JESUSITA MAGANA Facility:[facility] Start: 04-30-2024 End: 04-30-[address] Natasha Banegas MD -[facility] Work Phone: Start: 04-30-2024 End: 04-30-2024 ambulatory [facility] Facility:[facility] Start: 04-27-2024 End: 04-27-2024 Orders Only Dinora Oglesby MD Work Phone: Endocrine Surgery Comment on above: Nontoxic multinodula r goiter (Primary Dx) Start: 04-13-2024 End: 04-13-2024 Admission to [place] [address] Work Phone: Pre Anesthesia Start: 04-13-2024 End: 04-13-2024 [facility] DINORA OGLESBY Facility:[facility] Start: 04-13-2024 End: 04-13-2024 Anesthesia consultation [place] [address] Work Phone: Pre Anesthesia Comment on above: Gastroesophageal ref lux disease, unspecified whether esophagitis present (Primary Dx); Pre-op evaluation Start: 04-13-2024 End: 04-13-2024 Preprocedural examination done [place] [address] Work Phone: [facility] Work Phone: Start: 03-28-2024 End: 03-28-2024 ambulatory DINORA OGLESBY Facility:[facility] Start: 03-25-2024 End: 03-25-2024 Patient encounter procedure Jocelin Dumas NP-C -[facility] Work Phone: Start: 03-25-2024 End: 03-25-2024 ambulatory Jocelin Dumas NP Facility:[facility] Start: 02-26-2024 End: 02-26-2024 Patient encounter procedure Jesusita Magana MD Work Phone: Endocrine Surgery Comment on above: Multiple thyroid nod ules (Primary Dx) Start: 02-26-2024 End: 02-26-2024 ambulatory NAGANanci ANGUIANO Facility:[facility] Start: 02-23-2024 End: 02-23-2024 ambulatory JESUSITA MAGANA Facility:[id number] Start: 02-14-2024 End: 02-14-2024 Telephone encounter Jesusita Magana MD Work Phone: Endocrine Surgery Comment on above: Consult (FACE SHEET) Start: 01-04-2024 End: 01-04-2024 Telephone encounter Naga Anguiano MD Work Phone: Endocrinology Start: 12-30-2023 End: 12-30-2023 ambulatory NAGANanci BAHE Facility:[facility] Start: 12-30-2023 End: 12-30-2023 Patient encounter procedure Naga Anguiano MD Work Phone: Endocrinology Comment on above: Multiple thyroid nod ules (Primary Dx) Start: 12-09-2023 Encounter for gynecological examination (general) (routine) with abnormal findings Jocelin Dumas [employer]ATER HEL[employer] [facility] Start: 12-09-2023 End: 12-09-2023 ambulatory Jocelin Dumas [employer] HELPER Facility:[facility] Start: 12-09-2023 End: 12-09-2023 ambulatory Jocelin Dumas [employer] HELPER Facility:[facility] Start: 07-23-2023 End: 07-23-2023 ambulatory DO Abi Jefferson Work Phone: [facility] Work Phone: Start: 07-23-2023 End: 07-23-2023 Patient encounter procedure DO Abi Jefferson Work Phone: [facility]-Laboratory Work Phone: Start: 07-23-2023 End: 07-23-2023 Patient encounter procedure DO Abi Jefferson Work Phone: [facility] Work Phone: Start: 07-17-2023 End: 07-17-2023 ambulatory DO Abi Jefferson Work Phone: [facility] Work Phone: Start: 07-17-2023 End: 07-17-2023 Patient encounter procedure DO Abi Jefferson Work Phone: [facility]-Laboratory, Specimen Work Phone: Start: 07-17-2023 End: 07-17-2023 Patient encounter procedure DO Abi Jefferson Work Phone: [facility] Work Phone: Start: 07-16-2023 End: 07-16-2023 ambulatory DO Abi Jefferson Work Phone: [facility] Work Phone: Start: 07-16-2023 End: 07-16-2023 Patient encounter procedure [facility] Work Phone: Start: 07-11-2023 End: 07-11-2023 ambulatory [facility] Work Phone: Start: 07-11-2023 End: 07-11-2023 Patient encounter procedure [facility]-Cat Scan, [facility] Work Phone: Start: 06-04-2023 End: 06-04-2023 ambulatory [facility] Work Phone: Start: 06-04-2023 End: 06-04-2023 Patient encounter procedure [facility]-Laboratory, [facility] Start: 05-16-2023 End: 05-16-2023 ambulatory [facility] Work Phone: Start: 05-16-2023 End: 05-16-2023 Patient encounter procedure [facility]-Radiology, [place] Work Phone: Start: 10-29-2022 End: 10-29-2022 ambulatory [facility] Work Phone: Start: 10-29-2022 End: 10-29-2022 Patient encounter procedure [facility] Start: 05-03-2022 End: 05-03-[address] Claribel Smart Work Phone: [facility] Work Phone: Start: 05-03-2022 End: 05-03-[address] Claribel Smart Work Phone: [facility] Start: 03-02-2022 Non-patient / Non-visit Dr. Reji Smart Work Phone: [facility] Start: 03-02-2022 End: 03-02-2022 Admission to same day surgery center Dr. Claribel Smart Work Phone: [facility]-Endoscopy Start: 03-02-2022 End: 03-02-[address] Claribel Smart Work Phone: [facility] Work Phone: Start: 01-09-2022 Non-patient / Non-visit Dr. Reji Smart Work Phone: [facility] Start: 12-18-2021 End: 12-18-[address] Claribel Smart Work Phone: [facility] Work Phone: Start: 12-18-2021 End: 12-18-[address] Claribel Smart Work Phone: [facility]-Outpatient Breast Imaging Start: 11-06-2021 End: 11-06-[address] Claribel Smart Work Phone: [facility] Work Phone: Start: 11-06-[address] Matt Smart Work Phone: [facility] Start: 11-06-2021 End: 11-06-2021 Encounter for general adult medical examination without abnormal findings Dr. Claribel Smart Work Phone: [facility] Start: 11-06-2021 End: 11-06-[address] Claribel Smart Work Phone: [facility] Medicine Start: 08-31-[address] Miguel Smart Work Phone: [facility]-Occupational Therapy Start: 07-10-2021 End: 07-10-2021 Ot evaluation Steve Webb MD Work Phone: [facility] Work Phone: Start: 10-31-[address] Matt Smart Work Phone: [facility] Procedures Date Procedure Procedure Detail Performing Clinician Start: 11-03-2024 Chocolate OMERO quezada MD Work Phone: Start: 11-03-2024 Endomysial antibody IgA level Katja Baron MD Work Phone: Start: 11-03-2024 Food OMERO Mercedes Work Phone: Start: 11-03-2024 Shrimp OMERO Mercedes Work Phone: Start: 10-27-2024 Us soft tissue head & neck real time imge docm Naga Anguiano MD Work Phone: Start: 06-02-2024 Plain radiography of pelvis Katja Baron MD Work Phone: Start: 06-02-2024 Vaginal hysterectomy Emre Baron MD Work Phone: Start: 04-30-2024 Pelvic echography David Baron MD Work Phone: Start: 04-27-2024 Us soft tissue head & neck real time imge docm Dinora Oglesby MD Work Phone: Start: 03-25-2024 Screening mammography C khushbu Baron MD Work Phone: Start: 12-30-2023 End: 12-30-2023 Us soft tissue head & neck real time imge docleatha Anguiano MD Work Phone: Start: 07-23-2023 Urine culture DO Eva n Ronny Work Phone: Start: 07-17-2023 Genital Culture DO French Jefferson Work Phone: Start: 07-17-2023 Investigation of transfusion reaction DO Abi Jefferson Work Phone: Start: 07-16-2023 Pelvic echography DO Jose Jefferson Work Phone: Start: 07-11-2023 Computed tomography of abdomen and pelvis with contrast Start: 05-16-2023 Diagnostic radiograp hy of abdomen Start: 03-02-[address] Lorie Sánchezozielmatt Work Phone: Start: 12-18-2021 Screening mammography Deuce Smart Work Phone: Start: 07-10-2021 End: 07-11-2021 BP scrn no perf at interval Steve Webb MD Work Phone: Start: 07-10-2021 End: 07-11-2021 Calc BMI out nrm ras nof/u Steve Webb MD Work Phone: Start: 07-10-2021 End: 07-11-2021 Current tobacco non-user cad cap copd pv dm Steve Webb MD Work Phone: Start: 07-10-2021 End: 07-11-2021 Docrev cur meds by elig clin Steve Webb MD Work Phone: Start: 07-10-2021 End: 07-10-2021 FO w/o joints CF Steve Webb MD Work Phone: Start: 07-10-2021 End: 07-11-2021 Pain doc pos and plan Steve Webb MD Work Phone: Start: 07-10-2021 End: 07-11-2021 Patient encounter procedure Steve Webb MD Work Phone: Start: 07-10-2021 End: 07-10-2021 Radex hand minimum 3 views Steve Webb MD Work Phone: Start: 06-18-2012 Lipid 1996 panel - Serum or Plasma Naga Anguiano MD Work Phone: H/O: surgery Status post bila teral salpingectomy Dr. Natasha Banegas MD NEGATED: Highlighted rowStart: 07-10-2021 End: 07-10-2021 Documentation of current medications Elza Moyer AT Plan of Treatment Date Care Activity Detail Author Start: 07-23-2034 Urine microalbumin profile DTaP,Tdap,Td Vaccine (3 - Td or Tdap) [facility] Start: 03-28-2027 Diabetes Screening Diabetes Screening [facility] Start: 04-05-2025 End: 04-05-2025 Patient encounter procedure 04/05/2025 11:20 AM EST Office Visit Endocrinology [address] [place] [address] [place] [address] [place] [address] thyroid follow up with US OK'd per Dr. Abdi anguiano 40mins Endocrinology Comment on above: thyroid follow up with US OK'd per Dr. Matt anguiano 40mins Start: 11-16-2024 Influenza vaccination [facility] Start: 11-03-2024 [facility] Start: 10-27-2024 End: 10-27-2024 Patient encounter procedure 10/27/2024 2:10 PM EDT Office Visit Endocrinology [address] [place] [address] [place] [address] [place] [address] Thyroid-per Dr. Magana Endocrinology Comment on above: Thyroid-per Dr. Magana Start: 10-27-2024 End: 01-25-2025 Thyrotropin [Units/volume] in Serum or Plasma [facility] Work Phone: Comment on above: Expected: 10/27/2024, Expires: Start: 10-21-2024 End: 10-21-2024 Patient encounter procedure 10/21/2024 1:20 PM EDT Office Visit Endocrine Surgery [address] [id number] [place] [address] [place] [address] 6 mo followup Endocrine Surgery Comment on above: 6 mo followup Start: 06-03-2024 End: 02-03-2025 US Thyroid gland US THYROID/PARATHYROID Radiology Routine Multiple thyroid nodules Expected: 06/03/2024, Expires: 02/03/2025 [facility] Work Phone: Comment on above: Expected: 06/03/2024, Expires: Start: 06-03-2024 Patient discharge [facility] Start: 06-03-2024 Procedure discontinued [facility] Start: 06-03-2024 Removal of urinary catheter [facility] Start: 06-02-2024 Following clinical pathway protocol [facility] Start: 06-02-2024 Ambulation therapy management [facility] Start: 06-02-2024 Continuous pulse oximetry [facility] Start: 06-02-2024 Elevation of head of bed [facility] Start: 06-02-2024 Incentive spirometry [facility] Start: 06-02-2024 Measuring intake and output [facility] Start: 06-02-2024 Notification of physician [facility] Start: 06-02-2024 Oxygen therapy [facility] Start: 06-02-2024 Patient education [facility] Start: 06-02-2024 Procedures relating to eating and drinking [facility] Start: 06-02-2024 Taking patient vital signs [facility] Start: 06-02-2024 [facility] Start: 06-02-2024 Introduction of urinary catheter [facility] Start: 06-02-2024 Admission procedure [facility] Start: 05-13-2024 End: 05-13-2024 Patient encounter procedure 05/13/2024 3:00 PM EST Office Visit Endocrine Surgery [address] [place], [place] [id number] [place] [address] [place] [address] post op Endocrine Surgery Comment on above: post op Start: 04-27-2024 End: 04-27-2024 Admission to same day surgery center 04/27/2024 7:30 AM EST - 04/27/2024 9:10 AM EST Surgery [facility] Surgery [id number] [place], [place] [id number] [place] [address] [place] [address] THYROID RF ABAL W/US [facility] Surgery Comment on above: THYROID RF ABAL W/US Start: 04-27-2024 Subsequent hospital visit by physician 04/27/2024 7:30 AM EST Hospital Encounter [facility] Surgery [address] [place] [id number] [place] [address] [place] [address] Multiple thyroid nodules [E04.2], Nontoxic multinodular goiter [E04.2] [facility] Surgery Comment on above: Multiple thyroid nodules [E04.2], Nontox ic multinodular goiter [E04.2] Start: 04-27-2024 End: 04-27-2024 Unlisted procedure endocrine system [facility] Start: 02-26-2024 End: 02-26-2024 Patient encounter procedure 02/26/2024 10:00 AM EST Office Visit Endocrine Surgery [address] [place] [id number] [place] [address] [place] [phone] INTAKE COMPLETED-Multiple thyroid nodules Endocrine Surgery Comment on above: INTAKE COMPLETED-Multiple thyroid nodule s Start: 11-17-2023 Covid-19 Vaccine () Covid-19 Vaccine () [facility] Start: 11-17-2023 Influenza vaccination Influenza Vaccine (#1) [facility] Start: 08-18-2023 Urine microalbumin profile DTaP,Tdap,Td Vaccine (2 - Td or Tdap) [facility] Start: 07-23-2023 Bacteria identified in Urine by Culture [facility] Start: 07-23-2023 [facility] Start: 07-16-2023 Pelvic echography Pelvic w/ Transvaginal [facility] Start: 03-02-2022 Urine test [facility] Work Phone: Start: 03-02-2022 Patient discharge [facility] Start: 11-06-2021 Patient referral [facility] Work Phone: Start: 2021 Diabetes Screening Diabetes Screening [facility] Start: 2021 Lipid panel Lipid Screening [facility] Start: 2021 Screening for malignant neoplasm of colon [facility] Start: 08-07-2021 End: 08-07-2021 Patient encounter procedure [facility] Work Phone: Start: 12-20-2016 Screening for malignant neoplasm of cervix Cervical Cancer Screening [facility] Start: 2016 Screening for malignant neoplasm of breast Mammogram Screening [facility] Start: 09-14-2013 Hepatitis B Vaccine (2 of 3 - 19+ 3-dose series) Hepatitis B Vaccine (2 of 3 - 19+ 3-dose series) [facility] Start: 1994 Anxiety Screening Anxiety Screening [facility] Start: 1994 Depression Screening Depression Screening [facility] Start: 1994 Hepatitis C screening Hepatitis C Screening [facility] Start: 1994 HIV screening HIV Screening [facility] Beef IgE Ab [Units/v olume] in Serum [facility] Chocolate IgE Ab [Units/volume] in Serum [facility] Codfish IgE Ab [Units/volume] in Serum [facility] Colonoscopy [facility] Work Phone: Grundy IgE Ab [Units/v olume] in Serum [facility] Cow milk IgE Ab [Units/volume] in Serum [facility] 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 Work Phone: Peanut IgE Ab [Units /volume] in Serum [facility] Pork IgE Ab [Units/v olume] in Serum [facility] [place] IgE Ab [Units /volume] in Serum [facility] Shrimp IgE Ab [Units /volume] in Serum [facility] Soybean IgE Ab [Units/volume] in Serum [facility] Tuna IgE Ab [Units/v olume] in Serum [facility] Urine test [facility] Work Phone: US Gallbladder [facility] US Pelvis [facility] US Pelvis transvaginal [facility] Wheat IgE Ab [Units/ volume] in Serum [facility] Whole Egg IgE Ab [Units/volume] in Serum [facility] Immunizations Immunization Date Immunization Notes Care Provider [facility] 08-17-2013 hepatitis A vaccine, adult dosage Naga Anguiano MD Work Phone: [facility] 08-17-2013 hepatitis B vaccine, adult dosage Naga Anguiano MD Work Phone: [facility] 08-17-2013 measles, mumps and rubella virus vaccine Naga Anguiano MD Work Phone: [facility] 08-17-2013 tetanus toxoid, redu flori diphtheria toxoid, and acellular pertussis vaccine, adsorbed Naga Anguiano MD Work Phone: [facility] Payers Date Payer Category Payer Self-pay [id number] 2022 Private Health Insurance [employer] [id number] 2022 Unknown [id number] 2021 Blue Cross Blue Shield BLUE ACCE PPO [id number] 2021 Unknown [id number]. [id number] 2021 Unknown [id number] Unknown [facility] ACCESS PPO [id number] Unknown [facility] [id number] Unknown COMMERCIAL OTHER [id number] Unknown [id number]. 462 Unknown [id number] 2.16.840.1.189018.3.579.2. 462 Unknown [id number] 2.16.840.1.387772.3.579.2. 462 Unknown [id number] 2.16.840.1.059856.3.579.2. 462 Unknown [id number] 2..840.1.331760.3.579.2. 462 Unknown [id number] 2..840.1.204197.3.579.2. 462 Unknown [id number] 2.840.1.250195.3.579.2. 462 Unknown [id number] 2..840.1.051816.3.579.2. 462 Unknown [id number] 2.16840.1.773168.3.579.2. 462 Unknown [id number] 2.16.840.1.502103.3.579.2. 462 Unknown [id number] 2..840.1.471182.3.579.2. 462 Unknown [id number] 2.16840.1.290765.3.579.2. 462 Unknown [id number] 2.840.1.614281.3.579.2. 462 Unknown [id number] 2.840.1.016506.3.579.2. 462 Unknown [id number] 2.840.1.343709.3.579.2. 462 Social History Date Type Detail Facility Start: 11-06-2021 End: 11-28-2022 Tobacco smoking status NHIS Unknown if ever smoked [facility] Start: 12-05-2018 Non-smoker [facility] Start: 1975 Sex Assigned At Female [facility] Start: 07-18-2011 End: 06-02-2024 Tobacco smoking status NHIS Never smoked tobacco [facility] Start: 07-18-2011 Tobacco use and exposure Smokeless tobacco non-user [facility] Start: 12-30-2023 End: 10-27-2024 Alcoholic beverage intake Current non-drinker of alcohol (finding) [facility] Start: 12-30-2023 End: 10-27-2024 History of Social function [facility] Start: 12-30-2023 End: 10-27-2024 Tobacco use panel [facility] Start: 02-17-2012 National Score (1-100), lower number is lower risk 60 [facility] Start: 1975 Sex assigned at Not on file [facility] Start: 06-03-2024 Sex Female (finding) [facility] NEGATED: Highlighted rowStart: 07-10-2021 End: 07-10-2021 Alcohol use Alcohol use [facility] Work Phone: NEGATED: Highlighted rowStart: 07-10-2021 End: 07-10-2021 Details of drug misuse behavior Details of drug misuse behavior [facility] Work Phone: NEGATED: Highlighted rowStart: 07-10-2021 End: 07-10-2021 How many days of moderate to strenuous exercise, like a brisk walk, did you do in the last 7 days? How many days of moderate to strenuous exercise, like a brisk walk, did you do in the last 7 days? [facility] Work Phone: NEGATED: Highlighted rowStart: 07-10-2021 End: 07-10-2021 Assertion Never smoker [facility] Work Phone: NEGATED: Highlighted row [facility] NEGATED: Highlighted row Not [facility] Medical Equipment Procedure Code Equipment Code Equipment Origin al Text Equipment Identifier Dates Vaginal hysterectomy Collagen haemostatic agent, non-antimicrobial [id number] FDA Start: 06-02-2024 Goals Date Patient Goal Desired Activity /State Functional Status Date Assessment Result Facility 06-03-2024 Functional status Chair [facility] Work Phone: 07-02-2014 Are you deaf, or do you have serious difficulty hearing No 07/02/2014 8:44 AM Angeles Linares LPN No [facility] 07-02-2014 Are you blind, or do you have serious difficulty seeing, even when wearing glasses No 07/02/2014 8:44 AM Angeles Linares LPN No [facility] 07-02-2014 Do you have serious difficulty walking or climbing stairs No 07/02/2014 8:44 AM Angeles Linares LPN No [facility] 07-02-2014 Do you have difficul ty dressing or bathing No 07/02/2014 8:44 AM Angeles Linares LPN No [facility] 07-02-2014 Because of a physica l, mental, or emotional condition, do you have difficulty doing errands alone such as visiting a physician's office or shopping No 07/02/2014 8:44 AM Angeles Linares LPN No [facility] Mental Status Date Assessment Result Facility 06-03-2024 Cognitive function Level Of Cons ciousness Awake;Alert;Appropriate;Fol lows Commands [facility] Work Phone: 06-03-2024 Cognitive function Voice/Name [facility] Work Phone: 03-02-2022 Cognitive function Voice/Name [facility] Work Phone: 07-02-2014 Because of a physica l, mental, or emotional condition, do you have serious difficulty concentrating, remembering, or making decisions No 07/02/2014 8:44 AM Angeles Linares LPN No [facility] Clinical Notes 12-30-2023 to 11-12-2024 Telephone Encounter - Naga Campbell MD - 11/12/2024 4:05 PM EDTTelephone Encounter - Naga Campbell MD - 11/12/2024 4:05 PM EDT Note Date & Type Note Facility 11-12-2024 Miscellaneous Notes Formattin g of this note might be different from the original. Virtual visit completed today Naga Anguiano MD documented in this encounter [facility] 11-12-2024 Telephone encounter Note Form atting of this note might be different from the original. Virtual visit completed today Naga Anguiano MD [facility] 11-10-2024 Progress note [facility] 11-10-2024 Progress note Note Date/Time November 10, 2024 2:22pm [facility] [address] [place] [address] OFFICE VISIT Date of Service: 11/10/24 MR#: [id number] Acct: [id number] Name: CIARRA ALBA LÓPEZ Rep #: [id number] : 1975 Provider: Dr. Iram Mcgill MD Age/Sex: 49/F Location: [facility] Status: Signed Intake Vital Signs 07/17/24 11:01 11/10/24 14:14 Height 5 ft 5 in 5 ft 5 in Weight: 165 lb 4 oz BMI 27.5 BP 127/81 H Blood Pressure Location Rt brachial Position Sitting Respiration 18 Pulse 81 Pulse Source Monitor Temp 97.6 F L Temp Source Temporal Pulse Oximetry (%) 99 Oxygen Delivery Method room air Intake Visit Reasons: Gastroesophageal reflux disease (GERD) Chief Complaint: GERD Is patient in pain?: No Allergies No Known Allergies Allergy (Verified 11/10/24 14:15) Medications ?Medication ?Instructions ?Recorded ?Confirmed ?Type pantoprazole 40 mg tablet,delayed 40 mg PO QDAY 11/10/24 History release sucralfate 1 gram tablet 1 g PO 4X/DAY 11/10/2411/10 History PFSH Medical History (Updated 11/10/24 @ 14:[address] Calos Mcgill MD) Epigastric pain Wears glasses Thyroid nodule High cholesterol Gastric reflux GERD (gastroesophageal reflux disease) Hyperlipemia Surgical History H/O: hysterectomy History of endometrial ablation S/P LEEP (~10/16/18) S/P bunionectomy s/p right hand surgery Family History Grandfather Lung cancer Social History Smoking Status: Never smoker alcohol intake: never substance use type: does not use caffeine: Yes what type of physical activity do you participate in: other details: crossfit frequency: 5-6 times per week seatbelt use: always do you feel safe at home: Yes additional social history: [employer] employed Patient works [employer] HPI HPI HPI: Patient is a 49-year-old female who is here for burning in the epigastric region. She reports that the pain does not go into her esophagus and she does not feel like it is reflux only mostly epigastric pain but sometimes it radiatesto the right upper quadrant. She says that eating does not help she says the only thing that does help is when she takes Carafate. She denies nausea or vomiting. She denies any dysphagia. ROS General General: No weight change, appetite, fatigue, colon cancer, breast cancer or weakness HEENT HEENT: No difficulty swallowing, eye injury, eye surgery, swollen glands or hoarseness Endo Endocrine: No thyroid disease, diabetes mellitus, thyroid cancer, Hair loss, heat intolerance or cold intolerance Skin Skin: No rash or changing moles Musc Musculoskeletal: No back problems, arthritis, rheumatoid arthritis, gout or joint pain Cardio Cardiovascular: No murmur, pacemaker, heart disease, atrial fibrillation, high blood pressure, heart attack, heart stent, palpitations, shortness of breath with exertion or chest pain Psych Psychiatric: No depression, anxiety or hearing voices Resp Respiratory: No shortness of breath, No sleep apnea, No cough, No COPD, No asthma, No emphysema and No wheezing Gastro Gastrointestinal: Yes abdominal pain, No nausea or vomiting, No diarrhea, No constipation, No blood in stool, Yes acid reflux, Yes hemorrhoids, No ulcers, Nogallbladder problem and No black,tarry stools [place] Hematologic: No blood thinners, No blood disorders, No bleeding, No anemia and No blood clots Neuro Neurologic: No numbness, No tingling and No weakness Exam Const General: cooperative Orientation: alert and oriented x3 HENMT Head: normal to inspection Neck Neck: normal visual inspection and full ROM Chest Chest palpation & inspection: normal inspection of the chest Resp Effort & Inspection: normal respiratory effort Auscultation: clear to auscultation bilaterally Cardio Rate: regular rate Rhythm: regular rhythm GI Inspection: non-distended Palpation: soft and nontender Skin General: no rashes or lesions noted Neuro General: patient alert and patient oriented x3 Extrem General: full ROM Psych Appearance: grossly normal Mental Status: mental status grossly normal Assessment and Plan Assessment and Plan (1) GERD (gastroesophageal reflux disease): Status: Chronic Qualifiers: Esophagitis presence: esophagitis presence not specified Qualified Code(s): K21.9 - Gastro-esophageal reflux disease without esophagitis Plan: The patient is having epigastric burning suggesting gastritis. She has been on a PPI and Carafate several times and reports that every time she comes off of the Carafate she begins burning again. She says sometimes the pain is in the right upper quadrant. I would like to perform an EGD to evaluate. I explained endoscopy in detail to the patient. I explained the risks including but not limited to stroke or heart attack with anesthesia, perforation of the GI tract, bleeding, infection. I explained that any of these could necessitate further emergency surgery. The patient understands and all questions were answered sufficiently. The patient wishes to proceed with procedure. Patient is also saying that the pain sometimes radiates to the right upper quadrant. I will order a gallbladder ultrasound to evaluate for stones. Calos Mcgill MD Pager: [facility] [address] [place] [address], [address] [place] [address] Office: Orders: Orders Gallbladder Today K21.9 - Gastro-esophageal reflux disease without esophagitis,R10.13 - Epigastric pain EGD Today Coding Level of Care Code Off vis,new,level 3 Diagnoses Gastroesophageal reflux disease, unspecified whether esophagitis present K21.9 Esophagitis presence: esophagitis presence not specified 11/10/24 1422 <Electronically signed by Calos phillips MD> Date _ Calos Mcgill MD Cosigner Signature: Date (if applicable) CC: ~ [employer] Work Phone: 1(852) 357-693408-12-2025 NoteHNO ID: [id number] Author: NAGA CAMPBELL MD Service: ? Author Type: Physician Type: Progress Notes Filed: 10/27/2024 15:01 Note Text: Thyroid/parathyroid/neck ultrasound (October 27, 2024): Primary Care Physcian: No primary care provider on file. Reason for the study: Follow up of thyroid nodule s/p RFA or left 2 cm nodule in 04/2024 Comparison: 07/2024 and 12/2023 Equipment: [employer] Transducer: Linear/Trapezoidal multifrequency Regions examined: Thyroid Technique: Sonography was performed. Color and power Doppler were applied when indicated. Images were obtained and stored in a permanent archive. Right lobe: L 4.61 x W 1.12 x AP 1.49 cm; Homogeneous Isthmus: 0.30 cm; Homogeneous Left lobe: L 4.37 x W 0.99 x AP 1.57 cm; Homogeneous Other findings: Nodule 1: in the left lobe, measuring: L 1.27 x W 1.03 x AP 0.86 cm, mixed, with grade 2/4 vascular flow, with smooth borders, and without calcifications Nodule 2: in the right lobe, measuring: L 0.43 x W 0.40 x AP 0.30 cm, mixed, with grade 3/4 vascular flow, with smooth borders, and without calcifications Nodule 3: in the right lobe, measuring: L 0.52 x W 0.53 x AP 0.29 cm, mixed, with grade 2/4 vascular flow, with smooth borders, and without calcifications Impression: Decrease in size of left nodule compared to 12/2023 and 07/2024 Recommendation: Office ultrasound in 1 year. Performed and interpreted by Naga Anguiano [facility]08-12-2025 History of Present illness Narrative* Naga Campbell MD - 10/27/2024 2:58 PM EDT Thyroid/parathyroid/neck ultrasound (October 27, 2024): Primary Care Physcian: No primary care provider on file. Reason for the study: Follow up of thyroid nodule s/p RFA or left 2 cm nodule in 04/2024 Comparison: 07/2024 and 12/2023 Equipment: [employer] Transducer: Linear/Trapezoidal multifrequency Regions examined: Thyroid Technique: Sonography was performed. Color and power Doppler were applied when indicated. Images were obtained and stored in a permanent archive. Right lobe: L 4.61 x W 1.12 x AP 1.49 cm; Homogeneous Isthmus: 0.30 cm; Homogeneous Left lobe: L 4.37 x W 0.99 x AP 1.57 cm; Homogeneous Other findings: Nodule 1: in the left lobe, measuring: L 1.27 x W 1.03 x AP 0.86 cm, mixed, with grade 2/4 vascularflow, with smooth borders, and without calcifications Nodule 2: in the right lobe, measuring: L 0.43 x W 0.40 x AP 0.30 cm, mixed, with grade 3/4 vascular flow, with smooth borders, and without calcifications Nodule 3: in the right lobe, measuring: L 0.52 x W 0.53 x AP 0.29 cm, mixed, with grade 2/4 vascular flow, with smooth borders, and without calcifications Impression: Decrease in size of left nodule compared to 12/2023 and 07/2024 Recommendation: Office ultrasound in 1 year. Performed and interpreted by Naga Anguiano MD * Naga Campbell MD - 10/27/2024 2:23 PM EDT Endocrinology Follow up Ciarra Alba is here for follow up regarding: thyroid nodule Last visit: 12/2023 PCP is No primary care provider on file. History of Present Illness Ciarra Alba is a 49 year old female, visit for follow up of thyroid nodules 2 son's with thyroid cancer Never been told she has thyroid issues Not on LT4 Here with her MGGM: goiter - s/p thyroidecotmy Lump sensation is gone S/p RFA in 04/2024 Past History, Medications, Allergies PAST MEDICAL HISTORY Diagnosis Date Hypercholesteremia PAST SURGICAL HISTORY Procedure Laterality Date COLONOSCOPY SCREENING HYSTEROSCOPY ENDOMETRIAL ABLATION PAST SURGICAL HISTORY OF 03/18/1997 BUNIONECTOMY / RIGHT FOOT PAST SURGICAL HISTORY OF 03/18/1998 HAND INJURY, Right hand Current Outpatient Medications Medication Sig Dispense Refill pantoprazole DR (PROTONIX) 40 mg tablet Take 1 tablet by mouth once daily. No current facility-administered medications for this visit. ALLERGIES No Known Allergies FAMILY HISTORY Problem Relation Age of Onset Hypertension Maternal Grandmother Cancer Maternal Grandfather Anesthesia Problems No Family History Social History Tobacco Use Smoking status: Never Smokeless tobacco: Never Vaping Use Vaping status: Never Used Substance Use Topics Alcohol use: No Drug use: No Review of Systems Answers submitted by the patient for this visit: Endocrine Review of Systems (Submitted on 10/20/2024) Fatigue: No Night sweats: No Recent unintentional weight change: No Skin Color Changes: No Post-Nasal Drip: No Thyroid Pain (lower neck): No Trouble Swallowing: No Vision Disturbance: No Chest pain: No Leg Swelling: No Blood Clots?: No Leg Pain while walking?: No Difficulty Breathing?: No Heartburn: Yes Nausea: No Vomiting: No Diarrhea: No Constipation: No Abdominal pain: Yes Bone Pain?: No Muscle aches: No Muscle weakness: No Joint pain or stiffness: No Headaches: No Dizziness: No Numbness?: No Urgency to Urinate?: No Increased Urination: No Slow or Small Urine Stream?: No Are your menstrual cycles regular?: Yes Are your menstrual cycles irregular?: No Have your menstrual cycles stopped?: Yes Flushing: No Hot Flashes?: No Increased Thirst: No Change in Body Hair?: No Cold Intolerance: No Heat Intolerance: No Physical examination BP 117/74 Pulse 78 Resp 16 Ht 165.1 cm (5' 5) Wt 75.6 kg (166 lb 10.7 oz) LMP 03/23/2024(Within Months) SpO2 98% BMI 27.73 kg/m GENERAL: Well nourished, well hydrated, in no distress and oriented x 3 COMMUNICATION: Hearing: normal; VOICE: normal EYES: no thyroid eye signs, Fundi normal, cornea normal and EOMI NECK: no visible nodules or goiter LUNGS: no audible wheezing or respiratory distress NEURO: normal strength and no tremor SKIN: No rash or visible wound. ENDOCRINE: No cushingoid or acromegalic features Previous Laboratory Results Latest Ref Rng 02/23/2024 TSH 0.358 - 3.740 mIU/L 1.213 Cytology 12/2023: A - Thyroid, Aspirate/Fine Needle Aspirate - Left Benign. Consistent with colloid nodule. Imaging Thyroid US (12/2023): Subcentimetric right sided nodule and 2 cm mixed left thyroid nodule Impression/Recommendations Ciarra Alba is a 48 year old female, visit for follow up of thyroid nodules. 2 son's with thyroid cancer Not on LT4 Thyroid Nodules: -- 2 Sons with thyroid cancer -- ? PGGM with thyroid issues -- Thyroid US in 12/2023 showed a 2 cm left mixed nodule -- FNA in 12/2023 was benign -- S/p RFA in 04/2024 -- Left nodule size: -- 12/2023: 2.12 x 1.49 x 1.44 cm -- 07/2024: 1.48 x 1.06 x 1.03 cm -- 10/2024: 1.27 x 1.03 x 0.86 cm -- Compressive symptom resolved after RFA -- Will repeat TSH (she is not on LT4) -- Thyroid US in 1 year The patient will follow up in 1 year Naga Anguiano MD [facility] NoteHNO ID: [id number] Author: NAGA CAMPBELL MD Service: ? Author Type: Physician Type: Progress Notes Filed: 10/27/2024 15:01 Note Text: Endocrinology Follow up Ciarra Alba is here for follow up regarding: thyroid nodule Last visit: 12/2023 PCP is No primary care provider on file. History of Present Illness Ciarra Alba is a 49 year old female, visit for follow up of thyroid nodules 2 son's with thyroid cancer Never been told she has thyroid issues Not on LT4 Here with her MGGM: goiter - s/p thyroidecotmy Lump sensation is gone S/p RFA in 04/2024 Past History, Medications, Allergies PAST MEDICAL HISTORY Diagnosis Date Hypercholesteremia PAST SURGICAL HISTORY Procedure Laterality Date COLONOSCOPY SCREENING HYSTEROSCOPY ENDOMETRIAL ABLATION PAST SURGICAL HISTORY OF 03/18/1997 BUNIONECTOMY / RIGHT FOOT PAST SURGICAL HISTORY OF 03/18/1998 HAND INJURY, Right hand Current Outpatient Medications Medication Sig Dispense Refill pantoprazole DR (PROTONIX) 40 mg tablet Take 1 tablet by mouth once daily. No current facility-administered medications for this visit. ALLERGIES No Known Allergies FAMILY HISTORY Problem Relation Age of Onset Hypertension Maternal Grandmother Cancer Maternal Grandfather Anesthesia Problems No Family History Social History Tobacco Use Smoking status: Never Smokeless tobacco: Never Vaping Use Vaping status: Never Used Substance Use Topics Alcohol use: No Drug use: No Review of Systems Answers submitted by the patient for this visit: Endocrine Review of Systems (Submitted on 10/20/2024) Fatigue: No Night sweats: No Recent unintentional weight change: No Skin Color Changes: No Post-Nasal Drip: No Thyroid Pain (lower neck): No Trouble Swallowing: No Vision Disturbance: No Chest pain: No Leg Swelling: No Blood Clots?: No Leg Pain while walking?: No Difficulty Breathing?: No Heartburn: Yes Nausea: No Vomiting: No Diarrhea: No Constipation: No Abdominal pain: Yes Bone Pain?: No Muscle aches: No Muscle weakness: No Joint pain or stiffness: No Headaches: No Dizziness: No Numbness?: No Urgency to Urinate?: No Increased Urination: No Slow or Small Urine Stream?: No Are your menstrual cycles regular?: Yes Are your menstrual cycles irregular?: No Have your menstrual cycles stopped?: Yes Flushing: No Hot Flashes?: No Increased Thirst: No Change in Body Hair?: No Cold Intolerance: No Heat Intolerance: No Physical examination BP 117/74 Pulse 78 Resp 16 Ht 165.1 cm (5' 5) Wt 75.6 kg (166 lb 10.7 oz) LMP 03/23/2024 (Within Months) SpO2 98% BMI 27.73 kg/m? GENERAL: Well nourished, well hydrated, in no distress and oriented x 3 COMMUNICATION: Hearing: normal; VOICE: normal EYES: no thyroid eye signs, Fundi normal, cornea normal and EOMI NECK: no visible nodules or goiter LUNGS: no audible wheezing or respiratory distress NEURO: normal strength and no tremor SKIN: No rash or visible wound. ENDOCRINE: No cushingoid or acromegalic features Previous Laboratory Results Latest Ref Rng 02/23/2024 TSH 0.358 - 3.740 mIU/L 1.213 Cytology 12/2023: A - Thyroid, Aspirate/Fine Needle Aspirate - Left Benign. Consistent with colloid nodule. Imaging Thyroid US (12/2023): Subcentimetric right sided nodule and 2 cm mixed left thyroid nodule Impression/Recommendations Ciarra Alba is a 48 year old female, visit for follow up of thyroid nodules. 2 son's with thyroid cancer Not on LT4 Thyroid Nodules: -- 2 Sons with thyroid cancer -- ? PG with thyroid issues -- Thyroid US in 12/2023 showed a 2 cm left mixed nodule -- FNA in 12/2023 was benign -- S/p RFA in 04/2024 -- Left nodule size: -- 12/2023: 2.12 x 1.49 x 1.44 cm -- 07/2024: 1.48 x 1.06 x 1.03 cm -- 10/2024: 1.27 x 1.03 x 0.86 cm -- Compressive symptom resolved after RFA -- Will repeat TSH (she is not on LT4) -- Thyroid US in 1 year The patient will follow up in 1 year Naga Anguiano, [facility]05-20-2025 NoteHNO ID: [id number] Author: ?, ?, ? Service: ? Author Type: ? Type: Progress Notes Filed: 08/04/2024 08:47 Note Text: 10/27 2:[address] Abdi Anguiano in [facility]05-14-2025 NoteHNO ID: [id number] Author: JESUSITA MAGANA MD Service: ? Author Type: Physician Type: Progress Notes Filed: 07/29/2024 15:54 Note Text: The patient presents for a post op f/u s/p thyroid RFA for thyroid nodule on 04/27/24. She does not have any complaints today. Exam in unremarkable. A neck ultrasound was done in the office today. This showed a left thyroid nodule measuring 10.6x10.3x14.8 mm with preoperative measures of 15.9x13.1x16.1mm. Impression: Satisfactory 3-month follow up. Plan: Follow up with Dr. Ty in 3 months. [facility] History of Present illness Narrative* Jesusita Magana MD - 07/29/2024 3:37 PM EDT The patient presents for a post op f/u s/p thyroid RFA for thyroid nodule on 04/27/24. She does not have any complaints today. Exam in unremarkable. A neck ultrasound was done in the office today. This showed a left thyroid nodule measuring 10.6x10.3x14.8 mm with preoperative measures of 15.9x13.1x16.1mm. Impression: Satisfactory 3-month follow up. Plan: Follow up with Dr. Ty in 3 months. Jesusita Magana MD documented [facility] Instructions* Patient Instructions* Moo He MA - 07/29/2024 2:51 PM EDT Thank you for choosing the [facility] Department of Endocrinology, Diabetes and Metabolism. Did you know that you need to call 48 hours in advance of your scheduled visit, if you are unable to make your appointment? The Endocrinology and Metabolism [place] thanks you for your commitment, because patients not showing to their appointment results in a lost opportunity for patients to receive world class health care at the [facility]. To Cancel an appointment, please choose one of the following: - Call the Appointment Call Center at [phone] - From [place], Go to Appointments - Cancel Appts If cancelling, consider your need to reschedule to prevent further delays in your care. To Schedule an appointment, please choose one of the following: - Call the Appointment Call Center at [phone] - From [place], Go to Appointments - Request an Appt [facility]* Diagnosis Onset Date Resolution Status Admit Date Adenomyosis acute July 17, 2024 10:53am Pelvic pain acute July 17, 2024 10:53am [facility] Work Phone: 1(754) 594-997805-02-2025 Evaluation note* Diagnosis Onset Date Resolution Status Admit Date Adenomyosis acute July 17, 2024 10:53am Pelvic pain acute July 17, 2024 10:53am GERD (gastroesophageal reflu x disease) chronic November 10 1:57pm [facility] Work Phone: 1(576) 342-972003-19-2025 Consult note [facility] Medical Records Department [address] [place] [address] Anesthesia Postop Eval II 06/02/24 1747 MR#: [id number] Acct: [id number] Name: CIARRA ALBA LÓPEZ Rep #:[id number] : 1975 48 From: Judy Kendrick PCP: Dr. Katja Baron MD Status:REG SD C Y Race: C Location: [place] [address] -1 Anesthesia Postop Eval I Sum Postop Eval Completion status Anesthesia document: Postop Eval 1 completed: Yes Anesthesia Postop Eval I Summary Anesthesia Postop Eval I Summary: Anesthesia Postop Eval I: Assessment Summary Airway patent Yes 06/02/24 16:56 [employer]OVE [employer] C[employer].CSIR Spontaneous unlabored Yes 06/02/24 16:56 [employer].CSIR respirations Mental status nausea No 06/02/24 16:56 [employer].CSIR Vomiting No 06/02/24 16:56 [employer].CSIR Anesthesia Postop Eval I: Fluid Summary Crystalloid volume administer 2,800 06/02/24 16:56 GLOVE [employer] CUTTER.CSIR (ml) Colloids volume administered ( ml) Blood Product volume administered (ml) Total IV fluid infused 2,800 06/02/24 16:56 GLOVE [employer] C[employer]TER.CSIR Anesthesia Postop Eval I: Summary Notes Anesthesia Complication No 06/02/24 16:56 [employer]OVE [employer] C[employer].CSIR Anesthesia Complication Comment: Post-operative progress note Anesthesia: Postop Eval II Evaluation Mental status: Awake and Calm Pain Level: 0 nausea: No Vomiting: No 06/02/24 1747 a> Date _ Judy Lay Signature: Date CC: ~ Signed [facility]03-19-2025 Consult note [facility] Medical Records Department [address] [address] Counseling Note - Pharmacy 06/03/24 1432 MR#: [id number] Acct: [id number] Name: CIARRA ALBA Rep #:[id number] : 1975 48 From: Keiko Maciel PCP: Dr. Katja Baron MD Status:ADM IN [facility] [place] [facility] [id number] [facility]acy Service has performed discharge medication reconciliation and counseling for this patient. 1. OXYCODONE/ACETAMINOPHEN 5/325MG 1T PO Q4H PRN PAIN 2. NAPROXEN 500MG PO BID PRN PAIN The patient's discharge medication list was reviewed for discrepancies and discrepancies were resolved. The patient was counseled on the following discharge medications and changes in medications for homegoing were reviewed. The Reason for Use, instructions for use, and potential side effects were reviewed for all new medications. The patient's questions regarding all of their medications were answered. The patient was able to verbally demonstrate an understanding of their dischargemedications. Medications at Discharge Home Medications Saccharomyces boulardii 250 mg capsule (Daily Probiotic (S. boulardii)) 250 mg PO DAILY 11/28/22 naproxen 500 mg tablet 500 mg PO BID PRN PRN Pain #30 tabs 06/02/24 oxycodone-acetaminophen 5 mg-325 mg tablet (Percocet) 1 tab PO Q4H PRN pain 7 days #20 tabs 06/02/24 06/03/24 1433 Date _ Keiko Lay Signature (if applicable): Date CC: ~ Signed [facility]03-18-2025 Discharge summary Author Natasha Banegas [facility] Note Date/Time June 02, 2024 6:5 4pm [facility] Medical Records Department [address] [place] [address] Instructions for Home/Discharge Instructions 06/02/24 1852 MR#: [id number] Acct: [id number] Name: CIARRA ALBA Rep #:[id number] : 1975 48 From: Natasha knight MD PCP: Dr. Katja Baron MD Status:ADM IN O Discharge Instructions Diet Discharge Diet: No restrictions DC O2, CPAP, BIPAP needs Home O2 Discharge instructions: No Dressing / Incision May resume sexual activity in: 6 weeks Weight Bearing Status: Full weight bearing Dressing / Incision Call your doctor if your incision/area has: Continuous Slow Oozing, Sudden Increased Bleeding, Increased Pain/ Swelling, Increased Redness and Foul Smelling Discharge Call your doctor if you observe: Fever of 101 or Higher, Using more than 1 pad per hour, Shortness of breath, Chest pain and Uncontrolled pain Suture Line Care: Avoid Pulling/Pushing and Avoid Pinching/Bending Remove Dressing in: 1 week (if present) Cleanse incision/area with: Soap & Water and Keep Dressing Clean & Dry Follow Up Care Please Follow Up With: Natasha Banegas MD When: Call to make an appointment with your doctor for a postop visit in 2 and 6weeks. Test Results: Test results from this visit will be discussed in further detail at your follow- up appointment, if applicable. Discharge Plan Admission Admit Date/Time: 06/02/24 16:43 Attending Provider: Natasha Banegas Primary Care Provider: Katja Baron Discharge Orders/Prescriptions Prescriptions: New oxycodone-acetaminophen [Percocet] 5-325 mg tablet 1 tab PO Q4H PRN (Reason: pain) 7 Days Qty: 20 0RF naproxen 500 mg tablet 500 mg PO BID PRN PRN (Reason: Pain) Qty: 30 1RF No Action Saccharomyces boulardii [Daily Probiotic (S. boulardii)] 250 mg capsule 250 mg PO DAILY naproxen 500 mg tablet 500 mg PO BID PRN (Reason: pain) Qty: 30 2RF Rx Instructions: administer with food or milk Other Ambulatory Orders: 12 Lead EKG (Routine) Timeframe: 20240525 Location: None Selected Ordered By: Dr. aNtasha Banegas Referrals / Follow Up: Katja Baron MD [Primary Care Provider] - Disposition Disposition (needs filled in before D/C Order can be placed): Home, Self Care 06/02/241853<Electronically signed by Natasha Banegas MD>Natasha Banegas MD CC: Dr. Katja Baron MD ~ Signed [facility] Work Phone: 1(761) 182-860403-18-2025 Consult note Author [facility] Note Date/Time June 03, 2024 3:4 0pm [facility] Medical Records Department [address] [place] [address] Anesthesia Postop Eval II 06/02/24 1747 MR#: [id number] Acct: [id number] Name: CIARRA ALBA LÓPEZ Rep #:[id number] : 1975 48 From: Judy [facility] PCP: Dr. Katja Baron MD Status:REG SD C Y Race: C [place] [facility] [id number] Anesthesia Postop Eval I Sum Postop Eval Completion status Anesthesia document: Postop Eval 1 completed: Yes Anesthesia Postop Eval I Summary Anesthesia Postop Eval I Summary: Anesthesia Postop Eval I: Assessment Summary Airway patent Yes 06/02/24 16:56 [employer]CSIR Spontaneous unlabored Yes 06/02/24 16:56 [employer].CSIR respirations Mental status nausea No 06/02/24 16:56 [employer].CSIR Vomiting No 06/02/24 16:56 [employer].CSIR Anesthesia Postop Eval I: Fluid Summary Crystalloid volume administer 2,800 06/02/24 16:56 [employer].CSIR (ml) Colloids volume administered ( ml) Blood Product volume administered (ml) Total IV fluid infused 2,800 06/02/24 16:56 [employer]OVE [employer].CSIR Anesthesia Postop Eval I: Summary Notes Anesthesia Complication No 06/02/24 16:56 [employer].CSIR Anesthesia Complication Comment: Post-operative progress note Anesthesia: Postop Eval II Evaluation Mental status: Awake and Calm Pain Level: 0 nausea: No Vomiting: No 06/02/24 5787 <Electronically signed by Judy christine> Date _ Judy Lay Signature: Date CC: ~ Signed [facility] Work Phone: 1(702) 915-996703-18-2025 Consult note Author [facility] Note Date/Time June 02, 2024 4:5 6pm [facility] Medical Records Department [address] [place] [address] Anesthesia Postop Eval I 06/02/241655 MR#: [id number] Acct: [id number] Name: CIARRA ALBA LÓPEZ Rep #:[id number] : 1975 48 From: Jduy Kendrick PCP: Dr. Katja Baron MD Status:REG SD C Y Race: C Location: [place] [address] Anesthesia: Postop Eval I Current Vital Signs Temperature: 97 F Pulse Rate: 85 Blood Pressure: 106/62 Respiratory Rate: 16 Pulse Ox: 93 Assessment Airway patent: Yes Spontaneous unlabored respirations: Yes nausea: No Vomiting: No Anesthesia Complication: No Fluid Hydration Crystalloid volume administer (ml): 2,800 Total IV fluid infused: 2,800 Progress Note Anesthesia document: Postop Eval 1 completed: Yes 06/02/241655 <Electronically signed by Judy christine> Date _ Judy Lay Signature: Date CC: ~ Signed [facility] Work Phone: 1(507) 827-814803-18-2025 Discharge summary [facility] Medical Records Department [address] [place] [address] Instructions for Home/Discharge Instructions 06/02/24 1852 MR#: [id number] Acct: [id number] Name: CIARRA ALBA Rep #:[id number] : 1975 48 From: Natasha knight MD PCP: Dr. Katja Baron MD Status:ADM IN O Discharge Instructions Diet Discharge Diet: No restrictions DC O2, CPAP, BIPAP needs Home O2 Discharge instructions: No Dressing / Incision May resume sexual activity in: 6 weeks Weight Bearing Status: Full weight bearing Dressing / Incision Call your doctor if your incision/area has: Continuous Slow Oozing, Sudden Increased Bleeding, Increased Pain/ Swelling, Increased Redness and Foul Smelling Discharge Call your doctor if you observe: Fever of 101 or Higher, Using more than 1 pad per hour, Shortness of breath, Chest pain and Uncontrolled pain Suture Line Care: Avoid Pulling/Pushing and Avoid Pinching/Bending Remove Dressing in: 1 week (if present) Cleanse incision/area with: Soap & Water and Keep Dressing Clean & Dry Follow Up Care Please Follow Up With: Natasha Banegas MD When: Call to make an appointment with your doctor for a postop visit in 2 and 6weeks. Test Results: Test results from this visit will be discussed in further detail at your follow- up appointment, if applicable. Discharge Plan Admission Admit Date/Time: 06/02/24 16:43 Attending Provider: Natasha Banegas Primary Care Provider: Katja Baron Discharge Orders/Prescriptions Prescriptions: New oxycodone-acetaminophen [Percocet] 5-325 mg tablet 1 tab PO Q4H PRN (Reason: pain) 7 Days Qty: 20 0RF naproxen 500 mg tablet 500 mg PO BID PRN PRN (Reason: Pain) Qty: 30 1RF No Action Saccharomyces boulardii [Daily Probiotic (S. boulardii)] 250 mg capsule 250 mg PO DAILY naproxen 500 mg tablet 500 mg PO BID PRN (Reason: pain) Qty: 30 2RF Rx Instructions: administer with food or milk Other Ambulatory Orders: 12 Lead EKG (Routine) Timeframe: [id number] Location: None Selected Ordered By: Dr. Natasha Banegas Referrals / Follow Up: Katja Baron MD [Primary Care Provider] - Disposition Disposition (needs filled in before D/C Order can be placed): Home, Self Care 06/02/241853Natasha Banegas MD CC: Dr. Katja Baron MD ~ Signed [facility]03-18-2025 Procedure note [facility] Medical Records Department [address] [place] [address] Operative Report 06/02/24 1700 MR#: [id number] Acct: [id number] Name: CIARRA ALBA LÓPEZ Rep #:[id number] : 1975 48 From: Natasha knight MD PCP: Dr. Katja Baron MD Status:ADM IN [facility] Problems Associated Problem List Diagnoses (1) Adenomyosis: (2) Pelvic pain: (3) Endometriosis: (4) Pelvic adhesions: (5) S/P laparoscopic assisted vaginal hysterectomy (LAVH): (6) Status post bilateral salpingectomy: Procedures Urinary/Genital 52xxx-59xxx: [id number] LAVH+BS/O <250gr Uterus Operative Report (Standard) Operative Information Date of Procedure: 06/02/24 Pre-Operative Diagnosis: see problem list Post-Operative Diagnosis: same Surgery/Procedure Performed: laparoscopic assisted vaginal hysterectomy bilateral salpingectomy 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: Ventura Tucker Tasks completed by certified surgical tech/first assistant: Opening & closing, Trocar and Retracting Additional engineering inspection assistant?: No Type of Anesthesia: General RN Documented Start/Stop Times: Operation Date: 06/02/24 11:00 Case Time Into Pre-Op 06/02/24 09:02 Out of Pre-Op 06/02/24 11:56 Anesthesia Start 06/02/24 12:05 Into Room 06/02/24 12:05 Procedure Start 06/02/24 12:32 Procedure End 06/02/24 16:35 Anesthesia End 06/02/24 16:51 Out of Room 06/02/24 16:51 Into Recovery 06/02/24 16:55 Out of Recovery 06/02/24 17:58 Procedure Start Time: 12:32 Procedure Stop Time: 06:35 Select all DRAINS/GRAFTS/IMPLANTS that apply: None Estimated Blood Loss: 500 Fluids Replaced: crystalloid Specimen collected: Yes Description of specimen(s) removed: uterus tubes Description of surgery: Patient received preoperative antibiotics and SCDs were on preoperatively. Patient was taken back to the operating room and placed in the dorsal lithotomy position. General anesthesia was induced andpatient was prepped and draped in normal sterile fashion. Haskins catheter placed in the bladder. Cervix was grasped with Archie clamps and circumferential incision was made after injecting with dilute vasopressin. The vaginal mucosa was dissected off of the cervix anteriorly and posteriorly. It was attempted to enter and posteriorly but densetissue was encountered therefore anterior dissection was completed which was easy to enter and the anterior cul-de-sac was entered without complication. Attention was then paid to the posterior cul-de-sac which continued sharp dissection was made but was unable to be entered and therefore the first bite was taken bilaterally with the uterosacrals clamped cut and suture-ligated. Additional dissection hugging the uterus posteriorly to perform sharp dissect ionwas performed and eventually entry was made into the posterior cul-de-sac and was evident that there were dense adhesions from the posterior cul-de-sac to theposterior uterine corpus with obliteration of the cul-de-sac. These were able to be swept down digitally and a endometriosis inclusion cyst was seen on the posterior wall of the uterus that was ruptured at this time is also noted that some of the pararectal space had been opened up although no bowel injury or compromise was seen. At this time due to the amount of scarring and the length of the surgery still yet to remain the decision was made to convert to laparoscopy. The bulb was placed in the vagina to maintain pneumoperitoneum. D rape was removed and the patient was prepped and draped in the normal sterile fashion for a laparoscopic procedure. The umbilicus was grasped with towel clamps and an intraumbilical incision was madeafter injecting with quarter percent Marcaine and a Veress needle entered into the abdomen confirmed to be intra-abdominal with a low opening pressure. Abdomen was insufflated with CO2 gas and the Veress needle removed and the 5 mm trocar was placed under direct visualization without complication. Right and left lower quadrants were transilluminated and injected with quarter percent Marcaine and 5 mm ports placed underdirect visualization. Additional suprapubic port was placed to provide uterine manipulation since the uterine manipulator was unable to be placed. Additional rectosigmoid to uterine posterior wall adhesions were noted and taken down with the LigaSure. The pararectal space was inspected and no obvious signs of injurynoted however the decision to consult general surgery for their opinion was alsomade. Dr Perdomo called and observed surgery and didn't see any areas of concern. He supervised the dissection of the posterior cul de sac and then stated he would return at the end of the procedure to evaluate. Bilateral fallopian tubeswere transected across the mesosalpinx and the bilateral utero-ovarian ligamentswere transected with the LigaSure. Broad ligament opened up and uterine arteries ligated with the LigaSure bilaterally. Additional dissection to meet the previous anterior colpotomy made. Additional scar tissue taken down and theleft sigmoid to left anterior abdominal wall scar tissue taken down. Attention was then paid again to the vaginal portion of the procedure which 1 pedicle was clamped and cut bilaterally to separate the uterus from the pelvic sidewall bilaterally which was clamped cut and suture-ligated with 0 Monocryl and 0 Vicryl. Additional sutureswere used to obtain hemostasis along the vaginal cuff due to increased pelvic vasculature. Good visualization after the uterus was removed was seen of the cul-de-sac and area of dissection where the scar tissue had been noted. The posterior vaginal mucosa was reapproximated with 3-0Vicryl Rapide. The area of the dissection in the cul-de-sac was oversewn and connected to the cuff to obtain hemostasis. Heema blast had been placed over the area prior to this closure. Vaginal cuff closed with [id number] Vicrylsutures. Attention was then paid back to the abdominal portion of the procedure. Pelvis and cul-de-sac well-visualized and noted to be hemostatic. Right ovary had some bleeding which was cauterized for hemostasis. Dr Perdomo returned and observed then laparoscopically and approved of the cuff closure andreapproximation of the cul-de-sac. He filled the sigmoid colon with air as I looked laparoscopically and filled the lower pelvis with fluid and no air bubbles were seen so integrity of the bowel was confirmed. Fluid removed and pressure was taken down and the areas visualized andnoted of excellent hemostasis. All ports were removed under direct visualization without complication and the abdomen was desufflated of air. The instruments removed from the abdomen and the vagina vaginal sweep was negative. Port sites on the abdomen were closed with 4-0 Monocryl interrupted sutures and Steri's and windows were applied. She was awoken and taken recovery in stable condition. Surgical Findings: obliteration of the cul de sac, endometriosis, sigmoid colon adhesions. Complications Complications: Yes Complication Details: unexpected adhesions, conversion to LAVH, adhesiolysis over 2 hours 06/02/24 1852 Cosigner Signature (if applicable): CC: Dr. Katja Baron MD; Dr. Natasha Banegas MD~ Signed [facility]03-18-2025 Radiology Diagnostic study note [facility] Imaging Services [address] [place] [address] [id number] Pelvis 1 or 2 Views MR#: [id number] Acct: [id number] Name: CIARRA ALBA Rep #: [id number] : 1975 F 48 From: Jl Chacon DO PCP: Dr. Katja Baron MD Status: REG SD C Study:Pelvis 1 or 2 Views Date of Exam: 06/02/24 Exam# [id number] Ordering Dr: Natasha Carey MD PROCEDURE: PELVIS 1 OR 2 VIEWS 06/02/2024 REASON FOR EXAM: CLOSING COUNT DISCREPANCY TECHNIQUE: 1 view(s) of the pelvis. FINDINGS: Hardware: No radiopaque density is demonstrated. Bones: Unremarkable Joints: Normal alignment at the hips and sacroiliac joints. soft tissues: Soft tissues are unremarkable. Other: RAD/Pelvis 1 or 2 Views IMPRESSION: No radiopaque density is demonstrated. Reading Location: RAD-PEG CC: Dr. Katja Baron MD; Dr. Natasha Banegas MD ~ Anesthesiologist Physician: Signed [facility]03-18-2025 Consult note [facility] Medical Records Department [address] [place] [address] Anesthesia Postop Eval I 06/02/241655 MR#: [id number] Acct: [id number] Name: CIARRA ALBA LÓPEZ Rep #:[id number] : 1975 48 From: Judy Kendrick PCP: Dr. Katja Baron MD Status:REG SD C Y Race: C Location: [place] [address] Anesthesia: Postop Eval I Current Vital Signs Temperature: 97 F Pulse Rate: 85 Blood Pressure: 106/62 Respiratory Rate: 16 Pulse Ox: 93 Assessment Airway patent: Yes Spontaneous unlabored respirations: Yes nausea: No Vomiting: No Anesthesia Complication: No Fluid Hydration Crystalloid volume administer (ml): 2,800 Total IV fluid infused: 2,800 Progress Note Anesthesia document: Postop Eval 1 completed: Yes 06/02/241655 a> Date _ Judy Lay Signature: Date CC: ~ Signed [facility]03-18-2025 History and physical note Author Natasha Banegas [facility] Note Date/Time June 02, 2024 12: 00pm [facility] Medical Records Department [address] [place] [address] History & Physical Exam 06/02/2428 MR#: [id number] Acct: [id number] Name: CIARRA ALBA LÓPEZ Rep #:[id number] : 1975 48 From: Natasha knight MD PCP: Dr. Katja Baron MD Status:REG SD C Location: [place] [address] History and Physical Date of Admission: 06/02/24 Intake Vital Signs 12/08/2412:34 03/13/2412:50 05/25/2508:27 05/25/2508:32 Height 5 ft 5 in 5 ft 5 in 5 ft 5 in 5 ft 5 in Weight: 173 lb 8 oz BMI 28.8 BP 127/87 H Intake Visit Reasons: hyst Nursing Administrator Required: No Is patient in pain?: Yes (some pelvic pain) Allergies No Known Allergies Allergy (Verified 05/25/24 09:29) Medications ?Medication ?Instructions ?Recorded ?Confirmed ?Type Saccharomyces boulardii 250 mg 250 mg PO DAILY 11/28/22 05/25/24 Histor y capsule (Daily Probiotic (S. boulardii)) naproxen 500 mg tablet 500 mg PO BID PRN pain #30 tabs 10/07/23 05/25/24 Rx Is last menstrual period known: Yes Last Menstrual Period: 05/18/24 Post menopausal: No Patient : No : No PFSH PFSH Medical History (Updated 05/25/24 @ 10:[address] Natasha Banegas MD) Wears glasses Thyroid nodule High cholesterol Gastric reflux GERD (gastroesophageal reflux disease) Hyperlipemia Surgical History (Updated 05/25/24 @ 10:[address] Natasha Banegas MD) History of endometrial ablation S/P LEEP (~10/16/18) S/P bunionectomy s/p right hand surgery Family History Grandfather Lung cancer Social History Smoking Status: Never smoker alcohol intake: never substance use type: does not use caffeine: Yes what type of physical activity do you participate in: other details: crossfit frequency: 5-6 times per week seatbelt use: always do you feel safe at home: Yes additional social history: [employer] employed Patient works [employer] History 2 Elective abortions Hx Para 2 Spontaneous abortions Hx # Term Pregnancies Ectopic pregnancies Hx # Pregnancies Multiple births # of living children Past Pregnancies Del. Date Name GA/Weeks Outcome Route Bth Weight Gen Labor Lgth Anesthesia Del Locatn Provider FOB Unknown Kevin-2000 Unknown Keshawn-2002 HPI hyst Details: CIARRA ALBA is a 48 year old who presents for preop visit. she has had persistent lower pelvic pain and irergular bleeding, had an ablationg 5 years ago that worked intiially but now is failing. she hasn't had an EMB but had a repeat pelvic US. discussed hysterecotmy back in september but was waiting to normalize thyroid and see if it helped and it hasn't. Female Reproductive History Last Menstrual Period: 05/18/24 Menopausal Symptoms: No night sweats ROS Const Constitutional: Denies fatigue, night sweats, weight gain or weight loss ENT ENT: Reports system reviewed and no additional complaints, except as documented Cardio Card: Denies chest pain Resp Resp: Denies cough or dyspnea GI GI: Reports as per HPI; Denies abdominal pain, constipation, nausea or vomiting : Denies nipple discharge, urinary frequency, urinary incontinence, urinary hesitancy, urinary urgency, vaginal discharge, vaginal dryness, vaginal odor or vaginal pruritus Musc Musc: Denies arthralgias, back pain or muscle weakness Skin Skin/Breast: Denies alopecia, change in hair, dry skin, breast mass, breast pain, breast skin changes or nipple discharge Neuro Neuro: Reports system reviewed and no additional complaints, except as documented Psych Psych: Reports system reviewed and no additional complaints, except as documented Endo Endo: Denies cold intolerance, excessive sweating, heat intolerance or polydipsia Owen/Lymph Hematologic/Lymphatic: Denies easy bleeding, Denies easy bruising and Denies lymphadenopathy Exam Const General: cooperative, healthy appearing, comfortable, no acute distress and welldeveloped Orientation: alert [facility] Head: normal to inspection and normocephalic Ears: hearing grossly normal bilaterally and external ears normal Nose: external nose normal and nares normal Face and sinus: normal facial exam Neck Neck: normal visual inspection and no lymphadenopathy Thyroid: thyroid normal Chest Chest palpation & inspection: normal inspection of the chest Resp Effort & Inspection: normal respiratory effort Auscultation: clear to auscultation bilaterally Cardio Rate: regular rate Rhythm: regular rhythm Heart Sounds: S1 normal and S2 normal GI Inspection: normal to inspection and non-distended Palpation: soft and no hepatosplenomegaly General: bladder normal to palpation External Female Exam: normal external appearance and normal appearance of the urethra Urethra: normal appearance of the urethra, normal palpation and no discharge Speculum Exam - Vagina: normal appearance of the vagina and normal vaginal discharge Speculum Exam - Cervix: normal appearance of the cervix and nontender Bimanual Exam- Vagina & Uterus: normal bimanual exam, uterine size normal, bladder normal to palpation, uterine shape normal, No tender, uterine mobility normal, consistency normal, normal palpation and non-tender Bimanual Exam- Adnexa, other: normal adnexae, adnexae mobile, no masses and normal Pelvic Support: normal Musc Other: gross motor intact no deficits, full bilateral strength Skin General: no rashes or lesions noted Neuro General: patient alert, patient awake, moves all extremities and no focal motor deficits Motor: muscle tone normal throughout Extrem General: normal to inspection and no pedal edema Psych Appearance: grossly normal Mental Status: mental status grossly normal Affect: normal affect Speech and Movement: speech and movement normal Office Procedures Endometrial Biopsy Endometrial Biopsy Test: Yes Not Applicable Consent Signed: Yes Time out checklist: patient, procedure, site marked/identified, positioning of patient, supplies available, allergies confirmed and team agrees on procedure tenaculum used: No dilator used: No Details: Cervix prepped with betadine and pipelle attempted to be inserted and unable to be completed due to cervical stenosis. patient councseled regarding risk of not having preop emb and will proceed with surgery Results POC Urine Office , Urine Negative Last Edit by Jocelin Mancini on 05/25/24 09:4 1 Coding Level of Care Code Attention [place] Diagnoses Pelvic pain R10.2 Adenomyosis N80.03 CPT Codes Endometrial Biopsy (81507) Assessment and Plan Assessment and Plan (1) Pelvic pain: Status: Acute Comment: s/p pelvic US. suspect due to adenomyosis or pelvic congestion, post endometrial ablation. plan NSAIDs/failed. proceed with hysterectomy. unable to do EMB due to to stenosis. (2) Adenomyosis: Status: Acute Comment: discussed options for treatments, having pain, trial of NSAIDs/failed. Wishes to schedule w/ Sm TVHbs. Orders: Orders POC Urine Today Z30.9 - Encounter for contraceptive management, unspecified Endometrial Biopsy Today Plan After discussing the patient's diagnosis and treatment plan options, patient wishes to proceed with surgical management. I have discussed with the patient the risks, benefits, and alternatives of the procedure which include but are notlimited to risks of anesthesia, bleeding, infection, possible damage to bowel, bladder, or surrounding vasculature which could lead to additional surgery to evaluate any complications. Patient agrees to procedure and wishes to proceed. ACOG/uptodate references given for additional information regarding procedure. 06/02/24 0728 <Electronically signed by Natasha Banegas MD> Cosigner Signature (if applicable): CC: Dr. Katja Baron MD; Dr. Natasha Banegas MD~ Signed ADDENDUM by Dr. Natasha Banegas MD on 06/02/24 at 1200 Addendum UPDATE- I have seen the patient and performed any clinically relevant updates to the history and physical exam. Natasha Banegas MD 06/02/24 1200<Electronically signed by Natasha Banegas MD> Cosigner Signature (if applicable): cc: Dr. Katja Baron MD; Dr. Natasha Banegas MD ~* Signed [facility] Work Phone: 1(949) 999-626703-18-2025 Consult note Author Eleazar Velez [facility] Note Date/Time June 02, 2024 10: 16am [facility] Medical Records Department [address] [place] [address] Pre-Anesthesia Evaluation 06/02/24 1010 MR#: [id number] Acct: [id number] Name: CIARRA ALBA LÓPEZ Rep #:[id number] : 1975 48 From: Eleazar Velez MD PCP: Dr. Katja Baron MD Status:REG SD C Y Race: C Location: [place] [address] ASA Classification* ASA Classification ASA Classification: 2 Assessment & Plan Anesthesia* Anesthesia Assessment Anesthesia Assessment: Discussed sedation and/or anesthesia options, risks, benefits, and alternatives with patient/parents/legal guardian/POA. Questions invited. The patient/parents/legal guardian/POA seems to understand and agrees to proceedwith anesthesia plan. Reviewed the physical assessment, medical history, allergy history and patient home medications list prior to surgery/procedure/anesthetic and documented any changes. Performed airway and anesthesia risk assessments. Anesthesia Type Anesthesia Type: General History Source History Obtained from:: Patient and Chart Anesthesia Focused Assessment* Temperature: 98.4 F Pulse Rate: 74 Blood Pressure: 115/78 Respiratory Rate: 16 Pulse Ox: 100 Oxygen Delivery Method: Room Air Airway Assessment Mouth opens: >3 cm Mallampati Score: II Teeth Condition: Intact and Caps/Crowns (x1) Neck Range of motion (ROM): Full ROM Focused Labs Anesthesia Preop lab: CBC WBC 6.2 K/mm3 (4.4-11.0) 05/27/24 08:37 05/27/24 RBC 4.87 M/mm3 (4.2-5.4) 05/27/24 08:37 05/27/24 Hgb 14.3 g/dL (12.0-15.0) 05/27/24 08:37 05/27/24 Hct 43.3 % (37-47) 05/27/24 08:37 05/27/24 Plt Count 254 K/mm3 (150-450) 05/27/24 08:37 05/27/24 CHEMISTRY Potassium 4.0 mmol/L (3.5-5.1) 06/04/23 15:25 06/04/23 Sodium 138 mmol/L (136-145) 06/04/23 15:25 06/04/23 Magnesium 2.3 mg/dL (1.5-2.2) H 05/27/24 08:36 05/27/24 BUN 7 mg/dL (7-18) 06/04/23 15:25 06/04/23 Creatinine 0.97 mg/dL (0.55-1.02) 06/04/23 15:25 06/04/23 Glucose 89 mg/dL (74-106) 06/04/23 15:25 06/04/23 TSH 1.800 uIU/mL (0.300-4.200) 05/27/24 08:37 05/16 05/12 COAG Urine Test Negative Negative 06/02/24 09:22 06/02/24 Tst Clinic Negative 05/25/24 09:41 05/25/24 Pre-Assessment Diagnosis/Proposed Procedure Planned Operative Procedure(s): TOTAL VAGINAL HYSTERECTOMY, BILATERAL SALPINGECTOMY Anesthesia History Anesthesia History - medical staff coordinator: Anesthesia History - medical staff coordinator Hx Hospitalization No 05/19/24 15:25 Any Problems With Anesthesia No 05/19/24 15:25 Cholinesterase deficiency No 05/19/24 15:25 You/Your Family Experience No 05/19/24 15:25 fever (hyperthermia) with Relationship Recent Exposure to Contagious No 06/02/24 09:30 Disease Does patient have nerve No 05/19/24 15:25 stimulator Patient instructed to have device shut off --Does patient have Pacemaker No 06/02/24 09:30 or ICD? When Was Last Pacemaker Check QUESTION #4 FULL TEXT: You/Your Family Experience fever (hyperthermia) with Anesthesia Last Oral Intake Last Oral intake: Last Oral Intake NPO since 07:30 06/02/24 09:30 Meds taken in AM with sips of No 06/02/24 09:30 water? Meds patient instructed to take am of surgery PONV PONV - medical staff coordinator: PONV - medical staff coordinator Female Yes 05/19/24 15:25 HX of Motion Sickness Yes 05/19/24 15:25 HX of N/V After Surgery No 05/19/24 15:25 Non-Smoker Yes 05/19/24 15:25 Duration of Surgery greater Yes 05/19/24 15:25 than 60 minutes Number of Risk Factors 4 05/19/24 15:25 PONV Score Severe Risk 05/19/24 15:25 Height & Weight Height & Weight: Anesthesia: Height & Weight Height 5 ft 5 in 06/02/24 09:30 Weight: 77 kg 06/02/24 09:30 Body Mass Index (BMI) 28.2 06/02/24 09:30 Respiratory Assessment Respiratory Assessment - medical staff coordinator: Respiratory Tract Infection Hx - medical staff coordinator Hx Respiratory Tract Infection No 05/19/24 15:25 STOP Sleep Apnea STOP Sleep Apnea - medical staff coordinator: STOP Sleep Apnea - medical staff coordinator Hx Hypertension No 05/19/24 15:25 Hx Sleep Apnea No 05/19/24 15:25 CPAP BIPAP Do you snore loudly (louder No 05/19/24 15:25 than talking or can be heard Do you often feel tired/ No 05/19/24 15:25 fatigued/ sleepy during daytime? Has anyone observed you stop No 05/19/24 15:25 breathing during sleep? STOP Results Negative 05/19/24 15:25 QUESTION #5 FULL TEXT : Do you snore loudly (louder than talking or can be heard through closed doors)? 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 Specify any problems Hx of Preganancy in last 3 No 05/19/24 15:25 Months Nurse Filling Out Transfusion [email or web address] 05/19/24 15:25 & Questions: Date: 05/19/24 05/19/24 15:25 Time: 15:32 05/19/24 15:25 Patient unable to answer at this time (ie. confused, unrespo /Reproduction History /Reproductive History - medical staff coordinator: /Reproductive Hx- medical staff coordinator Hx Now No 05/19/24 15:25 Gestational Age (in weeks): EDC: Hx Hx Para Hx Section SAB No 05/25/24 09:32 Active Medications Active Medications: Current Medications Generic Name Dose Route Start Last Admin Trade Name Freq PRN Reason Stop Dose Admin Acetaminophen 1,000 mg 06/02/24 11:00 06/02/24 09:59 Acetaminophen 500 Mg Tablet PO 06/02/24 11:01 1,000 mg PREOP ONE Administration Celecoxib 400 mg 06/02/24 11:00 06/02/24 09:59 Celecoxib 200 Mg Capsule PO 06/02/24 11:01 400 mg X1 ONE Administration Enoxaparin Sodium 40 mg 06/02/24 11:00 06/02/24 09:45 Enoxaparin 40 Mg/0.4 Ml Syringe SC 06/02/24 11:01 40 mg X1 ONE Administration Gabapentin 600 mg 06/02/24 11:00 06/02/24 09:59 Gabapentin 600 Mg Tablet PO 06/02/24 11:01 600 mg PREOP ONE Administration Lactated Ringer's 1,000 mls @ 40 mls/hr 06/02/24 11:00 06/02/24 09:35 IV 40 mls/hr .Q25H CATHI Administration Cefazolin Sodium 2 gm/ N/A 20 mls @ 400 mls/hr 06/02/24 11:00 IV 06/02/24 11:02 PREOP ONE Magnesium Sulfate 1 gm/ 102 mls @ 408 mls/hr 06/02/24 11:00 06/02/24 09:45 Dextrose IV 06/02/24 11:14 408 mls/hr X1 ONE Administration Insulin Human Lispro 0 unit 06/02/24 11:00 Insulin Lispro 100 Unit/Ml Insuln.Pen SC 06/02/24 18:00 Q4H PRN PRN BG >/= 180, SEE PROTOCOL Protocol Ondansetron HCl 4 mg 06/02/24 11:00 Ondansetron 4 Mg/2 Ml Vial IV 06/02/24 11:01 X1 ONE Scopolamine HBr 1 patch 06/02/24 11:00 06/02/24 09:58 Scopolamine 1mg/72hr Patch TD 06/02/24 11:01 1 mg X1 ONE Administration PFSH Medical History Wears glasses Thyroid nodule High cholesterol Gastric reflux GERD (gastroesophageal reflux disease) Hyperlipemia Home Medications ?Medication ?Instructions ?Recorded ?Last Taken ?Type Saccharomyces boulardii 250 mg 250 mg PO DAILY 3 Unknown History capsule (Daily Probiotic (S. boulardii)) naproxen 500 mg tablet 500 mg PO BID PRN pain #30 t abs 10/07/23 05/31/24 Rx Allergy/AdvReac Type Severity Reaction Status Date / Time No Known Allergies Allergy Verified 06/02/24 09:45 Family History Grandfather Lung cancer Surgical History History of endometrial ablation S/P LEEP (~10/16/18) S/P bunionectomy s/p right hand surgery Social History Smoking Status: Never smoker alcohol intake: never substance use type: does not use caffeine: Yes what type of physical activity do you participate in: other details: crossfit frequency: 5-6 times per week seatbelt use: always do you feel safe at home: Yes additional social history: Hzgiihq-Pcfa-Ytiy employed Patient works [employer] Addt'l Information Additional Findings: EKG: NSR with sinus arrhythmia Review of Systems (Anesthesia) ROS Narrative System reviewed and no additional complaints, except as documented. Physical Exam Const alert, oriented x3 and average body habitus Resp normal respiratory effort, normal air movement and clear to auscultation bilaterally Cardio regular rate, regular rhythm, no murmurs and diaphoretic 06/02/24 1016 <Electronically signed by Eleazar Velez MD> Date _ Eleazar Velez MD Cosigner Signature: Date CC: ~ Signed [facility] Work Phone: [phone] 724-203903-18-2025 History and physical note [facility] Medical Records Department [address] [place] [id number] History & Physical Exam 06/02/24727 MR#: [id number] Acct: [id number] Name: CIRARA ALBA LÓPEZ Rep #:[id number] : 1975 48 From: Natasha knight MD PCP: Dr. Katja Baron MD Status:REG SD C Location: [place] [address] History and Physical Date of Admission: 06/02/24 Intake Vital Signs 12/08/2412:34 03/13/2412:50 05/25/2508:27 05/25/2508:32 Height 5 ft 5 in 5 ft 5 in 5 ft 5 in 5 ft 5 in Weight: 173 lb 8 oz BMI 28.8 BP 127/87 H Intake Visit Reasons: hyst Nursing Administrator Required: No Is patient in pain?: Yes (some pelvic pain) Allergies No Known Allergies Allergy (Verified 03/10/25 09:29) Medications ?Medication ?Instructions ?Recorded ?Confirmed ?Type Saccharomyces boulardii 250 mg 250 mg PO DAILY 11/28/22 05/25/24 Histor y capsule (Daily Probiotic (S. boulardii)) naproxen 500 mg tablet 500 mg PO BID PRN pain #30 tabs 10/07/23 05/25/24 Rx Is last menstrual period known: Yes Last Menstrual Period: 05/18/24 Post menopausal: No Patient : No : No PFSH PFSH Medical History (Updated 05/25/24 @ 10:[address] Natasha Banegas MD) Wears glasses Thyroid nodule High cholesterol Gastric reflux GERD (gastroesophageal reflux disease) Hyperlipemia Surgical History (Updated 05/25/24 @ 10:[address] Natasha Banegas MD) History of endometrial ablation S/P LEEP (~10/16/18) S/P bunionectomy s/p right hand surgery Family History Grandfather Lung cancer Social History Smoking Status: Never smoker alcohol intake: never substance use type: does not use caffeine: Yes what type of physical activity do you participate in: other details: crossfit frequency: 5-6 times per week seatbelt use: always do you feel safe at home: Yes additional social history: Ykpnohc-Ccfe-Gkbx employed Patient works [employer] History 2 Elective abortions Hx Para 2 Spontaneous abortions Hx # Term Pregnancies Ectopic pregnancies Hx # Pregnancies Multiple births # of living children Past Pregnancies Del. Date Name GA/Weeks Outcome Route Bth Weight Gen Labor Lgth Anesthesia Del Locatn Provider FOB Unknown Kevin-2000 Unknown Keshawn-2002 HPI hyst Details: CIARRA ALBA is a 48 year old who presents for preop visit. she has had persistent lower pelvic pain and irergular bleeding, had an ablationg 5 years ago that worked intiially but now is failing. shehasn't had an EMB but had a repeat pelvic US. discussed hysterecotmy back in september but was waiting to normalize thyroid and see if it helped and it hasn't. Female Reproductive History Last Menstrual Period: 05/18/24 Menopausal Symptoms: No night sweats ROS Const Constitutional: Denies fatigue, night sweats, weight gain or weight loss ENT ENT: Reports system reviewed and no additional complaints, except as documented Cardio Card: Denies chest pain Resp Resp: Denies cough or dyspnea GI GI: Reports as per HPI; Denies abdominal pain, constipation, nausea or vomiting : Denies nipple discharge, urinary frequency, urinary incontinence, urinary hesitancy, urinary urgency, vaginal discharge, vaginal dryness, vaginal odor or vaginal pruritus Musc Musc: Denies arthralgias, back pain or muscle weakness Skin Skin/Breast: Denies alopecia, change in hair, dry skin, breast mass, breast pain, breast skin changes or nipple discharge Neuro Neuro: Reports system reviewed and no additional complaints, except as documented Psych Psych: Reports system reviewed and no additional complaints, except as documented Endo Endo: Denies cold intolerance, excessive sweating, heat intolerance or polydipsia Owen/Lymph Hematologic/Lymphatic: Denies easy bleeding, Denies easy bruising and Denies lymphadenopathy Exam Const General: cooperative, healthy appearing, comfortable, no acute distress and welldeveloped Orientation: alert [facility] Head: normal to inspection and normocephalic Ears: hearing grossly normal bilaterally and external ears normal Nose: external nose normal and nares normal Face and sinus: normal facial exam Neck Neck: normal visual inspection and no lymphadenopathy Thyroid: thyroid normal Chest Chest palpation & inspection: normal inspection of the chest Resp Effort & Inspection: normal respiratory effort Auscultation: clear to auscultation bilaterally Cardio Rate: regular rate Rhythm: regular rhythm Heart Sounds: S1 normal and S2 normal GI Inspection: normal to inspection and non-distended Palpation: soft and no hepatosplenomegaly General: bladder normal to palpation External Female Exam: normal external appearance and normal appearance of the urethra Urethra: normal appearance of the urethra, normal palpation and no discharge Speculum Exam - Vagina: normal appearance of the vagina and normal vaginal discharge Speculum Exam - Cervix: normal appearance of the cervix and nontender Bimanual Exam- Vagina & Uterus: normal bimanual exam, uterine size normal, bladder normal to palpation, uterine shape normal, No tender, uterine mobility normal, consistency normal, normal palpation and non-tender Bimanual Exam- Adnexa, other: normal adnexae, adnexae mobile, no masses and normal Pelvic Support: normal Musc Other: gross motor intact no deficits, full bilateral strength Skin General: no rashes or lesions noted Neuro General: patient alert, patient awake, moves all extremities and no focal motor deficits Motor: muscle tone normal throughout Extrem General: normal to inspection and no pedal edema Psych Appearance: grossly normal Mental Status: mental status grossly normal Affect: normal affect Speech and Movement: speech and movement normal Office Procedures Endometrial Biopsy Endometrial Biopsy Test: Yes Not Applicable Consent Signed: Yes Time out checklist: patient, procedure, site marked/identified, positioning of patient, supplies available, allergies confirmed and team agrees on procedure tenaculum used: No dilator used: No Details: Cervix prepped with betadine and pipelle attempted to be inserted and unable to be completed due tocervical stenosis. patient councseled regarding risk of not having preop emb and will proceed with surgery Results POC Urine Office , Urine Negative Last Edit by Jocelin Mancini on 05/25/24 09:4 1 Coding Level of Care Code Attention Surgical Nurse Practitioner Diagnoses Pelvic pain R10.2 Adenomyosis N80.03 CPT Codes Endometrial Biopsy (31516) Assessment and Plan Assessment and Plan (1) Pelvic pain: Status: Acute Comment: s/p pelvic US. suspect due to adenomyosis or pelvic congestion, post endometrial ablation. plan NSAIDs/failed. proceed with hysterectomy. unable to do EMB due to to stenosis. (2) Adenomyosis: Status: Acute Comment: discussed options for treatments, having pain, trial of NSAIDs/failed. Wishes to schedule w/ Sm TVHbs. Orders: Orders POC Urine Today Z30.9 - Encounter for contraceptive management, unspecified Endometrial Biopsy Today Plan After discussing the patient's diagnosis and treatment plan options, patient wishes to proceed withsurgical management. I have discussed with the patient the risks, benefits, and alternatives of theprocedure which include but are notlimited to risks of anesthesia, bleeding, infection, possible damage to bowel, bladder, or surrounding vasculature which could lead to additional surgery to evaluate any complications. Patient agrees to procedure and wishes to proceed. ACOG/uptodate references given for additional information regarding procedure. 06/02/24 0728 Cosigner Signature (if applicable): CC: Dr. Katja Baron MD; Dr. Natasha Banegas MD~ Signed ADDENDUM by Dr. Natasha Banegas MD on 06/02/24 at 1200 Addendum UPDATE- I have seen the patient and performed any clinically relevant updates to the history and physical exam. Natasha Banegas MD 06/02/24 1200 Cosigner Signature (if applicable): cc: Dr. Katja Baron MD; Dr. Natasha Bnaegas MD ~* Signed [facility]03-18-2025 Consult note [facility] Medical Records Department [address] [place] [address] Pre-Anesthesia Evaluation 06/02/24 1010 MR#: [id number] Acct: [id number] Name: CIARRA ALBA Rep #:[id number] : 1975 48 From: Eleazar Velez MD PCP: Dr. Katja Baron MD Status:REG SD C Y Race: C Location: [place] [address] ASA Classification* ASA Classification ASA Classification: 2 Assessment & Plan Anesthesia* Anesthesia Assessment Anesthesia Assessment: Discussed sedation and/or anesthesia options, risks, benefits, and alternatives with patient/parents/legal guardian/POA. Questions invited. The patient/parents/legal guardian/POA seems to understand and agrees to proceedwith anesthesia plan. Reviewed the physical assessment, medical history, allergy history and patient home medications list prior to surgery/procedure/anesthetic and documented any changes. Performed airway and anesthesia risk assessments. Anesthesia Type Anesthesia Type: General History Source History Obtained from:: Patient and Chart Anesthesia Focused Assessment* Temperature: 98.4 F Pulse Rate: 74 Blood Pressure: 115/78 Respiratory Rate: 16 Pulse Ox: 100 Oxygen Delivery Method: Room Air Airway Assessment Mouth opens: >3 cm Mallampati Score: II Teeth Condition: Intact and Caps/Crowns (x1) Neck Range of motion (ROM): Full ROM Focused Labs Anesthesia Preop lab: CBC WBC 6.2 K/mm3 (4.4-11.0) 05/27/24 08:37 05/27/24 RBC 4.87 M/mm3 (4.2-5.4) 05/27/24 08:37 05/27/24 Hgb 14.3 g/dL (12.0-15.0) 05/27/24 08:37 05/27/24 Hct 43.3 % (37-47) 05/27/24 08:37 05/27/24 Plt Count 254 K/mm3 (150-450) 05/27/24 08:37 05/27/24 CHEMISTRY Potassium 4.0 mmol/L (3.5-5.1) 06/04/23 15:25 06/04/23 Sodium 138 mmol/L (136-145) 06/04/23 15:25 06/04/23 Magnesium 2.3 mg/dL (1.5-2.2) H 05/27/24 08:36 05/27/24 BUN 7 mg/dL (7-18) 06/04/23 15:06/04/23 Creatinine 0.97 mg/dL (0.55-1.02) 06/04/23 15:06/04/23 Glucose 89 mg/dL (74-106) 06/04/23 15:25 06/04/23 TSH 1.800 uIU/mL (0.300-4.200) 05/27/24 08:37 05/16 05/12 COAG Urine Test Negative Negative 06/02/24 09:22 06/02/24 Tst Clinic Negative 05/25/24 09:41 05/25/24 Pre-Assessment Diagnosis/Proposed Procedure Planned Operative Procedure(s): TOTAL VAGINAL HYSTERECTOMY, BILATERAL SALPINGECTOMY Anesthesia History Anesthesia History - medical staff coordinator: Anesthesia History - medical staff coordinator Hx Hospitalization No 05/19/24 15:25 Any Problems With Anesthesia No 05/19/24 15:25 Cholinesterase deficiency No 05/19/24 15:25 You/Your Family Experience No 05/19/24 15:25 fever (hyperthermia) with Relationship Recent Exposure to Contagious No 06/02/24 09:30 Disease Does patient have nerve No 05/19/24 15:25 stimulator Patient instructed to have device shut off --Does patient have Pacemaker No 06/02/24 09:30 or ICD? When Was Last Pacemaker Check QUESTION #4 FULL TEXT: You/Your Family Experience fever (hyperthermia) with Anesthesia Last Oral Intake Last Oral intake: Last Oral Intake NPO since 07:30 06/02/24 09:30 Meds taken in AM with sips of No 06/02/24 09:30 water? Meds patient instructed to take am of surgery PONV PONV - medical staff coordinator: PONV - medical staff coordinator Female Yes 05/19/24 15:25 HX of Motion Sickness Yes 05/19/24 15:25 HX of N/V After Surgery No 05/19/24 15:25 Non-Smoker Yes 05/19/24 15:25 Duration of Surgery greater Yes 05/19/24 15:25 than 60 minutes Number of Risk Factors 4 05/19/24 15:25 PONV Score Severe Risk 05/19/24 15:25 Height & Weight Height & Weight: Anesthesia: Height & Weight Height 5 ft 5 in 06/02/24 09:30 Weight: 77 kg 06/02/24 09:30 Body Mass Index (BMI) 28.2 06/02/24 09:30 Respiratory Assessment Respiratory Assessment - medical staff coordinator: Respiratory Tract Infection Hx - medical staff coordinator Hx Respiratory Tract Infection No 05/19/24 15:25 STOP Sleep Apnea STOP Sleep Apnea - medical staff coordinator: STOP Sleep Apnea - medical staff coordinator Hx Hypertension No 05/19/24 15:25 Hx Sleep Apnea No 05/19/24 15:25 CPAP BIPAP Do you snore loudly (louder No 05/19/24 15:25 than talking or can be heard Do you often feel tired/ No 05/19/24 15:25 fatigued/ sleepy during daytime? Has anyone observed you stop No 05/19/24 15:25 breathing during sleep? STOP Results Negative 05/19/24 15:25 QUESTION #5 FULL TEXT : Do you snore loudly (louder than talking or can be heard through closeddoors)? 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 Specify any problems Hx of Preganancy in last 3 No 05/19/24 15:25 Months Nurse Filling Out Transfusion [email or web address] 03/04/25 15:25 & Questions: Date: 05/19/24 05/19/24 15:25 Time: 15:32 05/19/24 15:25 Patient unable to answer at this time (ie. confused, unrespo /Reproduction History /Reproductive History - medical staff coordinator: /Reproductive Hx- medical staff coordinator Hx Now No 05/19/24 15:25 Gestational Age (in weeks): EDC: Hx Hx Para Hx Section SAB No 05/25/24 09:32 Active Medications Active Medications: Current Medications Generic Name Dose Route Start Last Admin Trade Name Freq PRN Reason Stop Dose Admin Acetaminophen 1,000 mg 06/02/24 11:00 06/02/24 09:59 Acetaminophen 500 Mg Tablet PO 06/02/24 11:01 1,000 mg PREOP ONE Administration Celecoxib 400 mg 06/02/24 11:00 06/02/24 09:59 Celecoxib 200 Mg Capsule PO 06/02/24 11:01 400 mg X1 ONE Administration Enoxaparin Sodium 40 mg 06/02/24 11:00 06/02/24 09:45 Enoxaparin 40 Mg/0.4 Ml Syringe SC 06/02/24 11:01 40 mg X1 ONE Administration Gabapentin 600 mg 06/02/24 11:00 06/02/24 09:59 Gabapentin 600 Mg Tablet PO 06/02/24 11:01 600 mg PREOP ONE Administration Lactated Ringer's 1,000 mls @ 40 mls/hr 06/02/24 11:00 06/02/24 09:35 IV 40 mls/hr .Q25H CATHI Administration Cefazolin Sodium 2 gm/ N/A 20 mls @ 400 mls/hr 06/02/24 11:00 IV 06/02/24 11:02 PREOP ONE Magnesium Sulfate 1 gm/ 102 mls @ 408 mls/hr 06/02/24 11:00 06/02/24 09:45 Dextrose IV 06/02/24 11:14 408 mls/hr X1 ONE Administration Insulin Human Lispro 0 unit 06/02/24 11:00 Insulin Lispro 100 Unit/Ml Insuln.Pen SC 06/02/24 18:00 Q4H PRN PRN BG >/= 180, SEE PROTOCOL Protocol Ondansetron HCl 4 mg 06/02/24 11:00 Ondansetron 4 Mg/2 Ml Vial IV 06/02/24 11:01 X1 ONE Scopolamine HBr 1 patch 06/02/24 11:00 06/02/24 09:58 Scopolamine 1mg/72hr Patch TD 06/02/24 11:01 1 mg X1 ONE Administration [facility] Medical History Wears glasses Thyroid nodule High cholesterol Gastric reflux GERD (gastroesophageal reflux disease) Hyperlipemia Home Medications ?Medication ?Instructions ?Recorded ?Last Taken ?Type Saccharomyces boulardii 250 mg 250 mg PO DAILY 3 Unknown History capsule (Daily Probiotic (S. boulardii)) naproxen 500 mg tablet 500 mg PO BID PRN pain #30 t abs 10/07/23 05/31/24 Rx Allergy/AdvReac Type Severity Reaction Status Date / Time No Known Allergies Allergy Verified 06/02/24 09:45 Family History Grandfather Lung cancer Surgical History History of endometrial ablation S/P LEEP (~10/16/18) S/P bunionectomy s/p right hand surgery Social History Smoking Status: Never smoker alcohol intake: never substance use type: does not use caffeine: Yes what type of physical activity do you participate in: other details: crossfit frequency: 5-6 times per week seatbelt use: always do you feel safe at home: Yes additional social history: [employer] employed Patient works [employer] Additional Findings: EKG: NSR with sinus arrhythmia Review of Systems (Anesthesia) ROS Narrative System reviewed and no additional complaints, except as documented. Physical Exam Const alert, oriented x3 and average body habitus Resp normal respiratory effort, normal air movement and clear to auscultation bilaterally Cardio regular rate, regular rhythm, no murmurs and diaphoretic 06/02/24 1016 MD> Date _ Eleazar Velez MD [facility] Signature: Date CC: ~ Signed [facility]03-18-2025 [facility] Medical Records Department [address] [place] [address] History Physical Exam 06/02/2428 MR#: [id number] Acct: [id number] Name: CIARRA ALBA LÓPEZ Rep #: [id number] : 1975 48 From: Natasha Banegas MD PCP: Dr. Katja Baron MD Status:[facility] Location: [place] [address] History and Physical Date of Admission: 06/02/24 Intake Vital Signs 12/08/2412:34 03/13/2412:50 05/25/2508:27 05/25/2508:32 Height 5 ft 5 in 5 ft 5 in 5 ft 5 in 5 ft 5 in Weight: 173 lb 8 oz BMI 28.8 BP 127/87 H Intake Visit Reasons: hyst Nursing Administrator Required: No Is patient in pain?: Yes (some pelvic pain) Allergies No Known Allergies Allergy (Verified 05/25/24 09:29) Medications ???Medication ???Instructions ???Recorded ???Confirmed ???Type Saccharomyces boulardii 250 mg 250 mg PO DAILY 11/28/22 05/25/24 History capsule (Daily Probiotic (S. boulardii)) naproxen 500 mg tablet 500 mg PO BID PRN pain #30 tabs 10/07/23 05/25/24 Rx Is last menstrual period known: Yes Last Menstrual Period: 05/18/24 Post menopausal: No Patient : No : No PFSH PFSH Medical History (Updated 05/25/24 @ 10:[address] Natasha Banegas MD) Wears glasses Thyroid nodule High cholesterol Gastric reflux GERD (gastroesophageal reflux disease) Hyperlipemia Surgical History (Updated 05/25/24 @ 10:[address] Natasha Banegas MD) History of endometrial ablation S/P LEEP ( 10/16/18) S/P bunionectomy s/p right hand surgery Family History Grandfather Lung cancer Social History Smoking Status: Never smoker alcohol intake: never substance use type: does not use caffeine: Yes what type of physical activity do you participate in: other details: crossfit frequency: 5-6 times per week seatbelt use: always do you feel safe at home: Yes additional social history: [employer] employed Patient works [employer] History 2 Elective abortions Hx Para 2 Spontaneous abortions Hx # Term Pregnancies Ectopic pregnancies Hx # Pregnancies Multiple births # of living children Past Pregnancies Del. Date Name GA/Weeks Outcome Route Bth Weight Infant Gen Labor Lgth Anesthesia Del Locatn Provider FOB Unknown Kevin-2000 Unknown Keshawn-2002 HPI hyst Details: CIARRA ALBA is a 48 year old who presents for preop visit. she has had persistent lower pelvic pain and irergular bleeding, had an ablationg 5 years ago that worked intiially but now is failing. she hasn't had an EMB but had a repeat pelvic US. discussed hysterecotmy back in september but was waiting to normalize thyroid and see if it helped and it hasn't. Female Reproductive History Last Menstrual Period: 05/18/24 Menopausal Symptoms: No night sweats ROS Const Constitutional: Denies fatigue, night sweats, weight gain or weight loss ENT ENT: Reports system reviewed and no additional complaints, except as documented Cardio Card: Denies chest pain Resp Resp: Denies cough or dyspnea GI GI: Reports as per HPI; Denies abdominal pain, constipation, nausea or vomiting : Denies nipple discharge, urinary frequency, urinary incontinence, urinary hesitancy, urinary urgency, vaginal discharge, vaginal dryness, vaginal odor or vaginal pruritus Musc Musc: Denies arthralgias, back pain or muscle weakness Skin Skin/Breast: Denies alopecia, change in hair, dry skin, breast mass, breast pain, breast skin changes or nipple discharge Neuro Neuro: Reports system reviewed and no additional complaints, except as documented Psych Psych: Reports system reviewed and no additional complaints, except as documented Endo Endo: Denies cold intolerance, excessive sweating, heat intolerance or polydipsia Owen/Lymph Hematologic/Lymphatic: Denies easy bleeding, Denies easy bruising and Denies lymphadenopathy Exam Const General: cooperative, healthy appearing, comfortable, no acute distress and well developed Orientation: alert HENNJ Head: normal to inspection and normocephalic Ears: hearing grossly normal bilaterally and external ears normal Nose: external nose normal and nares normal Face and sinus: normal facial exam Neck Neck: normal visual inspection and no lymphadenopathy Thyroid: thyroid normal Chest Chest palpation inspection: normal inspection of the chest Resp Effort Inspection: normal respiratory effort Auscultation: clear to auscultation bilaterally Cardio Rate: regular rate Rhythm: regular rhythm Heart Sounds: S1 normal and S2 normal GI Inspection: normal to inspection and non-distended Palpation: soft and no hepatosplenomegaly General: bladder normal to palpation External Female (more content not included)...[facility] 05-25-2024 Evaluation note* Diagnosis Onset Date Resolution Status Admit Date Adenomyosis acute May 25, 025 8:43am Pelvic pain acute May 25 025 8:43am Adenomyosis acute June 02, 025 4:43pm Endometriosis acute June 02, 2024 4:43pm Pelvic adhesions acute June 022024 4:43pm Pelvic pain acute June 02 025 4:43pm S/P laparoscopic assisted vaginal hysterectomy (LAVH) acute 2024 4:43pm Status post bilateral salpingectomy acute June 02, 2024 4:43pm [facility] Work Phone: 1(530) 246-115802-26-2025 History of Present illness Narrative* Jesusita Magana MD - 05/13/2024 3:00 PM EST Endocrinology Metabolism [place] [facility] Jesusita Magana M.D. Section of Endocrine Surgery and Advanced Laparoscopic Surgery [address] [place] [address], [place] [address] ENDOCRINE SURGERY POST OPERATIVE FOLLOW UP NOTE NAME: Ciarra Alba [facility] NO: [id number] : 1975 Surgeon: Dr. Jesusita Magana HPI: Ciarra Alba presents to clinic for a postoperative visit after radiofrequency ablation of left thyroid nodule on 04/27/2024. The patient reports doing well post-operatively. The patient has no complaints. PHYSICAL EXAM: On physical exam, the patient is well appearing, alert, and oriented. On inspection,the skin over the anterior neck is smooth, no mass is visualized. Palpation revealed neck to be supple, No lymphadenopathy was palpated on either side of the neck. NECK US: A neck US was performed today in the office showing a left thyroid nodule measuring [id number] mm with preoperative measures of 15.9x13.1x16.1mm. LABS: None IMPRESSION: Ciarra Alba is doing well after RFA of a symptomatic left thyroid nodule. PLAN: F/u in 3 months Jesusita Magana MD 05/13/2024 [facility] NoteHNO ID: [id number] Author: JESUSITA MAGANA MD Service: ? Author Type: Physician Type: Progress Notes Filed: 05/13/2024 15:25 Note Text: Endocrinology Metabolism [place] [facility] Jesusita Magana M.D. Section of Endocrine Surgery and Advanced Laparoscopic Surgery [address] [place] [address] ENDOCRINE SURGERY POST OPERATIVE FOLLOW UP NOTE NAME: Ciarra Alba CLINIC NO: [id number] : 1975 Surgeon: Dr. Jesusita Magana HPI: Ciarra Alba presents to clinic for a postoperative visit after radiofrequency ablation of left thyroid nodule on 04/27/2024. The patient reports doing well post-operatively. The patient has no complaints. PHYSICAL EXAM: On physical exam, the patient is well appearing, alert, and oriented. On inspection, the skin over the anterior neck is smooth, no mass is visualized. Palpation revealed neck to be supple, No lymphadenopathy was palpated on either side of the neck. NECK US: A neck US was performed today in the office showing a left thyroid nodule measuring [id number] mm with preoperative measures of 15.9x13.1x16.1mm. LABS: None IMPRESSION: Ciarra Alba is doing well after RFA of a symptomatic left thyroid nodule. PLAN: F/u in 3 months Jesusita Magana MD [facility]/13/2024[facility] Instructions* Patient Instructions * Chinyere Barclay MA - 05/13/2024 2:47 PM EST Thank you for choosing [facility] Department of Endocrinology, Diabetes and Metabolism. Did you know that you need to call 48 hours in advance of your scheduled visit, if you are unable to make your appointment? The Endocrinology and Metabolism [place] thanks you for your commitment, because patients not showing to their appointment results in a lost opportunity for patients to receive [facility] health care at the [facility]. To Cancel an appointment, please choose one of the following: - Call the Appointment Call Center at [phone] - From [place], Go to Appointments - Cancel Appts If cancelling, consider your need to reschedule to prevent further delays in your care. To Schedule an appointment, please choose one of the following: - Call the Appointment Call Center at [phone] - From [facility], Go to Appointments - Request an Appt documented in [facility] encounterC[facility]01-[facility] History and physical note * Dulce Romero PA-C - 04/13/2024 9:20 AM EST HISTORY AND PHYSICAL EXAMINATION SERVICE DATE: 04/13/2024 SERVICE TIME: 9:35 AM PRIMARY CARE PHYSICIAN: No primary care provider on file. REASON FOR VISIT: Ciarra Alba is a 48 year old female who is scheduled for Procedure(s): THYROID RF ABAL W/US (Left) at the request of Jesusita Helms MD for consultation. My final recommendation will be communicated back to the requesting physician by way of shared medical record or letter. Subjective The patient has the following: ACTIVE PROBLEM LIST Multiple Thyroid Nodules Nontoxic Single Thyroid Nodule Acid Reflux COVID-19 Immunization Status Overdue - Covid-19 Vaccine () Overdue since 11/17/2023 09/11/2021 Imm Admin: COVID-19 original vaccine, full dose, monovalent (MODERNA) 07/19/2021 Imm Admin: COVID-19 original vaccine, full dose, monovalent (MODERNA) CHIEF COMPLAINT: Pre-Op HPI: Ciarra Alba is a 48 year old female presenting for pre-anesthesia consultation. Pt has history of thyroid nodules. Above procedure recommended to manage symptoms. Procedure scheduled on 04/27/2024 at [facility]. REVIEW OF SYSTEMS: General: No weight loss, malaise or fevers. Neurological: Negative for: headaches, multiple sclerosis, Parkinson's disease, seizures and strokes. Respiratory: Negative for: asthma, COPD, current cough, dyspnea, tobacco use, URI < 2 weeks and obstructive sleep apnea. Cardiovascular: Negative for: AICD/PPM, anticoagulation therapy, arrhythmia, CAD, chest pain, CHF, DVT/PE, hyperlipidemia, hypertension, recent ME, murmur/valvular heart disease, open heart surgery and valve surgery. GI: Positive for: GERD (prn tums) Negative for: abdominal pain, dysphagia, liver disease, nausea and vomiting. : Negative for: on dialysis, dysuria, hematuria and renal failure. Endocrine: Negative for: diabetes mellitus, hyperthyroidism and hypothyroidism. Hematology: Negative for: anemia, bruises/bleeds easily, factor V Leiden, hemophilia, thrombocytopenia, von Willebrand disease and chronic anti-coagulation/platelet meds. Oncology: No history of CA metastasis, chemo within 30 days, or radiotherapy within 90 days. No history of oncological symptoms or problems. Psych: Negative for: anxiety, bipolar disorder and depression. Musculoskeletal: Negative for joint pain or swelling, back pain or muscle pain. Skin: Negative for lesions, rash and itching. PAST MEDICAL HISTORY Diagnosis Date Hypercholesteremia PAST SURGICAL HISTORY Procedure Laterality Date COLONOSCOPY SCREENING HYSTEROSCOPY ENDOMETRIAL ABLATION PAST SURGICAL HISTORY OF 03/18/1997 BUNIONECTOMY / RIGHT FOOT PAST SURGICAL HISTORY OF 03/18/1998 HAND INJURY, Right hand FAMILY HISTORY Problem Relation Age of Onset Hypertension Maternal Grandmother Cancer Maternal Grandfather Anesthesia Problems No Family History Social History Tobacco Use Smoking status: Never Smokeless tobacco: Never Vaping Use Vaping status: Never Used Substance Use Topics Alcohol use: No Drug use: No Prior to Admission medications as of 04/13/24 0933 Medication Sig Last Dose Taking azithromycin (ZITHROMAX Z-LEE) 250 mg tablet Take 2 tablets by mouth day one, then 1 tablet daily until gone. Patient not taking: Reported on 02/26/2024 No medication comments found. ALLERGIES No Known Allergies Objective PHYSICAL EXAM: General: alert and oriented and healthy appearance. Pertinent negatives noted - not distressed. Skin: normal color, no rash or lesions. HEENT: EOM intact, pupils equal round and pupils reactive to light. Pertinent negatives noted - no carotid bruit. Cardiovascular: regular rate and rhythm, normal S1 and S2, no rub, murmurs, or gallop. Respiratory: normal breath sounds, no wheezes or crackles. No chest wall deformity or tenderness. Abdomen: bowel sounds present and soft. Pertinent negatives noted - not tender. Extremities: no deformity, no edema or tenderness, no joint swelling or clubbing. Neurological: normal cognition and motor skills. Gait normal. No weakness or sensory deficit. PAIN ASSESSMENT: VITALS: BP 138/82 Pulse 78 Temp (Src) 97.3 (Temporal) Resp 14 Ht 5' 5 (1.65m) Wt 176 lb (79.8kg) SpO2 96% LMP 03/23/2024 BMI 29.29 kg/(m^2). Diagnostic tests reviewed for today's visit: Lab Value Units Date High Low HB 14.9 g/dL 03/28/2024 15.5 11.5 HCT 44.7 % 03/28/2024 46.0 36.0 WBC 7.76 k/uL 03/28/2024 11.00 3.70 PLT 232 k/uL 03/28/2024 400 150 NA 140 mmol/L 03/28/2024 144 136 K 4.1 mmol/L 03/28/2024 5.1 3.7 GLUC 108 mg/dL 03/28/2024 99 74 BUN 11 mg/dL 03/28/2024 21 7 CREAT 0.76 mg/dL 03/28/2024 0.96 0.58 PTSEC No results within date range. INR No results within date range. APTT No results within date range. ALT No results within date range. AST No results within date range. TBILI No results within date range. TSH 1.213 mIU/L 02/23/2024 3.740 0.358 Lab Value Units Date High Low HCGQT No results within date range. UHCG No results within date range. HCG, BODY* No results within date range. Lab Value Units Date High Low ABORHD No results within date range. ABSCREEN No results within date range. No results found for: HBA1C No results found for this or any previous visit (from the past 8760 hour(s)). No results found for this or any previous visit (from the past 86937 hour(s)). Assessment Patient has the following medical conditions which may affect marguerite-operative course: Acid reflux Assessment: Reports frequent acid reflux recently. Taking Tums and Prilosec PRN. Denies dysphagia. Reports occ globus sensation. Leone Activity Status Index: METS: Walk indoors, such as around the house (1.75 METs) Do light work around the house, such as dusting or washing dishes (2.70 METs) Take care of self; that is eating, dressing, bathing, using the toilet (2.75 METs) Walk a block or two on level ground (2.75 METs) Do moderate work around the house, such as vacuuming, sweeping floors, or carrying in groceries (3.50 METs) Do yardwork, such as raking leaves, weeding, or pushing a power mower (4.50 METs) Climb a flight of stairs or walk up a hill (5.50 METs) DASI Score: 23.45 Patient denies any chest pain or undue shortness of breath with the above physical activity. Clinical Frailty Scale: 2. Well STOP-Bang Score: Denies snoring loudly Denies feeling tired, fatigued, or sleepy during the daytime Has not been observed to stop breathing or choking/gasping during sleep Denies having high blood pressure BMI less than or equal to 35 kg/m^2 Patient 50 years old or younger Does not have a large neck Non-male patient STOP-Bang Score: 0 ANESTHESIA FINDINGS: Intubation History: No history of difficult intubation. No abnormal airway history Significant Anesthesia Considerations: none Airway History: No history of difficult airway No abnormal airway history I - PHYSICAL EVALUATION AIRWAY Patient intubated: No. Tracheostomy tube not present Mallampati: III. TM distance: >3 FB. Neck ROM: full ROM without neurological symptoms. Mouth opening: adequate. Short neck: no. Thick neck: no Microretrognathia/Micronagthia/Recessed Chin: No DENTAL Dental findings: teeth intact. Additional comments: + crown. II - ANESTHESIA PLAN Anesthetic Plan: other Anesthetic plan additional comments: *PACC/TCI - anesthesia choice. Beta Rashel Monitoring Plan Post Procedure Analgesic Plan Prepared for Surgery: optimally prepared for surgery. March labs reviewed CONSULTS: Patient does not require consults for optimization at this time Planned Anesthetic: other anesthesia choice The Following Tests/Procedures Have Been Initiated: No orders of the defined types were placed in this encounter. Instructions Given to Patient: Instructions located in the after visit summary. Patient given verbal and written preop instructions and voices comprehension and compliance. SIGNATURE: Dulce Romero PA-C PATIENT NAME: Ciarra Alba DATE: 04/13/2024 TIME: 9:35 AM PAGER[facility]CONTACT [facility]: [facility] History and physical note* Dulce Romero PA- C - 04/13/2024 9:20 AM EST HISTORY AND PHYSICAL EXAMINATION SERVICE DATE: 04/13/2024 SERVICE TIME: 9:35 AM PRIMARY CARE PHYSICIAN: No primary care provider on file. REASON FOR VISIT: Ciarra Alba is a 48 year old female who is scheduled for Procedure(s): THYROID RF ABAL W/US (Left) at the request of Jesusita Helms MD for consultation. My final recommendation will be communicated back to the requesting physician by way of shared medical record or letter. Subjective The patient has the following: ACTIVE PROBLEM LIST Multiple Thyroid Nodules Nontoxic Single Thyroid Nodule Acid Reflux COVID-19 Immunization Status Overdue - Covid-19 Vaccine () Overdue since 11/17/2023 09/11/2021 Imm Admin: COVID-19 original vaccine, full dose, monovalent (MODERNA) 07/19/2021 Imm Admin: COVID-19 original vaccine, full dose, monovalent (MODERNA) CHIEF COMPLAINT: Pre-Op HPI: Ciarra Alba is a 48 year old female presenting for pre-anesthesia consultation. Pt has history of thyroid nodules. Above procedure recommended to manage symptoms. Procedure scheduled on 04/27/2024 at [facility]. REVIEW OF SYSTEMS: General: No weight loss, malaise or fevers. Neurological: Negative for: headaches, multiple sclerosis, Parkinson's disease, seizures and strokes. Respiratory: Negative for: asthma, COPD, current cough, dyspnea, tobacco use, URI < 2 weeks and obstructive sleep apnea. Cardiovascular: Negative for: AICD/PPM, anticoagulation therapy, arrhythmia, CAD, chest pain, CHF, DVT/PE, hyperlipidemia, hypertension, recent ME, murmur/valvular heart disease, open heart surgery and valve surgery. GI: Positive for: GERD (prn tums) Negative for: abdominal pain, dysphagia, liver disease, nausea and vomiting. : Negative for: on dialysis, dysuria, hematuria and renal failure. Endocrine: Negative for: diabetes mellitus, hyperthyroidism and hypothyroidism. Hematology: Negative for: anemia, bruises/bleeds easily, factor V Leiden, hemophilia, thrombocytopenia, von Willebrand disease and chronic anti-coagulation/platelet meds. Oncology: No history of CA metastasis, chemo within 30 days, or radiotherapy within 90 days. No history of oncological symptoms or problems. Psych: Negative for: anxiety, bipolar disorder and depression. Musculoskeletal: Negative for joint pain or swelling, back pain or muscle pain. Skin: Negative for lesions, rash and itching. PAST MEDICAL HISTORY Diagnosis Date Hypercholesteremia PAST SURGICAL HISTORY Procedure Laterality Date COLONOSCOPY SCREENING HYSTEROSCOPY ENDOMETRIAL ABLATION PAST SURGICAL HISTORY OF 03/18/1997 BUNIONECTOMY / RIGHT FOOT PAST SURGICAL HISTORY OF 03/18/1998 HAND INJURY, Right hand FAMILY HISTORY Problem Relation Age of Onset Hypertension Maternal Grandmother Cancer Maternal Grandfather Anesthesia Problems No Family History Social History Tobacco Use Smoking status: Never Smokeless tobacco: Never Vaping Use Vaping status: Never Used Substance Use Topics Alcohol use: No Drug use: No Prior to Admission medications as of 04/13/24 0933 Medication Sig Last Dose Taking azithromycin (ZITHROMAX Z-LEE) 250 mg tablet Take 2 tablets by mouth day one, then 1 tablet daily until gone. Patient not taking: Reported on 02/26/2024 No medication comments found. ALLERGIES No Known Allergies Objective PHYSICAL EXAM: General: alert and oriented and healthy appearance. Pertinent negatives noted - not distressed. Skin: normal color, no rash or lesions. HEENT: EOM intact, pupils equal round and pupils reactive to light. Pertinent negatives noted - no carotid bruit. Cardiovascular: regular rate and rhythm, normal S1 and S2, no rub, murmurs, or gallop. Respiratory: normal breath sounds, no wheezes or crackles. No chest wall deformity or tenderness. Abdomen: bowel sounds present and soft. Pertinent negatives noted - not tender. Extremities: no deformity, no edema or tenderness, no joint swelling or clubbing. Neurological: normal cognition and motor skills. Gait normal. No weakness or sensory deficit. PAIN ASSESSMENT: VITALS: BP 138/82 Pulse 78 Temp (Src) 97.3 (Temporal) Resp 14 Ht 5' 5 (1.65m) Wt 176 lb (79.8kg) SpO2 96% LMP 03/23/2024 BMI 29.29 kg/(m^2). Diagnostic tests reviewed for today's visit: Lab Value Units Date High Low HB 14.9 g/dL 03/28/2024 15.5 11.5 HCT 44.7 % 03/28/2024 46.0 36.0 WBC 7.76 k/uL 03/28/2024 11.00 3.70 PLT 232 k/uL 03/28/2024 400 150 NA 140 mmol/L 03/28/2024 144 136 K 4.1 mmol/L 03/28/2024 5.1 3.7 GLUC 108 mg/dL 03/28/2024 99 74 BUN 11 mg/dL 03/28/2024 21 7 CREAT 0.76 mg/dL 03/28/2024 0.96 0.58 PTSEC No results within date range. INR No results within date range. APTT No results within date range. ALT No results within date range. AST No results within date range. TBILI No results within date range. TSH 1.213 mIU/L 02/23/2024 3.740 0.358 Lab Value Units Date High Low HCGQT No results within date range. UHCG No results within date range. HCG, BODY* No results within date range. Lab Value Units Date High Low ABORHD No results within date range. ABSCREEN No results within date range. No results found for: HBA1C No results found for this or any previous visit (from the past 8760 hour(s)). No results found for this or any previous visit (from the past 96078 hour(s)). Assessment Patient has the following medical conditions which may affect marguerite-operative course: Acid reflux Assessment: Reports frequent acid reflux recently. Taking Tums and Prilosec PRN. Denies dysphagia. Reports occ globus sensation. Leone Activity Status Index: METS: Walk indoors, such as around the house (1.75 METs) Do light work around the house, such as dusting or washing dishes (2.70 METs) Take care of self; that is eating, dressing, bathing, using the toilet (2.75 METs) Walk a block or two on level ground (2.75 METs) Do moderate work around the house, such as vacuuming, sweeping floors, or carrying in groceries (3.50 METs) Do yardwork, such as raking leaves, weeding, or pushing a power mower (4.50 METs) Climb a flight of stairs or walk up a hill (5.50 METs) DASI Score: 23.45 Patient denies any chest pain or undue shortness of breath with the above physical activity. Clinical Frailty Scale: 2. Well STOP-Bang Score: Denies snoring loudly Denies feeling tired, fatigued, or sleepy during the daytime Has not been observed to stop breathing or choking/gasping during sleep Denies having high blood pressure BMI less than or equal to 35 kg/m^2 Patient 50 years old or younger Does not have a large neck Non-male patient STOP-Bang Score: 0 ANESTHESIA FINDINGS: Intubation History: No history of difficult intubation. No abnormal airway history Significant Anesthesia Considerations: none Airway History: No history of difficult airway No abnormal airway history I - PHYSICAL EVALUATION AIRWAY Patient intubated: No. Tracheostomy tube not present Mallampati: III. TM distance: >3 FB. Neck ROM: full ROM without neurological symptoms. Mouth opening: adequate. Short neck: no. Thick neck: no Microretrognathia/Micronagthia/Recessed Chin: No DENTAL Dental findings: teeth intact. Additional comments: + crown. II - ANESTHESIA PLAN Anesthetic Plan: other Anesthetic plan additional comments: *PACC/TCI - anesthesia choice. Beta Rashel Monitoring Plan Post Procedure Analgesic Plan Prepared for Surgery: optimally prepared for surgery. March labs reviewed CONSULTS: Patient does not require consults for optimization at this time Planned Anesthetic: other anesthesia choice The Following Tests/Procedures Have Been Initiated: No orders of the defined types were placed in this encounter. Instructions Given to Patient: Instructions located in the after visit summary. Patient given verbal and written preop instructions and voices comprehension and compliance. SIGNATURE: Dulce Romero PA-C PATIENT NAME: Ciarra Alba DATE: 04/13/2024 TIME: 9:35 AM PAGER/CONTACT #: documented in this encounterC[facility]01-27-[facility] Instructions* Patient Instructions* Dulce Romero PA-C - 04/13/2024 9:16 AM EST Images from the original note were not included. [facility] PATIENT PREOPERATIVE INSTRUCTIONS Jesusita Helms MD, has scheduled you for your procedure at this surgery center: [facility]: [phone] -- [address] [place] [address]. Please read below carefully for your personalized instructions. Arrival Time for Surgery: - The Surgery Center or hospital where you are having surgery will call the afternoon before surgery (or Saturday for Saturday surgery) with a scheduled arrival time. - If you have not heard by 4 pm, please contact the surgery center above. Please be aware that emergency situations arise, which may delay or change your surgical time. If this happens, we will notify you as soon as possible and regret any inconvenience. Dietary Restrictions: - No solid food after midnight. - You may have 12 ounces of clear liquids (water, clear juices such as apple juice or gatorade, carbonated beverages, clear tea, black coffee, jello) until 2 hours before scheduled arrival at facility. - Do not drink any alcohol after midnight the night before your surgery. Medications: Unless instructed differently below, stay on all of your medications until your surgery. If you start any new medications after today's visit, please contact your surgeon. No outpatient medications have been marked as taking for the 04/13/24 encounter (PAT) with 1, [facility]. If you start any new medications after today's visit, please contact the surgeon's office. If you are currently using a meko-ojr-zjcb injectable or oral medication for diabetes or weight loss such as Dulaglutide (Trulicity), Exenatide (Byetta, Bydureon), Liraglutide (Victoza, Saxenda), Semaglutide (Ozempic, Wegovy, Rybelsus), or Tirzepatide (Mounjaro), the medicine should be stopped at least 7 days before surgery. These medicines can cause food to remain in your stomach for a very longtime and increase the risks from surgery and anesthesia. Not stopping the medication for a long enough time may result in your surgery being rescheduled. Blood Thinning Medications: - Stop NSAIDS (Ibuprofen, Advil, Aleve, Motrin, Celebrex, Mobic, etc.) 7 days before surgery, as directed by your surgeon. - Stop Aspirin 7 days before surgery, as directed by your surgeon. - Stop ALL herbal and dietary supplements 7 days before surgery. - You may take Tylenol (Acetaminophen) or any of your pain medications that do not contain aspirin or NSAIDS as needed. Important Reminders: - If you use CPAP/BIPAP, bring the machine with you to the surgery center. - If you are prescribed inhalers for breathing, continue using them. - Candy, mints, and tobacco products are NOT permitted the morning of surgery. - Hearing aids, dentures and glasses may be worn the morning of surgery. - NO jewelry, body piercings, makeup, hairpins or contacts are to be worn the day of surgery. If you develop symptoms such as a fever, cold, or flu, or have other changes to your health within TWO DAYS of scheduled surgery or the morning of surgery, please contact the surgery center above. Personal Belongings: -Please have photo ID and insurance cards. -If you do not have a copy of advance directives on file with us, please bring a copy with you on the day of surgery. - Leave ALL valuables and money at home or with family members. - Please bring high-quality footwear, such as sneakers, to the hospital for ambulating post-surgery. For Outpatient Procedures: - YOU MUST HAVE A RESPONSIBLE CLAY ARTIST TAKE YOU HOME. A CHORE WORKER OR WATER REGISTRAR CANNOT BE MADE A RESPONSIBLE CLAY ARTIST. - We recommend that a responsible person stays with you overnight to take care of you. - You cannot stay in a hotel alone after outpatient surgery. You will not be permitted to have yoursurgery, if you do not have someone to take care of you. If you already have an Advance Directive, please fax a copy to [phone] or email to for it to be added to your chart. If you do not have an Advance Directive, you can find the appropriate form and more information at [email or web address]. We recommend that youcomplete the Advance Directive form found on the website and bring it with you the day of your surgery. It can be witnessed and scanned into your chart that day. Dulce Romero PA-C documented in this encounterC[facility]12-11-[facility]24 History of Present illness Narrative* Jesusita Magana MD - 02/26/2024 10:00 AM EST Endocrinology Metabolism [place] [facility] Jesusita Magana M.D. Section of Endocrine Surgery and Advanced Laparoscopic Surgery [address] [place] [address] ENDOCRINE SURGERY NEW CONSULTATION NAME: Ciarra Nanci [facility] (formerly [facility]3] NO: [id number] : 1975 Surgeon: Dr. Jesusita Magana REFERRING PROVIDER: Naga Anguiano [address] [place], [place] [address] [address] The patient was referred by the above provider and my findings and recommendations will be communicated by way of the shared medical record. HPI: The patient was evaluated today for a consultation regarding a 2.0 cm single left thyroid nodule with a benign FNA (Dec 2023). Patient has no compressive symptoms but has significant family history of thyroid cancer in 2 sons. Patient is here to discuss surgical treatment or RFA. She has been having constant pressure in her neck and dysphagia. History of head and neck radiation: No Family history of thyroid cancer: No History of previous thyroid biopsy or any cervical operation: Yes, FNA on December 2023 on left thyroid nodule, cytology benign. PMH: PAST MEDICAL HISTORY Diagnosis Date PMH - PAST MEDICAL HISTORY OF None PSH: PAST SURGICAL HISTORY Procedure Laterality Date PAST SURGICAL HISTORY OF 1997 BUNIONECTOMY / RIGHT FOOT PAST SURGICAL HISTORY OF 1998 HAND INJURY, Right hand Medications: Current Outpatient Medications on File Prior to Visit Medication Sig azithromycin (ZITHROMAX Z-LEE) 250 mg tablet Take 2 tablets by mouth day one, then 1 tablet daily until gone. No current facility-administered medications on file prior to visit. All: ALLERGIES No Known Allergies SH: Social History Tobacco Use Smoking status: Never Smokeless tobacco: Never Substance Use Topics Alcohol use: No Drug use: No FH: Pertinent history above; otherwise, non-contributory REVIEW OF SYSTEMS: GENERAL: Well-appearing, no malaise or fevers Dyspnea:No. Dysphagia:No. Pressure symptoms:No. PHYSICAL EXAM: On physical exam, Ciarra Alba is well appearing, alert, and oriented and appears euthyroid. On inspection, the skin over the anterior neck is smooth, no mass is visualized. Palpation revealed no thyroid enlargement. No lymphadenopathy was palpated on either side of the neck. ULTRASOUND EXAMINATION: Ultrasound examination was performed in the office today. This demonstrated nodules involving both thyroid lobes. The largest nodule was in the left lobe measuring 1.40X1.46X 1.75 cm, was hypoechoic and was Solid. No worrisome lymphadenopathy was appreciated in either bilateral central neck or lateral jugular chain compartments. A fine needle aspiration biopsy not performed. LABS: None CYTOLOGY (12/30/2023): FINAL DIAGNOSIS A - Thyroid, Aspirate/Fine Needle Aspirate - Left Benign. Consistent with colloid nodule. The following cell blocks were associated with this case: A1 Cell Block, Alcohol Fixed ASSESSMENT: In summary, Ciarra Alba has multinodular goiter with a symptomatic 1.8 cm left thyroid nodule. PLAN: We went over the options of monitoring, left thyroid lobectomy vs RFA. The patient is interested inthe RFA procedure due to her symptoms. Will schedule. I appreciate being involved in the care of your patient, and please feel free to contact me should you have additional questions. Sincerely, Jesusita Magana MD 02/26/2024 CC: Naga Anguiano [id number] [address] [facility] [address] Fax: documented in this encounterCleveland Clinic [facility]12-11-2024 NoteHNO ID: [id number] Author: JESUSITA MAGANA MD Service: ? Author Type: Physician Type: Progress Notes Filed: 02/26/2024 10:28 Note Text: Endocrinology Metabolism [place] [facility] Jesusita Magana M.D. Section of Endocrine Surgery and Advanced Laparoscopic Surgery [address] [place] [address], [address] [place] [address] ENDOCRINE SURGERY NEW CONSULTATION NAME: Ciarra Alba [facility] NO: [id number] : 1975 Surgeon: Dr. Jesusita Magana REFERRING PROVIDER: Naga Anguiano [address] [place] [id number] The patient was referred by the above provider and my findings and recommendations will be communicated by way of the shared medical record. HPI: The patient was evaluated today for a consultation regarding a 2.0 cm single left thyroid nodule with a benign FNA (Dec 2023). Patient has no compressive symptoms but has significant family history of thyroid cancer in 2 sons. Patient is here to discuss surgical treatment or RFA. She has been having constant pressure in her neck and dysphagia. History of head and neck radiation: No Family history of thyroid cancer: No History of previous thyroid biopsy or any cervical operation: Yes, FNA on December 2023 on left thyroid nodule, cytology benign. PMH: PAST MEDICAL HISTORY Diagnosis Date PMH - PAST MEDICAL HISTORY OF None PSH: PAST SURGICAL HISTORY Procedure Laterality Date PAST SURGICAL HISTORY OF 1997 BUNIONECTOMY / RIGHT FOOT PAST SURGICAL HISTORY OF 1998 HAND INJURY, Right hand Medications: Current Outpatient Medications on File Prior to Visit Medication Sig azithromycin (ZITHROMAX Z-LEE) 250 mg tablet Take 2 tablets by mouth day one, then 1 tablet daily until gone. No current facility-administered medications on file prior to visit. All: ALLERGIES No Known Allergies SH: Social History Tobacco Use Smoking status: Never Smokeless tobacco: Never Substance Use Topics Alcohol use: No Drug use: No FH: Pertinent history above; otherwise, non-contributory REVIEW OF SYSTEMS: GENERAL: Well-appearing, no malaise or fevers Dyspnea:No. Dysphagia:No. Pressure symptoms:No. PHYSICAL EXAM: On physical exam, Ciarra Alba is well appearing, alert, and oriented and appears euthyroid. On inspection, the skin over the anterior neck is smooth, no mass is visualized. Palpation revealed no thyroid enlargement. No lymphadenopathy was palpated on either side of the neck. ULTRASOUND EXAMINATION: Ultrasound examination was performed in the office today. This demonstrated nodules involving both thyroid lobes. The largest nodule was in the left lobe measuring 1.40X1.46X 1.75 cm, was hypoechoic and was Solid. No worrisome lymphadenopathy was appreciated in either bilateral central neck or lateral jugular chain compartments. A fine needle aspiration biopsy not performed. LABS: None CYTOLOGY (12/30/2023): FINAL DIAGNOSIS A - Thyroid, Aspirate/Fine Needle Aspirate - Left Benign. Consistent with colloid nodule. The following cell blocks were associated with this case: A1 Cell Block, Alcohol Fixed ASSESSMENT: In summary, Ciarra Alba has multinodular goiter with a symptomatic 1.8 cm left thyroid nodule. PLAN: We went over the options of monitoring, left thyroid lobectomy vs RFA. The patient is interested in the RFA procedure due to her symptoms. Will schedule. I appreciate being involved in the care of your patient, and please feel free to contact me should you have additional questions. Sincerely, Jesusita Magana MD 02/26/2024 CC: Naga Anguiano [id number] [address] [facility] [address] Fax:[facility]12-11-2024 Instructions* Patient Instructions* Steph Paetl MA - 02/26/2024 9:46 AM EST Thank you for choosing the [facility] Department of Endocrinology, Diabetes and Metabolism. Did you know that you need to call 48 hours in advance of your scheduled visit, if you are unable to make your appointment? The Endocrinology and Metabolism [place] thanks you for your commitment, because patients not showing to their appointment results in a lost opportunity for patients to receive world class health care at the [facility]. To Cancel an appointment, please choose one of the following: - Call the Appointment Call Center at [phone] - From [place], Go to Appointments - Cancel Appts If cancelling, consider your need to reschedule to prevent further delays in your care. To Schedule an appointment, please choose one of the following: - Call the Appointment Call Center at [phone] - From [place], Go to Appointments - Request an Appt documented in this encounterCleveland Clinic [facility]11-29-2024 Telephone encounter Note * Telephone Encounter - Renae Barnesette - 02/14/2024 1:14 PM EST 02/14/2024 INTAKE COMPLETED-NEED TSH ENDOCRINE SURGERY PATIENT WORKSHEET Initial Call Date: February 14, 2024 Reason for Consult/ Referral: Thyroid Nodule PATIENT DEMOGRAPHICS Name: Ciarra Alba CC#: [id number] : 1975 AGE: [age] year old Contact Numbers: Home: (home) Work: (work) PATIENT PHYSICIAN INFORMATION Referring Doctor: DR.EL ANGUIANO Address: Phone: Cornice Maker: DR. ABDI ANGUIANO Address: Phone: PCP: To use this Smartlink, specify the provider ID whose address you want to display, e.g., .PROVADDR[1 (where 1 is the provider ID). PAST TREATMENT Office notes: SEE [facility] Medications: NONE THAT APPLY Pre-Visit Testing STUDY/TEST DATE ORDERED/REQUESTED DATE RECEIVED/COMPLETED ENTIRE PANEL TSH 02/14/2024 FREE T4 FREE T3 Imaging Reports: SEE [facility] CD of Images: SEE EPIC FNA: yes: 12/2023 FNA Slides: [facility] at [facility] Has the patient ever had thyroid or parathyroid surgery before: No Operative Reports: NONE AVAILABLE Pathology Reports: SEE EPIC [facility] Work Phone: [phone]) 631-557111-29-2024 Miscellaneous Notes* Telephone Encounter - CameronFox edenBenigno - 02/14/2024 1:14 PM EST 02/14/2024 INTAKE COMPLETED-NEED TSH ENDOCRINE SURGERY PATIENT WORKSHEET Initial Call Date: February 14, 2024 Reason for Consult/ Referral: Thyroid Nodule PATIENT DEMOGRAPHICS Name: Ciarra Alba [facility]#: [id number] : 1975 AGE: [age] year old Contact Numbers: Home: (home) Work: (work) PATIENT PHYSICIAN INFORMATION Referring Doctor: DR.EL ANGUIANO Address: Phone: Cornice Maker: DR. ABDI ANGUIANO Address: Phone: PCP: To use this Smartlink, specify the provider ID whose address you want to display, e.g., .PROVADDR[1 (where 1 is the provider ID). PAST TREATMENT Office notes: SEE EPIC Medications: NONE THAT APPLY Pre-Visit Testing STUDY/TEST DATE ORDERED/REQUESTED DATE RECEIVED/COMPLETED ENTIRE PANEL TSH 02/14/2024 FREE T4 FREE T3 Imaging Reports: SEE EPIC CD of Images: SEE EPIC FNA: yes: 12/2023 FNA Slides: [facility] at [facility] Has the patient ever had thyroid or parathyroid surgery before: No Operative Reports: NONE AVAILABLE Pathology Reports: SEE EPIC documented in this encounterC[facility]10-14-2024 NoteHNO ID: [id number] Author: NAGA CAMPBELL MD Service: ? Author Type: Physician Type: Progress Notes Filed: 12/30/2023 12:20 Note Text: Fine needle aspiration of Thyroid Nodule (December 30, 2023) Referring Physician: No ref. provider found Primary Care Physician: No primary care provider on file. 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 Patient on anti-platelet or anticoagulant drugs: No The risks, benefits and anticipated outcomes of the procedure, the risks and benefits of the alternatives to the procedure, and the roles and tasks of the personnel to be involved, were discussed with the patient. UNIVERSAL PROTOCOL / SAFETY CHECKLIST Procedure to be Performed: Left thyroid nodule FNA Sign In: A Moment of CARE was completed. Personnel directly involved with the procedure wore the appropriate PPE (Personal Protective Equipment). Patient/Surrogate Stated/Verified: PATIENT VERIFIED(optional for EMERGENT procedures): Patient name, Date of , Relevant allergies, and The intended procedure Time Out Communication: Intended patient and procedure match the source documents. Consent documented and matches the intended procedure. Sign Out: SIGN OUT (optional for EMERGENT procedures): All specimen containers correctly labeled. Naga Anguiano MD She was positionned in decubitus with the neck in extension. FNA of Nodule in left lobe: I used Num to numb the skin overlying the area of the nodule. The skin was prepped in the usual aseptic manner. I performed 3 passes through target nodule using G-25 needles under sonographic guidance. Character of the aspirate: A small drop of blood Afirma sample sent: Yes The patient tolerated the procedure. Complications: No She was told to go the emergency room if there is severe pain or swelling in the neck area. She will be notified of the result by telephone. Follow up:Will be determine once FNA cytology results are available Naga Anguiano [facility]10-14-2024 History of Present illness Narrative* Naga Campbell MD - 12/30/2023 12:19 PM EDT Fine needle aspiration of Thyroid Nodule (December 30, 2023) Referring Physician: No ref. provider found Primary Care Physician: No primary care provider on file. Indication: (E04.2) Multiple thyroid nodules (primary encounter diagnosis) Comment: Left 2 cm thyroid nodule Plan: US THYROID/PARATHYROID (POC) ENDO USE ONLY, US THYROID/PARATHYROID (POC) ENDO USE ONLY, CYTOLOGY NON-SENIOR PROCUREMENT MANAGER Ciarra Alba was identified by name and date, acknowledges here to have an FNA of Nodule inleft lobe performed. Patient on anti-platelet or anticoagulant drugs: No The risks, benefits and anticipated outcomes of the procedure, the risks and benefits of the alternatives to the procedure, and the roles and tasks of the personnel to be involved, were discussed with the patient. UNIVERSAL PROTOCOL / SAFETY CHECKLIST Procedure to be Performed: Left thyroid nodule FNA Sign In: A Moment of CARE was completed. Personnel directly involved with the procedure wore the appropriate PPE (Personal Protective Equipment). Patient/Surrogate Stated/Verified: PATIENT VERIFIED(optional for EMERGENT procedures): Patient name, Date of , Relevant allergies, and The intended procedure Time Out Communication: Intended patient and procedure match the source documents. Consent documented and matches the intended procedure. Sign Out: SIGN OUT (optional for EMERGENT procedures): All specimen containers correctly labeled. Naga Anguiano MD She was positionned in decubitus with the neck in extension. FNA of Nodule in left lobe: I used Num to numb the skin overlying the area of the nodule. The skin was prepped in the usual aseptic manner. I performed 3 passes through target nodule using G-25 needles under sonographic guidance. Character of the aspirate: A small drop of blood Afirma sample sent: Yes The patient tolerated the procedure. Complications: No She was told to go the emergency room if there is severe pain or swelling in the neck area. She will be notified of the result by telephone. Follow up:Will be determine once FNA cytology results are available Naga Anguiano MD * Naga Campbell MD - 12/30/2023 11:12 AM EDT Endocrinology Initial Thyroid Assessment Ciarra Alba is here for a consultation upon the request of Eliana Robert MS regarding: thyroid nodule My final recommendations will be communicated back by way of shared medical record or by US mail. PCP is No primary care provider on file. History of Present Illness Ciarra Alba is a 48 year old female, visit for evaluation of possible thyroid cancer. 2 son's with thyroid cancer Never been told she hs thyroid issues Not on LT4 Here with her Past History, Medications, Allergies PAST MEDICAL HISTORY Diagnosis Date PMH - PAST MEDICAL HISTORY OF None PAST SURGICAL HISTORY Procedure Laterality Date PAST SURGICAL HISTORY OF 1997 BUNIONECTOMY / RIGHT FOOT PAST SURGICAL HISTORY OF 1998 HAND INJURY, Right hand Current Outpatient Medications Medication Sig Dispense Refill azithromycin (ZITHROMAX Z-LEE) 250 mg tablet Take 2 tablets by mouth day one, then 1 tablet daily until gone. 1 Package 0 No current facility-administered medications for this visit. ALLERGIES No Known Allergies FAMILY HISTORY Problem Relation Age of Onset Cancer Maternal Grandfather Hypertension Maternal Grandmother Social History Tobacco Use Smoking status: Never Smokeless tobacco: Never Substance Use Topics Alcohol use: No Drug use: No Review of Systems Answers submitted by the patient for this visit: Endocrine Review of Systems (Submitted on 12/23/2023) Fatigue: No Night sweats: No Recent unintentional weight change: No Skin Color Changes: No Post-Nasal Drip: No Thyroid Pain (lower neck): No Trouble Swallowing: No Vision Disturbance: No Chest pain: No Leg Swelling: No Blood Clots?: No Leg Pain while walking?: No Difficulty Breathing?: No Heartburn: Yes Nausea: No Vomiting: No Diarrhea: No Constipation: No Abdominal pain: No Bone Pain?: No Muscle aches: No Muscle weakness: No Joint pain or stiffness: No Headaches: No Dizziness: No Numbness?: No Urgency to Urinate?: No Increased Urination: No Slow or Small Urine Stream?: No Are your menstrual cycles regular?: Yes Are your menstrual cycles irregular?: No Have your menstrual cycles stopped?: No Flushing: No Hot Flashes?: No Increased Thirst: No Change in Body Hair?: No Cold Intolerance: No Heat Intolerance: No Physical examination BP 136/85 Pulse 76 Resp 16 Ht 162.6 cm (5' 4) Wt 77.1 kg (169 lb 15.6 oz) LMP 12/16/2023(Approximate) SpO2 100% BMI 29.18 kg/m GENERAL: Well nourished, well hydrated, in no distress and oriented x 3 COMMUNICATION: Hearing: normal; VOICE: normal EYES: no thyroid eye signs, Fundi normal and cornea normal. EOMI NECK: no visible nodules or goiter, no bruit, no tenderness and no adenopathies EXTREMITIES: No clubbing, no edema, no cyanosis and normal nails NEURO: normal strength, no tremor and normal reflexes SKIN: No rash or lesion Previous Laboratory Results - Cytology - Pathology - Imaging Thyroid US done today (12/2023): Subcentimetric right sided nodule and 2 cm mixed left thyroid nodule Impression/Recommendations Ciarra Alba is a 48 year old female, visit for evaluation of possible thyroid cancer. 2 son's with thyroid cancer Never been told she hs thyroid issues Not on LT4 Here with her Thyroid Nodules: -- 2 Sons with thyroid cancer -- ? PGGM with thyroid issues -- Thyroid US done today showed a 2 cm left mixed nodule -- No compressive symptoms -- Thyroid US images reviewed with the patient -- Discussed thyroid nodules, risk of cancer and indications for FNA -- Discussed FNA procedure and risk -- Dicussed FNA results and management -- FNA of left 2 cm thyroid nodule done today The patient will follow up in 6 months. Naga Anguiano MD [facility] NoteHNO ID: [id number] Author: NAGA CAMPBELL MD Service: ? Author Type: Physician Type: Progress Notes Filed: 12/31/2023 09:36 Note Text: Endocrinology Initial Thyroid Assessment Ciarra Alba is here for a consultation upon the request of Eliana Robert MS regarding: thyroid nodule My final recommendations will be communicated back by way of shared medical record or by US mail. PCP is No primary care provider on file. History of Present Illness Ciarra Alba is a 48 year old female, visit for evaluation of possible thyroid cancer. 2 son's with thyroid cancer Never been told she has thyroid issues Not on LT4 Here with her MGGM: goiter - s/p thyroidecotmy Past History, Medications, Allergies PAST MEDICAL HISTORY Diagnosis Date PMH - PAST MEDICAL HISTORY OF None PAST SURGICAL HISTORY Procedure Laterality Date PAST SURGICAL HISTORY OF 1997 BUNIONECTOMY / RIGHT FOOT PAST SURGICAL HISTORY OF 1998 HAND INJURY, Right hand Current Outpatient Medications Medication Sig Dispense Refill azithromycin (ZITHROMAX Z-LEE) 250 mg tablet Take 2 tablets by mouth day one, then 1 tablet daily until gone. 1 Package 0 No current facility-administered medications for this visit. ALLERGIES No Known Allergies FAMILY HISTORY Problem Relation Age of Onset Cancer Maternal Grandfather Hypertension Maternal Grandmother Social History Tobacco Use Smoking status: Never Smokeless tobacco: Never Substance Use Topics Alcohol use: No Drug use: No Review of Systems Answers submitted by the patient for this visit: Endocrine Review of Systems (Submitted on 12/23/2023) Fatigue: No Night sweats: No Recent unintentional weight change: No Skin Color Changes: No Post-Nasal Drip: No Thyroid Pain (lower neck): No Trouble Swallowing: No Vision Disturbance: No Chest pain: No Leg Swelling: No Blood Clots?: No Leg Pain while walking?: No Difficulty Breathing?: No Heartburn: Yes Nausea: No Vomiting: No Diarrhea: No Constipation: No Abdominal pain: No Bone Pain?: No Muscle aches: No Muscle weakness: No Joint pain or stiffness: No Headaches: No Dizziness: No Numbness?: No Urgency to Urinate?: No Increased Urination: No Slow or Small Urine Stream?: No Are your menstrual cycles regular?: Yes Are your menstrual cycles irregular?: No Have your menstrual cycles stopped?: No Flushing: No Hot Flashes?: No Increased Thirst: No Change in Body Hair?: No Cold Intolerance: No Heat Intolerance: No Physical examination BP 136/85 Pulse 76 Resp 16 Ht 162.6 cm (5' 4) Wt 77.1 kg (169 lb 15.6 oz) LMP 12/16/2023 (Approximate) SpO2 100% BMI 29.18 kg/m? GENERAL: Well nourished, well hydrated, in no distress and oriented x 3 COMMUNICATION: Hearing: normal; VOICE: normal EYES: no thyroid eye signs, Fundi normal and cornea normal. EOMI NECK: no visible nodules or goiter, no bruit, no tenderness and no adenopathies EXTREMITIES: No clubbing, no edema, no cyanosis and normal nails NEURO: normal strength, no tremor and normal reflexes SKIN: No rash or lesion Previous Laboratory Results - Cytology - Pathology - Imaging Thyroid US done today (12/2023): Subcentimetric right sided nodule and 2 cm mixed left thyroid nodule Impression/Recommendations Ciarra Alba is a 48 year old female, visit for evaluation of possible thyroid cancer. 2 son's with thyroid cancer Never been told she hs thyroid issues Not on LT4 Here with her Thyroid Nodules: -- 2 Sons with thyroid cancer -- ? PGGM with thyroid issues -- Thyroid US done today showed a 2 cm left mixed nodule -- No compressive symptoms -- Thyroid US images reviewed with the patient -- Discussed thyroid nodules, risk of cancer and indications for FNA -- Discussed FNA procedure and risk -- Dicussed FNA results and management -- FNA of left 2 cm thyroid nodule done today The patient will follow up in 6 months. Naga Anguiano [facility] note Author Keiko Maciel [facility] Note Date/Time June 03, 2024 2:3 3pm [facility] Medical Records Department [address] [place] [address] Counseling Note - Pharmacy 06/03/24 1432 MR#: [id number] Acct: [id number] Name: CIARRA ALBA LÓPEZ Rep #:[id number] : 1975 48 From: Keiko Maciel PCP: Dr. Katja Baron MD Status:ADM IN O Y [id number] has performed discharge medication reconciliation and counseling for this patient. 1. OXYCODONE/ACETAMINOPHEN 5/325MG 1T PO Q4H PRN PAIN 2. NAPROXEN 500MG PO BID PRN PAIN The patient's discharge medication list was reviewed for discrepancies and discrepancies were resolved. The patient was counseled on the following discharge medications and changes in medications for homegoing were reviewed. The Reason for Use, instructions for use, and potential side effects were reviewed for all new medications. The patient's questions regarding all of their medications were answered. The patient was able to verbally demonstrate an understanding of their dischargemedications. Medications at Discharge Home Medications Saccharomyces boulardii 250 mg capsule (Daily Probiotic (S. boulardii)) 250 mg PO DAILY 11/28/22 naproxen 500 mg tablet 500 mg PO BID PRN PRN Pain #30 tabs 06/02/24 oxycodone-acetaminophen 5 mg-325 mg tablet (Percocet) 1 tab PO Q4H PRN pain 7 days #20 tabs 06/02/24 06/03/24 1433 <Electronically signed by Keiko Maciel> Date _ Keiko Maciel Cosigner Signature (if applicable): Date CC: ~ Signed [facility] Work Phone: Evaluation noteThere may be information available, but it has not been provided by the sender.[facility] Work Phone: Evaluation note* Diagnosis Onset Date Resolution Status Colon cancer screening acute Preventative health care acu te GERD (gastroesophageal reflux disease) chronic [facility] Work Phone: Evaluation note* Diagnosis Onset Date Resolution Status Colon cancer screening acute Preventative health care acu te GERD (gastroesophageal reflux disease) chronic Colon cancer screening acute [facility] Work Phone: Evaluation note* Diagnosis Onset Date Resolution Status Colon cancer screening acute [facility] Work Phone: Evaluation noteNo assessment information available [facility] Work Phone: Evaluation note* Diagnosis Onset Date Resolution Status Pain in female pelvis noneac tive [facility] Work Phone: Evaluation note* Diagnosis Onset Date Resolution Status Pain in female pelvis noneac tive Adenomyosis acute Pelvic pain acute Pain in female pelvis noneac tive [facility] Work Phone: Evaluation note* Diagnosis Multiple thyroid nodules- Primary Nontoxic multinodular goiter documented in this encounter [facility] note* Diagnosis Multiple thyroid nodules- Primary Nontoxic multinodular goiter documented in this encounter [facility] note* Diagnosis Multiple thyroid nodules- Primary Nontoxic multinodular goiter documented in this encounter [facility] note* Diagnosis Gastroesophageal reflux disease, unspecified whether esophagitis present- Primary Pre-op evaluation Preoperative examination, unspecified Multiple thyroid nodules Nontoxic multinodular goiter Nontoxic multinodular goiter * Assessment & Plan Note - Dulce Romero PA-C - 04/13/2024 9:33 AM EST Associated Problem(s): Acid reflux Assessment: Reports frequent acid reflux recently. Taking Tums and Prilosec PRN. Denies dysphagia. Reports occ globus sensation. documented in this encounter [facility] note* Diagnosis Gastroesophageal reflux disease, unspecified whether esophagitis present- Primary Pre-op evaluation Preoperative examination, unspecified Nontoxic multinodular goiter- Primary documented in this encounter [facility] note* Diagnosis Gastroesophageal reflux disease, unspecified whether esophagitis present- Primary Pre-op evaluation Preoperative examination, unspecified Multiple thyroid nodules- Primary Nontoxic multinodular goiter documented in this encounter [facility] note* Diagnosis Gastroesophageal reflux disease, unspecified whether esophagitis present- Primary Pre-op evaluation Preoperative examination, unspecified Multiple thyroid nodules- Primary Nontoxic multinodular goiter [facility] Instruction Description Start Date Completed [facility] Work Phone: Reason for referral (narrative)* Diagnostic Procedure Only (Routine) - New Request Specialty Diagnoses / Procedures Referred By Garo roman Referred To Contact US IMAGING Diagnoses Multiple thyroid nodules Procedures US THYROID/PARATHYROID US SOFT TISSUE HEAD & [place] [address] [place] [address] [place] [address] Referral ID Status Reason Start Date Expiration Date Visits Requested Visits Authorized [id number] New Request Auto-Generat ed Referral 06/03/2024 02/02/2025 1 1 [facility] for referral (narrative)No reason for referral information availableWSub[facility] Work Phone: Chief Complaint Chief Complaint Description Start Date left hand pain Preliminary chief co mplaint data, not yet signed by the author as of Advance Directives Advance Directive Response Recorded Date/ Time Living Will No April 30 022 5:11pm Power of Neuropsychiatric Aide No April 30, 2021 5:11pm Advance Directive Response Recorded Date/ Time Living Will No April 30 022 4:11pm Power of Neuropsychiatric Aide No April 30, 2021 4:11pm Advance Directive Response Recorded Date/ Time Living Will No March 01 9:38am Power of Neuropsychiatric Aide No March 01, 2022 9:38am Advance Directive Response Recorded Date/ Time Living Will No March 01 022 10:38am Power of Neuropsychiatric Aide No March 01, 2022 10:38am Advance Directive Response Recorded Date/ Time Living Will Yes June 02, 2024 6:53pm Do you have a Healthcare Power of Neuropsychiatric Aide? No June 02, 2024 6:53pm Family History Relationship Condition Age at Onset Recorded Date/T lorenza grandfather Malignant neoplasm of lung Unknown Chief Complaint and Reason for Visit Chief Complaint LT HAND PINKIE DISLO CA/PT HAS RX YEARLY CHECK UP Reason for Visit Colon cancer screeni ng Preventative health care GERD (gastroesophageal reflux disease) Chief Complaint LT HAND PINKIE DISLO CA/PT HAS RX YEARLY CHECK UP SCREENING Reason for Visit Colon cancer screeni [facility] care GERD (gastroesophageal reflux disease) Chief Complaint YEARLY CHECK UP SCREENING Amb Documentation Reason for Visit Colon cancer screeni [facility] care GERD (gastroesophageal reflux disease) Chief Complaint YEARLY CHECK UP SCREENING Amb Documentation Reason for Visit Colon cancer screeni [facility] health care GERD (gastroesophageal reflux disease) Colon cancer screening Reason for Visit Colon cancer screeni ng Chief Complaint No BM for one week Chief Complaint No BM for one week ABD PAIN Pelvic and perineal pain Chief Complaint No BM for one week ABD PAIN Pelvic and perineal pain Pelvic pain Reason for Visit Pain in female pelvi s Chief Complaint No BM for one week ABD PAIN Pelvic and perineal pain Pelvic pain Pelvic pain E-ORDER Reason for Visit Pain in female pelvi s Adenomyosis Pelvic pain Pain in female pelvis Chief Complaint Admit Date SCREENING March 25, 2024 11 :57am PELVIC PAIN April 30, 2024 8:03am hyst May 25, 2024 8:4 3am Hysterectomy,Total Vaginal, Bilateral Sa lpingectom June 02, 2024 7:28am Hysterectomy,Total Vaginal, Bilateral Sa lpingectom June 02, 2024 4:43pm Reason for Visit Admit Date Adenomyosis May 25, 2024 8:4 3am Pelvic pain May 25, 2024 8:4 3am Adenomyosis June 02, 2024 4:4 3pm Endometriosis June 02, 2024 4:4 3pm Pelvic adhesions June 02, 2024 4:4 3pm Pelvic pain June 02, 2024 4:4 3pm S/P laparoscopic assisted vaginal hyster ectomy (LAVH) June 02, 2024 4:43pm Status post bilateral salpingectomy [facility] 2024 4:43pm Chief Complaint Admit Date 6 wk TVHBS July 17, 2024 10:53a m Reason for Visit Admit Date Adenomyosis July 17, 2024 10:53a m Pelvic pain July 17, 2024 10:53a m Chief Complaint Admit Date 6 wk TVHBS July 17, 2024 10:53a m Gastroesophageal reflux disease (GERD) A ugust 2024 1:57pm Reason for Visit Admit Date Adenomyosis July 17, 2024 10:53a m Pelvic pain July 17, 2024 10:53a m GERD (gastroesophageal reflux disease) A ugust 2024 1:57pm Summary Purpose Additional Source Comments Reason for Visit (unrecogniz ed section and content) Reason For Visit Description New - 1st visit with practice Preliminary reason f or visit data, not yet signed by the author as of left hand pain Reason Comments New Patient Thyroid Nodule Reason Comments Consult FACE SHEET Reason Comments Thyroid Nodule Specialty Diagnoses / Procedures Referred By Contac t Referred To Contact Diagnoses Multiple thyroid nodules Procedures CONSULT TO ENDOCRINE SURGERY OFFICE/OUTPATIENT NEW HIGH MDM 60 [place] [address] [place] [address] Referral ID Status Reason Start Date Expiration Date V isits Requested Visits Authorized [id number] Closed PCP Requested Referral 01/08/2024 01/07/2025 1 1 Reason Comments Consult Reason Comments Post Op Reason Comments Follow Up Goals (unrecognized section and content) Goals may be documented in a n alternate sectionGoals may be documented in an alternate sectionGoals may be documented in an alternate sectionGoals may be documented in an alternate sectionGoals may be documented in an alternate sectionGoals may be documented in an alternate sectionGoals may be documented in an alternate sectionGoals may be documented in an alternate sectionGoals may be documented in an alternate sectionGoals may be documented in an alternate sectionGoals may be documented in an alternate sectionGoals may be documented in an alternate section Care Teams (unrecognized sec tion and content) Team Status: Active Member Role Status Dates No Primary Care Physician Family Provider Active Abi Jefferson DO Primary Care Provider Active Team Status: Active Member Role Status Dates Dr. Claribel Smart MD Primary Care Provider, Refer ring Provider Active Dr. Calos Mcgill MD Attending Provider, Other Provider Active Team Status: Inactive Member Role Status Dates Dr. Claribel Smart MD Primary Care Provider, Refer ring Provider Active Dr. Calos Mcgill MD Attending Provider Active Team Status: Inactive Member Role Status Dates Abi Jefferson DO Primary Care Provi stephane, Attending Provider, Referring Provider Active Team Status: Inactive Member Role Status Dates Abi Jefferson DO Primary Care Provider, Attending Provider Active Team Status: Inactive Member Role Status Parvin Baron MD Attending Provider, Referring Provide r Active Abi Jefferson DO Primary Care Provider Active Team Status: Active Member Role Status Parvin Jefferson DO Primary Care Provider Active Jocelin Dumas COATER HELPER, COATER HELPER-C Attending Provider, Referring Provider Active Team Status: Inactive Member Role Status Dates Abi Jefferson DO Primary Care Provider, Referring Provider Active Jocelin Quevedos COATER HELPER, COATER HELPER-C Attending Provider Active Team Status: Inactive Member Role Status Parvin Jefferson DO Primary Care Provider Active Jocelin Quevedos COATER HELPER, COATER HELPER-C Attending Provider, Referring Provider Active Team Status: Active Member Role Status Dates Lluvia Primary Care Physician Family Provider Active Katja Baron MD Primary Care Provider Active Team Status: Inactive Member Role Status Parvin Jefferson DO Primary Care Provider, Referring Provider Active Dr. Natasha Banegas MD Attending Provider Active Team Status: Active Member Role Status Parvin Baron MD Primary Care Provider Active Dr. Natasha Banegas MD Attending Provider, Referr ing Provider Active Team Status: Inactive Member Role Status Parvin Baron MD Primary Care Provider Active Dr. Natasha Banegas MD Attending Provider, Referr ing Provider Active Team Status: Active Member Role Status Parvin Baron MD Primary Care Provider Active Team Status: Inactive Member Role Status Parvin Baron MD Primary Care Provider Active St art: March 25, 2024 End: March 25, 2024 Jocelin Dumas COATER HELPER, COATER HELPER-C Attending Provider Active Start: March 25, 2024 End: March 25, 2024 Jocelin Dumas COATER HELPER, COATER HELPER-C Referring Provider Active Start: March 25, 2024 End: March 25, 2024 Team Status: Inactive Member Role Status Parvin Baron MD Primary Care Provider Active St art: April 30, 2024 End: April 30, 2024 Dr. Natasha Banegas MD Attending Provider Active Start: April 30, 2024 End: April 30, 2024 Dr. Natasha Banegas MD Referring Provider Active Start: April 30, 2024 End: April 30, 2024 Team Status: Inactive Member Role Status Parvin Baron MD Primary Care Provider Active St art: May 25, 2024 End: May 25, 2024 Katja Baron MD Referring Provider Active Start : May 25, 2024 End: May 25, 2024 Dr. Natasha Banegas MD Attending Provider Active Start: May 25, 2024 End: May 25, 2024 Team Status: Active Member Role Status Parvin Baron MD Primary Care Provider Active St art: June 02, 2024 Dr. Natasha Banegas MD Attending Provider Active Start: June 02, 2024 Dr. Natasha Banegas MD Referring Provider Active Start: June 02, 2024 Dr. Natasha Banegas MD Other Provider Active Start: June 02, 2024 Team Status: Inactive Member Role Status Parvin Baron MD Primary Care Provider Active St art: June 02, 2024 End: June 03, 2024 Dr. Natasha Banegas MD Admit Provider Active Start: June 02, 2024 End: June 03, 2024 Dr. Natasha Banegas MD Attending Provider Active Start: June 02, 2024 End: June 03, 2024 Dr. Natasha Banegas MD Referring Provider Active Start: June 02, 2024 End: June 03, 2024 Team Status: Active Member Role/Relationship Status Parvin Baron MD Primary Care Provider Active Team Status: Inactive Member Role/Relationship Status Parvin Baron MD Primary Care Provider Active St art: July 17, 2024 End: July 17, 2024 Katja Baron MD Referring Provider Active Start : July 17, 2024 End: July 17, 2024 Dr. Natasha Banegas MD Attending Provider Active Start: July 17, 2024 End: July 17, 2024 Team Status: Inactive Member Role/Relationship Status Parvin Baron MD Primary Care Provider Active St art: November 03, 2024 End: November 03, 2024 Katja Baron MD Attending Provider Active Start : November 03, 2024 End: November 03, 2024 Katja Baron MD Referring Provider Active Start : November 03, 2024 End: November 03, 2024 Team Status: Inactive Member Role/Relationship Status Parvin Baron MD Primary Care Provider Active St art: November 10, 2024 End: November 10, 2024 Katja Baron MD Referring Provider Active Start : November 10, 2024 End: November 10, 2024 Dr. Calos Mcgill MD Attending Provider Active Start: November 10, 2024 End: November 10, 2024 Source Comments (unrecognize d section and content) In the event this informatio n is protected by the Federal Confidentiality of Alcohol and Drug Abuse Patient Records regulations: The Federal rules restrict any use of the information to criminally investigate or prosecute any alcohol or drug abuse patient.[facility] the event this information is protected by the Federal Confidentiality of Alcohol and Drug Abuse Patient Records regulations: The Federal rules restrict any use of the information to criminally investigate or prosecute any alcohol or drug abuse patient.[facility] Hospital[facility] the event this information is protected by the Federal Confidentiality of Alcohol and Drug Abuse Patient Records regulations: The Federal rules restrict any use of the information to criminally investigate or prosecute any alcohol or drug abuse patient.[facility] Hospital[facility] the event this information is protected by the Federal Confidentiality of Alcohol and Drug Abuse Patient Records regulations: The Federal rules restrict any use of the information to criminally investigate or prosecute any alcohol or drug abuse patient.[facility] the event this information is protected by the Federal Confidentiality of Alcohol and Drug Abuse Patient Records regulations: The Federal rules restrict any use of the information to criminally investigate or prosecute any alcohol or drug abuse patient.[facility] the event this information is protected by the Federal Confidentiality of Alcohol and Drug Abuse Patient Records regulations: The Federal rules restrict any use of the information to criminally investigate or prosecute any alcohol or drug abuse patient.[facility] Hospital[facility] the event this information is protected by the Federal Confidentiality of Alcohol and Drug Abuse Patient Records regulations: The Federal rules restrict any use of the information to criminally investigate or prosecute any alcohol or drug abuse patient.[facility] Hospital[facility] the event this information is protected by the Federal Confidentiality of Alcohol and Drug Abuse Patient Records regulations: The Federal rules restrict any use of the information to criminally investigate or prosecute any alcohol or drug abuse patient.[facility] Hospital[facility] the event this information is protected by the Federal Confidentiality of Alcohol and Drug Abuse Patient Records regulations: The Federal rules restrict any use of the information to criminally investigate or prosecute any alcohol or drug abuse patient.[facility] HospitalIn the event this information is protected by the Federal Confidentiality of Alcohol and Drug Abuse Patient Records regulations: The Federal rules restrict any use of the information to criminally investigate or prosecute any alcohol or drug abuse patient.[facility] INFORMATION SOURCE (unrecogn ized section and content) DATE CREATED AUTHOR 02/26/2024 [facility] DATE CREATED AUTHOR AUTHOR'S ORGANIZ ATION 04/28/2024 [facility] DATE CREATED AUTHOR AUTHOR'S ORGANIZ ATION 10/29/2024 [facility] [place] DATE CREATED AUTHOR AUTHOR'S ORGANIZ ATION 11/12/2024 [facility] FOR RECORDS PERTAINING TO PATIENTS WHO ARE [...] BE BASED ON THE PRIMARY CLINICAL RECORDS. [facility] [employer] [facility]. provides no warranty or guarantee of the accuracy or completeness of information in this document.
== END | disposition home or self-care (01) ==
LOC: US 07:10
PROVIDERS: PCP Family Medicine; Referring Provider Surgery; Visit Provider Surgery
DX: R10.13 Epigastric pain (principal); K21.9 Gastro-esophageal reflux disease without esophagitis
CPT/HCPCS: 76705

== ENCOUNTER 2024-11-27 06:52 | Day surgery (SDC) | payer BC, OTHER, SELFPAY ==
--- OUTSIDE RECORDS SUMMARY | 2024-11-27 06:55 | XMS RPT_ITS | CCD ---
Author Organization [facility] [place] [facility] Care Team Providers Care Electric Range Preparer Name Role Phone Jon CARTER, Steve Mccullough Unavailable Dr. Claribel Smart Primary Care Provider [phone] Dr. Claribel Smart Attending Provider [phone] Dr. Claribel Smart Referring Provider [phone] Bing, Dr. Sanford Primary Care Provider [phone] Bing, Dr. Sanford Attending Provider [phone] Dr. Claribel Smart Referring Provider [phone] Pamela Marques Attending Provider Unavailable Dr. Calos Mcgill Attending Provider [phone] Dr. Calos Mcgill Other Provider Dr. Claribel Smart Primary Care Provider [phone] Bing, Dr. Sanford Referring Provider [phone] DO Abi Jefferson Primary Care Provider DO Abi Jefferson Referring Provider [place] OCCUPATIONAL REHABILITATION AIDE, OCCUPATIONAL REHABILITATION AIDE-C Jocelin Attending Provider Dr. Natasha Banegas Attending Provider Unavailable Primary Care Provider Unavailabl e JESUSITA MAGANA Referring Unavailable JESUSITA MAGANA Admitting Unavailable JESUSITA MAGANA Attending Unavailable Katja Baron MD Primary Care Provider [place] OCCUPATIONAL REHABILITATION AIDE-C, Jocelin Attending Provider [place] OCCUPATIONAL REHABILITATION AIDE-C, Jocelin Referring Provider Dr. Natasha Banegas MD Attending Provider Dr. Natasha Banegas MD Referring Provider Tod CARTER, Katja Referring Provider [phone] Dr. Natasha Banegas MD Other Provider [phone] Makenzie CARTER, Dr. Kaur Admit Provider [phone] DINORA OGLESBY Referring Unavailable IZZY, JESUSITA Attending Unavailable IZZY, JESUSITA Attending Unavailable EL PRASANTH, NAGA Attending Unavailable EL PRASANTH, NAGA Referring Unavailable EL PRASANTH, NAGA Attending Unavailable EL PRASANTH, NAGA Referring Unavailable IZZY, JESUSITA Attending Unavailable Tod CARTER, Katja Primary Care Provider [phone] Tod CARTER, Katja Referring Provider [phone] Dr. Natasha Banegas MD Attending Provider Tod CARTER, Katja Attending Provider [phone] Dr. Calos Mcgill MD Attending Provider [phone] Tod CARTER, Katja Primary Care Provider [phone] Tod CARTER, Katja Referring Provider [phone] Dr. Calos Mcgill MD Referring Provider [phone] [place] OCCUPATIONAL REHABILITATION AIDE, Jocelin Referring Unavailable [place] OCCUPATIONAL REHABILITATION AIDE, Jocelin Attending Unavailable Tod, Chalon Primary Care Unavailable Tod, Chalon Primary Care Unavailable Marcanthony, Natasha Admitting Unavailable Marcanthony, Natasha Referring Unavailable Marcanthony, Natasha Attending Unavailable Tod, Chalon Primary Care Unavailable Tod, Chalon Referring Unavailable CalabrCalos burroughs Attending Unavailable Tod, Chalon Primary Care Unavailable Sailors, Juan Referring Unavailable Sailors, Juan Attending Unavailable Tod, Chalon Primary Care Unavailable Marcanthony, Natasha Consulting Unavailable Marcanthony, Natasha Referring Unavailable Marcanthony, Natasha Attending Unavailable Tod, Chalon Primary Care Unavailable Marcanthony, Natasha Consulting Unavailable Marcanthony, Natasha Admitting Unavailable Marcanthony, Natasha Referring Unavailable Marcanthony, Natasha Attending Unavailable Tod, Chalon Primary Care Unavailable Tod, Chalon Referring Unavailable Calabretta, Calos Attending Unavailable [place] OCCUPATIONAL REHABILITATION AIDE, Jocelin Attending Unavailable Tod, Chalon Primary Care [...] Attending Unavailable Tod, Chalon Primary Care Unavailable Artem, Calos Referring Unavailable Calos Mcgill Attending Unavailable [place] OCCUPATIONAL REHABILITATION AIDE, Jocelin Attending Unavailable Tod, Chalon Primary Care Unavailable Pietr OCCUPATIONAL REHABILITATION AIDE, Jocelin Referring Unavailable Medications Current Medications Medication Drug Class(es) Dates Sig (Normalized) Sig (Original) azithromycin 250 mg oral tablet (6 sources) Macrolide Antimicrobial Start: 07-02-2014 End: 04-27-2024 azithromycin (ZITHROMAX Z-LEE) 250 mg tablet Take 2 tablets by mouth day one, then 1 tablet daily until gone. 1 Package 0 07/02/2014 04/27/2024 Discontinued pantoprazole 40 mg delayed release oral tablet (5 sources) Proton Pump Inhibitor Start: 07-23-2024 take 1 tablet by mouth once daily Pantoprazole 40 mg tablet,delayed release (DR/EC) Active 40 mg PO daily November 10, 2024 12:00am Sucralfate (2 sources) Aluminum Complex Start: 11-10-2024 take 1 tablet by mouth four times daily Sucralfate 1 gram tablet Active 1 g PO 4 TIMES DAILY November 10, 2024 12:00am Completed/Discontinued Medications Medication Drug Class(es) Dates Sig (Normalized) Sig (Original) acetaminophen 325 mg / oxyCODONE hydrochloride 5 mg oral tablet (4 sources) Opioid Agonist Start: 06-02-2024 End: 06-15-2024 Oxycodone-Acetamino phen (Percocet) 5-325 mg tablet Discontinued 1 {tbl} PO Q4H as needed for pain 20 7 0 June 02, 2024 June 15, 2024 10:59am Status post laparoscopy-assiste d vaginal hysterectomy Acquired absence of both cervix and uterus Lucas Carter (13 sources) Start: 03-01-2022 End: 11-28-2022 Lucas Carter Discontinued 2 {tbl} SL/PO DAILY March 01, 2022 1:00am November 28, 2022 3:06pm Start: 03-01-2022 End: 11-28-2022 take 2 tablets by mouth once daily Cholest Discontinued 2 TABLET SL/PO DAILY March 01, 2022 1:00am November 28, 2022 3:06pm Start: 03-01-2022 End: 11-28-2022 take 2 tablets by mouth once daily Cholest Discontinued 2 TABLET SL/PO DAILY March 01, 2022 12:00am November 28, 2022 2:06pm Start: 03-01-2022 take 2 tablets by mo uth once daily Cholest Md Active 2 TABLET SL/PO DAILY March 01, 2022 1:00am Start: 03-01-2022 take 2 tablets by mo uth once daily Cholest Md Active 2 TABLET SL/PO DAILY March 01, 2022 12:00am Hsojzpnr-Zkeuqpwxs-Qsodsxuia rn (4 sources) Start: 08-04-2023 End: 10-07-2023 Iaeccbwz-Gmmrpiehc-Nonesulsn rn (Oriahnn) 300-1-0.5mg(AM) /300 mg(PM) capsule, sequential Discontinued 0 PO .COMPLEX 56 August 04, 2023 12:00am October 07, 2023 4:32pm take 1 YELLOW (multi-ingredient) capsule each morning; take 1 BLUE (elagolix) capsule each evening PO Start: 08-04-2023 End: 10-07-2023 Ofamndlw-Zzcgpgsxw-Zqhmxwikz rn (Oriahnn) 300-1-0.5mg(AM) /300 mg(PM) capsule, sequential Discontinued 0 PO .COMPLEX 56 August 04, 2023 12:00am October 07, 2023 4:32pm take 1 YELLOW (multi-ingredient) capsule each morning; take 1 BLUE (elagolix) capsule each evening PO fluconazole 150 mg oral tablet (6 sources) Azole Antifungal Start: 07-23-2023 End: 12-09-2023 [...] tablet by mouth once a day gemfibrozil [id number] Elza Comfort AT hydrocortisone 25 mg/ml topical cream (20 sources) Corticosteroid Start: 05-16-2021 End: 11-28-2022 Hydrocortisone 2.5 % cream with perineal applicator Discontinued 1 NMA RC 1 to 2 times per day as needed for hemorrhoids 30 May 16, 2021 11:38am November 28, 2022 3:06pm Start: 10-19-2019 End: 11-28-2022 Hydrocortisone 2.5 % cream w ith perineal applicator Discontinued 1 NMA RC 1 to 2 times per day as needed for hemorrhoids 30 October 19, 2019 12:00am May 16, 2021 11:39am ibuprofen 200 mg oral tablet (6 sources) Nonsteroidal Anti-inflammatory Drug Start: 07-23-2023 End: 10-07-2023 take 1 tablet by mouth every six hours Ibuprofen (Advil) 200 mg tablet Discontinued 200 mg PO EVERY 6 HOURS July 23, 2023 12:00am October 07, 2023 4:35pm krill oil (13 sources) Start: 03-01-2022 End: 11-28-2022 take 1 capsule by mouth once daily Fawub-Ql-9-Dha-Epa -Phospho-Ast (Krill Oil) 1,475-090-41-80 mg Capsule Discontinued 2 NMA PO DAILY March 01, 2022 1:00am November 28, 2022 3:06pm Start: 03-01-2022 End: 11-28-2022 Kdwbp-Tw-4-Eut-Rhi-Wznyzbm-A st (Krill Oil) 1,787-915-50-80 mg Capsule Discontinued 2 CAP PO DAILY March 01, 2022 1:00am November 28, 2022 3:06pm Start: 03-01-2022 End: 11-28-2022 Hszrh-Ts-8-Die-Rxx-Bcjfrnj-A st (Krill Oil) 1,448-591-65-80 mg Capsule Discontinued 2 CAP PO DAILY March 01, 2022 12:00am November 28, 2022 2:06pm Start: 03-01-2022 Viiah-Dy-6-Dha -Feu-Repkwbb-Kcd (Krill Oil) 1,251-948-41-80 mg Capsule Active 2 CAP PO DAILY March 01, 2022 1:00am Start: 03-01-2022 Vxwqf-Yy-4-Dha -Xny-Cfghman-Ggr (Krill Oil) 1,891-540-56-80 mg Capsule Active 2 CAP PO DAILY March 01, 2022 12:00am naproxen 500 mg oral tablet (8 sources) Nonsteroidal Anti-inflammatory Drug Start: 10-07-2023 End: 07-17-2024 take 1 tablet by mouth twice daily as needed for pain Naproxen 500 mg tablet Discontinued 500 mg PO TWICE DAILY NEEDED as needed for Pain 30 June 02, 2024 12:00am July 17, 2024 11:00am [...] capsule,delayed release(DR/EC) Discontinued 40 mg PO DAILY 3 December 11, 2021 8:01am November 28, 2022 3:06pm Nkaqinmvk-Asmevsbwt-Zjbkeiei (6 sources) Start: 07-23-2023 End: 10-07-2023 Runyuwyeb-Pbbwsmrys-Ovxygdoj dr (Myfembree) 40-1-0.5 mg tablet Discontinued 1 {tbl} PO DAILY 16 03July 23, 2023 12:00am October 07, 2023 4:31pm Start: 07-23-2023 End: 10-07-2023 Pbkvzcgdk-Nhnufotpp-Vtkcclcf dr (Myfembree) 40-1-0.5 mg tablet Discontinued 1 {tbl} PO DAILY July 23, 2023 12:00am October 07, 2023 4:31pm Start: 07-23-2023 take 1 tablet by mabel once daily Jauegsurx-Ecjjjuvkd-Rwrnacgcau (Myfembre e) 40-1-0.5 mg tablet Active 1 TABLET PO DAILY July 23, 2023 12:00am saccharomyces boulardii 250 mg oral capsule (10 sources) Start: 11-28-2022 End: 11-10-2024 take 1 capsule by mouth once daily Saccharomyces Boulardii (Daily Probiotic (S. Boulardii)) 250 mg capsule Discontinued 250 mg PO DAILY November 28, 2022 12:00am November 10, 2024 2:15pm Start: 11-28-2022 take 1 capsule by mo [facility] twice daily Saccharomyces Boulardii (Daily Probiotic (S. [...] to to stenosis. Benign neoplasm of uterus (16 sources) Uterine leiomyoma; Translations: [Leiomyoma of uterus, unspecified] 10-03-2018 Episodic Disorders of lipid metabolism (16 sources) Hyperlipidemia; Translations: [Hyperlipidemia, unspecified] 12-21-2019 Chronic Endometriosis (18 sources) Uterine adenomyosis; Translations: [Adenomyosis of uterus] [...] unspecified, without bleeding] Onset: 11-09-2024 Episodic Hemorrhoids (16 sources) Hemorrhoids; Translations: [Unspecified hemorrhoids] 10-19-2019 Episodic Joint disorders and dislocations; trauma-related (17 sources) Dislocation of digit of hand; Translations: [Dislocation of proximal interphalangeal joint of unspecified finger, initial encounter] Onset: 07-10-2021 07-10-2021 Episodic Menstrual disorders (16 sources) Menorrhagia; Translations: [Excessive and frequent menstruation with regular cycle] 10-03-2018 Chronic Comment on above: emb done recommend a blation Other female genital disorders (16 sources) Endocervical polyp; Translations: [Polyp of cervix uteri] 10-09-2018 Episodic Comment on above: recommend removal at time of ablation Residual codes; unclassified (4 sources) Family history of malignant neoplasm of thyroid; Translations: [Family history of malignant neoplasm of other organs or systems] 12-09-2023 Episodic Comment on above: Both sons, ages 21 a nd 23 for diagnosis, thyroidectomy, Radioactive iodine. Patient to see remote encoding center manager. Residual codes; unclassified (5 sources) History of vaginal hysterectomy; Translations: [Acquired [...] Episodic Inflammatory diseases of female pelvic organs (6 sources) Adhesion of pelvis; Translations: [Female pelvic [...] Test Name Value Interpretation Reference Range Facility Gallbladderon 11-13-2024 Gallbladder [facility] [address] [place], [place] [id number] Gallbladder MR#: [id number] Acct: [id number] Name: CIARRA ALBA LÓPEZ Rep #: [id number] : 1975 F 49 From: Sergio buckner MD PCP: Dr. Ktaja Baron MD Status: [facility] Study: Gallbladder Date of Exam: 11/13/24 Exam# [id number] Ordering Dr: Calos Mcgill PROCEDURE: GALLBLADDER 11/13/2024 REASON FOR EXAM: EPIGASTRIC PAIN COMPARISON: None FINDINGS: Liver: Diffusely echogenic suggesting fatty infiltration. Liver measures 17.1 cm. Gallbladder: No stones, sludge, wall thickening or tenderness. Common bile duct: Normal measuring 3 mm. . Pancreas: Normal Other: Findings suggestive of a 7 mm x 7 mm x 6 mm echogenic nodule in the superior pole of the right kidney. This may represent an angiomyolipoma. US/Gallbladder IMPRESSION: Fatty infiltration of the liver. 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 Reading Location: [facility] CC: Dr. Calos Mcgill MD; Dr. Katja Baron MD Radio Interference Investigator: Signed Normal [facility] Allergen, Food Profile 1411-10-2024 BEEF <0.10 Normal Class 0 [facility] Comment on above: Performed By: #### L 5500.0550, L3410.2400 ####[facility] [address] [place], [address] CHOCOLATE <0.10 Normal Class 0 [facility] Comment on above: Performed By: #### L 5500.0550, L3410.2400 ####[facility] [address] [place], [address] CODFISH <0.10 Normal Class 0 [facility] Comment on above: Performed By: #### L 5500.0550, L3410.2400 ####[facility] [address] [place], [place], [id number] COMMENT Comment Normal . [facility] Comment on above: Result Comment: Morenita gandhi of Specific IgE Class Description of Class ----- < 0.10 0 Negative 0.10 - 0.31 0/I Equivocal/Low 0.32 - 0.55 I Low 0.56 - 1.40 II Moderate 1.41 - 3.90 III High 3.91 - 19.00 IV Very High 19.01 - 100.00 V Very High >100.00 Very High Performed By: #### L 5500.0550, L3410.2400 ####[facility] [address] [place], [address] CORN <0.10 Normal Class 0 [facility] Comment on above: Performed By: #### L 5500.0550, L3410.2400 ####[facility] [address] [place], [address] EGG, WHOLE <0.10 Normal Class 0 [facility] Comment on above: Result Comment: Perf ormed at: BN - [facility] [address] [id number] Talent Development Specialist: Seth Bean MD, Phone: [phone] Performed By: #### L 5500.0550, L3410.2400 ####[facility] [address] [place], [address] MILK (COW) <0.10 Normal Class 0 [facility] Comment on above: Performed By: #### L 5500.0550, L3410.2400 ####[facility] [address] [place], [address] MUSSELS <0.10 Normal Class 0 [facility] Comment on above: Performed By: #### L 5500.0550, L3410.2400 ####[facility] [address] [place], [address] PEANUT <0.10 Normal Class 0 [facility] Comment on above: Performed By: #### L 5500.0550, L3410.2400 ####[facility] [address] [place], [address] PORK <0.10 Normal Class 0 [facility] Comment on above: Performed By: #### L 5500.0550, L3410.2400 ####[facility] [address] [place], [address] SALMON <0.10 Normal Class 0 [facility] Comment on above: Performed By: #### L 5500.0550, L3410.2400 ####[facility] [address] [place], [address] SHRIMP <0.10 Normal Class 0 [facility] Comment on above: Performed By: #### L 5500.0550, L3410.2400 ####[facility] [address] [place], [address] SOYBEAN <0.10 Normal Class 0 [facility] Comment on above: Performed By: #### L 5500.0550, L3410.2400 ####[facility] [address] [place], [address] TUNA <0.10 Normal Class 0 [facility] Comment on above: Performed By: #### L 5500.0550, L3410.2400 ####[facility] [address] [place], [address] WHEAT <0.10 Normal Class 0 [facility] Comment on above: Performed By: #### L 5500.0550, L3410.2400 ####[facility] [address] [place], [address] Surgery Visit Reporton 11-10 Surgery Visit Report [facility] [address] [place] [address] OFFICE VISIT Date of Service: 11/10/24 MR#: [id number] Acct: [id number] Name: CIARRA ALBA LÓPEZ Rep #: [id number] : 1975 Provider: Dr. Calos erickson MD Age/Sex: 49/F Location: [facility] Status: Signed with Addenda ADDENDUM by Dr. Calos Mcgill MD on 11/24/24 at 0735 Intake Chief Complaint: GERD Allergies No Known Allergies Allergy (Verified 11/23/24 15:18) Medications ???Medication ???Instructions ???Recorded ???Confirmed ???Type pantoprazole 40 mg tablet,delayed 40 mg PO QDAY 11/10/24 11/23/24 H istory release sucralfate 1 gram tablet 1 g PO 4X/DAY 11/10/24 11/23/24 Hi story Assessment and Plan Assessment and Plan (1) GERD (gastroesophageal reflux disease): Status: Chronic Qualifiers: Esophagitis presence: esophagitis presence not specified Qualified Code(s): K21.9 - Gastro- esophageal reflux disease without esophagitis (2) Blood in stool: Status: Acute Plan: The patient is having blood in her stool and warrants colonoscopy for evaluation. She reports the blood is bright and she is not having any pain. This has been going on for about a week. Orders: Orders Gallbladder 11/13/24 K21.9 - Gastro-esophageal reflux disease without esophagitis, R10.13 - Epigastric pain EGD 11/10/24 Colonoscopy Today 11/24/24734 Date Calos Mcgill MD cc: * Signed Intake Vital Signs 07/17/24 11:01 11/10/24 [...] g PO 4X/DAY 11/10/24 11/10/24 Hi story PFS Medical History (Updated 11/10/24 @ 14:22 by [...] safe at home: Yes additional social history: Yfexpje-Qtys-Imkj employed Patient works [employer] HPI HPI HPI: Patient is a 49-year-old [...] Hematologic: No blood thinners, No blood disorders, (more content not included)... Normal [facility] Celiac Disease Profileon ENDOMYSIAL IGA Negative Normal Negative [facility] Comment on above: Performed By: #### L 5500.0550, L3410.2400 ####[facility] [address] [place], [address] IMMUNOGLOB A QN 241 mg/dL Normal 87-352 [facility] Comment on above: Result Comment: Perf ormed at: CB - [facility] [address] [id number] Talent Development Specialist: Franklin Ellis PhD, Phone: [phone] Performed By: #### L 5500.0550, L3113.1433 ####[facility] [address] [place], [place], [id number] tTG IGA <2 Normal 0-3 [facility] Comment on above: Result Comment: Nega tive 0 - 3 Weak Positive 4 - 10 Positive >10 Tissue Transglutaminase (tTG) has been identified as the endomysial antigen. Studies have demonstr- ated that endomysial IgA antibodies have over 99% specificity for gluten sensitive enteropathy. Performed By: #### L 5500.0550, L3965.3015 ####[facility] [address] [facility] [address] [place], [place], [id number] Laboratory - Miscellaneous t estsOrdered By: Katja Baron on 11-03-2024 Service comment (Unsp spec) [Interp] Comment . [facility] Comment on above: Levels of Specific I [...] IgE Qn (S) <0.10 kU/L Class 0 [facility] Serum codfish IgE antibody a ssay (units/volume)Ordered By: Katja Baron on 11-03-2024 Codfish IgE Qn (S) <0.10 kU/L Class 0 [facility] Serum corn IgE antibody assa y (units/volume)Ordered By: Katja Baron on 11-03-2024 [place] IgE Qn (S) <0.10 kU/L Class 0 [facility] Serum cow milk IgE antibody assay (units/volume)Ordered By: Katja Baron on 11-03-2024 Cow milk IgE Qn (S) <0.10 kU/L Class 0 [facility] Serum or plasma IgA measurem ent (mass/volume)Ordered By: Katja Baron on 11-03-2024 IgA [Mass/Vol] 241 mg/dL 87-352 [facility] Comment on above: Performed at: [facility] [employer] [id number] Director: Franklin Ellis PhD, Phone: [phone] Serum peanut IgE antibody as say (units/volume)Ordered By: Katja Baron on 11-03-2024 Peanut IgE Qn (S) <0.10 kU/L Class 0 [facility] Serum pork IgE antibody assa y (units/volume)Ordered By: Katja Baron on 11-03-2024 Pork IgE Qn (S) <0.10 kU/L Class 0 [facility] Serum salmon IgE antibody as say (units/volume)Ordered By: Katja Tod on 11-03-2024 [place] IgE Qn (S) <0.10 kU/L Class 0 [facility] Serum soybean IgE antibody a ssay (units/volume)Ordered By: Katja Baron on 11-03-2024 Soybean IgE Qn (S) <0.10 kU/L Class 0 [facility] Serum tissue transglutaminas e (tTG) IgA antibody assay (units/volume)Ordered By: Katja Baron on 11-03-2024 tTG IgA Qn (S) <2 U/mL 0-3 [facility] Comment on above: Negative 0 - 3 Weak Positive 4 - 10 Positive >10 Tissue Transglutaminase (tTG) has been identified as the endomysial antigen. Studies have demonstr- ated that endomysial IgA antibodies have over 99% specificity for gluten sensitive enteropathy. Serum tuna IgE antibody assa y (units/volume)Ordered By: Katja Baron on 11-03-2024 Tuna IgE Qn (S) <0.10 kU/L Class 0 [facility] Serum wheat IgE antibody ass ay (units/volume)Ordered By: Katja Baron on 11-03-2024 Wheat IgE Qn (S) <0.10 kU/L Class 0 [facility] Serum whole egg IgE antibody assay (units/volume)Ordered By: Katja Baron on 11-03-2024 Whole Egg IgE Qn (S) <0.10 kU/L Class 0 [facility] Comment on above: Performed at: [address] [id number] Director: Seth Bean MD, Phone: [phone] CNOVon 10-27-2024 CNOV Office Visit (ENDOSO ) CIARRA ALBA ([id number]) 1975 F Date Time Provider Department 10/27/24 [...] 2 Sons with thyroid cancer -- ? [facility] with thyroid issues -- Thyroid US in [...] in 04/2024 Comparison: 07/2024 and 12/2023 Equipment: [employer] Transducer: Linear/Trapezoidal multifrequency Regions examined: Thyroid Technique: Sonography was performed. Color and power Doppler were applied when indicated. Images were obtained and stored in a permanent archive. Right lobe: L 4.61 x W 1.12 x AP 1.49 cm; Homogeneous Isthmus: 0.30 cm; Homogeneous Left lobe: L (more content not included)... Normal [facility] TSH SerPl-aCncon 10-27-2024 TSH Qn 1.500 m[IU]/L Normal 0.270-4.200 [facility] Comment on above: Order Comment: Speci men Type: BLOOD SPECIMENOrdering Facility: [facility] Address: [address] [place] [address] [place] [address] Result Comment: If t he patient is , TSH reference range varies by gestational period: First Trimester (weeks 9-12): 0.180-2.990 mIU/L Second Trimester: 0.110-3.980 mIU/L Third Trimester: 0.480-4.710 mIU/L Nasir Benson et al. A Practical Approach for the Verifications and Determination of Site- and Trimester-Specific Reference Intervals for Thyroid Function tests in . Thyroid, 2019:29:3:412-420. Yasmani Gutierrez, et al. 2017 Guidelines of the [place] Thyroid Association for the Diagnosis and Management of Thyroid Disease during and the . Thyroid, 2017:27:3:315-389. Performed By: #### 3 016-3 ####[facility] LABCLIA [id number] [address] [facility] US Thyroid glandon [facility] Radiology Study observation (narrative) [facility] CNOVon 07-29-2024 CNOV Office Visit (ENSUMN ) CIARRA ALBA ([id number]) 1975 F Date Time Provider Department 07/29/24 3:00 PM JESUSITA MAGANA During your visit today, we recorded the following information about you: Pulse Blood pressure Weight Last Period 90/minute 129/79 77.4 kg 03/23/24 Moo He MA 07/29/2024 2:51 PM Signed Thank you for choosing the [facility] Department of Endocrinology, Diabetes and Metabolism. Did you know that you need to call 48 hours in advance of your scheduled visit, if you are unable to make your appointment? The [facility]inology [facility] [place] thanks you for your commitment, because patients not showing to their appointment results in a lost opportunity for patients to receive [facility] health care at the [facility]. To Cancel an appointment, please choose one of the following: - Call the Appointment Call Center at [phone] - From [employer], Go to Appointments - Cancel Appts If cancelling, consider your need to reschedule to prevent further delays in your care. To Schedule an appointment, please choose one of the following: - Call the Appointment Call Center at [phone] - From [employer], Go to Appointments - Request an Appt [...] 10/27 2:[address] Abdi Anguiano in [place] Allergies As of Date: 07/29/2024 (No Known [...] your clinician: Thank you for choosing the [facility] Department of Endocrinology, Diabetes and Metabolism. Did you know that you need to call 48 hours in advance of your scheduled visit, if you are unable to make your appointment? The [facility] [place] thanks you for your commitment, because patients not showing to their appointment results in a lost opportunity for patients to receive world class health care at the [facility]. To Cancel an appointment, please choose one of the following: - Call the Appointment Call Center at [phone] - From [employer], Go to Appointments - Cancel Appts If cancelling, consider your need to reschedule to prevent further delays in your care. To Schedule an appointment, please choose one of the following: - Call the Appointment Call Center at [phone] - From [employer], Go to Appointments - Request an Appt Encounter Status:Closed by JESUSITA MAGANA on 07/29/24 Normal [facility] Restaurant Mgr Office Visit Reporton 07-17-2024 Restaurant Mgr Office Visit Report [facility] [address], [address] [place] [address] OFFICE VISIT Date of Service: 07/17/24 MR#: [id number] Acct: [id number] Name: CIARRA ALBA Rep #: [id number] : 1975 Provider: Dr. 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 Orders: Orders SCRN MAMM (CAD)W/CARMEN BILAT 07/17/24 Z12.31 - Encounter for screening mammogram for malignant neoplasm of breast Plan fu annually 07/18/24 0909 Date Natasha Banegas MD Cosigner Signature: Date (if applicable) CC: Normal [facility] Restaurant Mgr Office Visit Reporton 06-15-2024 Restaurant Mgr Office Visit Report [facility] [address], [address] [place] [address] OFFICE VISIT Date of Service: 06/15/24 MR#: [id number] Acct: [id number] Name: CIARRA ALBA LÓPEZ Rep #: [id number] : 1975 Provider: Dr. 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 06/16/24 1556 Date Natasha Lay Signature: Date (if applicable) CC: Normal [facility] CBC-Complete Blood Cnt No Di ffon 06-03-2024 Erythrocyte distribution width (RBC) [Ratio] 13.0 % Normal 11.6-14.6 [facility] Comment on above: Performed By: #### L 100.0500 #### [facility] [address] [place], [address] Hematocrit (Bld) [Volume fraction] 33.7 % Low 37-47 [facility] Comment on above: Performed By: #### L 100.0500 #### [facility] [address] [place], [address] Hemoglobin (Bld) [Mass/Vol] 11.4 g/dL Low 12.0-15.0 [facility] Comment on above: Performed By: #### L 100.0500 #### [facility] [address] [place], [address] MCH (RBC) [Entitic mass] 29.8 pg Normal 27.0-32.0 [facility] Comment on above: Performed By: #### L 100.0500 #### [facility] [address] [place], [address] MCHC (RBC) [Mass/Vol] 33.8 g/dL Normal 32-36 [facility] Comment on above: Performed By: #### L 100.0500 #### [facility] [address] [place], [address] MCV (RBC) [Entitic vol] 88.2 fL Normal 81-[address] [facility] Comment on above: Performed By: #### L 100.0500 #### [facility] [address] [place], [address] Platelet mean volume (Bld) [Entitic vol] 10.7 fL Normal 6.2-12.0 [facility] Comment on above: Performed By: #### L 100.0500 #### [facility] [address] [place], [address] Platelets (Bld) [#/Vol] 202 10*3/uL Normal 150-450 [facility] Comment on above: Performed By: #### L 100.0500 #### [facility] [address] [place], [address] RBC (Bld) [#/Vol] 3.82 10*6/uL Low 4.2-5.4 [facility] Comment on above: Performed By: #### L 100.0500 #### [facility] [address] [place], [address] RDW SD 42.0 fl Normal 35.1-43.9 [facility] Comment on above: Performed By: #### L 100.0500 #### [facility] [address] [place], [address] WBC (Bld) [#/Vol] 13.6 10*3/uL High 4.4-11.0 [facility] Comment on above: Performed By: #### L 100.0500 #### [facility] [address] [place], [address] Erythrocyte distribution wid th ratioOrdered By: Natasha Banegas on 06-03-2024 Erythrocyte distribution width (RBC) [Ratio] 13.0 % 11.6-14.6 [facility] Erythrocyte distribution wid th standard deviationOrdered By: Natasha Banegas on 06-03-2024 Erythrocyte distribution width (RBC) [Entitic vol] 42.0 fL 35.1-43.9 [facility] Hematocrit Auto (Bld) [Volum e fraction]Ordered By: Natasha Banegas on 06-03-2024 Hematocrit (Bld) [Volume fraction] 33.7 % Low 37-47 [facility] Hemoglobin measurementOrdere d By: Natasha Banegas on 06-03-2024 Hemoglobin (Bld) [Mass/Vol] 11.4 g/dL Low 12.0-15.0 [facility] MCV (mean corpuscular volume ) determinationOrdered By: Natasha Banegas on 06-03-2024 MCV (RBC) [Entitic vol] 88.2 fL 81-[address] [facility] Mean corpuscular hemoglobin (MCH) determinationOrdered By: Natasha Banegas on 06-03-2024 MCH (RBC) [Entitic mass] 29.8 pg 27.0-32.0 [facility] Mean corpuscular hemoglobin concentration (MCHC) determinationOrdered By: Natasha Banegas on 06-03-2024 MCHC (RBC) [Mass/Vol] 33.8 g/dL 32-36 [facility] Mean platelet volume determi nationOrdered By: Natasha Banegas on 06-03-2024 Platelet mean volume (Bld) [Entitic vol] 10.7 fL 6.2-12.0 [facility] Platelet countOrdered By: Jeanna Banegas on 06-03-2024 Platelets (Bld) [#/Vol] 202 10*3/uL 150-450 [facility] RBC Auto (Bld) [#/Vol]Ordere d By: Natasha Banegas on 06-03-2024 RBC (Bld) [#/Vol] 3.82 10*6/uL Low 4.2-5.4 [facility] White blood cell (WBC) count Ordered By: Natasha Banegas on 06-03-2024 WBC (Bld) [#/Vol] 13.6 10*3/uL High 4.4-11.0 [facility] Absolute neutrophil countOrd ered By: Natasha Banegas on 06-02-2024 Neutrophils (Bld) [#/Vol] 12.4 10*3/uL High 2.0-7.7 [facility] Basophil percentageOrdered B y: Natasha Banegas on 06-02-2024 Basophils/100 WBC (Bld) 0.2 % 0-[address] [facility] CBC W/Diff, Vicenteon 05-16 Absolute Lymph 1.01 X10 3/uL Normal 0.83-4.51 [facility] Comment on above: Performed By: #### L 100.0100 ####[facility] [address] [place], [address] Absolute Neut 12.4 X10 3/uL High 2.0-7.7 [facility] Comment on above: Performed By: #### L 100.0100 ####[facility] [address] [place], [address] Basophils/100 WBC (Bld) 0.2 % Normal 0-[address] [facility] Comment on above: Performed By: #### L 100.0100 ####[facility] [address] [place], [address] Eosinophils/100 WBC (Bld) 0.0 % Normal 0-5 [facility] Comment on above: Performed By: #### L 100.0100 ####[facility] [address] [place], [address] Erythrocyte distribution width (RBC) [Ratio] 12.8 % Normal 11.6-14.6 [facility] Comment on above: Performed By: #### L 100.0100 ####[facility] [address] [place], [address] Hematocrit (Bld) [Volume fraction] 37.2 % Normal 37-47 [facility] Comment on above: Performed By: #### L 100.0100 ####[facility] [address] [place], [address] Hemoglobin (Bld) [Mass/Vol] 12.6 g/dL Normal 12.0-15.0 [facility] Comment on above: Performed By: #### L 100.0100 ####[facility] [address] [place], [address] IG% 0.200 Normal 0.0-0.9 [facility] Comment on above: Result Comment: IG% - Immature Granulocytes (promyelocytes, myelocytes and metamyelocytes) > 1% indicates that a LEFT SHIFT is Present. Performed By: #### L 100.0100 ####[facility] [address] [place], [address] Lymphocytes/100 WBC (Bld) 7.4 % Low 19-41 [facility] Comment on above: Performed By: #### L 100.0100 ####[facility] [address] [place], [address] MCH (RBC) [Entitic mass] 29.9 pg Normal 27.0-32.0 [facility] Comment on above: Performed By: #### L 100.0100 ####[facility] [address] [place], [address] MCHC (RBC) [Mass/Vol] 33.9 g/dL Normal 32-36 [facility] Comment on above: Performed By: #### L 100.0100 ####[facility] [address] [place], [address] MCV (RBC) [Entitic vol] 88.4 fL Normal 81-[address] [facility] Comment on above: Performed By: #### L 100.0100 ####[facility] [address] [place], [address] Monocytes/100 WBC (Bld) 1.8 % Normal 0-[address] [facility] Comment on above: Performed By: #### L 100.0100 ####[facility] [address] [place], [address] Neutrophils/100 WBC (Bld) 90.4 % High 47-70 [facility] Comment on above: Performed By: #### L 100.0100 ####[facility] [address] [place], [address] Nucleated RBC (Bld) [#/Vol] 0 10*3/uL Normal 0-5 [facility] Comment on above: Performed By: #### L 100.0100 ####[facility] [address] [place], [address] Platelet mean volume (Bld) [Entitic vol] 10.1 fL Normal 6.2-12.0 [facility] Comment on above: Performed By: #### L 100.0100 ####[facility] [address] [place], [address] Platelets (Bld) [#/Vol] 189 10*3/uL Normal 150-450 [facility] Comment on above: Performed By: #### L 100.0100 ####[facility] [address] [place], [address] RBC (Bld) [#/Vol] 4.21 10*6/uL Normal 4.2-5.4 [facility] Comment on above: Performed By: #### L 100.0100 ####[facility] [address] [place], [address] RDW SD 40.9 fl Normal 35.1-43.9 [facility] Comment on above: Performed By: #### L 100.0100 ####[facility] [address] [place], [address] WBC (Bld) [#/Vol] 13.7 10*3/uL High 4.4-11.0 [facility] Comment on above: Performed By: #### L 100.0100 ####[facility] [address] [place], [address] Discharge Instructionon 05-16 Discharge Instruction [facility] Medical Records Department [address] [place] [address] Instructions for Home/Discharge Instructions 06/02/24 1852 MR#: [id number] Acct: [id number] Name: CIARRA ALBA Rep #: [id number] : 1975 48 From: Natasha Banegas MD [...] Order can be placed): Home, Self Care 06/02/24 185 Natasha Banegas MD CC: Dr. Katja Baron MD Signed Normal [facility] Eosinophil percentageOrdered By: Natasha Banegas on 06-02-2024 Eosinophils/100 WBC (Bld) 0.0 % 0-5 [facility] Immature granulocytes/100 WB C Auto (Bld)Ordered By: Natasha Banegas on 06-02-2024 Immature granulocytes/100 WBC (Bld) 0.200 % 0.0-0.9 [facility] Comment on above: IG% - Immature Granu locytes (promyelocytes, myelocytes and metamyelocytes) > 1% indicates that a LEFT SHIFT is Present. Lymphocytes Auto (Unsp spec) [#/Vol]Ordered By: Natasha Banegas on 06-02-2024 Lymphocytes (Bld) [#/Vol] 1.01 10*3/uL 0.83-4.51 [facility] Lymphocytes/100 WBC Auto (Un sp spec)Ordered By: Natasha Banegas on 06-02-2024 Lymphocytes/100 WBC (Bld) 7.4 % Low 19-41 [facility] MR/POSTOP.ANEon 06-02-2024 MR/POSTOP.[facility] Medical Records Department [address] [place] [address] Anesthesia Postop Eval I 06/02/24 1656 MR#: [id number] Acct: [id number] Name: CIARRA ALBA LÓPEZ Rep #: [id number] : 1975 48 From: Judy Kendrick PCP: Dr. Katja Baron MD Status:REG SDC Y Race: C Location: [place] [address] Anesthesia: Postop Eval I Current Vital Signs Temperature: 97 F Pulse Rate: 85 Blood Pressure: 106/62 Respiratory Rate: 16 Pulse Ox: 93 Assessment Airway patent: Yes Spontaneous unlabored respirations: Yes nausea: No Vomiting: No Anesthesia Complication: No Fluid Hydration Crystalloid volume administer (ml): 2,800 Total IV fluid infused: 2,800 Progress Note Anesthesia document: Postop Eval 1 completed: Yes 06/02/24 1656 Date Judy Lay Signature: Date CC: Signed Normal [facility] MR/[id number] 06-02-2024 [facility] Medical Records Department [address] [place] [address] Anesthesia Postop Eval II 06/02/24 1747 MR#: [id number] Acct: [id number] Name: BRIDGETALYCIACIARRA Rep #: [id number] : 1975 48 From: Judy Kendrick PCP: Dr. Katja Baron MD Status:REG [facility] Y Race: C Location: [place] [address] Anesthesia Postop Eval I Sum Postop Eval Completion status Anesthesia document: Postop Eval 1 completed: Yes Anesthesia Postop Eval I Summary Anesthesia Postop Eval I Summary: Anesthesia Postop Eval I: Assessment Summary Airway patent Yes 06/02/24 16:56 DYNAMICS AX CONSULTANT.CSIR Spontaneous unlabored Yes 06/02/24 16:56 DYNAMICS AX CONSULTANT.CSIR respirations Mental status nausea No 06/02/24 16:56 DYNAMICS AX CONSULTANT.CSIR Vomiting No 06/02/24 16:56 DYNAMICS AX CONSULTANT.CSIR Anesthesia Postop Eval I: Fluid Summary Crystalloid volume administer 2,800 06/02/24 16:56 DYNAMICS AX CONSULTANT.CSIR (ml) Colloids volume administered ( ml) Blood Product volume administered (ml) Total IV fluid infused 2,800 06/02/24 16:56 DYNAMICS AX CONSULTANT.CSIR Anesthesia Postop Eval I: Summary Notes Anesthesia Complication No 06/02/24 16:56 DYNAMICS AX CONSULTANT.CSIR Anesthesia Complication Comment: Post-operative progress note Anesthesia: Postop Eval II Evaluation Mental status: Awake and Calm Pain Level: 0 nausea: No Vomiting: No 06/02/24 1747 Date Judy Lay Signature: Date CC: Signed Normal [facility] Monocyte percentageOrdered B y: Natasha Banegas on 06-02-2024 Monocytes/100 WBC (Bld) 1.8 % 0-[address] [facility] Neutrophil percentageOrdered By: Natasha Banegas on 06-02-2024 Neutrophils/100 WBC (Bld) 90.4 % High 47-70 [facility] Nucleated red blood cell per centageOrdered By: Natasha Banegas on 06-02-2024 Nucleated RBC/100 WBC (Bld) [Ratio] 0 % 0-5 [facility] Operative Reporton Operative Report [facility] Medical Records Department [address] [place] [address] Operative Report 06/02/24 1700 MR#: [id number] Acct: [id number] Name: CIARRA ALBA LÓPEZ Rep #: [id number] : 1975 48 From: Natasha Banegas MD PCP: Dr. 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 Normal [facility] Pelvis 1 or 2 Viewson 2024 Pelvis 1 or 2 Views [facility] Imaging Services [address] [place] [address] Pelvis 1 or 2 Views MR#: [id number] Acct: [id number] Name: CIARRA ALBA LÓPEZ Rep #: [id number] : 1975 F 48 From: Gabby Chacon DO PCP: Dr. Katja Baron MD Status: [facility] Study: Pelvis 1 or 2 Views Date of Exam: 06/02/24 Exam# [id number] Ordering Dr: Natasha Banegas PROCEDURE: PELVIS 1 OR 2 VIEWS 06/02/2024 REASON FOR EXAM: CLOSING COUNT DISCREPANCY TECHNIQUE: 1 view(s) of the pelvis. FINDINGS: Hardware: No radiopaque density is demonstrated. Bones: Unremarkable Joints: Normal alignment at the hips and sacroiliac joints. soft tissues: Soft tissues are unremarkable. Other: RAD/Pelvis 1 or 2 Views IMPRESSION: No radiopaque density is demonstrated. Reading Location: [facility] CC: Dr. Katja Baron MD; Dr. Natasha Banegas MD Radio Interference Investigator: Signed Normal [facility] ,Urineon 06-02-2024 Beta HCG ( test) Ql (U) Negative Normal [facility] Comment on above: Result Comment: Very dilute urine specimens, as indicated by a low specific gravity, may not contain workforce services representative levels of hCG. If is still suspected, a first morning urine specimen should be collected 48 hours later and tested. Performed By: #### L 400.7600 ####[facility] [address] [place], [place], [address] Surgery Specimen Level Von 0 06-02-2024 Surgery Specimen Level V -------- Patient Age/Sex Location Account Attending Physician -------- CIARRA ALBA 48/F MS3 [id number] Dr. Natasha Banegas MD -------- Specimen: [id number] Received: 06/03/24 Status: CHRISTINA Jon Num: [id number] Spec Type: HYSTERECT Subm Dr: Dr. Natasha [...] to be 0.3cm of that total distance. Credit Reporter sections are submitted as follows: A1- anterior cervix A2- posterior cervix A3- anterior uterine wall A4- anterior uterine wall A5- anterior uterine wall A6-posterior uterine wall A7- posterior uterine wall A8- posterior uterine wall A9- one fallopian tube A10- second fallopian tube 06/03/2024 CPT:02884, TC:4 -------- Patient Age/Sex Location Account Attending Physician -------- CIARRA ALBA 48/F MS3 [id number] Dr. Natasha Banegas MD -------- Signed (signature on file) Dr. Juan Owens MD 06/15/24 0041 -------- Normal [facility] Comment on above: Performed By: #### P SUV ####[facility] [address] [place], [address] Urine testOrdered By: Natasha Banegas on 06-02-2024 HCG ( test) Ql (U) Negative [facility] Comment on above: Very dilute urine sp ecimens, as indicated by a low specificgravity, may not contain workforce services representative levels of hCG. If is still suspected, a first morning urinespecimen should be collected 48 hours later and tested. CBC-Complete Blood Cnt No Di ffon 05-27-2024 Erythrocyte distribution width (RBC) [Ratio] 12.8 % Normal 11.6-14.6 [facility] Comment on above: Performed By: #### L 501.9520, L100.0500, BTSPAT #### [facility] [address] [place], [address] Hematocrit (Bld) [Volume fraction] 43.3 % Normal 37-47 [facility] Comment on above: Performed By: #### L 501.9520, L100.0500, BTSPAT #### [facility] [address] [place], [address] Hemoglobin (Bld) [Mass/Vol] 14.3 g/dL Normal 12.0-15.0 [facility] Comment on above: Performed By: #### L 501.9520, L100.0500, BTSPAT #### [facility] [address] [place], [address] MCH (RBC) [Entitic mass] 29.4 pg Normal 27.0-32.0 [facility] Comment on above: Performed By: #### L 501.9520, L100.0500, BTSPAT #### [facility] [address] [place], [address] MCHC (RBC) [Mass/Vol] 33.0 g/dL Normal 32-36 [facility] Comment on above: Performed By: #### L 501.9520, L100.0500, BTSPAT #### [facility] [address] [place], [address] MCV (RBC) [Entitic vol] 88.9 fL Normal 81-[address] [facility] Comment on above: Performed By: #### L 501.9520, L100.0500, BTSPAT #### [facility] [address] [place], [address] Platelet mean volume (Bld) [Entitic vol] 10.6 fL Normal 6.2-12.0 [facility] Comment on above: Performed By: #### L 501.9520, L100.0500, BTSPAT #### [facility] [address] [place], [address] Platelets (Bld) [#/Vol] 254 10*3/uL Normal 150-450 [facility] Comment on above: Performed By: #### L 501.9520, L100.0500, BTSPAT #### [facility] [address] [place], [address] RBC (Bld) [#/Vol] 4.87 10*6/uL Normal 4.2-5.4 [facility] Comment on above: Performed By: #### L 501.9520, L100.0500, BTSPAT #### [facility] [address] [place], [address] RDW SD 42.1 fl Normal 35.1-43.9 [facility] Comment on above: Performed By: #### L 501.9520, L100.0500, BTSPAT #### [facility] [address] [place], [address] WBC (Bld) [#/Vol] 6.2 10*3/uL Normal 4.4-11.0 [facility] Comment on above: Performed By: #### L 501.9520, L100.0500, BTSPAT #### [facility] [address] [place], [address] Magnesiumon 05-27-2024 Magnesium [Mass/Vol] 2.3 mg/dL High 1.5-2.2 [facility] Comment on above: Performed By: #### L 501.5200 #### [facility] [address] [place], [address] Magnesium (Unsp spec) [Mass/ Vol]Ordered By: Don Marks on 05-27-2024 Magnesium [Mass/Vol] 2.3 mg/dL High 1.5-2.2 [facility] TSH DL <= 0.005 mIU/L QnOrde red By: Natasha Banegas on 05-27-2024 Thyroid Stimulating Hormone (TSH) 1.800 uIU/mL 0.300-4.200 [facility] Thyroid Stim Hormone (TSH)on 05-27-2024 TSH 1.800 uIU/mL Normal 0.300-4.200 [facility] Comment on above: Performed By: #### L 501.9520, L100.0500, BTSPAT #### [facility] Laboratory [address] [place], [place], [address] Type AND Screen - PAT ONLYon 05-27-2024 ABO and Rh group Nom (Bld) Blood group A Rh(D) positive Normal [facility] Comment on above: Order Comment: Reaso n for Laboratory Test PREOP [id number] No N N S HYSTERECTOMY Performed By: #### L 501.9520, L100.0500, BTSPAT #### [facility] Laboratory [address] [place], [address] 12 Lead EKGon 05-25-2024 12 Lead EKG [facility] [address] [place] [address] 12 Lead EKG 05/25/24 0837 MR#: [id number] Acct: [id number] Name: CIARRA ALBA LÓPEZ Rep #: [id number] : 1975 48 From: Pepito Calvo MD Attending Dr: Dr. Natasha Banegas MD Status: PRE SDC Ordering Dr: Natasha Banegas MD Date: 05/25/24 Location: [facility] Sex: F C Admitted: Test Reason : [...] ECG Confirmed by Pepito Calvo ([id number]), assignment editor DEWAYNE MORAN ([id number]) on 05/25/2024 11:02:11 AM Referred By: Natasha Banegas Confirmed By: Pepito Calvo 05/25/24 1102 Date Pepito Calvo MD CC: Dr. Katja Baron MD; Dr. Natasha Banegas MD Signed Normal [facility] Electrocardiogram reportOrde red By: Pepito Calvo on 05-25-2024 EKG study [facility] [address] [place] [address] 12 Lead EKG 05/25/24 0837 MR#: [id number] Acct: [id number] Name: CIARRA ALBA LÓPEZ Rep #:[id number] : 1975 48 From: Pepito post MD Attending Dr: Dr. Natasha Banegas MD Status: PRE SDC Ordering Dr: Natasha Banegas MD Prateek e: 05/25/24 Location: [facility] Sex: F C Admitted: Test Reason : [...] QRS Borderline ECG Confirmed by Pepito Calvo ([id number]), assignment editor DEWAYNE MORAN ([id number]) on 05/25/2024 11:02:11 AM Referred By: Natasha Banegas Confirmed By: Pepito Calvo 05/25/24 1102 Date _ Pepito Calvo MD CC: Dr. Katja Baron MD; Dr. Natasha Banegas MD ~ Signed [facility] Other Laboratory - Chemistry and C hemistry - challengeOrdered By: Natasha Banegas on 05-25-2024 HCG ( test) Ql (U) Negative [facility] MR/PAT.ANEon 05-25-2024 MR/PAT.ANE [facility] Medical Records Department [address] [place] [address] PAT - Anesthesia 05/25/24 1224 MR#: [id number] Acct: [id number] Name: CIARRA ALBA LÓPEZ Rep #: [id number] : 1975 48 From: Jevon Chen MD PCP: Dr. Katja Baron MD Status:PRE [facility] Y Race: C Location: [facility] Pre-Assessment Diagnosis/Proposed Procedure Planned Operative Procedure(s): TOTAL VAGINAL HYSTERECTOMY, BILATERAL SALPINGECTOMY Anesthesia History Anesthesia History - supervisor lace tearing: Anesthesia History - supervisor lace tearing Hx Hospitalization No 05/19/24 15:25 Any Problems [...] take am of surgery PONV PONV - supervisor lace tearing: PONV - supervisor lace tearing Female Yes 05/19/24 15:25 HX of Motion [...] 03/13/24 12:50 Respiratory Assessment Respiratory Assessment - supervisor lace tearing: Respiratory Tract Infection Hx - supervisor lace tearing Hx Respiratory Tract Infection No 05/19/24 15:25 STOP Sleep Apnea STOP Sleep Apnea - supervisor lace tearing: STOP Sleep Apnea - supervisor lace tearing Hx Hypertension No 05/19/24 15:25 Hx Sleep [...] Tobacco Use History Tobacco Use History - supervisor lace tearing: Tobacco Use History - supervisor lace tearing Tobacco Use Smoking Status Never smoker 05/19/24 15:25 Hx Tobacco Use No 05/19/24 15:25 Years Smoking Packs Smoked per Day Smoking Cessation Date was within the last 15 years Hx Smoking Cessation Date Hx Smoking Cessation Counseling Hematologic Medial History Hematologic Hx - supervisor lace tearing: 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 Normal [facility] Restaurant Mgr Office Visit Reporton 05-25-2024 Restaurant Mgr Office Visit Report [facility] [address], [address] [place] [address] OFFICE VISIT Date of Service: 05/25/24 MR#: [id number] Acct: [id number] Name: CIARRA ALBA LÓPEZ Rep #: [id number] : 1975 Provider: Dr. 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 [facility] ) CIARRA ALBA ([id number]) 1975 F Date Time Provider Department 05/13/24 3:00 PM JESUSITA MAGANA During your visit today, we recorded the following information about you: Pulse Blood pressure Weight 81/minute 115/83 77 kg Chinyere Barclay MA 05/13/2024 2:47 PM Signed Thank you for choosing the [facility] Department of Endocrinology, Diabetes and Metabolism. Did you know that you need to call 48 hours in advance of your scheduled visit, if you are unable to make your appointment? The Endocrinology and Metabolism [place] thanks you for your commitment, because patients not showing to their appointment results in a lost opportunity for patients to receive [facility] health care at the [facility]. To Cancel an appointment, please choose one of the following: - Call the Appointment Call Center at [phone] - From [employer], Go to Appointments - Cancel Appts If cancelling, consider your need to reschedule to prevent further delays in your care. To Schedule an appointment, please choose one of the following: - Call the Appointment Call Center at [phone] - From [employer], Go to Appointments - Request an Appt Jesusita Magana MD 05/13/2024 3:25 PM Signed Endocrinology Metabolism [place] [facility] Jesusita Magana M.D. Section of Endocrine Surgery and Advanced Laparoscopic Surgery [address] [place] [address], [place] [address] ENDOCRINE SURGERY POST OPERATIVE FOLLOW UP NOTE NAME: Ciarra Alba [facility] NO: [id number] : 1975 Surgeon: Dr. Jesusita Magana HPI: [...] office showing a left thyroid nodule measuring 22c26x87 mm with preoperative measures of 15.9x13.1x16.1mm. LABS: [...] your clinician: Thank you for choosing the [facility] Department of Endocrinology, Diabetes and Metabolism. Did you know that you need to call 48 hours in advance of your scheduled visit, if you are unable to make your appointment? The Endocrinology and Metabolism [place] thanks you for your commitment, because patients not showing to their appointment results in a lost opportunity for patients to receive [facility] health care at the [facility]. To Cancel an appointment, please choose one of the following: - Call the Appointment Call Center at [phone] - From [employer], Go to Appointments - Cancel Appts If cancelling, consider your need to reschedule to prevent further delays in your care. To Schedule an appointment, please choose one of the following: - Call the Appointment Call Center at [phone] - From [employer], Go to Appointments - Request an Appt Encounter Status:Closed by JESUSITA MAGANA on 05/13/24 Normal [facility] Pelvic w/ Transvaginalon Pelvic w/ Transvaginal [facility] Imaging Services [address] [place] [address] Pelvic w/ Transvaginal MR#: [id number] Acct: [id number] Name: CIARRA ALBA Rep #: [id number] : 1975 F 48 From: Ru Chew MD PCP: Dr. Katja Baron MD Status: REG CLI Study: Pelvic w/ Transvaginal Date of Exam: 04/30/24 Exam# [id number] Ordering Dr: Natasha Banegas EXAM: US Pelvis [...] w/ Transvaginal IMPRESSION: Uterine fibroid. Reading Location: COUNTS INCLUDE [facility] BEDS AT THE [facility] CC: Dr. Katja Baron MD; Dr. Natasha Banegas MD Radio Interference Investigator: Signed Normal [facility] ANES POSTPROC EVALon 025 ANES POSTPROC EVAL HNO ID: [id number] Author: ALIA IRIZARRY MD Service: Anesthesiology Author Type: Anesthesiologist Type: Anesthesia Postprocedure Evaluation Filed: 04/27/2024 10:42 Note Text: POST ANESTHESIA EVALUATION NOTE : 1975 Procedure Summary Date: 04/27/24 Room / Location: OR / MM OR Anesthesia Start: 729 Anesthesia Stop: 835 Procedure: THYROID RF ABAL W/US (Thyroid) Diagnosis: [...] April 27, 2024 TIME: 10:42 AM CSN: [id number] [facility] ANES PRE-OPon 04-27-2024 ANES PRE-OP HNO ID: [id number] Author: ALIA IRIZARRY MD Service: Anesthesiology Author Type: Anesthesiologist Type: Anesthesia Preprocedure Evaluation Filed: 04/27/2024 07:26 Note Text: ANESTHESIOLOGY DAY OF SURGERY NOTE : 1975 Procedure Information Date/Time: 04/27/24729 Procedure: THYROID RF ABAL W/US (Left: Thyroid) [...] April 27, 2024 TIME: 7:25 AM CSN: [id number] [facility] BRIEF OP NOTon 04-27-2024 BRIEF OP NOT HNO ID: [id number] Author: DINORA OGLESBY MD Service: Endocrine Surgery Author Type: Physician Type: Brief Op Note Filed: 04/27/2024 08:34 Note Text: Brief Operative Note Patient Name: Ciarra Alba LOG ID: [id number] Surgery/Procedure Date: 04/27/2024 Surgeon(s)/Procedural ist(s) and Talent Specialist(s): Surgeons and Role: * Jesusita Magana MD [...] Oglesby MD DATE: 04/27/24 TIME: 8:34 AM [facility] OPERATIVE NOon 04-27-2024 OPERATIVE NO HNO ID: [id number] Author: JESUSITA MAGANA MD Service: Endocrine Surgery Author Type: Physician Type: Operative Report Filed: 04/27/2024 08:29 Note Text: NAME:CIARRA ALBA : 1975 DATE OF SURGERY/PROCEDURE: 04/27/2024 INCISION/PROCEDURE START TIME:07:57 PROCEDURE END TIME: 08:20 PREOPERATIVE DIAGNOSIS: Symptomatic thyroid nodule POSTOPERATIVE DIAGNOSIS: Same SURGEON: Jesusita Magana MD MANAGER VALUATION: Dinora Tovar MD SURGERY/PROCEDURE: Percutaneous radiofrequency ablation [...] and energy delivered were 18 mins and [address] J. Using the [place]oshot Star 5 mm RFA needle, multiple ablations [...] portion of the case. Jesusita Magana MD [facility] US Neckon 04-27-2024 [facility] Radiology Study observation (narrative) [facility] HISTORY PHYSICALon HISTORY PHYSICAL HNO ID: [id number] Author: DULCE ROMERO PA-C Service: ? Author Type: Physician Talent Specialist Type: H&P Filed: 04/13/2024 09:35 Note Text: [...] manage symptoms. Procedure scheduled on 04/27/2024 at [facility]. REVIEW OF SYSTEMS: General: No weight loss, malaise or fevers. Neurological: Negative for: headaches, multiple sclerosis, Parkinson's disease, seizures and strokes. Respiratory: Negative for: asthma, COPD, current cough, dyspnea, tobacco use, URI < 2 weeks and obstructive sleep apnea. Cardiovascular: Negative for: AICD/PPM, anticoagulation therapy, arrhythmia, CAD, chest pain, CHF, DVT/PE, hyperlipidemia, hypertension, recent OR, murmur/valvular heart disease, open heart surgery and [...] ALT No (more content not included)... Normal [facility] Basic metabolic 2000 panelon 03-28-2024 Anion gap [Moles/Vol] 13 mmol/L Normal 8-15 [facility] Comment on above: Order Comment: Speci men Type: BLOOD SPECIMENOrdering Facility: [facility] Address: [address] [place] [address] Performed By: #### 2 4321-2 ####[facility] LABCLIA [id number] [place] [address] [place] Calcium [Mass/Vol] 9.6 mg/dL Normal 8.5-10.2 [facility] Comment on above: Order Comment: Speci men Type: BLOOD SPECIMENOrdering Facility: [facility] Address: [address] [place] [address] Performed By: #### 2 4321-2 ####[facility] LABCL[facility] [id number] [place] [address] [place] Chloride [Moles/Vol] 104 mmol/L Normal 98-107 [facility] Comment on above: Order Comment: Speci men Type: BLOOD SPECIMENOrdering Facility: [facility] Address: [address] [place] [address] Performed By: #### 2 4321-2 ####[facility] LABCL[facility] [id number] [place] [address] [place] CO2 [Moles/Vol] 23 mmol/L Normal 22-30 [facility] Comment on above: Order Comment: Speci men Type: BLOOD SPECIMENOrdering Facility: [facility] Address: [address] [place] [address] Performed By: #### 2 4321-2 ####[facility]CL[facility] [id number] [place] [address] [place] Creatinine [Mass/Vol] 0.76 mg/dL Normal 0.58-0.96 [facility] Comment on above: Order Comment: Speci men Type: BLOOD SPECIMENOrdering Facility: [facility] Address: [address] [place] [address] Performed By: #### 2 4321-2 ####[facility]CL[facility] [id number] [place] [address] [place] Creatinine and Glomerular filtration rate.predicted panel (S/P/Bld) 97 mL/min/1.73m??? Normal >=60 [facility] Comment on above: Order Comment: Alberto forde Type: BLOOD SPECIMENOrdering Facility: [facility] Address: [address] [place] [address] Result Comment: Rosalba mated Glomerular Filtration Rate [...] actual GFR. Performed By: #### 2 4321-2 ####[facility] LABIA [id number] [place] [address] [place] Glucose [Mass/Vol] 108 mg/dL High 74-99 [facility] Comment on above: Order Comment: Alberto forde Type: BLOOD SPECIMENOrdering Facility: [facility] Address: [address] [place] [address] Result Comment: The [place] Diabetes Association (ADA) provides guidance for cutoff [...] Standards of Medical Care in Diabetes 2016, [place] [employer] Association. Diabetes Care. 2016.39(Suppl 1). Performed By: #### 2 4321-2 ####[facility] LABIA [id number] [place] [address] [place] Potassium [Moles/Vol] 4.1 mmol/L Normal 3.7-5.1 [facility] Comment on above: Order Comment: Alberto forde Type: BLOOD SPECIMENOrdering Facility: [facility] Address: [address] [place] [address] Performed By: #### 2 4321-2 ####[facility]CLIA [id number] [place] [address] [place] Sodium [Moles/Vol] 140 mmol/L Normal 136-144 [facility] Comment on above: Order Comment: Speci men Type: BLOOD SPECIMENOrdering Facility: [facility] Address: [address] [place] [address] Performed By: #### 2 4321-2 ####[facility]CL[facility] [id number] [place] [address] [place] Urea nitrogen [Mass/Vol] 11 mg/dL Normal 7-21 [facility] Comment on above: Order Comment: Speci men Type: BLOOD SPECIMENOrdering Facility: [facility] Address: [address] [place] [address] Performed By: #### 2 4321-2 ####[facility] LABIA [id number] [place] [address] [place] CBC W Auto Differential pane l (Bld)on 03-28-2024 Basophils (Bld) [#/Vol] 0.04 10*3/uL Normal <0.11 [facility] Comment on above: Order Comment: Speci men Type: BLOOD SPECIMENOrdering Facility: [facility] Address: [address] [place] [address] Performed By: #### 5 7021-8 ####[facility] LABCLIA [id number] [place] [address] [place] Basophils/100 WBC (Bld) 0.5 % Normal [facility] Comment on above: Order Comment: Speci men Type: BLOOD SPECIMENOrdering Facility: [facility] Address: [address] [place] [address] Performed By: #### 5 7021-8 ####[facility] LABCLIA [id number] [place] [address] [place] Differential cell count method Nom (Bld) Auto Normal [facility] Comment on above: Order Comment: Speci men Type: BLOOD SPECIMENOrdering Facility: [facility] Address: [address] [place] [address] Performed By: #### 5 7021-8 ####[facility]CLIA [id number] [place] [address] [place] Eosinophils (Bld) [#/Vol] 0.18 10*3/uL Normal <0.46 [facility] Comment on above: Order Comment: Speci men Type: BLOOD SPECIMENOrdering Facility: [facility] Address: [address] [place] [address] Performed By: #### 5 7021-8 ####[facility]CLIA [id number] [place] [address] [place] Eosinophils/100 WBC (Bld) 2.3 % Normal [facility] Comment on above: Order Comment: Speci men Type: BLOOD SPECIMENOrdering Facility: [facility] Address: [address] [place] [address] Performed By: #### 5 7021-8 ####[facility] LABIA [id number] [place] [address] [place] Erythrocyte distribution width (RBC) [Ratio] 12.3 % Normal 11.5-15.0 [facility] Comment on above: Order Comment: Speci men Type: BLOOD SPECIMENOrdering Facility: [facility] Address: [address] [place] [address] Performed By: #### 5 7021-8 ####[facility]CL[facility] [id number] [place] [address] [place] Hematocrit (Bld) [Volume fraction] 44.7 % Normal 36.0-46.0 [facility] Comment on above: Order Comment: Speci men Type: BLOOD SPECIMENOrdering Facility: [facility] Address: [address] [place] [address] Performed By: #### 5 7021-8 ####[facility]CLIA [id number] [place] [address] [place] Hemoglobin (Bld) [Mass/Vol] 14.9 g/dL Normal 11.5-15.5 [facility] Comment on above: Order Comment: Speci men Type: BLOOD SPECIMENOrdering Facility: [facility] Address: [address] [place] [address] Performed By: #### 5 7021-8 ####[facility]CLIA [id number] [place] [address] [place] Immature granulocytes (Bld) [#/Vol] 10*3/uL Normal <0.10 [facility] Comment on above: Order Comment: Speci men Type: BLOOD SPECIMENOrdering Facility: [facility] Address: [address] [place] [address] Performed By: #### 5 7021-8 ####[facility] LABCLIA [id number] [place] [address] [place] Immature granulocytes/100 WBC (Bld) 0.3 % Normal [facility] Comment on above: Order Comment: Speci men Type: BLOOD SPECIMENOrdering Facility: [facility] Address: [address] [place] [address] Performed By: #### 5 7021-8 ####[facility]CLIA [id number] [place] [address] [place] Lymphocytes (Bld) [#/Vol] 2.78 10*3/uL Normal 1.00-4.00 [facility] Comment on above: Order Comment: Speci men Type: BLOOD SPECIMENOrdering Facility: [facility] Address: [address] [place] [address] Performed By: #### 5 7021-8 ####[facility]CLIA [id number] [place] [address] [place] Lymphocytes/100 WBC (Bld) 35.8 % Normal [facility] Comment on above: Order Comment: Speci men Type: BLOOD SPECIMENOrdering Facility: [facility] Address: [address] [place] [address] Performed By: #### 5 7021-8 ####[facility] LABCLIA [id number] [place] [address] [place] MCH (RBC) [Entitic mass] 29.7 pg Normal 26.0-34.0 [facility] Comment on above: Order Comment: Speci men Type: BLOOD SPECIMENOrdering Facility: [facility] Address: [address] [place] [address] Performed By: #### 5 7021-8 ####[facility] LABCLIA [id number] [place] [address] [place] MCHC (RBC) [Mass/Vol] 33.3 g/dL Normal 30.5-36.0 [facility] Comment on above: Order Comment: Speci men Type: BLOOD SPECIMENOrdering Facility: [facility] Address: [address] [place] [address] Performed By: #### 5 7021-8 ####[facility] LABIA [id number] [place] [address] [place] MCV (RBC) [Entitic vol] 89.2 fL Normal 80.0-100.0 [facility] Comment on above: Order Comment: Speci men Type: BLOOD SPECIMENOrdering Facility: [facility] Address: [address] [place] [address] Performed By: #### 5 7021-8 ####[facility] LABCLIA [id number] [place] [address] [place] Monocytes (Bld) [#/Vol] 0.54 10*3/uL Normal <0.87 [facility] Comment on above: Order Comment: Speci men Type: BLOOD SPECIMENOrdering Facility: [facility] Address: [address] [place] [address] Performed By: #### 5 7021-8 ####[facility] LABCLIA [id number] [place] [address] [place] Monocytes/100 WBC (Bld) 7.0 % Normal [facility] Comment on above: Order Comment: Speci men Type: BLOOD SPECIMENOrdering Facility: [facility] Address: [address] [place] [address] Performed By: #### 5 7021-8 ####[facility] LABIA [id number] [place] [address] [place] Neutrophils (Bld) [#/Vol] 4.20 10*3/uL Normal 1.45-7.50 [facility] Comment on above: Order Comment: Speci men Type: BLOOD SPECIMENOrdering Facility: [facility] Address: [address] [place] [address] Performed By: #### 5 7021-8 ####[facility] LABIA [id number] [place] [address] [place] Neutrophils/100 WBC (Bld) 54.1 % Normal [facility] Comment on above: Order Comment: Speci men Type: BLOOD SPECIMENOrdering Facility: [facility] Address: [address] [place] [address] Performed By: #### 5 7021-8 ####[facility] LABIA [id number] [place] [address] [place] Nucleated RBC (Bld) [#/Vol] 10*3/uL Normal <0.01 [facility] Comment on above: Order Comment: Speci men Type: BLOOD SPECIMENOrdering Facility: [facility] Address: [address] [place] [address] Performed By: #### 5 7021-8 ####[facility] LABCLIA [id number] [place] [address] [place] Nucleated RBC/100 WBC (Bld) [Ratio] 0.0 /100 WBC Normal [facility] Comment on above: Order Comment: Speci men Type: BLOOD SPECIMENOrdering Facility: [facility] Address: [address] [place] [address] Performed By: #### 5 7021-8 ####[facility] LABIA [id number] [place] [address] [place] Platelet mean volume (Bld) [Entitic vol] 10.5 fL Normal 9.0-12.7 [facility] Comment on above: Order Comment: Speci men Type: BLOOD SPECIMENOrdering Facility: [facility] Address: [address] [place] [address] Performed By: #### 5 7021-8 ####[facility] LABIA [id number] [place] [address] [place] Platelets (Bld) [#/Vol] 232 10*3/uL Normal 150-400 [facility] Comment on above: Order Comment: Speci men Type: BLOOD SPECIMENOrdering Facility: [facility] Address: [address] [place] [address] Performed By: #### 5 7021-8 ####[facility] [facility] LABIA [id number] [place] [address] [place] RBC (Bld) [#/Vol] 5.01 10*6/uL Normal 3.90-5.20 [facility] Comment on above: Order Comment: Speci men Type: BLOOD SPECIMENOrdering Facility: [facility] Address: [address] [place] [address] Performed By: #### 5 7021-8 ####[facility] LABIA [id number] [place] [address] [place] WBC (Bld) [#/Vol] 7.76 10*3/uL Normal 3.70-11.00 [facility] Comment on above: Order Comment: Speci men Type: BLOOD SPECIMENOrdering Facility: [facility] Address: [address] [place] [address] Performed By: #### 5 7021-8 ####[facility] LABCLIA [id number] [address] [id number] [address] [place] SCRN MAMM (CAD)W/CARMEN BILATo n 03-25-2024 SCRN MAMM (CAD)W/CARMEN BILAT [facility] Imaging Services [address] [place] [address] SCRN MAMM (CAD)W/CARMEN BILAT MR#: [id number] Acct: [id number] Name: CIARRA ALBA Rep #: [id number] : 1975 F 48 From: Sergio buckner MD PCP: Dr. Katja Baron MD Status: [facility] Study: SCRN MAMM (CAD)W/CARMEN BILAT Date of Exam: 11/09 Exam# [id number] Ordering Dr: Jocelin Dumas OCCUPATIONAL REHABILITATION AIDE OCCUPATIONAL REHABILITATION AIDE -C [id number] MAMMOGRAPHY - BILATERAL SCREENING REASON FOR EXAM: [...] delay biopsy of a clinically suspicious abnormality. [id number] Electronically Signed: Sergio Buchanan MD at 12:57 EST Reading Location ID and State: [facility] / [place] , Service support , CC: MARY Dumas; Dr. Katja Baron MD Radio Interference Investigator: Signed Normal [facility] CNOVon 02-26-2024 [facility] Office Visit (CHELI ) CIARRA ALBA ([id number]) 1975 F Date Time Provider Department 02/26/24 10:00 AM JESUSITA MAGANA During your visit today, we recorded the following information about you: Pulse Blood pressure Weight Height 78/minute 132/83 77.2 kg 1.673 m Last Period 02/18/24 Steph Patel MA 02/26/2024 9:46 AM Signed Thank you for choosing the [facility] Department of Endocrinology, Diabetes and Metabolism. Did you know that you need to call 48 hours in advance of your scheduled visit, if you are unable to make your appointment? The Endocrinology and Metabolism [place] thanks you for your commitment, because patients not showing to their appointment results in a lost opportunity for patients to receive [facility] health care at the [facility]. To Cancel an appointment, please choose one of the following: - Call the Appointment Call Center at [phone] - From [employer], Go to Appointments - Cancel Appts If cancelling, consider your need to reschedule to prevent further delays in your care. To Schedule an appointment, please choose one of the following: - Call the Appointment Call Center at [phone] - From [employer], Go to Appointments - Request an Appt Jesusita Magana MD 02/26/2024 10:28 AM Signed Endocrinology Metabolism [place] [facility] Jesusita Magaan M.D. Section of Endocrine Surgery and Advanced Laparoscopic Surgery [address] [place] [address], [facility] [place] [address] ENDOCRINE SURGERY NEW CONSULTATION NAME: [facility] NO: [id number] : 1975 Surgeon: Dr. Jesusita Magana REFERRING PROVIDER: Naga Anguiano [address] [place] [address] The patient was referred by the above [...] Jesusita Magana MD 02/26/2024 CC: Naga Anguiano [id number] [facility] [address] Fax: Referring Provider: NAGA CAMPBELL (more content not included)... Normal [facility] TSH SerPl-aCncon 02-23-2024 TSH Qn 1.213 m[IU]/L Normal 0.358-3.740 [facility] Comment on above: Order Comment: Speci men Type: BLOOD SPECIMEN [facility] Address: [address] [place] [address] [place] [address] Result Comment: 3rd generation ultra sensitive TSH. Performed By: #### 3 016-3 #### [facility] CLIA [id number] [address] [place] [address] OF [facility] Elie 02-14-2024 SMOOTH Telephone (ENSJACKY) CIARRA ALBA ([id number]) 1975 F Date Time Provider Department 02/14/24 JESUSITA MAGANA During your visit today, we recorded the following information about you: Benigno Barnes 02/14/2024 1:23 PM Signed 02/14/2024 INTAKE COMPLETED-NEED TSH ENDOCRINE SURGERY PATIENT WORKSHEET Initial Call Date: February 14, 2024 Reason for Consult/ Referral: Thyroid Nodule PATIENT DEMOGRAPHICS Name: Ciarra Alba [facility]#: [id number] : 1975 AGE: [age] year old Contact Numbers: Home: (home) Work: (work) PATIENT PHYSICIAN INFORMATION Referring Doctor: DR.EL ANGUIANO Address: Phone: Leadership Program Internship: DR. ABDI ANGUIANO Address: Phone: PCP: To use this Smartlink, specify the provider ID whose address you want to display, e.g., .PROVADDR[1 (where 1 is the provider ID). PAST TREATMENT Office notes: SEE [facility] Medications: NONE THAT APPLY Pre-Visit Testing STUDY/TEST DATE ORDERED/REQUESTED DATE RECEIVED/COMPLETED ENTIRE PANEL TSH 02/14/2024 FREE T4 FREE T3 Imaging Reports: SEE [facility] CD of Images: SEE [facility] FNA: yes: 12/2023 FNA Slides: FNA performed at [facility] Has the patient ever had thyroid or [...] [E04.2] Order(s):THYROID STIMULATING HORMONE [SQTSH] Order #: [id number] FUTURE Prescriptions as of 02/20/2024 - azithromycin (ZITHROMAX Z-LEE) 250 mg tablet Take 2 tablets by mouth day one, then 1 tablet daily until gone. Problem List As Of Date: 02/14/2024 (None) Encounter Status:Closed by BENIGNO BARNES on 02/14/24 [facility] CNCOon 01-04-2024 CNCO Letter Text [facility] CNPNon 01-04-2024 CNPN Telephone (ENDOSO) CIARRA ALBA ([id number]) 1975 F Date Time Provider Department 01/04/24 NAGA CAMPBELL ENDOSO During your visit today, we recorded the following information about you: Allergies As of Date: 01/04/2024 (No Known Allergies) Date Reviewed: 12/30/2023 Reviewed by: Naga Campbell MD - Fully Assessed Primary Visit Diagnosis:Multiple thyroid nodules [E04.2] Order(s):US THYROID/PARATHYROID [8785120] Order #: [id number] FUTURE Prescriptions as of 01/04/2024 - azithromycin (ZITHROMAX Z-LEE) 250 mg tablet Take 2 tablets by mouth day one, then 1 tablet daily until gone. 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 Patient on anti-platelet or anticoagulant drugs: No The risks, benefits (more content not included)... Normal [facility] CYTOLOGY NON-GYNon CASE REPORT Normal [facility] Comment on above: Order Comment: Speci men Type: SPECIMEN OBTAINED BY ASPIRATIONOrdering Facility: [facility] Address: [address] [place] [address] Result Comment: [facility] Cytology Report Case: [id number] Authorizing Provider: Naga Campbell MD Collected: 12/30/2023 12:09 PM Ordering Location: Endocrinology Received: 12/30/2023 03:57 PM Pathologist: Dottie Garcia MD Specimen: Thyroid, Left Performed By: #### C YTONON ####[facility] LABCLIA [id number] [place] [address] [place] CLINICAL HISTORY thyroid nodules Normal [facility] Comment on above: Order Comment: Speci men Type: SPECIMEN OBTAINED BY ASPIRATIONOrdering Facility: [facility] Address: [address] [place] [address] Result Comment: Delvin lindo collected Performed By: #### C YTONON ####[facility] LABCLIA [id number] [address] [place] FINAL DIAGNOSIS Normal [facility] Comment on above: Order Comment: Speci men Type: SPECIMEN OBTAINED BY ASPIRATIONOrdering Facility: [facility] Address: [address] [place] [address] Result Comment: A - Thyroid, Aspirate/Fine Needle Aspirate - Left Benign. Consistent with colloid nodule. The following cell blocks were associated with this case: A1\X09\Cell Block, Alcohol Fixed\X09\ Performed By: #### C YTONON ####[facility] LABCLIA [id number] [place] [address] [place] FINAL PERFORMING LAB Normal [facility] Comment on above: Order Comment: Speci men Type: SPECIMEN OBTAINED BY ASPIRATIONOrdering Facility: [facility] Address: [address] [place] [address] Result Comment: Tech nical component, lightning rod installer screening performed at [facility], [address] [place] [address] CLIA# [id number] Diagnostic interpretation performed at [facility], [address] [place] [address] CLIA# [id number] Mine Safety Engineer: Gordon Grover M.D. Performed By: #### C YTONON ####[facility] LABCLIA [id number] [place] [address] [place] GROSS DESCRIPTION A. Thyroid Normal [facility] Comment on above: Order Comment: Speci men Type: SPECIMEN OBTAINED BY ASPIRATIONOrdering Facility: [facility] Address: [address] [place] [address] Result Comment: 30 c c clear colorless CytoLyt with scant particles. ThinPrep and Cell Block prepared and 4 smears. Afirma received Performed By: #### C YTONON ####[facility] LABCLIA [id number] [place] [address] [place] US Thyroid glandon [facility] Radiology Study observation (narrative) [facility] Radiology Study observation (narrative) [facility] PAP IG HPV APTIMA 16/18,45on 12-16-2023 ADEQ Comment Normal . [facility] Comment on above: Order Comment: Speci men Comment: [id number] Specimen Comment: Source.............Cervix Specimen Comment: No. of containers..01 ThinPrep Vial Result Comment: Sati sfactory for evaluation. Endocervical and/or squamous metaplastic cells (endocervical component) are present. Performed By: #### L 7400.0280 #### [facility] Laboratory [address] [place], [place], [address] COMM . Normal . [facility] Comment on above: Order Comment: Speci men Comment: [id number] Specimen Comment: Source.............Cervix Specimen Comment: No. of containers..01 ThinPrep Vial Performed By: #### L 7400.0280 #### [facility] [address] [place], [place], [id number] COMMENT Comment Normal . [facility] Comment on above: Order Comment: Speci men Comment: [id number] Specimen Comment: Source.............Cervix Specimen Comment: No. of containers..01 ThinPrep Vial Result Comment: This liquid based ThinPrep(R) pap test was screened with the use of an image guided system. Performed By: #### L 7400.0280 #### [facility] [address] [place], [place], [id number] DIAG Comment Normal . [facility] Comment on above: Order Comment: Speci men Comment: [id number] Specimen Comment: Source.............Cervix Specimen Comment: No. of containers..01 ThinPrep Vial Result Comment: NEGA TIVE FOR INTRAEPITHELIAL LESION OR MALIGNANCY. Performed By: #### L 7400.0280 #### [facility] [address] [place], [place], [address] HPV APTIMA, HR Negative Normal Negative [facility] Comment on above: Order Comment: Speci men Comment: [id number] Specimen Comment: Source.............Cervix Specimen Comment: No. of containers..01 ThinPrep Vial Result Comment: This nucleic acid amplification test detects fourteen high- risk HPV types (16,18,31,33,35,39,45,51,52,56,58,59,66,68) without differentiation. Performed By: #### L 7400.0280 #### [facility] [address] [place], [address] HPV Dilia Rfx Comment Normal . [facility] Comment on above: Order Comment: Speci men Comment: [id number] Specimen Comment: Source.............Cervix Specimen Comment: No. of containers..01 ThinPrep Vial Result Comment: Crit eria not met, HPV Genotype not performed. Performed at: - [address] [id number] Talent Development Specialist: Josette George MD, Phone: [phone] Performed at: = - [facility] [id number] Talent Development Specialist: Josette George MD, Phone: [phone] Performed By: #### L 7400.0280 #### [facility] [address] [place], [address] PAPSMR Comment Normal . [facility] Comment on above: Order Comment: Speci men Comment: [id number] Specimen Comment: Source.............Cervix Specimen Comment: No. of [...] occur. Performed By: #### L 7400.0280 #### [facility] [address] [place], [place], [address] PERFORM Comment Normal . [facility] Comment on above: Order Comment: Speci men Comment: [id number] Specimen Comment: Source.............Cervix Specimen Comment: No. of containers..01 ThinPrep Vial Result Comment: Stacie Carlin, Book Retailer (ASCP) Performed By: #### L 7400.0280 #### [facility] [address] 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 She had seen Dr Banegas for her pelvic pain, was given naproxen. States not as helpful as she had hoped. She is wanting to proceed with vaginal hysterectomy if nothing thyroid reynoso needs done. Last PAP: 2019 History of abnormal PAP: no Last mammogram: 12/2022 History of abnormal mammogram: no Colon cancer screenin Other preventative health care screenings: Tod RONDON Const Constitutional: Denies fatigue, weight gain or [...] oriented to person and oriented to place HENTN Head: normal to inspection Neck Neck: normal [...] findings PRES (more content not included)... Normal [facility] Culture, urineOrdered By: Jeanna Banegas on 07-23-2023 Bacteria identified Cx Nom (U) Culture exhibits no growth. [facility] No Panel InformationOrdered By: Natasha Banegas on 07-23-2023 Estradiol (E2) Level 76.7 pg/mL [facility] Comment on above: NORMAL REFERENCE RAN [facility] FEMALE FOLLICULAR 21.4 - 164.8 pg/mL MID-CYCLE [...] ESTRADIOL CONCENTRATION. Follicle Stimulating Hormone 8.6 mIU/mL [facility] Comment on above: NORMAL REFERENCE RAN GES FEMALE FOLLICULAR 2.3 - 12.6 mIU/mL MID-CYCLE PEAK 5.2 - 17.5 mIU/mL LUTEAL 1.7 - 12.9 mIU/mL POST-MENOPAUSAL ON MHT 5.9 - 72.8 mIU/mL NOT ON MHT 12.7 - 132.2 mlU/mL MALE 0.7 - 10.8 mIU/mL Gram stain for investigation of transfusion reactionOrdered By: Jocelin Dumas on 07-17-2023 Microscopic observation Gram stain Nom (Unsp spec) [facility] No Panel InformationOrdered By: Jocelin Dumas on 07-17-2023 Genital Culture Yeast, not Britta albicans [facility] Absolute lymphocyte countOrd ered By: Abi Jefferson on 06-04-2023 Lymphocytes Auto (Unsp spec) [#/Vol] 2.20 10*3/uL 0.83-4.51 [facility] Automated lymphocyte count a s percentage of total leukocytesOrdered By: Abi Jefferson on 06-04-2023 Lymphocytes/100 WBC Auto (Unsp spec) 32.9 % 19-41 [facility] Basophil percentageOrdered B y: Abi Jefferson on 06-04-2023 Basophils/100 WBC (Bld) 0.1 % 0-1 [facility] Bilirubin [Mass/Vol] 0.90 mg/dL 0.20-1.00 [facility] Comment on above: For patients on eltr ombopag therapy, use of Dimension [place] TBIL is not recommended. Chloride [Moles/Vol] 104 mmol/L 98-107 [facility] Cholesterol [Mass/Vol] 196 mg/dL <200 [facility] Comment on above: <200 mg/dL Desirable 200-240 mg/dL Borderline >240 mg/dL High Risk Eosinophils/100 WBC (Bld) 1.0 % 0-5 [facility] Glucose [Mass/Vol] 89 mg/dL 74-106 [facility] Hemoglobin (Bld) [Mass/Vol] 13.8 g/dL 12.0-15.0 [facility] Monocytes/100 WBC (Bld) 7.5 % 0-10 [facility] Neutrophils (Bld) [#/Vol] 3.9 10*3/uL 2.0-7.7 [facility] Neutrophils/100 WBC (Bld) 58.2 % 47-70 [facility] Potassium [Moles/Vol] 4.0 mmol/L 3.5-5.1 [facility] Protein [Mass/Vol] 7.5 g/dL 6.4-8.2 [facility] Sodium [Moles/Vol] 138 mmol/L 136-145 [facility] Triglyceride [Mass/Vol] 246 mg/dL <[address] [facility] Comment on above: The drugs N-Acetylcy steine and Metamizole may falsely depress this assay.Serum Triglycerides Reference Interval Normal <150 mg/dL Borderline high 150 - 199 mg/dL High 200 - 499 mg/dL Very High > or = 500 mg/dL WBC (Bld) [#/Vol] 6.7 10*3/uL 4.4-11.0 [facility] Determination of erythrocyte mean corpuscular volume (MCV)Ordered By: Abi Jefferson on 06-04-2023 MCV (RBC) [Entitic vol] 89.2 fL 81-[address] [facility] Erythrocyte distribution wid th ratioOrdered By: Abi Jefferson on 06-04-2023 Erythrocyte distribution width (RBC) [Ratio] 12.6 % 11.6-14.6 [facility] Erythrocyte distribution wid th standard deviationOrdered By: Abi Jefferson on 06-04-2023 Erythrocyte distribution width (RBC) [Entitic vol] 41.4 fL 35.1-43.9 [facility] Hematocrit Auto (Bld) [Volum e fraction]Ordered By: Abi Jefferson on 06-04-2023 Hematocrit (Bld) [Volume fraction] 42.1 % 37-47 [facility] Immature granulocytes/100 WB C Auto (Bld)Ordered By: Abi Jefferson on 06-04-2023 Immature granulocytes/100 WBC (Bld) 0.300 % 0.0-0.9 [facility] Comment on above: IG% - Immature Granu locytes (promyelocytes, myelocytes and metamyelocytes) > 1% indicates that a LEFT SHIFT is Present. Laboratory - Chemistry and C hemistry - challengeOrdered By: Abi Jefferson on 06-04-2023 Albumin/Globulin [Mass ratio] 1.1 {ratio} 0.9-2.4 [facility] ALP [Catalytic activity/Vol] 53 U/L 45-117 [facility] ALT [Catalytic activity/Vol] 22 U/L 13-56 [facility] Cholesterol in HDL [Mass/Vol] 41 mg/dL >40 [facility] Comment on above: The drugs N-Acetylcy steine and Metamizole may falsely depress this assay. Reference Range HDL <40 mg/dL Low HDL Cholesterol HDL >or= 60 mg/dL High HDL Cholesterol Cholesterol in LDL [Mass/Vol] 106 mg/dL 0-130 [facility] CO2 [Moles/Vol] 28.0 mmol/L 21.0-32.0 [facility] Globulin (S) [Mass/Vol] 3.6 g/dL 2.2-4.[address] [facility] Urea nitrogen/Creatinine [Mass ratio] 7.2 mg/mg 10-20 [facility] Laboratory - Hematology and Cell countsOrdered By: Abi Jefferson on 06-04-2023 MCH (RBC) [Entitic mass] 29.2 pg 27.0-32.0 [facility] MCHC (RBC) [Mass/Vol] 32.8 g/dL 32-36 [facility] Nucleated RBC/100 WBC (Bld) [Ratio] 0 % 0-5 [facility] Platelet mean volume (Bld) [Entitic vol] 10.3 fL 6.2-12.0 [facility] Platelets (Bld) [#/Vol] 256 10*3/uL 150-450 [facility] No Panel InformationOrdered By: Abi Jefferson on 06-04-2023 Estimated GFR (MDRD) Amer 79 mL/min >60 [facility] Comment on above: GFR Calc Estimated GFR (MDRD) Non-Af Amer 66 mL/min >60 [facility] Comment on above: Non- GFR Calc VLDL Cholesterol 49 mg/dL 5-40 [facility] RBC Auto (Bld) [#/Vol]Ordere d By: Abi Jefferson on 06-04-2023 RBC (Bld) [#/Vol] 4.72 10*6/uL 4.2-5.4 [facility] Serum or plasma calcium whitney urement (mass/volume)Ordered By: Abi Jefferson on 06-04-2023 Calcium [Mass/Vol] 9.1 mg/dL 8.5-10.1 [facility] Serum or plasma creatinine m easurement (mass/volume)Ordered By: Abi Jefferson on 06-04-2023 Creatinine [Mass/Vol] 0.97 mg/dL 0.55-1.02 [facility] Comment on above: The validity of the calculated GFR & GFRAA in patients over 70 years has not been determined. Clinical correlation is essential. Serum or plasma thyroid stim ulating hormone (TSH) measurement (units/volume)Ordered By: Abi Jefferson on 06-04-2023 TSH Qn 1.21 uIU/mL 0.358-3.74 [facility] Serum or plasma urea nitroge n measurement (mass/volume)Ordered By: Abi Jefferson on 06-04-2023 Urea nitrogen [Mass/Vol] 7 mg/dL 7-18 [facility] Thin prep Papanicolaou smear with manual screeningOrdered By: Abi Jefferson on 06-04-2023 Thin prep Papanicolaou smear with manual screening 3.9 g/dL 3.2-5.0 [facility] Thin prep Papanicolaou smear with manual screening 19 U/L 15-37 [facility] Thin prep Papanicolaou smear with manual screening 6 5-15 [facility] Whole blood hemoglobin A1c/t otal hemoglobin ratio (mass fraction)Ordered By: Abi Jefferson on 06-04-2023 HbA1c (Bld) [Mass fraction] 5.2 % 3.8-5.6 [facility] Comment on above: Normal < 5.7 % Predi abetic 5.7 - 6.4 % Diabetic >or= 6.5 % Please note range changes. Basophil percentageOrdered B y: Abi Jefferson on 10-29-2022 Cholesterol [Mass/Vol] 197 mg/dL <200 [facility] Comment on above: <200 mg/dL Desirable 200-240 mg/dL Borderline >240 mg/dL High Risk Triglyceride [Mass/Vol] 147 mg/dL <[address] [facility] Comment on above: The drugs N-Acetylcy steine and Metamizole may falsely depress this assay.Serum Triglycerides Reference Interval Normal <150 mg/dL Borderline high 150 - 199 mg/dL High 200 - 499 mg/dL Very High > or = 500 mg/dL Serum or plasma cholesterol in HDL measurement (mass/volume)Ordered By: Abi Jefferson on 10-29-2022 Cholesterol in HDL [Mass/Vol] 40 mg/dL >40 [facility] Comment on above: The drugs N-Acetylcy steine and Metamizole may falsely depress this assay. Reference Range HDL <40 mg/dL Low HDL Cholesterol HDL >or= 60 mg/dL High HDL Cholesterol Serum or plasma cholesterol in VLDL measurement (mass/volume)Ordered By: Abi Jefferson on 10-29-2022 Cholesterol in VLDL [Mass/Vol] 29 mg/dL 5-40 [facility] Serum or plasma low density lipoprotein (LDL) cholesterol measurement (mass/volume)Ordered By: Abi Jefferson on 10-29-2022 Cholesterol in LDL [Mass/Vol] 128 mg/dL 0-130 [facility] Laboratory - Chemistry and C hemistry - challengeOrdered By: Abi Jefferson on 05-03-2022 Cobalamin (Vitamin B12) [Mass/Vol] 485 pg/mL 211-911 [facility] No Panel InformationOrdered By: Abi Jefferson on 05-03-2022 Thyroid Stimulating Hormone (TSH) 1.02 uIU/mL 0.358-3.74 [facility] Whole blood hemoglobin A1c/t otal hemoglobin ratio (mass fraction)Ordered By: Abi Jefferson on 05-03-2022 HbA1c (Bld) [Mass fraction] 5.5 % 3.8-5.6 [facility] Comment on above: Normal < 5.7 % Predi abetic 5.7 - 6.4 % Diabetic >or= 6.5 % Please note range changes. Absolute lymphocyte counton 11-06-2021 Lymphocytes Auto (Unsp spec) [#/Vol] 2.24 10*3/uL 0.83-4.51 [facility] Work Phone: Basophil percentageon 2021 Basophils/100 WBC (Bld) 0.3 % 0-[address] [facility] Work Phone: Bilirubin [Mass/Vol] 0.30 mg/dL 0.20-1.00 [facility] Work Phone: Comment on above: For patients on eltr ombopag therapy, use of Dimension [place] TBIL is not recommended. Chloride [Moles/Vol] 108 mmol/L 98-107 [facility] Work Phone: Cholesterol [Mass/Vol] 175 mg/dL <200 [facility] Work Phone: Comment on above: <200 mg/dL Desirable 200-240 mg/dL Borderline >240 mg/dL High Risk Eosinophils/100 WBC (Bld) 1.7 % 0-5 [facility] Work Phone: Glucose [Mass/Vol] 85 mg/dL 74-106 [facility] Work Phone: [phone] Neutrophils (Bld) [#/Vol] 3.1 10*3/uL 2.0-7.7 [facility] Work Phone: [phone] Neutrophils/100 WBC (Bld) 51.8 % 47-70 [facility] Work Phone: [phone] Potassium [Moles/Vol] 4.2 mmol/L 3.5-5.1 [facility] Work Phone: [phone] Protein [Mass/Vol] 7.5 g/dL 6.4-8.2 [facility] Work Phone: [phone] Sodium [Moles/Vol] 139 mmol/L 136-145 [facility] Work Phone: [phone] Triglyceride [Mass/Vol] 62 mg/dL <[address] [facility] Work Phone: [phone] Comment on above: The drugs N-Acetylcy steine and Metamizole may falsely depress this assay.Serum Triglycerides Reference Interval Normal <150 mg/dL Borderline high 150 - 199 mg/dL High 200 - 499 mg/dL Very High > or = 500 mg/dL WBC (Bld) [#/Vol] 5.9 10*3/uL 4.4-11.0 [facility] Work Phone: [phone] Blood erythrocytes count (nu mber/volume)on 11-06-2021 RBC (Bld) [#/Vol] 4.61 10*6/uL 4.2-5.4 [facility]: Blood hemoglobin measurement (mass/volume)on 11-06-2021 Hemoglobin (Bld) [Mass/Vol] 13.8 g/dL 12.0-15.0 [facility] Work Phone: Blood lymphocytes/100 leukoc yteson 11-06-2021 Lymphocytes/100 WBC (Bld) 37.9 % 19-41 [facility] Work Phone: Blood monocytes/100 leukocyt eson 11-06-2021 Monocytes/100 WBC (Bld) 8.1 % 0-[address] [facility] Work Phone: Blood platelet mean volumeon 11-06-2021 Platelet mean volume (Bld) [Entitic vol] 10.7 fL 6.2-12.0 [facility] Work Phone: Determination of erythrocyte mean corpuscular volume (MCV)on 11-06-2021 MCV (RBC) [Entitic vol] 89.6 fL 81-[address] [facility] Work Phone: Hematocrit Auto (Bld) [Volum e fraction]on 11-06-2021 Hematocrit (Bld) [Volume fraction] 41.3 % 37-47 [facility] Work Phone: Laboratory - Chemistry and C hemistry - challengeon 11-06-2021 ALP [Catalytic activity/Vol] 54 U/L 45-117 [facility] Work Phone: ALT [Catalytic activity/Vol] 19 U/L 13-56 [facility] Work Phone: CO2 [Moles/Vol] 24.0 mmol/L 21.0-32.0 [facility] Work Phone: Globulin (S) [Mass/Vol] 3.7 g/dL 2.2-4.[address] [facility] Work Phone: Urea nitrogen/Creatinine [Mass ratio] 13.5 mg/mg 10-20 [facility] Work Phone: Laboratory - Hematology and Cell countson 11-06-2021 Erythrocyte distribution width (RBC) [Entitic vol] 42.5 fL 35.1-43.9 [facility] Work Phone: Erythrocyte distribution width (RBC) [Ratio] 13.0 % 11.6-14.6 [facility] Work Phone: Immature granulocytes/100 WBC (Bld) 0.200 % 0.0-0.9 [facility] Work Phone: Comment on above: IG% - Immature Granu locytes (promyelocytes, myelocytes and metamyelocytes) > 1% indicates that a LEFT SHIFT is Present. MCH (RBC) [Entitic mass] 29.9 pg 27.0-32.0 [facility] Work Phone: Nucleated RBC/100 WBC (Bld) [Ratio] 0 % 0-5 [facility] Work Phone: MCHC Auto (RBC) [Mass/Vol]on 11-06-2021 MCHC (RBC) [Mass/Vol] 33.4 g/dL 32-36 [facility] Work Phone: No Panel Informationon 11-06 Estimated GFR (MDRD) Amer 98 mL/min >60 [facility] Work Phone: Comment on above: GFR Calc Estimated GFR (MDRD) Non-Af Amer 81 mL/min >60 [facility] Work Phone: Comment on above: Non- GFR Calc Platelets bldon 11-06-2021 Platelets (Bld) [#/Vol] 220 10*3/uL 150-450 [facility] Work Phone: Serum or plasma albumin whitney urement (mass/volume)on 11-06-2021 Albumin [Mass/Vol] 3.8 g/dL 3.2-5.0 [facility] Work Phone: Serum or plasma albumin/glob ulin mass ratioon 11-06-2021 Albumin/Globulin [Mass ratio] 1.0 {ratio} 0.9-2.4 [facility] Work Phone: Serum or plasma calcium whitney urement (mass/volume)on 11-06-2021 Calcium [Mass/Vol] 8.8 mg/dL 8.5-10.1 [facility] Work Phone: Serum or plasma cholesterol in HDL measurement (mass/volume)on 11-06-2021 Cholesterol in HDL [Mass/Vol] 46 mg/dL >40 [facility] Work Phone: Comment on above: The drugs N-Acetylcy steine and Metamizole may falsely depress this assay. Reference Range HDL <40 mg/dL Low HDL Cholesterol HDL >or= 60 mg/dL High HDL Cholesterol Serum or plasma cholesterol in VLDL measurement (mass/volume)on 11-06-2021 Cholesterol in VLDL [Mass/Vol] 12 mg/dL 5-40 [facility] Work Phone: Serum or plasma creatinine m easurement (mass/volume)on 11-06-2021 Creatinine [Mass/Vol] 0.81 mg/dL 0.55-1.02 [facility] Work Phone: Comment on above: The validity of the calculated GFR & GFRAA in patients over 70 years has not been determined. Clinical correlation is essential. Serum or plasma low density lipoprotein (LDL) cholesterol measurement (mass/volume)on 11-06-2021 Cholesterol in LDL [Mass/Vol] 117 mg/dL 0-130 [facility] Work Phone: Serum or plasma urea nitroge n measurement (mass/volume)on 11-06-2021 Urea nitrogen [Mass/Vol] 11 mg/dL 7-18 [facility] Work Phone: Thin prep Papanicolaou smear with manual screeningon 11-06-2021 Thin prep Papanicolaou smear with manual screening 19 U/L 15-37 [facility] Work Phone: Thin prep Papanicolaou smear with manual screening 7 5-15 [facility] Work Phone: Clinical Summary: Karthik thompson 07-10-2021 MC25 OP Hand Invalid Interpretation Code [facility] Work Phone: Clinical Summary: Jovan Kirby 07-10-2021 Data entered by patient exercise frequency 5 days per week Invalid Interpretation Code [facility] Work Phone: Data entered by patient exercise type jogging strength training Invalid Interpretation Code [facility] Work Phone: data entered by patient, alcohol (ethanol or ETOH) use No Invalid Interpretation Code [facility] Work Phone: data entered by patient, drug (of abuse) use No Invalid Interpretation Code [facility] Work Phone: data entered by patient, Employer Name Employed Invalid Interpretation Code [facility] Work Phone: data entered by patient, exercise history Yes Invalid Interpretation Code [facility] Work Phone: Data entered by patient, history of past surgeries Foot surgery Hand surgery Invalid Interpretation Code [facility] Work Phone: data entered by patient, past medical history High cholesterol Invalid Interpretation Code [facility] Work Phone: data entered by patient, social history, current smoker never smoker Invalid Interpretation Code [facility] Work Phone: data entered by patient, social history, marital status Invalid Interpretation Code [facility] Work Phone: father of patient is alive or Alive Invalid Interpretation Code [facility] Work Phone: Housing Type: apartment, house, intermediate, trailer, none House Invalid Interpretation Code [facility] Work Phone: housing unit size (asthma environmental history, housing) (from single family to don't know) 3 Floors Invalid Interpretation Code [facility] Work Phone: mother of patient is alive or Alive Invalid Interpretation Code [facility] Work Phone: Number of dependent children No Invalid Interpretation Code [facility] Work Phone: Office Visit: New - 1st visi t with practice, Rm: 5on 07-10-2021 NEGATED: Highlighted rowTobacco smoking status Tobacco smoking status Invalid Interpretation Code [facility] Work Phone: NEGATED: Highlighted rowxray history of the Left hand on 07/05/2021 at [facility] Invalid Interpretation Code [facility] Work Phone: Vital Signs Date Time Vital Sign Value Performing Clinician Facility 11-10-2024 14:14-0400 Body height 165.1 cm Katja Baron MD Work Phone: [facility] 11-10-2024 14:14-0400 Body mass index (BMI) [Ratio] 27.5 kg/m2 Katja Baron MD Work Phone: [facility] 11-10-2024 14:14-0400 Body temperature 97.6 [degF] Katja Baron MD Work Phone: [facility] 11-10-2024 14:14-0400 Body weight 74.95 kg Katja Baron MD Work Phone: [facility] 11-10-2024 14:14-0400 Diastolic blood pressure 81 mm[Hg] Katja Baron MD Work Phone: [facility] 11-10-2024 14:14-0400 Heart rate 81 /min Katja Baron MD Work Phone: [facility] 11-10-2024 14:14-0400 Respiratory rate 18 /min Katja Baron MD Work Phone: [facility] 11-10-2024 14:14-0400 SaO2% (BldA) [Mass fraction] 99 % Katja Baron MD Work Phone: [facility] 11-10-2024 14:14-0400 Systolic blood pressure 127 mm[Hg] Katja Baron MD Work Phone: [facility] 10-27-2024 13:58-0400 Body height 165.1 cm Naga Anguiano MD Work Phone: [facility] 10-27-2024 13:58-0400 Body mass index (BMI) [Ratio] 27.73 kg/m2 Naga Anguiano MD Work Phone: [facility] 10-27-2024 13:58-0400 Body weight 75.6 kg Naga Anguiano MD Work Phone: [facility] 10-27-2024 13:58-0400 Diastolic blood pressure 74 mm[Hg] Naga Anguiano MD Work Phone: [facility] 10-27-2024 13:58-0400 Heart rate 78 /min Naga nAguiano MD Work Phone: [facility] 10-27-2024 13:58-0400 Respiratory rate 16 /min Naga Anguiano MD Work Phone: [facility] 10-27-2024 13:58-0400 SaO2% (BldA) [Mass fraction] 98 % Naga Anguiano MD Work Phone: [facility] 10-27-2024 13:58-0400 Systolic blood pressure 117 mm[Hg] Naga Anguiano MD Work Phone: [facility] 07-29-2024 14:53-0400 Body mass index (BMI) [Ratio] 28.4 kg/m2 Jesusita Magana MD Work Phone: [facility] 07-29-2024 14:53-0400 Body weight 77.4 kg Jesusita Magana MD Work Phone: [facility] 07-29-2024 14:53-0400 Diastolic blood pressure 79 mm[Hg] Jesusita Magana MD Work Phone: [facility] 07-29-2024 14:53-0400 Heart rate 90 /min Jesusita Magana MD Work Phone: [facility] 07-29-2024 14:53-0400 Systolic blood pressure 129 mm[Hg] Jesusita Magana MD Work Phone: [facility] 07-17-2024 11:01-0400 Body height 165.1 cm Katja Baron MD Work Phone: [facility] 07-17-2024 11:00-0400 Body mass index (BMI) [Ratio] 28.1 kg/m2 Katja Baron MD Work Phone: [facility] 07-17-2024 11:00-0400 Body weight 76.82 kg Katja Barno MD Work Phone: [facility] 07-17-2024 11:00-0400 Diastolic blood pressure 78 mm[Hg] Katja Baron MD Work Phone: [facility] 07-17-2024 11:00-0400 Systolic blood pressure 125 mm[Hg] Katja Baron MD Work Phone: [facility] 06-03-2024 15:16-0400 Body temperature 98.7 [degF] Katja Baron MD Work Phone: [facility] 06-03-2024 15:16-0400 Diastolic blood pressure 78 mm[Hg] Katja Baron MD Work Phone: [facility] 06-03-2024 15:16-0400 Heart rate 74 /min Katja Baron MD Work Phone: [facility] 06-03-2024 15:16-0400 Respiratory rate 18 /min Katja Baron MD Work Phone: [facility] 06-03-2024 15:16-0400 SaO2% (BldA) [Mass fraction] 98 % Katja Baron MD Work Phone: [facility] 06-03-2024 15:16-0400 Systolic blood pressure 120 mm[Hg] Katja Baron MD Work Phone: [facility] 06-03-2024 00:15-0400 Inhaled oxygen flow rate 2 L/min Katja Baron MD Work Phone: [facility] 06-02-2024 18:53-0400 Body height 165.1 cm Katja Baron MD Work Phone: [facility] 06-02-2024 18:53-0400 Body mass index (BMI) [Ratio] 28.2 kg/m2 Katja Baron MD Work Phone: [facility] 06-02-2024 18:53-0400 Body weight 77 kg Katja Baron MD Work Phone: [facility] 05-25-2024 09:27-0400 Body mass index (BMI) [Ratio] 28.8 kg/m2 Katja Baron MD Work Phone: [facility] 05-25-2024 09:27-0400 Body weight 78.69 kg Katja Baron MD Work Phone: [facility] 05-25-2024 09:27-0400 Diastolic blood pressure 87 mm[Hg] Katja Baron MD Work Phone: [facility] 05-25-2024 09:27-0400 Systolic blood pressure 127 mm[Hg] Katja Baron MD Work Phone: [facility] 05-13-2024 14:49-0500 Body mass index (BMI) [Ratio] 28.25 kg/m2 Jesusita Magana MD Work Phone: [facility] 05-13-2024 14:49-0500 Body weight 77 kg Jesusita Magana MD Work Phone: [facility] 05-13-2024 14:49-0500 Diastolic blood pressure 83 mm[Hg] Jesusita Magana MD Work Phone: [facility] 05-13-2024 14:49-0500 Heart rate 81 /min Jesusita Magana MD Work Phone: [facility] 05-13-2024 14:49-0500 Systolic blood pressure 115 mm[Hg] Jesusita Magana MD Work Phone: [facility] 04-13-2024 09:10-0500 Body height 165.1 cm Pacc 1 Work Phone: [facility] 04-13-2024 09:10-0500 Body mass index (BMI) [Ratio] 29.29 kg/m2 Pacc 1 Work Phone: [facility] 04-13-2024 09:10-0500 Body temperature 97.3 [degF] Pacc 1 Work Phone: [facility] 04-13-2024 09:10-0500 Body weight 79.83 kg Pacc 1 Work Phone: [facility] 04-13-2024 09:10-0500 Diastolic blood pressure 82 mm[Hg] Pacc 1 Work Phone: [facility] 04-13-2024 09:10-0500 Heart rate 78 /min Pacc 1 Work Phone: [facility] 04-13-2024 09:10-0500 Respiratory rate 14 /min Pacc 1 Work Phone: [facility] 04-13-2024 09:10-0500 SaO2% (BldA) [Mass fraction] 96 % Pacc 1 Work Phone: [facility] 04-13-2024 09:10-0500 Systolic blood pressure 138 mm[Hg] Pacc 1 Work Phone: [facility] 02-26-2024 09:48-0500 Body height 167.3 cm Jesusita Magana MD Work Phone: [facility] 02-26-2024 09:48-0500 Body mass index (BMI) [Ratio] 27.58 kg/m2 Jesusita Magana MD Work Phone: [facility] 02-26-2024 09:48-0500 Body weight 77.2 kg Jesusita Magana MD Work Phone: [facility] 02-26-2024 09:48-0500 Diastolic blood pressure 83 mm[Hg] Jesusita Magana MD Work Phone: [facility] 02-26-2024 09:48-0500 Heart rate 78 /min Jesusita Magana MD Work Phone: [facility] 02-26-2024 09:48-0500 Systolic blood pressure 132 mm[Hg] Jesusita Magana MD Work Phone: [facility] 12-30-2023 11:12-0400 Body height 162.6 cm Naga Anguiano MD Work Phone: [facility] 12-30-2023 11:12-0400 Body mass index (BMI) [Ratio] 29.18 kg/m2 Naga Anguiano MD Work Phone: [facility] 12-30-2023 11:12-0400 Body weight 77.1 kg Naga Anguiano MD Work Phone: [facility] 12-30-2023 11:12-0400 Diastolic blood pressure 85 mm[Hg] Naga Anguiano MD Work Phone: [facility] 12-30-2023 11:12-0400 Heart rate 76 /min Naga Anguiano MD Work Phone: [facility] 12-30-2023 11:12-0400 Respiratory rate 16 /min Naga Anguiano MD Work Phone: [facility] 12-30-2023 11:12-0400 SaO2% (BldA) [Mass fraction] 100 % Naga Anguiano MD Work Phone: [facility] 12-30-2023 11:12-0400 Systolic blood pressure 136 mm[Hg] Naga Anguiano MD Work Phone: [facility] 07-23-2023 10:24-0400 Body height 165.1 cm DO Abi Jefferson Work Phone: [facility] 07-23-2023 10:24-0400 Body mass index (BMI) [Ratio] 26.9 kg/m2 DO Abi Ronny Work Phone: [facility] 07-23-2023 10:24-0400 Body weight 73.48 kg DO Abi Ronny Work Phone: [facility] 07-23-2023 10:24-0400 Diastolic blood pressure 82 mm[Hg] DO Abi Ronny Work Phone: [facility] 07-23-2023 10:24-0400 Systolic blood pressure 121 mm[Hg] DO Abi Ronny Work Phone: [facility] 07-17-2023 14:55-0400 Body height 165.1 cm DO Abi Ronny Work Phone: [facility] 07-17-2023 14:52-0400 Body mass index (BMI) [Ratio] 26.9 kg/m2 DO Abi Ronny Work Phone: [facility] 07-17-2023 14:52-0400 Body weight 73.25 kg DO Abi Ronny Work Phone: [facility] 07-17-2023 14:52-0400 Diastolic blood pressure 72 mm[Hg] DO Abi Ronny Work Phone: [facility] 07-17-2023 14:52-0400 Systolic blood pressure 124 mm[Hg] DO Abi Ronny Work Phone: [facility] 03-02-2022 09:50-0500 Body temperature 99 [degF] Dr. Claribel Smart Work Phone: [facility] 03-02-2022 09:50-0500 Diastolic blood pressure 62 mm[Hg] Dr. Claribel Smart Work Phone: [facility] 03-02-2022 09:50-0500 Heart rate 72 /min Dr. Claribel Smart Work Phone: [facility] 03-02-2022 09:50-0500 Respiratory rate 16 /min Dr. Claribel Smart Work Phone: [facility] 03-02-2022 09:50-0500 SaO2% (BldA) [Mass fraction] 100 % Dr. Claribel Smart Work Phone: [facility] 03-02-2022 09:50-0500 Systolic blood pressure 102 mm[Hg] Dr. Claribel Smart Work Phone: [facility] 03-02-2022 08:33-0500 Body height 165.[address] Claribel Smart Work Phone: [facility] 03-02-2022 08:33-0500 Body mass index (BMI) [Ratio] 28.2 kg/m2 Dr. Claribel Smart Work Phone: [facility] 03-02-2022 08:33-0500 Body weight [address] Claribel Smart Work Phone: [facility] 01-09-2022 08:15-0400 Body height 165.[address] Claribel Smart Work Phone: [facility] Work Phone: 01-09-2022 08:15-0400 Body mass index (BMI) [Ratio] 26.6 kg/m2 Dr. Claribel Smart Work Phone: [facility] Work Phone: 01-09-2022 08:15-0400 Body weight 72.[address] Claribel Smart Work Phone: [facility] Work Phone: 11-06-2021 08:08-0400 Body mass index (BMI) [Ratio] 28.3 kg/m2 Dr. Claribel Smart Work Phone: [facility] Work Phone: 11-06-2021 08:06-0400 Body height 165.[address] Claribel Smart Work Phone: [facility] Work Phone: 11-06-2021 08:06-0400 Body temperature 97 [degF] Dr. Claribel Smart Work Phone: [facility] Work Phone: 11-06-2021 08:06-0400 Body weight 76.[address] Claribel Smart Work Phone: [facility] Work Phone: 11-06-2021 08:06-0400 Diastolic blood pressure 70 mm[Hg] Dr. Claribel Smart Work Phone: [facility] Work Phone: 11-06-2021 08:06-0400 Heart rate 62 /min Dr. Claribel Smart Work Phone: [facility] Work Phone: 11-06-2021 08:06-0400 Respiratory rate 18 /min Dr. Claribel Smart Work Phone: [facility] Work Phone: 11-06-2021 08:06-0400 SaO2% (BldA) [Mass fraction] 99 % Dr. Claribel Smart Work Phone: [facility] Work Phone: 11-06-2021 08:06-0400 Systolic blood pressure 108 mm[Hg] Dr. Claribel Smart Work Phone: [facility] Work Phone: NEGATED: Highlighted [id number] 09:16-0400 Body height 165.1 cm Elza Moyer AT [facility] Work Phone: NEGATED: Highlighted [id number] 09:16-0400 Body height 165 cm Elza Moyer AT [facility] Work Phone: NEGATED: Highlighted [id number] 09:16-0400 Body mass index (BMI) [Ratio] 28.06 kg/m2 Elza Moyer AT [facility] Work Phone: NEGATED: Highlighted [id number] 09:16-0400 Body weight 76.2 kg Elza Moyer AT [facility] Work Phone: NEGATED: Highlighted [id number] 09:160400 Body weight 76 kg Elza Moyer AT [facility] Work Phone: Encounters Encounter Date Encounter Type Care Provider Facility Start: 11-13-2024 End: 11-13-2024 ambulatory Katja Baron MD Work Phone: -[facility]ound [facility] Start: 11-13-2024 End: 11-13-[address] Calos Mcgill MD -Ultrasound [facility] Work Phone: Start: 11-13-2024 End: 11-13-2024 ambulatory Katja Baron Facility:[facility] Start: 11-11-2024 End: 11-12-2024 ambulatory Naga Anguiano MD Work Phone: Endocrinology Comment on above: Nighat arango irtual visits tomorrow Start: 11-10-2024 End: 11-10-[address] Calos Mcgill MD -[facility] Work Phone: Start: 11-10-2024 End: 11-10-2024 ambulatory Katja Baron MD Work Phone: -[facility] Start: 11-03-2024 End: 11-03-2024 ambulatory Katja Baron MD Work Phone: -[facility] Start: 11-03-2024 End: 11-03-[address] Katja Baron MD -[facility] Start: 11-03-2024 End: 11-03-2024 ambulatory Chalon Tod Facility:[facility] Start: 10-27-2024 End: 10-27-2024 Patient encounter procedure Naga Anguiano MD Work Phone: Endocrinology Comment on above: Multiple thyroid nod ules (Primary Dx) Start: 10-27-2024 End: 10-27-2024 ambulatory NAGA ANGUIANO Facility:[facility] Start: 07-29-2024 End: 07-29-2024 Patient encounter procedure Jesusita Magana MD Work Phone: Endocrine Surgery Comment on above: Multiple thyroid nod ules (Primary Dx) Start: 07-29-2024 End: 07-29-2024 ambulatory JESUSITA MAGANA Facility:[facility] Start: 07-17-2024 End: 07-17-[address] Natasha Banegas MD -[facility] Work Phone: Start: 07-17-2024 End: 07-17-2024 ambulatory Chalon Tod Facility:[facility] Start: 06-17-2024 Encounter for other preprocedural examination Natasha Banegas [facility] Start: 06-15-2024 End: 06-15-2024 ambulatory Chalselina Tod Facility:[facility] [place] Start: 06-02-2024 End: 06-03-2024 Evaluation and management of inpatient Dr. Natasha Banegas MD -Medical Surgical 3 Work Phone: Start: 06-02-2024 End: 06-03-2024 observation encounter Katja Baron MD Work Phone: [facility] Work Phone: Start: 06-02-2024 End: 06-03-2024 ambulatory Chalon Tod Facility:[facility] Start: 06-02-2024 ambulatory Chalselina Tod Facility:[facility] Start: 06-02-2024 Non-patient / Non-visit Dr. Jeanna Banegas MD -[facility] Start: 05-25-2024 End: 05-25-[address] Natasha Banegas MD -[facility] Work Phone: Start: 05-25-2024 End: 05-25-2024 ambulatory [facility] Facility:[facility] Start: 05-13-2024 End: 05-13-2024 Patient encounter procedure Jesusita Magana MD Work Phone: Endocrine Surgery Comment on above: Multiple thyroid nod ules (Primary Dx) Start: 05-13-2024 End: 05-13-2024 ambulatory JESUSITA MAGANA Facility:[facility] Start: 04-30-2024 End: 04-30-[address] Natasha Banegas MD -[facility] Work Phone: Start: 04-30-2024 End: 04-30-2024 ambulatory [facility] Facility:[facility] Start: 04-27-2024 End: 04-27-2024 Orders Only Dinora Oglesby MD Work Phone: Endocrine Surgery Comment on above: Nontoxic multinodula r goiter (Primary Dx) Start: 04-13-2024 End: 04-13-2024 Admission to establishment [facility] Work Phone: Pre Anesthesia Start: 04-13-2024 End: 04-13-2024 [facility] DINORA OGLESBY Facility:[facility] Start: 04-13-2024 End: 04-13-2024 Anesthesia consultation [facility] 1 Work Phone: Pre Anesthesia Comment on above: Gastroesophageal ref lux disease, unspecified whether esophagitis present (Primary Dx); Pre-op evaluation Start: 04-13-2024 End: 04-13-2024 Preprocedural examination done [facility] 1 Work Phone: [facility] Work Phone: Start: 03-28-2024 End: 03-28-2024 [facility] DINORA OGLESBY Facility:[facility] Start: 03-25-2024 End: 03-25-2024 Patient encounter procedure Jocelin HERNANDEZ -Outpatient Breast Imaging Work Phone: Start: 03-25-2024 End: 03-25-2024 ambulatory Jocelin Quevedos OCCUPATIONAL REHABILITATION AIDE Facility:[facility] Start: 02-26-2024 End: 02-26-2024 Patient encounter procedure Jesusita Magana MD Work Phone: Endocrine Surgery Comment on above: Multiple thyroid nod ules (Primary Dx) Start: 02-26-2024 End: 02-26-2024 ambulatory NAGA ANGUIANO Facility:[facility] Start: 02-23-2024 End: 02-23-2024 ambulatory JESUSITA MAGANA Facility:[id number] Start: 02-14-2024 End: 02-14-2024 Telephone encounter Jesusita Magana MD Work Phone: Endocrine Surgery Comment on above: Consult (FACE SHEET) Start: 01-04-2024 End: 01-04-2024 Telephone encounter Naga Anguiano MD Work Phone: Endocrinology Start: 12-30-2023 End: 12-30-2023 ambulatory NAGA ANGUIANO Facility:[facility] Start: 12-30-2023 End: 12-30-2023 Patient encounter procedure Naga Anguiano MD Work Phone: Endocrinology Comment on above: Multiple thyroid nod ules (Primary Dx) Start: 12-09-2023 Encounter for gynecological examination (general) (routine) with abnormal findings Jocelin Dumas OCCUPATIONAL REHABILITATION AIDE [facility] Start: 12-09-2023 End: 12-09-2023 ambulatory Jocelin [place] Brady OCCUPATIONAL REHABILITATION AIDE Facility:[facility] Start: 12-09-2023 End: 12-09-2023 ambulatory Jocelin [place] OCCUPATIONAL REHABILITATION AIDE Facility:[facility] Start: 07-23-2023 End: 07-23-2023 ambulatory DO Abi Jefferson Work Phone: [facility] Work Phone: Start: 07-23-2023 End: 07-23-2023 Patient encounter procedure DO Abi Jefferson Work Phone: [facility]-Laboratory Work Phone: Start: 07-23-2023 End: 07-23-2023 Patient encounter procedure DO Abi Jefferson Work Phone: [facility] Work Phone: Start: 07-17-2023 End: 07-17-2023 ambulatory DO Abi Jefferson Work Phone: [facility] Work Phone: Start: 07-17-2023 End: 07-17-2023 Patient encounter procedure DO Abi Jefferson Work Phone: [facility]-Laboratory, Specimen Work Phone: Start: 07-17-2023 End: 07-17-2023 Patient encounter procedure DO Abi Jefferson Work Phone: [facility] Work Phone: Start: 07-16-2023 End: 07-16-2023 ambulatory DO Abi Jefferson Work Phone: [facility] Work Phone: Start: 07-16-2023 End: 07-16-2023 Patient encounter procedure [facility] Work Phone: Start: 07-11-2023 End: 07-11-2023 ambulatory [facility] Work Phone: Start: 07-11-2023 End: 07-11-2023 Patient encounter procedure [facility]-Cat Scan, [facility] Work Phone: Start: 06-04-2023 End: 06-04-2023 ambulatory [facility] Work Phone: Start: 06-04-2023 End: 06-04-2023 Patient encounter procedure [facility]-Laboratory, [facility] Start: 05-16-2023 End: 05-16-2023 ambulatory [facility] Work Phone: Start: 05-16-2023 End: 05-16-2023 Patient encounter procedure [facility]-Radiology, [place] Work Phone: Start: 10-29-2022 End: 10-29-2022 ambulatory [facility] Work Phone: Start: 10-29-2022 End: 10-29-2022 Patient encounter procedure [facility] Start: 05-03-2022 End: 05-03-[address] Claribel Smart Work Phone: [facility] Work Phone: Start: 05-03-2022 End: 05-03-[address] Claribel Smart Work Phone: [facility] Start: 03-02-2022 Non-patient / Non-visit Dr. Reji Smart Work Phone: [facility] Start: 03-02-2022 End: 03-02-2022 Admission to same day surgery center Dr. Claribel Smart Work Phone: [facility]-Endoscopy Start: 03-02-2022 End: 03-02-[address] Claribel Smart Work Phone: [facility] Work Phone: Start: 01-09-2022 Non-patient / Non-visit Dr. Reji Smart Work Phone: [facility] Start: 12-18-2021 End: 12-18-[address] Claribel Smart Work Phone: [facility] Work Phone: Start: 12-18-2021 End: 12-18-[address] Claribel Smart Work Phone: [facility]-Outpatient Breast Imaging Start: 11-06-2021 End: 11-06-[address] Claribel Smart Work Phone: [facility] Work Phone: Start: 11-06-[address] Matt Smart Work Phone: [facility] Start: 11-06-2021 End: 11-06-2021 Encounter for general adult medical examination without abnormal findings Dr. Claribel Smart Work Phone: [facility] Start: 11-06-2021 End: 11-06-[address] Claribel Smart Work Phone: [facility] Start: 08-31-[address] Miguel Smart Work Phone: [facility]-Occupational Therapy Start: 07-10-2021 End: 07-10-2021 Ot evaluation Steve Webb MD Work Phone: [facility] Work Phone: Start: 10-31-[address] Matt Smart Work Phone: [facility] Procedures Date Procedure Procedure Detail Performing Clinician Start: 11-13-2024 US scan of gallbladder Katja Baron MD Work Phone: Start: 11-03-2024 Chocolate OMERO quezada MD Work Phone: Start: 11-03-2024 Endomysial antibody IgA level Katja Baron MD Work Phone: Start: 11-03-2024 Food OMERO Mercedes Work Phone: Start: 11-03-2024 Shrimp OMERO Mercedes Work Phone: Start: 10-27-2024 Us soft tissue head & neck real time imge cata Anguiano MD Work Phone: Start: 06-02-2024 Plain radiography of pelvis Katja Baron MD Work Phone: Start: 06-02-2024 Vaginal hysterectomy Ch vera Baron MD Work Phone: Start: 04-30-2024 Pelvic echography David Baron MD Work Phone: Start: 04-27-2024 Us soft tissue head & neck real time imge docm Dinora Oglesby MD Work Phone: Start: 03-25-2024 Screening mammography C khushbu Baron MD Work Phone: Start: 12-30-2023 End: 12-30-2023 Us soft tissue head & neck real time imge docm Naga Anguiano MD Work Phone: Start: 07-23-2023 Urine [...] of abdomen Start: 03-02-[address] Lorie Smart Work Phone: Start: 12-18-2021 Screening mammography Deuce [...] 07-10-2021 End: 07-11-2021 Docrev cur meds by gracieg clin Steve Webb MD Work Phone: Start: [...] DTaP,Tdap,Td Vaccine (3 - Td or Tdap) [facility] Start: 03-28-2027 Diabetes Screening Diabetes Screening [facility] Start: 04-05-2025 End: 04-05-2025 Patient encounter procedure 04/05/2025 11:20 AM EST Office Visit Endocrinology [address] [place] [address] [place] [address] [place] [address] thyroid follow up with US OK'd per Dr. Abdi anguiano 40mins Endocrinology Comment on above: thyroid follow up with US OK'd per Dr. Matt anguiano 40mins Start: 11-27-2024 ambulatory Ambulatory Facility:[facility] Start: 11-16-2024 Influenza vaccination [facility] Start: 11-03-2024 [facility] Start: 10-27-2024 End: 10-27-2024 Patient encounter procedure 10/27/2024 2:10 PM EDT Office Visit Endocrinology [address] [place] [address] [place] [address] [place] [address] Thyroid-per Dr. Magana Endocrinology Comment on above: Thyroid-per Dr. Magana Start: 10-27-2024 End: 01-25-2025 Thyrotropin [Units/volume] in Serum or Plasma [facility] Work Phone: Comment on above: Expected: 10/27/2024, Expires: Start: 10-21-2024 End: 10-21-2024 Patient encounter procedure 10/21/2024 1:20 PM EDT Office Visit Endocrine Surgery [address] [place] [address] [place] [address] [place] [id number] 6 mo followup Endocrine Surgery Comment on above: 6 mo followup Start: 06-03-2024 End: 02-03-2025 US Thyroid gland US THYROID/PARATHYROID Radiology Routine Multiple thyroid nodules Expected: 06/03/2024, Expires: 02/03/2025 [facility] Work Phone: Comment on above: Expected: 06/03/2024, Expires: Start: 06-03-2024 Patient discharge [facility] Start: 06-03-2024 Procedure discontinued [facility] Start: 06-03-2024 Removal of urinary catheter [facility] Start: 06-02-2024 Following clinical pathway protocol [facility] Start: 06-02-2024 Ambulation therapy management [facility] Start: 06-02-2024 Continuous pulse oximetry [facility] Start: 06-02-2024 Elevation of head of bed [facility] Start: 06-02-2024 Incentive spirometry [facility] Start: 06-02-2024 Measuring intake and output [facility] Start: 06-02-2024 Notification of physician [facility] Start: 06-02-2024 Oxygen therapy [facility] Start: 06-02-2024 Patient education [facility] Start: 06-02-2024 Procedures relating to eating and drinking [facility] Start: 06-02-2024 Taking patient vital signs [facility] Start: 06-02-2024 [facility] Start: 06-02-2024 Introduction of urinary catheter [facility] Start: 06-02-2024 Admission procedure [facility] Start: 05-13-2024 End: 05-13-2024 Patient encounter procedure 05/13/2024 3:00 PM EST Office Visit Endocrine Surgery [address] [place], [place] [phone] [place] [address] [place] [address] post op Endocrine Surgery Comment on above: post op Start: 04-27-2024 End: 04-27-2024 Admission to same day surgery center 04/27/2024 7:30 AM EST - 04/27/2024 9:10 AM EST Surgery [facility] Surgery [address] [place] [address] [place] [address] [place] [phone] THYROID RF ABAL W/US [facility] Surgery Comment on above: THYROID RF ABAL W/US Start: 04-27-2024 Subsequent hospital visit by physician 04/27/2024 7:30 AM EST Hospital Encounter [facility] Surgery [address] [place], [place] [id number] [place] [address] [place] [phone] Multiple thyroid nodules [E04.2], Nontoxic multinodular goiter [E04.2] [facility] Surgery Comment on above: Multiple thyroid nodules [E04.2], Nontox ic multinodular goiter [E04.2] Start: 04-27-2024 End: 04-27-2024 Unlisted procedure endocrine system MM OR Start: 02-26-2024 End: 02-26-2024 Patient encounter procedure 02/26/2024 10:00 AM EST Office Visit Endocrine Surgery [address] [id number] [place] [address] [address] [id number] INTAKE COMPLETED-Multiple thyroid nodules Endocrine Surgery Comment on above: INTAKE COMPLETED-Multiple thyroid nodule s Start: 11-17-2023 Covid-19 Vaccine () Covid-19 Vaccine () [facility] Start: 11-17-2023 Influenza vaccination Influenza Vaccine (#1) [facility] Start: 08-18-2023 Urine microalbumin profile DTaP,Tdap,Td Vaccine (2 - Td or Tdap) [facility] Start: 07-23-2023 Bacteria identified in Urine by Culture [facility] Start: 07-23-2023 [facility] Start: 07-16-2023 Pelvic echography Pelvic w/ Transvaginal [facility] Start: 03-02-2022 Urine test [facility] Work Phone: Start: 03-02-2022 Patient discharge [facility] Start: 11-06-2021 Patient referral [facility] Work Phone: Start: 2021 Diabetes Screening Diabetes Screening [facility] Start: 2021 Lipid panel Lipid Screening [facility] Start: 2021 Screening for malignant neoplasm of colon [facility] Start: 08-07-2021 End: 08-07-2021 Patient encounter procedure [facility] Work Phone: Start: 12-20-2016 Screening for malignant neoplasm of cervix Cervical Cancer Screening [facility] Start: 2016 Screening for malignant neoplasm of breast Mammogram Screening [facility] Start: 09-14-2013 Hepatitis B Vaccine (2 of 3 - 19+ 3-dose series) Hepatitis B Vaccine (2 of 3 - 19+ 3-dose series) [facility] Start: 1994 Anxiety Screening Anxiety Screening [facility] Start: 1994 Depression Screening Depression Screening [facility] Start: 1994 Hepatitis C screening Hepatitis C Screening [facility] Start: 1994 HIV screening HIV Screening [facility] Beef IgE Ab [Units/v olume] in Serum [facility] Chocolate IgE Ab [Units/volume] in Serum [facility] Codfish IgE Ab [Units/volume] in Serum [facility] Colonoscopy [facility] Work Phone: [place] IgE Ab [Units/v olume] in Serum [facility] Cow milk IgE Ab [Units/volume] in Serum [facility] CYTOLOGY 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-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 CYTOLOGY NON-GY N Lab Routine Multiple thyroid nodules 12/30/2023 12:09 PM EDT [facility] Work Phone: Electrocardiographic procedure [facility] Food RAST [facility] MG Breast - bilatera l Screening [facility] Work Phone: MG Breast - bilatera l Screening [facility] Patient referral [facility] Work Phone: Peanut IgE Ab [Units /volume] in Serum [facility] Pork IgE Ab [Units/v olume] in Serum [facility] [place] IgE Ab [Units /volume] in Serum [facility] Shrimp IgE Ab [Units /volume] in Serum [facility] Soybean IgE Ab [Units/volume] in Serum [facility] Tuna IgE Ab [Units/v olume] in Serum [facility] Urine test [facility] Work Phone: US Gallbladder [facility] US Pelvis [facility] US Pelvis transvaginal [facility] Wheat IgE Ab [Units/ volume] in Serum [facility] Whole Egg IgE Ab [Units/volume] in Serum [facility] Immunizations Immunization Date Immunization Notes Care Provider Lianet parekh 08-17-2013 hepatitis A vaccine, adult dosage Naga Anguiano MD Work Phone: [place] [id number] hepatitis B vaccine, adult dosage Naga Anguiano MD Work Phone: [facility] 08-17-2013 measles, mumps and rubella virus vaccine Naga Anguiano MD Work Phone: [facility] 08-17-2013 tetanus toxoid, redu flori diphtheria toxoid, and acellular pertussis vaccine, adsorbed Naga Anguiano MD Work Phone: [facility] Payers Date Payer Category Payer Self-pay [id number] 2022 Private Health Insurance [employer] [id number] 2022 Unknown [id number] 2021 Blue [employer] Blue [employer] BLUE ACCE PPO [id number] 2021 Unknown [id number] 2021 Unknown [id number] Unknown [employer] BLUE ACCESS PPO [id number] Unknown [facility] [id number] Unknown COMMERCIAL OTHER [id number] Unknown [id number] 462 Unknown [id number]. 462 Unknown [id number]. 462 Unknown [id number]. 462 Unknown [id number]. 462 Unknown [id number] [id number]. 462 Unknown [id number] [id number]. 462 Unknown [id number] [id number]. 462 Unknown [id number] [id number]. 462 Unknown [id number] [id number]. 462 Unknown [id number] [id number]. 462 Unknown [id number] 2.16.840.1.713955.3.579.2. 462 Unknown [id number] [id number]. 462 Unknown [id number] [id number]. 462 Unknown [id number]. 462 Social History Date Type Detail Facility Start: 11-06-2021 End: 11-28-2022 Tobacco smoking status WAIS Unknown if ever smoked [facility] Start: 12-05-2018 Non-smoker [facility] Start: 1975 Sex Assigned At Female [facility] Start: 07-18-2011 End: 06-02-2024 Tobacco smoking status WAIS Never smoked tobacco [facility] Start: 07-18-2011 Tobacco use and exposure Smokeless tobacco non-user [facility] Start: 12-30-2023 End: 10-27-2024 Alcoholic beverage intake Current non-drinker of alcohol (finding) [facility] Start: 12-30-2023 End: 10-27-2024 History of Social function [facility] Start: 12-30-2023 End: 10-27-2024 Tobacco use panel [facility] Start: 02-17-2012 National Score (1-100), lower number is lower risk 60 [facility] Start: 1975 Sex assigned at Not on file [facility] Start: 06-03-2024 Sex Female (finding) [facility] NEGATED: Highlighted rowStart: 07-10-2021 End: 07-10-2021 Alcohol use Alcohol use [facility] Work Phone: NEGATED: Highlighted rowStart: 07-10-2021 End: 07-10-2021 Details of drug misuse behavior Details of drug misuse behavior [facility] Work Phone: NEGATED: Highlighted rowStart: 07-10-2021 End: 07-10-2021 How many days of moderate to strenuous exercise, like a brisk walk, did you do in the last 7 days? How many days of moderate to strenuous exercise, like a brisk walk, did you do in the last 7 days? [facility] Work Phone: NEGATED: Highlighted rowStart: 07-10-2021 End: 07-10-2021 Assertion Never smoker [facility] Work Phone: NEGATED: Highlighted row [facility] NEGATED: Highlighted row Not [facility] Medical Equipment Procedure Code Equipment Code Equipment Origin al Text Equipment Identifier Dates Vaginal hysterectomy Collagen haemostatic agent, non-antimicrobial [id number] FDA Start: 06-02-2024 Goals Date Patient Goal Desired Activity /State Functional Status Date Assessment Result Facility 06-03-2024 Functional status Chair [facility] Work Phone: 07-02-2014 Are you deaf, or do you have serious difficulty hearing No 07/02/2014 8:44 AM Angeles Linares LPN No [facility] 07-02-2014 Are you blind, or do you have serious difficulty seeing, even when wearing glasses No 07/02/2014 8:44 AM Angeles Linares LPN No [facility] 07-02-2014 Do you have serious difficulty walking or climbing stairs No 07/02/2014 8:44 AM Angeles Linares LPN No [facility] 07-02-2014 Do you have difficul ty dressing or bathing No 07/02/2014 8:44 AM Angeles Linares LPN No [facility] 07-02-2014 Because of a physica l, mental, or emotional condition, do you have difficulty doing errands alone such as visiting a physician's office or shopping No 07/02/2014 8:44 AM Angeles Linares LPN No [facility] Mental Status Date Assessment Result Facility 06-03-2024 Cognitive function Level Of Cons ciousness Awake;Alert;Appropriate;Fol lows Commands [facility] Work Phone: 06-03-2024 Cognitive function Voice/Name [facility] Work Phone: 03-02-2022 Cognitive function Voice/Name [facility] Work Phone: 07-02-2014 Because of a physica l, mental, or emotional condition, do you have serious difficulty concentrating, remembering, or making decisions No 07/02/2014 8:44 AM EDT Angeles Alejandro LPN No [facility] Clinical Notes 12-30-2023 to 11-13-2024 Telephone Encounter - Naga Campbell MD - 11/12/2024 4:05 PM EDTTelephone Encounter - Naga Campbell MD - 11/12/2024 4:05 PM EDT Note Date & Type Note Facility 11-13-2024 Radiology Diagnostic study note [facility] [address] [place], [place] [address] Gallbladder MR#: [id number] Acct: [id number] Name: CIARRA ALBA Rep #: [id number] : 1975 F 49 From: Sarbjit Buchanan MD PCP: Dr. Katja Baron MD Status: REG CL I Study:Gallbladder Date of Exam: 11/13/24 Exam# [id number] Ordering Dr: Calos Mcdonough MD PROCEDURE: GALLBLADDER 11/13/2024 REASON FOR EXAM: EPIGASTRIC PAIN COMPARISON: None FINDINGS: Liver: Diffusely echogenic suggesting fatty infiltration. Liver measures 17.1 cm. Gallbladder: No stones, sludge, wall thickening or tenderness. Common bile duct: Normal measuring 3 mm. . Pancreas: Normal Other: Findings suggestive of a 7 mm x 7 mm x 6 mm echogenic nodule in the superior pole of the right kidney. This may represent an angiomyolipoma. US/Gallbladder IMPRESSION: Fatty infiltration of the liver. 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 Reading Location: [id number] CC: Dr. Calos Mcgill MD; Dr. Katja Baron MD ~ Radio Interference Investigator: Signed [facility] 11-12-2024 Miscellaneous Notes Formattin g of this note might be different from the original. Virtual visit completed today Naga Anguiano MD documented in this encounter [facility] 11-12-2024 Telephone encount er Note Virtual visit completed today Naga Anguiano MD [facility] 11-10-2024 Evaluation note Diagnosis Onset Date Resolution GERD (gastroesophageal reflux disease) chronic November 10 1:57pm [facility] Work Phone: 1(724) 231-178108-26-2025 Progress [facility] [address] [place] [address] OFFICE VISIT Date of Service: 11/10/24 MR#: [id number] Acct: [id number] Name: CIARRA ALBA LÓPEZ Rep #: [id number] : 1975 Provider: Dr. Iram Mcgill MD Age/Sex: 49/F Location: [facility] Status: Signed Intake Vital Signs 07/17/24 11:01 [...] safe at home: Yes additional social history: Colt[employer]Ssep[employer] employed Patient works [employer] HPI HPI HPI: Patient is a 49-year-old female who is here for burning in the epigastric region. She reports that the pain does not go into her esophagus and she does not feel like it is reflux only mostly epigastric pain but sometimes it radiatesto the right upper quadrant. She says that eating does not help shesays the only thing that does help is [...] cough, No COPD, No asthma, No emphysema andNo wheezing Gastro Gastrointestinal: Yes abdominal pain, No nausea or vomiting, No diarrhea, No constipation, No bloodin stool, Yes acid reflux, Yes hemorrhoids, No [...] of the Carafate she begins burning again. Shesays sometimes the pain is in the right upper quadrant. I would like to perform an EGD to evaluate.I explained endoscopy in detail to the patient. I explained the risks including but not limited to s troke or heart attack with anesthesia, perforation of the GI tract, bleeding, infection. I explained that any of these could necessitate further emergency surgery. The patient understands and all questions were answered sufficiently. The patient wishes to proceed with procedure. Patient is also saying that the pain sometimes radiates to the right upper quadrant. I will order agallbladder ultrasound to evaluate for stones. Calos Mcgill MD Pager: [facility] [address] [place] [address], [address] [place] [address] Office: Orders: Orders Gallbladder Today K21.9 - Gastro-esophageal reflux disease without esophagitis,R10.13 - Epigastric pain EGD Today Coding Level of Care Code Off vis,new,level 3 Diagnoses Gastroesophageal reflux disease, unspecified whether esophagitis present K21.9 Esophagitis presence: esophagitis presence not specified 11/10/24 Pro phillips MD> Date _ Calos Mcgill MD Cosigner Signature: Date (if applicable) CC: ~ [facility]08-26-2025 Progress note Author Calos Mcgill [facility] Note Date/Time November 10, 2024 2: 22pm [facility] [address] [place], [place] [address] OFFICE VISIT Date of Service: 11/10/24 MR#: [id number] Acct: [id number] Name: CIARRA ALBA LÓPEZ Rep #: [id number] : 1975 Provider: Dr. Iram Mcgill MD Age/Sex: 49/F Location: [facility] Status: Signed Intake Vital Signs 07/17/24 11:01 [...] safe at home: Yes additional social history: Qkiqkzl-Qtsf-Dzrv employed Patient works [employer] HPI HPI HPI: Patient is a 49-year-old [...] evaluate for stones. Calos Mcgill MD Pager: [facility] [address] [place] [address], [address] [place] [address] Office: Orders: Orders Gallbladder Today K21.9 - Gastro-esophageal reflux disease without esophagitis,R10.13 - Epigastric pain EGD Today Coding Level of Care Code Off vis,new,level 3 Diagnoses Gastroesophageal reflux disease, unspecified whether esophagitis present K21.9 Esophagitis presence: esophagitis presence not specified 11/10/24 1422 <Electronically signed by Calos phillips MD> Date _ Calos Mcgill MD Cosigner Signature: Date (if applicable) CC: ~ [facility] Work Phone: 1(638) 961-547308-12-2025 NoteHNO ID: [id number] Author: NAGA CAMPBELL MD Service: ? Author Type: Physician Type: Progress Notes Filed: 10/27/2024 15:01 Note Text: Thyroid/parathyroid/neck ultrasound (October 27, 2024): Primary Care Physcian: No primary care provider on file. Reason for the study: Follow up of thyroid nodule s/p RFA or left 2 cm nodule in 04/2024 Comparison: 07/2024 and 12/2023 Equipment: [employer] Transducer: Linear/Trapezoidal multifrequency Regions examined: Thyroid Technique: [...] 1 year. Performed and interpreted by Naga Anguiano, [facility]08-12-2025 History of Present illness Narrative* Naga Campbell MD - 10/27/2024 2:58 PM EDT Thyroid/parathyroid/neck ultrasound (October 27, 2024): Primary Care Physcian: No primary care provider on file. Reason for the study: Follow up of thyroid nodule s/p RFA or left 2 cm nodule in 04/2024 Comparison: 07/2024 and 12/2023 Equipment: [employer] Transducer: Linear/Trapezoidal multifrequency Regions examined: Thyroid Technique: [...] year Naga Anguiano MD [facility] NoteHNO ID: [id number] Author: NAGA CAMPBELL MD Service: ? Author [...] 2 Sons with thyroid cancer -- ? [facility] with thyroid issues -- Thyroid US in [...] follow up in 1 year Naga Anguiano, [facility]05-20-2025 NoteHNO ID: [id number] Author: ?, ?, ? Service: ? Author Type: ? Type: Progress Notes Filed: 08/04/2024 08:47 Note Text: 10/27 2:[address] Abdi Anguiano in [facility]05-14-2025 NoteHNO ID: [id number] Author: JESUSITA MAGANA MD Service: ? Author [...] Dr. Ty in 3 months. Jesusita Magana [facility]05-14-2025 History of Present illness Narrative* Jesusita Magana [...] months. Jesusita Magana MD [facility] Instructions* Patient Instructions* Moo He MA - 07/29/2024 2:51 PM EDT Thank you for choosing the [facility] Department of Endocrinology, Diabetes and Metabolism. Did you know that you need to call 48 hours in advance of your scheduled visit, if you are unable to make your appointment? The Endocrinology and Metabolism [place] thanks you for your commitment, because patients not showing to their appointment results in a lost opportunity for patients to receive [facility] health care at the [facility]. To Cancel an appointment, please choose one of the following: - Call the Appointment Call Center at [phone] - From [employer], Go to Appointments - Cancel Appts If cancelling, consider your need to reschedule to prevent further delays in your care. To Schedule an appointment, please choose one of the following: - Call the Appointment Call Center at [phone] - From [employer], Go to Appointments - Request an Appt [facility] Evaluation note* Diagnosis Onset Date Resolution Status Admit Date Adenomyosis acute July 17, 2024 10:53am Pelvic pain acute July 17, 2024 10:53am [facility] Work Phone: 1(455) 926-349605-02-2025 Evaluation note* Diagnosis Onset Date Resolution Status Admit Date Adenomyosis acute July 17, 2024 10:53am Pelvic pain acute July 17, 2024 10:53am GERD (gastroesophageal reflu x disease) chronic November 10 1:57pm [facility] Work Phone: 1(416) 232-426003-19-2025 Consult note [facility] Medical Records Department [address] [place] [address] Anesthesia Postop Eval II 06/02/241746 MR#: [id number] Acct: [id number] Name: CIARRA ALBA LÓPEZ Rep #:[id number] : 1975 48 From: Judy Kendrick PCP: Dr. Katja Baron MD Status:REG SD C Y Race: C Location: [address] Anesthesia Postop Eval I Sum Postop Eval Completion status Anesthesia document: Postop Eval 1 completed: Yes Anesthesia Postop Eval I Summary Anesthesia Postop Eval I Summary: Anesthesia Postop Eval I: Assessment Summary Airway patent Yes 06/02/24 16:56 DYNAMICS AX CONSULTANT.CSIR Spontaneous unlabored Yes 06/02/24 16:56 DYNAMICS AX CONSULTANT.CSIR respirations Mental status nausea No 06/02/24 16:56 DYNAMICS AX CONSULTANT.CSIR Vomiting No 06/02/24 16:56 DYNAMICS AX CONSULTANT.CSIR Anesthesia Postop Eval I: Fluid Summary Crystalloid volume administer 2,800 06/02/24 16:56 DYNAMICS AX CONSULTANT.CSIR (ml) Colloids volume administered ( ml) Blood Product volume administered (ml) Total IV fluid infused 2,800 06/02/24 16:56 DYNAMICS AX CONSULTANT.CSIR Anesthesia Postop Eval I: Summary Notes Anesthesia Complication No 06/02/24 16:56 DYNAMICS AX CONSULTANT.CSIR Anesthesia Complication Comment: Post-operative progress note Anesthesia: Postop Eval II Evaluation Mental status: Awake and Calm Pain Level: 0 nausea: No Vomiting: No 06/02/247 a> Date _ Judy Lay Signature: Date CC: ~ Signed [facility]03-19-2025 Consult note [facility] Medical Records Department [address] [place] [address] Counseling Note - Pharmacy 06/03/24 1432 MR#: [id number] Acct: [id number] Name: CIARRA ALBA Rep #:[id number] : 1975 48 From: Keiko Maciel PCP: Dr. Katja Baron MD Status:ADM IN O Y [facility] Service has performed discharge medication reconciliation [...] Signature (if applicable): Date CC: ~ Signed [facility]03-18-2025 Discharge summary Author Natasha Banegas [facility] Note Date/Time June 02, 2024 6:5 4pm [facility] Medical Records Department [address] [place] [address] Instructions for Home/Discharge Instructions 06/02/24 1852 MR#: [id number] Acct: [id number] Name: CIARRA ALBA Rep #:[id number] : 1975 48 From: Natasha knight MD [...] CC: Dr. Katja Baron MD ~ Signed [facility] Work Phone: 1(607) 661-405203-18-2025 Consult note Author Judy Kendrick [facility] Note Date/Time June 03, 2024 3:4 0pm [facility] Medical Records Department [address] [place] [address] Anesthesia Postop Eval II 06/02/24 1747 MR#: [id number] Acct: [id number] Name: CIARRA ALBA LÓPEZ Rep #:[id number] : 1975 48 From: Judy Kendrick PCP: Dr. Katja Baron MD Status:REG SD C Y Race: C Location: [place] [address] Anesthesia Postop Eval I Sum Postop Eval Completion status Anesthesia document: Postop Eval 1 completed: Yes Anesthesia Postop Eval I Summary Anesthesia Postop Eval I Summary: Anesthesia Postop Eval I: Assessment Summary Airway patent Yes 06/02/24 16:56 DYNAMICS AX CONSULTANT.CSIR Spontaneous unlabored Yes 06/02/24 16:56 DYNAMICS AX CONSULTANT.CSIR respirations Mental status nausea No 06/02/24 16:56 DYNAMICS AX CONSULTANT.CSIR Vomiting No 06/02/24 16:56 DYNAMICS AX CONSULTANT.CSIR Anesthesia Postop Eval I: Fluid Summary Crystalloid volume administer 2,800 06/02/24 16:56 DYNAMICS AX CONSULTANT.CSIR (ml) Colloids volume administered ( ml) Blood Product volume administered (ml) Total IV fluid infused 2,800 06/02/24 16:56 DYNAMICS AX CONSULTANT.CSIR Anesthesia Postop Eval I: Summary Notes Anesthesia Complication No 06/02/24 16:56 DYNAMICS AX CONSULTANT.CSIR Anesthesia Complication Comment: Post-operative progress note Anesthesia: Postop Eval II Evaluation Mental status: Awake and Calm Pain Level: 0 nausea: No Vomiting: No 06/02/241746 <Electronically signed by Judy villa> Date _ Judy Sirca Cosigner Signature: Date CC: ~ Signed [facility] Work Phone: 1(477) 491-484703-18-2025 Consult note Author Judy Kendrick [facility] Note Date/Time June 02, 2024 4:5 6pm [facility] Medical Records Department [address] [place] [address] Anesthesia Postop Eval I 06/02/241655 MR#: [id number] Acct: [id number] Name: CIARRA ALBA LÓPEZ Rep #:[id number] : 1975 48 From: Jduy Kendrick PCP: Dr. Katja Baron MD Status:REG SD C Y Race: C Location: [place] [address] Anesthesia: Postop Eval I Current Vital Signs Temperature: 97 F Pulse Rate: 85 Blood Pressure: 106/62 Respiratory Rate: 16 Pulse Ox: 93 Assessment Airway patent: Yes Spontaneous unlabored respirations: Yes nausea: No Vomiting: No Anesthesia Complication: No Fluid Hydration Crystalloid volume administer (ml): 2,800 Total IV fluid infused: 2,800 Progress Note Anesthesia document: Postop Eval 1 completed: Yes 06/02/241655 <Electronically signed by Judy villa> Date _ Judy Sirca Cosigner Signature: Date CC: ~ Signed [facility] Work Phone: 1(421) 241-481103-18-[address] [facility] Medical Records Department [address] [place] [address] Instructions for Home/Discharge Instructions 06/02/24 1852 MR#: [id number] Acct: [id number] Name: CIARRA ALBA Rep #:[id number] : 1975 48 From: Natasha knight MD [...] Order can be placed): Home, Self Care 06/02/24 185Natasha Banegas MD CC: Dr. Katja Baron MD ~ Signed [facility]03-18-2025 Procedure note [facility] Medical Records Department [address] [place] [address] Operative Report 06/02/24 1700 MR#: [id number] Acct: [id number] Name: CIARRA ALBA Rep #:[id number] : 1975 48 From: Natasha knight MD PCP: Dr. 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 Vaginal cuff closed with tcaxev-ob-[id number] Vicrylsutures. Attention was then paid back to [...] Baron MD; Dr. Natasha Banegas MD~ Signed [facility]03-18-2025 Radiology Diagnostic study note [facility] Imaging Services [address] [place] [address] Pelvis 1 or 2 Views MR#: [id number] Acct: [id number] Name: CIARRA ALBA LÓPEZ Rep #: [id number] : 1975 F 48 From: Jl Chacon DO PCP: Dr. Katja Baron MD Status: REG SD C Study:Pelvis 1 or 2 Views Date of Exam: 06/02/24 Exam# [id number] Ordering Dr: Natasha Carey MD PROCEDURE: PELVIS 1 OR 2 VIEWS 06/02/2024 REASON FOR EXAM: CLOSING COUNT DISCREPANCY TECHNIQUE: 1 view(s) of the pelvis. FINDINGS: Hardware: No radiopaque density is demonstrated. Bones: Unremarkable Joints: Normal alignment at the hips and sacroiliac joints. soft tissues: Soft tissues are unremarkable. Other: RAD/Pelvis 1 or 2 Views IMPRESSION: No radiopaque density is demonstrated. Reading Location: [facility] CC: Dr. Katja Baron MD; Dr. Natasha Banegas MD ~ Radio Interference Investigator: Signed [facility]03-18-2025 Consult note [facility] Medical Records Department [address] [place] [address] Anesthesia Postop Eval I 06/02/24 1656 MR#: [id number] Acct: [id number] Name: CIARRA ALBA LÓPEZ Rep #:[id number] : 1975 48 From: Judy Kendrick PCP: Dr. Katja Baron MD Status:REG SD C Y Race: C Location: [place] [address] Anesthesia: Postop Eval I Current Vital Signs Temperature: 97 F Pulse Rate: 85 Blood Pressure: 106/62 Respiratory Rate: 16 Pulse Ox: 93 Assessment Airway patent: Yes Spontaneous unlabored respirations: Yes nausea: No Vomiting: No Anesthesia Complication: No Fluid Hydration Crystalloid volume administer (ml): 2,800 Total IV fluid infused: 2,800 Progress Note Anesthesia document: Postop Eval 1 completed: Yes 06/02/24 1656 a> Date _ Judy Jacobsonigner Signature: Date CC: ~ Signed [facility]03-18-2025 History and physical note Author Natasha Banegas [facility] Note Date/Time June 02, 2024 12: 00pm [facility] Medical Records Department [address] [place] [address] History & Physical Exam 06/02/24 0728 MR#: [id number] Acct: [id number] Name: CIARRA ALBA LPÓEZ Rep #:[id number] : 1975 48 From: Natasha knight MD PCP: Dr. 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 Natasha Banegas MD ~* Signed [facility] Work Phone: 1(813) 302-317103-18-2025 Consult note Author Eleazar Velez [facility] Note Date/Time June 02, 2024 10: 16am [facility] Medical Records Department [address] [facility] [address] Pre-Anesthesia Evaluation 06/02/24 1010 MR#: [id number] Acct: [id number] Name: CIARRA ALBA LÓPEZ Rep #:[id number] : 1975 48 From: Eleazar Velez MD PCP: Dr. Katja Baron MD Status:REG SD C Y Race: C Location: [place] [address] ASA Classification* ASA Classification ASA Classification: 2 [...] 15:25 06/04/23 Sodium 138 mmol/L (136-145) 06/04/23 15:06/04/23 Magnesium 2.3 mg/dL (1.5-2.2) H 05/27/24 08:36 [...] BILATERAL SALPINGECTOMY Anesthesia History Anesthesia History - supervisor lace tearing: Anesthesia History - supervisor lace tearing Hx Hospitalization No 05/19/24 15:25 Any Problems [...] take am of surgery PONV PONV - supervisor lace tearing: PONV - supervisor lace tearing Female Yes 05/19/24 15:25 HX of Motion [...] 06/02/24 09:30 Respiratory Assessment Respiratory Assessment - supervisor lace tearing: Respiratory Tract Infection Hx - supervisor lace tearing Hx Respiratory Tract Infection No 05/19/24 15:25 STOP Sleep Apnea STOP Sleep Apnea - supervisor lace tearing: STOP Sleep Apnea - supervisor lace tearing Hx Hypertension No 05/19/24 15:25 Hx Sleep [...] Tobacco Use History Tobacco Use History - supervisor lace tearing: Tobacco Use History - supervisor lace tearing Tobacco Use Smoking Status Never smoker 05/19/24 15:25 Hx Tobacco Use No 05/19/24 15:25 Years Smoking Packs Smoked per Day Smoking Cessation Date was within the last 15 years Hx Smoking Cessation Date Hx Smoking Cessation Counseling Hematologic Medial History Hematologic Hx - supervisor lace tearing: Hematologic Medical Hx - blade aligner Hx of Blood Transfusion No 05/19/24 15:25 [...] confused, unrespo /Reproduction History /Reproductive History - supervisor lace tearing: /Reproductive Hx- supervisor lace tearing Hx Now No 05/19/24 15:25 Gestational Age [...] safe at home: Yes additional social history: Poiyidj-Bfjz-Tapp employed Patient works [employer] Addt'l Information Additional Findings: EKG: NSR [...] MD Cosigner Signature: Date CC: ~ Signed [facility] Work Phone: 1(600) 830-853903-18-2025 History and physical note [facility] Medical Records Department [address] [place] [address] History & Physical Exam 06/02/24 0728 MR#: [id number] Acct: [id number] Name: CIARRA ALBA LÓPEZ Rep #:[id number] : 1975 48 From: Natasha knight MD PCP: Dr. 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 Natasha Banegas MD ~* Signed [facility]03-18-2025 Consult note [facility] Medical Records Department [address] [place] [address] Pre-Anesthesia Evaluation 06/02/24 1010 MR#: [id number] Acct: [id number] Name: CIARRA ALBA Rep #:[id number] : 1975 48 From: Eleazar Velez MD PCP: Dr. Katja Baron MD Status:REG SD C Y Race: C Location: [place] [address] ASA Classification* ASA Classification ASA Classification: 2 [...] BILATERAL SALPINGECTOMY Anesthesia History Anesthesia History - supervisor lace tearing: Anesthesia History - supervisor lace tearing Hx Hospitalization No 05/19/24 15:25 Any Problems [...] take am of surgery PONV PONV - supervisor lace tearing: PONV - supervisor lace tearing Female Yes 05/19/24 15:25 HX of Motion [...] 06/02/24 09:30 Respiratory Assessment Respiratory Assessment - supervisor lace tearing: Respiratory Tract Infection Hx - supervisor lace tearing Hx Respiratory Tract Infection No 05/19/24 15:25 STOP Sleep Apnea STOP Sleep Apnea - supervisor lace tearing: STOP Sleep Apnea - supervisor lace tearing Hx Hypertension No 05/19/24 15:25 Hx Sleep [...] Tobacco Use History Tobacco Use History - supervisor lace tearing: Tobacco Use History - supervisor lace tearing Tobacco Use Smoking Status Never smoker 05/19/24 15:25 Hx Tobacco Use No 05/19/24 15:25 Years Smoking Packs Smoked per Day Smoking Cessation Date was within the last 15 years Hx Smoking Cessation Date Hx Smoking Cessation Counseling Hematologic Medial History Hematologic Hx - supervisor lace tearing: Hematologic Medical Hx - blade aligner Hx of Blood Transfusion No 05/19/24 15:25 [...] confused, unrespo /Reproduction History /Reproductive History - supervisor lace tearing: /Reproductive Hx- supervisor lace tearing Hx Now No 05/19/24 15:25 Gestational Age [...] safe at home: Yes additional social history: Gyznbpi-Yebc-Mhmr employed Patient works [employer] Addt'l Information Additional Findings: EKG: NSR [...] 1016 MD> Date _ Eleazar Velez MD Cosigner Signature: Date CC: ~ Signed [facility]03-18-2025 [facility] Medical Records Department [address] [place] [address] History Physical Exam 06/02/24727 MR#: [id number] Acct: [id number] Name: CIARRA ALBA Rep #: [id number] : 1975 48 From: Natasha Banegas MD PCP: Dr. 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 Is patient in pain?: Yes [...] safe at home: Yes additional social history: Qcsekvi-Gysg-Uoux employed Patient works [employer] History 2 Elective abortions Hx Para [...] acute distress and well developed Orientation: alert HENMT Head: normal to inspection and normocephalic Ears: [...] to palpation External Female (more content not included)...[facility] 05-25-2024 Evaluation note* Diagnosis Onset Date Resolution Status Admit Date Adenomyosis acute May 25, 2 025 8:43am Pelvic pain acute May 25, 025 8:43am Adenomyosis acute June 02, 025 4:43pm Endometriosis acute June 02, 2024 4:43pm Pelvic adhesions acute June 022024 4:43pm Pelvic pain acute June 02, 025 4:43pm S/P laparoscopic assisted vaginal hysterectomy (LAVH) acute 2024 4:43pm Status post bilateral salpingectomy acute June 02, 2024 4:43pm [facility] Work Phone: 1(798) 383-810602-26-2025 History of Present illness Narrative* Jesusita Magana MD - 05/13/2024 3:00 PM EST Endocrinology Metabolism [place] [facility] Jesusita Magana M.D. Section of Endocrine Surgery and Advanced Laparoscopic Surgery [address] [place] [address] ENDOCRINE SURGERY POST OPERATIVE FOLLOW UP NOTE NAME: Ciarra Alba CLINIC NO: [id number] : 1975 Surgeon: Dr. Jesusita Magana HPI: [...] office showing a left thyroid nodule measuring [id number] mm with preoperative measures of 15.9x13.1x16.1mm. LABS: None IMPRESSION: Ciarra Alba is doing well after RFA of a symptomatic left thyroid nodule. PLAN: F/u in 3 months Jesusita Magana MD 05/13/2024 documented in this encounterGe[facility]02-26-2025 NoteHNO ID: [id number] Author: JESUSITA MAGANA MD Service: ? Author Type: Physician Type: Progress Notes Filed: 05/13/2024 15:25 Note Text: Endocrinology Metabolism [place] [facility] Jesusita Magana M.D. Section of Endocrine Surgery and Advanced Laparoscopic Surgery [address] [place] [address], [facility] [place] [address] ENDOCRINE SURGERY POST OPERATIVE FOLLOW UP NOTE NAME: Ciarra Alba CLINIC NO: [id number] : 1975 Surgeon: Dr. Jesusita Magana HPI: [...] office showing a left thyroid nodule measuring [id number] mm with preoperative measures of 15.9x13.1x16.1mm. LABS: None IMPRESSION: Ciarra Alba is doing well after RFA of a symptomatic left thyroid nodule. PLAN: F/u in 3 months Jesusita Magana MD 05/13/2024[facility]02-26-2025 Instructions* Patient Instructions * Chinyere Barclay MA - 05/13/2024 2:47 PM EST Thank you for choosing the [facility] Department of Endocrinology, Diabetes and Metabolism. Did you know that you need to call 48 hours in advance of your scheduled visit, if you are unable to make your appointment? The Endocrinology and Metabolism [place] thanks you for your commitment, because patients not showing to their appointment results in a lost opportunity for patients to receive [facility] health care at the [facility]. To Cancel an appointment, please choose one of the following: - Call the Appointment Call Center at [phone] - From [employer], Go to Appointments - Cancel Appts If cancelling, consider your need to reschedule to prevent further delays in your care. To Schedule an appointment, please choose one of the following: - Call the Appointment Call Center at [phone] - From [employer], Go to Appointments - Request an Appt documented in this encounterGeorgetown [facility] Hospital01-27-2025 History and physical note * Dulce [...] COVID-19 Immunization Status Overdue - Covid-19 Vaccine ( season) Overdue since 11/17/2023 09/11/2021 Imm Admin: COVID-19 original vaccine, full dose, monovalent (MODERNA) 07/19/2021 Imm Admin: COVID-19 original vaccine, full dose, monovalent (MODERNA) CHIEF COMPLAINT: Pre-Op HPI: Ciarra Alba is a 48 year old female presenting for pre-anesthesia consultation. Pt has history of thyroid nodules. Above procedure recommended to manage symptoms. Procedure scheduled on 04/27/2024 at [facility]. REVIEW OF SYSTEMS: General: No weight loss, malaise or fevers. Neurological: Negative for: headaches, multiple sclerosis, Parkinson's disease, seizures and strokes. Respiratory: Negative for: asthma, COPD, current cough, dyspnea, tobacco use, URI < 2 weeks and obstructive sleep apnea. Cardiovascular: Negative for: AICD/PPM, anticoagulation therapy, arrhythmia, CAD, chest pain, CHF, DVT/PE, hyperlipidemia, hypertension, recent OR, murmur/valvular heart disease, open heart surgery and [...] or any previous visit (from the past 65495 hour(s)). Assessment Patient has the following medical [...] DATE: 04/13/2024 TIME: 9:35 AM PAGER/CONTACT #: [facility]01-27-[facility] History and physical note* Dulce Romero [...] COVID-19 Immunization Status Overdue - Covid-19 Vaccine ( season) Overdue since 11/17/2023 09/11/2021 Imm Admin: COVID-19 original vaccine, full dose, monovalent (MODERNA) 07/19/2021 Imm Admin: COVID-19 original vaccine, full dose, monovalent (MODERNA) CHIEF COMPLAINT: Pre-Op HPI: Ciarra Alba is a 48 year old female presenting for pre-anesthesia consultation. Pt has history of thyroid nodules. Above procedure recommended to manage symptoms. Procedure scheduled on 04/27/2024 at [facility]. REVIEW OF SYSTEMS: General: No weight loss, malaise or fevers. Neurological: Negative for: headaches, multiple sclerosis, Parkinson's disease, seizures and strokes. Respiratory: Negative for: asthma, COPD, current cough, dyspnea, tobacco use, URI < 2 weeks and obstructive sleep apnea. Cardiovascular: Negative for: AICD/PPM, anticoagulation therapy, arrhythmia, CAD, chest pain, CHF, DVT/PE, hyperlipidemia, hypertension, recent OR, murmur/valvular heart disease, open heart surgery and [...] or any previous visit (from the past 85045 hour(s)). Assessment Patient has the following medical [...] 9:35 AM PAGER/CONTACT #: documented in this encounterGeorgetown Behavioral Hospital01-27-2025 Instructions* Patient Instructions* Dulce Romero PA-C - 04/13/2024 9:16 AM EST Images from the original note were not included. [facility] Pre-Anesthesia [facility] PATIENT PREOPERATIVE INSTRUCTIONS Jesusita Helms MD, has scheduled you for your procedure at this surgery center: [facility]: [phone] -- [address] [place] [address]. Please read below carefully for your personalized [...] taking for the 04/13/24 encounter (PAT) with , [facility]. If you start any new medications after today's visit, please contact the surgeon's office. If you are currently using a [id number] injectable or oral medication for diabetes or [...] Procedures: - YOU MUST HAVE A RESPONSIBLE TRANSPORTATION MUSEUM HELPER TAKE YOU HOME. A AWNING FRAME MAKER OR FLOOR CLEANER CANNOT BE MADE A RESPONSIBLE TRANSPORTATION MUSEUM HELPER. - We recommend that a responsible person stays with you overnight to take care of you. - You cannot stay in a hotel alone after outpatient surgery. You will not be permitted to have yoursurgery, if you do not have someone to take care of you. If you already have an Advance Directive, please fax a copy to [phone] or email to for it to be [...] day. Dulce Romero PA-C documented in this encounterGeorgetown Behavioral Hospital12-11-2024 History of Present illness Narrative* Jesusita Magana MD - 02/26/2024 10:00 AM EST Endocrinology Metabolism [place] [facility] Jesusita Magana M.D. Section of Endocrine Surgery and Advanced Laparoscopic Surgery [address] [place] [address], [place] [address] ENDOCRINE SURGERY NEW CONSULTATION NAME: [facility] Nanci [facility] NO: [id number] : 1975 Surgeon: Dr. Jesusita Magana REFERRING PROVIDER: Naag Anguiano [address] [place], [place] [address] [address] The patient was referred by the above [...] Sincerely, Jesusita Magana MD 02/26/2024 CC: Naga Patton Prasanth [address] [place], [place] [id number] Fax: documented in this encounterGeorgetown Behavioral Hospital12-11-2024 NoteHNO ID: [id number] Author: JESUSITA MAGANA MD Service: ? Author Type: Physician Type: Progress Notes Filed: 02/26/2024 10:28 Note Text: Endocrinology Metabolism [place] [facility] Jesusita Magana M.D. Section of Endocrine Surgery and Advanced Laparoscopic Surgery [address] [place] [address], [facility] [address] [place] [address] ENDOCRINE SURGERY NEW CONSULTATION NAME: Ciarra Alba CLINIC NO: [id number] : 1975 Surgeon: Dr. Jesusita Magana REFERRING PROVIDER: Naga Anguiano [address] [facility] [address] The patient was referred by the above [...] Jesusita Magana MD 02/26/2024 CC: Naga Anguiano [address] [facility] [address] Fax:[facility]12-11-2024 Instructions* Patient Instructions* Steph Patel MA - 02/26/2024 9:46 AM EST Thank you for choosing the [facility] Department of Endocrinology, Diabetes and Metabolism. Did you know that you need to call 48 hours in advance of your scheduled visit, if you are unable to make your appointment? The Endocrinology and Metabolism [place] thanks you for your commitment, because patients not showing to their appointment results in a lost opportunity for patients to receive world class health care at the [facility]. To Cancel an appointment, please choose one of the following: - Call the Appointment Call Center at [phone] - From [employer], Go to Appointments - Cancel Appts If cancelling, consider your need to reschedule to prevent further delays in your care. To Schedule an appointment, please choose one of the following: - Call the Appointment Call Center at [phone] - From [employer], Go to Appointments - Request an Appt documented in this encounterGeorgetown Behavioral Hospital11-29-2024 Telephone encounter Note * Telephone Encounter - Benigno Barnes - 02/14/2024 1:14 PM EST 02/14/2024 INTAKE COMPLETED-NEED TSH ENDOCRINE SURGERY PATIENT WORKSHEET Initial Call Date: February 14, 2024 Reason for Consult/ Referral: Thyroid Nodule PATIENT DEMOGRAPHICS Name: Ciarra Alba [facility]#: [id number] : 1975 AGE: [age] year old Contact Numbers: Home: (home) Work: (work) PATIENT PHYSICIAN INFORMATION Referring Doctor: DR.EL ANGUIANO Address: Phone: Leadership Program Internship: DR. ABDI ANGUIANO Address: Phone: PCP: To [...] yes: 12/2023 FNA Slides: [facility]NA performed at [facility] facility Has the patient ever had thyroid or parathyroid surgery before: No Operative Reports: NONE AVAILABLE Pathology Reports: SEE EPIC [facility] Work Phone: 1(485) 981-870611-29-2024 Miscellaneous Notes* Telephone Encounter - Benigno Barnes - 02/14/2024 1:14 PM EST 02/14/2024 INTAKE COMPLETED-NEED TSH ENDOCRINE SURGERY PATIENT WORKSHEET Initial Call Date: February 14, 2024 Reason for Consult/ Referral: Thyroid Nodule PATIENT DEMOGRAPHICS Name: Ciarra Alba CC#: [id number] : 1975 AGE: [age] year old Contact Numbers: Home: (home) Work: (work) PATIENT PHYSICIAN INFORMATION Referring Doctor: DR.EL ANGUIANO Address: Phone: Leadership Program Internship: DR. ABDI ANGUIANO Address: Phone: PCP: To [...] yes: 12/2023 FNA Slides: FNA performed at [facility] facility Has the patient ever had thyroid or parathyroid surgery before: No Operative Reports: NONE AVAILABLE Pathology Reports: SEE EPIC documented in this encounterGeorgetown Behavioral Hospital10-14-2024 NoteHNO ID: [id number] Author: NAGA CAMPBELL MD Service: ? 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 Naga Anguiano MD documented in this encounterGeorgetown Behavioral Hospital10-14-2024 NoteHNO ID: [id number] Author: NAGA CAMPBELL MD Service: ? Author [...] will follow up in 6 months. Naga Anguiano, [facility] note Author Keiko Maciel [facility] Note Date/Time June 03, 2024 2:3 3pm [facility] Medical Records Department [address] [place] [address] Counseling Note - Pharmacy 06/03/24 1432 MR#: [id number] Acct: [id number] Name: CIARRA ALBA LÓPEZ Rep #:[id number] : 1975 48 From: Keiko Maciel PCP: Dr. Katja Baron MD Status:ADM IN O Y Location: [address] [facility] Pharmacy Service has performed discharge medication reconciliation [...] Signature (if applicable): Date CC: ~ Signed [facility] Work Phone: evaluation noteThere may be information available, but it has not been provided by the sender.[facility] Work Phone: Evaluation note* Diagnosis Onset Date Resolution Status Colon cancer screening acute Preventative health care acu te GERD (gastroesophageal reflux disease) chronic [facility] Work Phone: Evaluation note* Diagnosis Onset Date Resolution Status Colon cancer screening acute Preventative health care acu te GERD (gastroesophageal reflux disease) chronic Colon cancer screening acute [facility] Work Phone: Evaluation note* Diagnosis Onset Date Resolution Status Colon cancer screening [facility] Work Phone: Evaluation noteNo assessment information available [facility] Work Phone: Evaluation note* Diagnosis Onset Date Resolution Status Pain in female pelvis noneac tive [facility] Work Phone: Evaluation note* Diagnosis Onset Date Resolution Status Pain in female pelvis noneac tive Adenomyosis acute Pelvic pain acute Pain in female pelvis noneac tive [facility] Work Phone: Evaluation note* Diagnosis Multiple thyroid nodules- Primary Nontoxic multinodular goiter documented in this encounter [facility] note* Diagnosis Multiple thyroid nodules- Primary Nontoxic multinodular goiter documented in this encounter [facility] note* Diagnosis Multiple thyroid nodules- Primary Nontoxic multinodular goiter documented in this encounter [facility] note* Diagnosis Gastroesophageal reflux disease, unspecified whether esophagitis present- Primary Pre-op evaluation Preoperative examination, unspecified Multiple thyroid nodules Nontoxic multinodular goiter Nontoxic multinodular goiter * Assessment & Plan Note - Dulce Romero PA-C - 04/13/2024 9:33 AM EST Associated Problem(s): Acid reflux Assessment: Reports frequent acid reflux recently. Taking Tums and Prilosec PRN. Denies dysphagia. Reports occ globus sensation. documented in this encounter [facility] note* Diagnosis Gastroesophageal reflux disease, unspecified whether esophagitis present- Primary Pre-op evaluation Preoperative examination, unspecified Nontoxic multinodular goiter- Primary documented in this encounter [facility] note* Diagnosis Gastroesophageal reflux disease, unspecified whether esophagitis present- Primary Pre-op evaluation Preoperative examination, unspecified Multiple thyroid nodules- Primary Nontoxic multinodular goiter documented in this encounter [facility] note* Diagnosis Gastroesophageal reflux disease, unspecified whether esophagitis present- Primary Pre-op evaluation Preoperative examination, unspecified Multiple thyroid nodules- Primary Nontoxic multinodular goiter documented in this encounter [facility] Hospital[facility]* Instruction Description Start Date Completed [facility] Work Phone: Reason for referral (narrative)* Diagnostic Procedure Only (Routine) - New Request Specialty Diagnoses / Procedures Referred By Garo roman Referred To Contact US IMAGING Diagnoses Multiple thyroid nodules Procedures US THYROID/PARATHYROID US SOFT TISSUE HEAD & [place] [address] [place] [address] [place] [address] Referral ID Status Reason Start Date Expiration Date Visits Requested Visits Authorized [id number] New Request Auto-Generat ed Referral 06/03/2024 02/02/2025 1 1 [facility] for referral (narrative)No reason for referral information availableWMercy Health [facility] Work Phone: Chief Complaint Chief Complaint Description Start Date left hand pain Preliminary chief co mplaint data, not yet signed by the author as of Advance Directives No Advanced Directives Records Found Advance Directive Response Recorded Date/ Time Living Will No April 30, 022 5:11pm Power of Activity Therapist No April 30, 2021 5:11pm Advance Directive Response Recorded Date/ Time Living Will No April 30 022 4:11pm Power of Activity Therapist No April 30, 2021 4:11pm Advance Directive Response Recorded Date/ Time Living Will No March 01 9:38am Power of Activity Therapist No March 01, 2022 9:38am Advance Directive Response Recorded Date/ Time Living Will No March 01 10:38am Power of Activity Therapist No March 01, 2022 10:38am Advance Directive Response Recorded Date/ Time Living Will Yes June 02, 2024 6:53pm Do you have a Healthcare Power of Activity Therapist? No June 02, 2024 6:53pm Family History No Family History Records Found Relationship Condition Age at Onset Recorded Date/T [...] SCREENING Reason for Visit Colon cancer screeni ng Preventative health care GERD (gastroesophageal reflux disease) Chief Complaint YEARLY CHECK UP SCREENING Amb Documentation Reason for Visit Colon cancer screeni ng Preventative health care GERD (gastroesophageal reflux disease) Chief Complaint YEARLY CHECK UP SCREENING Amb Documentation Reason for Visit Colon cancer screeni Preventative health care GERD (gastroesophageal reflux disease) Colon [...] 02, 2024 4:43pm Status post bilateral salpingectomy [facility] 2024 4:43pm Chief Complaint Admit Date 6 [...] (gastroesophageal reflux disease) A ugust 2024 1:57pm Chief Complaint Admit Date Gastroesophageal reflux disease (GERD) A ugust 2024 1:57pm EPIGASTRIC PAIN [place] 29th, 2025 7: 09am Reason for Visit Admit Date GERD (gastroesophageal reflux disease) A ugust 2024 [...] nodules Procedures CONSULT TO ENDOCRINE SURGERY OFFICE/OUTPATIENT [facility] [address] [place] [address] [place] [address] Referral ID Status Reason Start Date Expiration Date V isits Requested Visits Authorized [id number] Closed PCP Requested Referral 01/08/2024 01/07/2025 1 [...] DO Primary Care Provider Active Jocelin Dumas OCCUPATIONAL REHABILITATION AIDE, OCCUPATIONAL REHABILITATION AIDE-C Attending Provider, Referring Provider Active Team Status: Inactive Member Role Status Dates Abi Jefferson DO Primary Care Provider, Referring Provider Active Jocelin Dumas OCCUPATIONAL REHABILITATION AIDE, OCCUPATIONAL REHABILITATION AIDE-C Attending Provider Active Team Status: Inactive Member Role Status Dates Abi Jefferson DO Primary Care Provider Active Jocelin Dumas OCCUPATIONAL REHABILITATION AIDE, OCCUPATIONAL REHABILITATION AIDE-C Attending Provider, Referring Provider Active Team Status: [...] 2024 End: March 25, 2024 Jocelin Dumas OCCUPATIONAL REHABILITATION AIDE, OCCUPATIONAL REHABILITATION AIDE-C Attending Provider Active Start: March 25, 2024 End: March 25, 2024 Jocelin Dumas OCCUPATIONAL REHABILITATION AIDE, OCCUPATIONAL REHABILITATION AIDE-C Referring Provider Active Start: March 25, 2024 [...] November 10, 2024 End: November 10, 2024 Team Status: Inactive Member Role/Relationship Status [...] November 10, 2024 End: November 10, 2024 Team Status: Inactive Member Role/Relationship Status Parvin Baron MD Primary Care Provider Active St art: November 13, 2024 End: November 13, 2024 Dr. Calos Mcgill MD Attending Provider Active Start: November 13, 2024 End: November 13, 2024 Dr. Calos Mcgill MD Referring Provider Active Start: November 13, 2024 End: November 13, 2024 Source Comments (unrecognize d section and content) In the event this informatio n is protected by the Federal Confidentiality of Alcohol and Drug Abuse Patient Records regulations: The Federal rules restrict any use of the information to criminally investigate or prosecute any alcohol or drug abuse patient.[facility] HospitalIn the event this information is protected by the Federal Confidentiality of Alcohol and Drug Abuse Patient Records regulations: The Federal rules restrict any use of the information to criminally investigate or prosecute any alcohol or drug abuse patient.[facility] HospitalIn the event this information is protected by the Federal Confidentiality of Alcohol and Drug Abuse Patient Records regulations: The Federal rules restrict any use of the information to criminally investigate or prosecute any alcohol or drug abuse patient.[facility] HospitalIn the event this information is protected by the Federal Confidentiality of Alcohol and Drug Abuse Patient Records regulations: The Federal rules restrict any use of the information to criminally investigate or prosecute any alcohol or drug abuse patient.[facility] HospitalIn the event this information is protected by the Federal Confidentiality of Alcohol and Drug Abuse Patient Records regulations: The Federal rules restrict any use of the information to criminally investigate or prosecute any alcohol or drug abuse patient.[facility] HospitalIn the event this information is protected by the Federal Confidentiality of Alcohol and Drug Abuse Patient Records regulations: The Federal rules restrict any use of the information to criminally investigate or prosecute any alcohol or drug abuse patient.[facility] HospitalIn the event this information is protected by the Federal Confidentiality of Alcohol and Drug Abuse Patient Records regulations: The Federal rules restrict any use of the information to criminally investigate or prosecute any alcohol or drug abuse patient.[facility] HospitalIn the event this information is protected by the Federal Confidentiality of Alcohol and Drug Abuse Patient Records regulations: The Federal rules restrict any use of the information to criminally investigate or prosecute any alcohol or drug abuse patient.[facility] HospitalIn the event this information is protected by the Federal Confidentiality of Alcohol and Drug Abuse Patient Records regulations: The Federal rules restrict any use of the information to criminally investigate or prosecute any alcohol or drug abuse patient.[facility] HospitalIn the event this information is protected by the Federal Confidentiality of Alcohol and Drug Abuse Patient Records regulations: The Federal rules restrict any use of the information to criminally investigate or prosecute any alcohol or drug abuse patient.[facility] INFORMATION SOURCE (unrecogn ized section and content) DATE CREATED AUTHOR 02/26/2024 [facility]ter DATE CREATED AUTHOR AUTHOR'S ORGANIZ ATION 04/28/2024 [facility] DATE CREATED AUTHOR AUTHOR'S ORGANIZ ATION 10/29/2024 [facility] DATE CREATED AUTHOR AUTHOR'S ORGANIZ ATION 11/25/2024 [facility] FOR RECORDS PERTAINING TO PATIENTS WHO [...] BE BASED ON THE PRIMARY CLINICAL RECORDS. [facility] [employer] [facility]. provides no warranty or guarantee of the accuracy or completeness of information in this document.
--- NOTE | 2024-11-27 06:58 | PCM.PRE.AN2 ---
ASA Classification* ASA Classification ASA Classification: 3 Assessment & Plan Anesthesia* Anesthesia Assessment Anesthesia Assessment: Discussed sedation and/or anesthesia options, risks, benefits, and alternatives with patient/parents/legal guardian/POA. Questions invited. The patient/parents/legal guardian/POA seems to understand and agrees to proceed with anesthesia plan. Reviewed the physical assessment, medical history, allergy history and patient home medications list prior to surgery/procedure/anesthetic and documented any changes. Performed airway and anesthesia risk assessments. Anesthesia Type Anesthesia Type: MAC Anesthesia Focused Assessment* Airway Assessment Mouth opens: >3 cm Mallampati Score: II Labs Anesthesia Preop lab: CBC WBC 13.6 K/mm3 (4.4-11.0) H 06/03/24 06:42 06/03/24 RBC 3.82 M/mm3 (4.2-5.4) L 06/03/24 06:42 06/03/24 Hgb 11.4 g/dL (12.0-15.0) L 06/03/24 06:42 06/03/24 Hct 33.7 % (37-47) L 06/03/24 06:42 06/03/24 Plt Count 202 K/mm3 (150-450) 06/03/24 06:42 06/03/24 CHEMISTRY Potassium 4.0 mmol/L (3.5-5.1) 06/04/23 15:25 06/04/23 Sodium 138 mmol/L (136-145) 06/04/23 15:25 06/04/23 Magnesium 2.3 mg/dL (1.5-2.2) H 05/27/24 08:36 05/27/24 BUN 7 mg/dL (7-18) 06/04/23 15:25 06/04/23 Creatinine 0.97 mg/dL (0.55-1.02) 06/04/23 15:25 06/04/23 Glucose 89 mg/dL (74-106) 06/04/23 15:25 06/04/23 TSH 1.800 uIU/mL (0.300-4.200) 05/27/24 08:37 05/27/24 COAG Urine Test Negative Negative 06/02/24 09:22 06/02/24 [facility] Negative 05/25/24 09:41 05/25/24 Pre-Assessment Diagnosis/Proposed Procedure Planned Operative Procedure(s): egd Anesthesia History 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 When Was Last Pacemaker Check QUESTION #4 FULL TEXT: You/Your Family Experience fever (hyperthermia) with Anesthesia Last Oral Intake Last Oral intake: Last Oral Intake NPO since Meds taken in AM with sips of water? 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 Female Yes 11/23/24 15:22 HX of Motion Sickness Yes 11/23/24 15:22 HX of N/V After Surgery No 11/23/24 15:22 Non-Smoker Yes 11/23/24 15:22 Duration of Surgery greater No 11/23/24 15:22 than 60 minutes Number of Risk Factors 3 11/23/24 15:22 PONV Score Moderate Risk 11/23/24 15:22 Height & Weight Height & Weight: Anesthesia: Height & Weight Height 5 ft 5 in 11/10/24 14:14 Respiratory Assessment Respiratory Assessment - mentally retarded teacher: Respiratory Tract Infection Hx - mentally retarded teacher Hx Respiratory Tract Infection No 11/23/24 15:22 STOP Sleep Apnea STOP Sleep Apnea - mentally retarded teacher: STOP Sleep Apnea - mentally retarded teacher Hx Hypertension No 11/23/24 15:22 Hx Sleep Apnea No 11/23/24 15:22 CPAP BIPAP Do you snore loudly (louder No 11/23/24 15:22 than talking or can be heard Do you often feel tired/ No 11/23/24 15:22 fatigued/ sleepy during daytime? Has anyone observed you stop No 11/23/24 15:22 breathing during sleep? STOP Results Negative 11/23/24 15:22 QUESTION #5 FULL TEXT : Do you snore loudly (louder than talking or can be heard through closed doors)? 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 Specify any problems Hx of Preganancy in last 3 No 11/23/24 15:22 Months Nurse Filling Out Transfusion JZOLLINGE 11/23/24 15:22 & Questions: Date: 11/23/24 11/23/24 15:22 Time: 15:24 11/23/24 15:22 Patient unable to answer at this time (ie. 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 Calos Mcgill MD) Blood in stool Fatty liver Non-smoker Epigastric pain Wears glasses Thyroid nodule High cholesterol Gastric reflux GERD (gastroesophageal reflux disease) Hyperlipemia Home Medications ?Medication ?Instructions ?Recorded ?Last Taken ?Type pantoprazole 40 mg tablet,delayed 40 mg PO QDAY 11/10/24 Unknown History release sucralfate 1 gram tablet 1 g PO 4X/DAY 11/10/24 Unknown History Allergy/AdvReac Type Severity Reaction Status Date / Time No Known Allergies Allergy Verified 11/23/24 15:18 Family History Grandfather Lung cancer Surgical History (Updated 11/23/24 @ 15:22 by Florecita Durbin) Hx of colonoscopy H/O: hysterectomy History of endometrial ablation S/P LEEP (~10/16/18) S/P bunionectomy s/p right hand surgery Social History Smoking Status: Never smoker alcohol intake: never substance use type: does not use caffeine: Yes what type of physical activity do you participate in: other details: crossfit frequency: 5-6 times per week seatbelt use: always do you feel safe at home: Yes additional social history: [employer] employed Patient works [employer] Review of Systems (Anesthesia) ROS Narrative System reviewed and no additional complaints, except as documented.
[2024-11-27 07:21] VITALS: BP 125/91; PULSE 67; RESP 18; TEMP 36.8; O2SAT 100; BMI 26.6
[2024-11-27] MEDS: Lactated Ringers 1,000 ML 15 ML IV (07:26)
--- NOTE | 2024-11-27 08:16 | HP.PCM_ITS ---
History and Physical Date of Admission: 11/27/[address] Calos Mcgill MD on 11/24/24 at 0735 Intake Chief Complaint: GERD Allergies No Known Allergies Allergy (Verified 11/23/24 15:18) Medications ?Medication ?Instructions ?Recorded ?Confirmed ?Type pantoprazole 40 mg tablet,delayed 40 mg PO QDAY 11/10/24 11/23/24 History release sucralfate 1 gram tablet 1 g PO 4X/DAY 11/10/24 11/23/24 History Assessment and Plan Assessment and Plan (1) GERD (gastroesophageal reflux disease): Status: Chronic Qualifiers: Esophagitis presence: esophagitis presence not specified Qualified Code(s): K21.9 - Gastro-esophageal reflux disease without esophagitis (2) Blood in stool: Status: Acute Plan: The patient is having blood in her stool and warrants colonoscopy for evaluation. She reports the blood is bright and she is not having any pain. This has been going on for about a week. Orders: Orders Gallbladder 11/13/24 K21.9 - Gastro-esophageal reflux disease without esophagitis, R10.13 - Epigastric pain EGD 11/10/24 Colonoscopy Today 11/24/24 0735 <Electronically signed by Calos Mcgill MD> Date Calos Mcgill MD cc: ~* Signed Intake Vital Signs 07/17/2510:01 11/10/2513:14 Height 5 ft 5 in 5 ft 5 in Weight: 165 lb 4 oz BMI 27.5 BP 127/81 H Blood Pressure Location Rt brachial Position Sitting Respiration 18 Pulse 81 Pulse Source Monitor Temp 97.6 F L Temp Source Temporal Pulse Oximetry (%) 99 Oxygen Delivery Method room air Intake Visit Reasons: Gastroesophageal reflux disease (GERD) Chief Complaint: GERD Is patient in pain?: No Allergies No Known Allergies Allergy (Verified 11/10/24 14:15) Medications ?Medication ?Instructions ?Recorded ?Confirmed ?Type pantoprazole 40 mg tablet,delayed 40 mg PO QDAY 11/10/24 11/10/24 History release sucralfate 1 gram tablet 1 g PO 4X/DAY 11/10/24 11/10/24 History [facility] Medical History (Updated 11/10/24 @ 14:[address] Calos Mcgill MD) Epigastric pain Wears glasses Thyroid nodule High cholesterol Gastric reflux GERD (gastroesophageal reflux disease) Hyperlipemia Surgical History H/O: hysterectomy History of endometrial ablation S/P LEEP (~10/16/18) S/P bunionectomy s/p right hand surgery Family History Grandfather Lung cancer Social History Smoking Status: Never smoker alcohol intake: never substance use type: does not use caffeine: Yes what type of physical activity do you participate in: other details: crossfit frequency: 5-6 times per week seatbelt use: always do you feel safe at home: Yes additional social history: [employer] employed Patient works [employer] HPI HPI HPI: Patient is a 49-year-old female who is here for burning in the epigastric region. She reports that the pain does not go into her esophagus and she does not feel like it is reflux only mostly epigastric pain but sometimes it radiates to the right upper quadrant. She says that eating does not help she says the only thing that does help is when she takes Carafate. She denies nausea or vomiting. She denies any dysphagia. ROS General General: No weight change, appetite, fatigue, colon cancer, breast cancer or weakness HEENT HEENT: No difficulty swallowing, eye injury, eye surgery, swollen glands or hoarseness Endo Endocrine: No thyroid disease, diabetes mellitus, thyroid cancer, Hair loss, heat intolerance or cold intolerance Skin Skin: No rash or changing moles Musc Musculoskeletal: No back problems, arthritis, rheumatoid arthritis, gout or joint pain Cardio Cardiovascular: No murmur, pacemaker, heart disease, atrial fibrillation, high blood pressure, heart attack, heart stent, palpitations, shortness of breath with exertion or chest pain Psych Psychiatric: No depression, anxiety or hearing voices Resp Respiratory: No shortness of breath, No sleep apnea, No cough, No COPD, No asthma, No emphysema and No wheezing Gastro Gastrointestinal: Yes abdominal pain, No nausea or vomiting, No diarrhea, No constipation, No blood in stool, Yes acid reflux, Yes hemorrhoids, No ulcers, No gallbladder problem and No black,tarry stools Owen Hematologic: No blood thinners, No blood disorders, No bleeding, No anemia and No blood clots Neuro Neurologic: No numbness, No tingling and No weakness Exam Const General: cooperative Orientation: alert and oriented x3 HENMT Head: normal to inspection Neck Neck: normal visual inspection and full ROM Chest Chest palpation & inspection: normal inspection of the chest Resp Effort & Inspection: normal respiratory effort Auscultation: clear to auscultation bilaterally Cardio Rate: regular rate Rhythm: regular rhythm GI Inspection: non-distended Palpation: soft and nontender Skin General: no rashes or lesions noted Neuro General: patient alert and patient oriented x3 Extrem General: full ROM Psych Appearance: grossly normal Mental Status: mental status grossly normal Assessment and Plan Assessment and Plan (1) GERD (gastroesophageal reflux disease): Status: Chronic Qualifiers: Esophagitis presence: esophagitis presence not specified Qualified Code(s): K21.9 - Gastro-esophageal reflux disease without esophagitis Plan: The patient is having epigastric burning suggesting gastritis. She has been on a PPI and Carafate several times and reports that every time she comes off of the Carafate she begins burning again. She says sometimes the pain is in the right upper quadrant. I would like to perform an EGD to evaluate. I explained endoscopy in detail to the patient. I explained the risks including but not limited to stroke or heart attack with anesthesia, perforation of the GI tract, bleeding, infection. I explained that any of these could necessitate further emergency surgery. The patient understands and all questions were answered sufficiently. The patient wishes to proceed with procedure. Patient is also saying that the pain sometimes radiates to the right upper quadrant. I will order a gallbladder ultrasound to evaluate for stones. Calos Mcgill MD Pager: [facility] [address] [place] [address] [address] [place] [address] Office: I have examined the patient and the H&P has been reviewed. There are no clinical changes since date of exam.
[2024-11-27] MEDS: Lactated Ringers 500 ML IV (08:33)
[2024-11-27] MEDS: Lidocaine 1% (5 ml sdv) 5 ML Vial IV (08:36)
--- NOTE | 2024-11-27 08:56 | OP.EGD_ITS ---
Patient Name: Deisy Chi Procedure Date: 11/27/2024 8:27 AM Date of : 1975 Age: 49 Procedure: Upper GI endoscopy Indications: Epigastric abdominal pain, Abdominal pain in the right upper quadrant Providers: Calos Mcgill MD Referring MD: Katja Baron Md Medicines: Propofol per Anesthesia Patient Profile: This is a 49 year old female. Refer to note in patient chart for documentation of history and physical. Complications: No immediate complications. Procedure: Pre-Anesthesia Assessment: - Prior to the procedure, a History and Physical was performed, and patient medications and allergies were reviewed. The patient's tolerance of previous anesthesia was also reviewed. The risks and benefits of the procedure and the sedation options and risks were discussed with the patient. All questions were answered, and informed consent was obtained. Prior Anticoagulants: The patient has taken no anticoagulant or antiplatelet agents. After reviewing the risks and benefits, the patient was deemed in satisfactory condition to undergo the procedure. After obtaining informed consent, the endoscope was passed under direct vision. Throughout the procedure, the patient's blood pressure, pulse, and oxygen saturations were monitored continuously. The Colonoscope was introduced through the mouth, and advanced to the fourth part of duodenum. The upper GI endoscopy was accomplished without difficulty. The patient tolerated the procedure well. Scope In: 8:40:16 AM Scope Out: 8:42:52 AM Total Procedure Duration Time 0 hours 2 minutes 36 seconds Findings: The esophagus was normal. The stomach was normal. The examined duodenum was normal. Impression: - Normal esophagus. - Normal stomach. - Normal examined duodenum. - No specimens collected. Recommendation: - Discharge patient to home. - Resume previous diet. - Continue present medications. Procedure Code(s): --- Professional --- 75645, Esophagogastroduodenoscopy, flexible, transoral; diagnostic, including collection of specimen(s) by brushing or washing, when performed (separate procedure) Diagnosis Code(s): --- Professional --- R10.13, Epigastric pain R10.11, Right upper quadrant pain CPT copyright 2021 [employer]. All rights reserved. The codes documented in this report are preliminary and upon councilman review may be revised to meet current compliance requirements. Calos Mcgill MD 11/27/2024 8:55:45 AM This report has been signed electronically. Number of Addenda: 0 Note Initiated On: 11/27/2024 8:27 AM
--- NOTE | 2024-11-27 08:56 | OP.PROVAT_ITS ---
11/27/2024 Katja Baron Md Re : Upper GI endoscopy procedure for Deisy Moralesr Tod This procedure was performed on Wednesday, November 27, 2024. My impressions and recommendations are as follows: Impressions : - Normal esophagus. - Normal stomach. - Normal examined duodenum. - No specimens collected. Recommendations : - Discharge patient to home. - Resume previous diet. - Continue present medications. My findings are described in the full procedure note, which is enclosed. If I can be of further assistance, please feel free to contact me at Doctor phone number(s): , Work: . Sincerely, Calos Mcgill MD 11/27/2024 8:55:45 AM This report has been signed electronically.
--- NOTE | 2024-11-27 08:57 | OP.COLON_ITS ---
Patient Name: Deisy Chi Procedure Date: 11/27/2024 8:43 AM Date of : 1975 Age: 49 Procedure: Colonoscopy Indications: Rectal bleeding Providers: Calos Mcgill MD Referring MD: Katja Baron Md Medicines: Propofol per Anesthesia Patient Profile: This is a 49 year old female. Refer to note in patient chart for documentation of history and physical. Last Colonoscopy: none. The patient's first colonoscopy is today. Complications: No immediate complications. Procedure: Pre-Anesthesia Assessment: - Prior to the procedure, a History and Physical was performed, and patient medications and allergies were reviewed. The patient's tolerance of previous anesthesia was also reviewed. The risks and benefits of the procedure and the sedation options and risks were discussed with the patient. All questions were answered, and informed consent was obtained. Prior Anticoagulants: The patient has taken no anticoagulant or antiplatelet agents. After reviewing the risks and benefits, the patient was deemed in satisfactory condition to undergo the procedure. - Prior to the procedure, a History and Physical was performed, and patient medications and allergies were reviewed. The patient's tolerance of previous anesthesia was also reviewed. The risks and benefits of the procedure and the sedation options and risks were discussed with the patient. All questions were answered, and informed consent was obtained. Prior Anticoagulants: The patient has taken no anticoagulant or antiplatelet agents. After reviewing the risks and benefits, the patient was deemed in satisfactory condition to undergo the procedure. After I obtained informed consent, the scope was passed under direct vision. Throughout the procedure, the patient's blood pressure, pulse, and oxygen saturations were monitored continuously. The Colonoscope was introduced through the anus and advanced to the cecum, identified by appendiceal orifice and ileocecal valve. The colonoscopy was performed without difficulty. The patient tolerated the procedure well. The quality of the bowel preparation was good. The ileocecal valve, appendiceal orifice, and rectum were photographed. Scope In: 8:47:14 AM Scope Withdrawal Time 0 hours 5 minutes 46 seconds Scope Out: 8:55:17 AM Total Procedure Duration Time 0 hours 8 minutes 3 seconds Findings: The entire examined colon appeared normal on direct and retroflexion views. Impression: - The entire examined colon is normal on direct and retroflexion views. - No specimens collected. Recommendation: - Discharge patient to home. - Resume previous diet. - Continue present medications. - Repeat colonoscopy in 10 years for screening purposes. Procedure Code(s): --- Professional --- 70013, Colonoscopy, flexible; diagnostic, including collection of specimen(s) by brushing or washing, when performed (separate procedure) Diagnosis Code(s): --- Professional --- K62.5, Hemorrhage of anus and rectum CPT copyright 2021 [employer]. All rights reserved. The codes documented in this report are preliminary and upon sr. consultant review may be revised to meet current compliance requirements. Calos Mcgill MD 11/27/2024 8:57:09 AM This report has been signed electronically. Number of Addenda: 0 Note Initiated On: 11/27/2024 8:43 AM
--- NOTE | 2024-11-27 08:58 | OP.PROVAT_ITS ---
11/27/2024 Katja Baron Md Re : Colonoscopy procedure for Deisy Guerrero Tod This procedure was performed on Wednesday, November 27, 2024. My impressions and recommendations are as follows: Impressions : - The entire examined colon is normal on direct and retroflexion views. - No specimens collected. Recommendations : - Discharge patient to home. - Resume previous diet. - Continue present medications. - Repeat colonoscopy in 10 years for screening purposes. My findings are described in the full procedure note, which is enclosed. If I can be of further assistance, please feel free to contact me at Doctor phone number(s): , Work: . Sincerely, Calos Mcgill MD 11/27/2024 8:57:09 AM This report has been signed electronically.
[2024-11-27 09:00] VITALS: BP 125/91; BP 99/62; PULSE 84; RESP 18; TEMP 36.6; O2SAT 99
--- NOTE | 2024-11-27 09:02 | PCM.POST.ANE ---
Anesthesia: Postop Eval I Current Vital Signs Temperature: 97.8 F Pulse Rate: 91 Blood Pressure: 99/62 Respiratory Rate: 16 Pulse Ox: 99 Oxygen Delivery Method: Room Air Assessment Airway patent: Yes Spontaneous unlabored respirations: Yes Mental status: Awake nausea: No Vomiting: No Anesthesia Complication: No Fluid Hydration Crystalloid volume administer (ml): 500 Total IV fluid infused: 500 Progress Note Anesthesia document: Postop Eval 1 completed: Yes
[2024-11-27 09:03] VITALS: BP 99/62; PULSE 91; RESP 16; TEMP 36.6; O2SAT 99
--- NOTE | 2024-11-27 09:04 | POSTOPAN2_ITS ---
Anesthesia Postop Eval I Sum Postop Eval Completion status Anesthesia document: Postop Eval 1 completed: Yes Anesthesia Postop Eval I Summary Anesthesia Postop Eval I Summary: Anesthesia Postop Eval I: Assessment Summary Airway patent Yes 11/27/24 09:03 RN PRACTITIONER.APAT Spontaneous unlabored Yes 11/27/24 09:03 RN PRACTITIONER.APAT respirations Mental status Awake 11/27/24 09:03 RN PRACTITIONER.APAT nausea No 11/27/24 09:03 RN PRACTITIONER.APAT Vomiting No 11/27/24 09:03 RN PRACTITIONER.APAT Anesthesia Postop Eval I: Fluid Summary Crystalloid volume administer 500 11/27/24 09:03 RN PRACTITIONER.APAT (ml) Colloids volume administered ( ml) Blood Product volume administered (ml) Total IV fluid infused 500 11/27/24 09:03 RN PRACTITIONER.APAT Anesthesia Postop Eval I: Summary Notes Anesthesia Complication No 11/27/24 09:03 RN PRACTITIONER.APAT Anesthesia Complication Comment: Post-operative progress note Anesthesia: Postop Eval II Evaluation Mental status: Awake Pain Level: 0 nausea: No Vomiting: No
--- NOTE | 2024-11-27 09:04 | PCM.POSTANE2 ---
Anesthesia Postop Eval I Sum Postop Eval Completion status Anesthesia document: Postop Eval 1 completed: Yes Anesthesia Postop Eval I Summary Anesthesia Postop Eval I Summary: Anesthesia Postop Eval I: Assessment Summary Airway patent Yes 11/27/24 09:03 DESIGN PRINTER [email or web address].[email or web address] Spontaneous unlabored Yes 11/27/24 09:03 DESIGN PRINTER BALLOON.APAT respirations Mental status Awake 11/27/24 09:03 DESIGN PRINTER BALLOON.APAT nausea No 11/27/24 09:03 DESIGN PRINTER BALLOON.APAT Vomiting No 11/27/24 09:03 DESIGN PRINTER BALLOON.APAT Anesthesia Postop Eval I: Fluid Summary Crystalloid volume administer 500 11/27/24 09:03 DESIGN PRINTER [email or web address].APAT (ml) Colloids volume administered ( ml) Blood Product volume administered (ml) Total IV fluid infused 500 11/27/24 09:03 DESIGN PRINTER [email or web address].APAT Anesthesia Postop Eval I: Summary Notes Anesthesia Complication No 11/27/24 09:03 DESIGN PRINTER BALLOON.APAT Anesthesia Complication Comment: Post-operative progress note Anesthesia: Postop Eval II Evaluation Mental status: Awake Pain Level: 0 nausea: No Vomiting: No
[2024-11-27 09:05] VITALS: BP 102/63; BP 125/91; PULSE 84; RESP 18; O2SAT 99
[2024-11-27 09:10] VITALS: BP 112/77; BP 125/91; PULSE 90; RESP 18; TEMP 37.1; O2SAT 98
[2024-11-27 09:37] VITALS: BP 125/91
== END 2024-11-27 09:39 | disposition home or self-care (01) ==
LOC: EN 06:52 → AC 06:53
PROVIDERS: PCP Family Medicine; Referring Provider Family Medicine; Visit Provider Surgery
PROC: 0DJD8ZZ Inspection of Lower Intestinal Tract, Via Natural or Artificial Opening Endoscopic (ICD-10-PCS; CPT 45378; principal; 2024-11-27 07:55)
DX: K62.5 Hemorrhage of anus and rectum (principal); E78.00 Pure hypercholesterolemia, unspecified; K21.9 Gastro-esophageal reflux disease without esophagitis; Z79.899 Other long term (current) drug therapy
CPT/HCPCS: 45378; 44360

== ENCOUNTER → 2024-12-15 | Outpatient (CLI) | payer BC, OTHER, SELFPAY ==
--- NOTE | 2024-12-15 15:35 | US_ITS ---
PROCEDURE: PELVIC W/ TRANSVAGINAL 12/15/2024 REASON FOR EXAM: LOWER ABD and pelvic PAIN TECHNIQUE: Procedure Code: [id number] Modality: US Procedure: PELVIC W/ TRANSVAGINAL COMPARISON: 04/30/2024 FINDINGS: Since the previous study, the uterus has been removed. Right ovary measures 2.9 x 1.4 x 1.1 cm. No suspicious mass, normal color Doppler flow. Left ovary measures 3.4 x 2.8 x 2.5 cm. There is a complex, septated 2.3 x 1.9 x 1.8 cm cyst. Given the patient's age, a 4-6 week follow-up ultrasound is recommended to assess resolution. No free fluid in the cul de sac, bladder distends normally with estimated capacity of 380 mL US/Pelvic w/ Transvaginal IMPRESSION: Complex septated left adnexal cyst measuring 2.3 x 1.9 x 1.8 cm, 4-6 week follo w-up ultrasound recommended to assess resolution Sonographically normal right ovary Uterus has been removed Reading Location: [id number]
== END | disposition home or self-care (01) ==
LOC: US 15:29
PROVIDERS: PCP Family Medicine; Referring Provider Obstetrics & Gynecology; Visit Provider Obstetrics & Gynecology
DX: R10.30 Lower abdominal pain, unspecified (principal); N80.9 Endometriosis, unspecified
CPT/HCPCS: 76830; 76856

== ENCOUNTER → 2025-01-28 | Outpatient (CLI) | payer BC, OTHER, SELFPAY ==
--- NOTE | 2025-01-28 16:02 | US_ITS ---
PROCEDURE: PELVIC Wo/TRANSVAGINAL 01/28/2025 REASON FOR EXAM: MONITOR CYST TECHNIQUE: Procedure Code: SELVAGE Modality: US Procedure: PELVIC Wo/TRANSVAGINAL COMPARISON: Pelvic ultrasound dated 12/15/2024 FINDINGS: Measurements: Uterus: The uterus has been removed. Right Ovary: 3.5 x 2.4 x 1.8 cm with a volume of 8 mL. Left Ovary: 2.6 x 2.4 x 1.8 cm with a volume of 6 mL. Right ovary: Multiple follicles are seen. There is blood flow to the ovary. There is no evidence of ovarian torsion. Left ovary: Multiple follicles are seen. The cyst seen previously is no longer identified. There is blood flow to the ovary. There is no evidence of ovarian torsion. Other: There is no free fluid in the cul-de-sac. Urinary bladder volume is 580 mL. Bladder wall is smooth. There are no filling defects in the urinary bladder. US/Pelvic w/ Transvaginal IMPRESSION: Evidence of previous hysterectomy. Normal appearance to both ovaries. Reading Location: [id number]
== END | disposition home or self-care (01) ==
LOC: US 16:00
PROVIDERS: PCP Family Medicine; Referring Provider Obstetrics & Gynecology; Visit Provider Obstetrics & Gynecology
DX: N83.292 Other ovarian cyst, left side (principal)
CPT/HCPCS: 76830; 76856

== ENCOUNTER 2025-02-03 17:33 | Emergency (ER) | payer BC, OTHER, SELFPAY ==
[2025-02-03 17:34] VITALS: BP 133/88; PULSE 77; RESP 18; TEMP 36.6; O2SAT 100; BMI 28.1
[2025-02-03 19:36] VITALS: BP 121/81; PULSE 75; O2SAT 95
[2025-02-03 19:39] LABS: Anion Gap 12 (5-15); BUN 11 mg/dL (4-19); BUN/Creat Ratio 14.7 RATIO (10-20); Calcium,Total 9.5 mg/dL (7.6-11.0); Carbon Dioxide 24.3 mmol/L (21.0-32.0); Chloride 104 mmol/L (98-108); Estimated Creatinine Clearance 91.54 ml/min (50-250); Glucose 94 mg/dL (70-99); Potassium 3.9 mmol/L (3.3-5.1)
[2025-02-03 20:12] VITALS: BP 121/81; PULSE 75; RESP 18; TEMP 36.6; O2SAT 95
--- NOTE | 2025-02-04 00:05 | EDS_ITS ---
HPI History of Present Illness Chief Complaint: Numb/Ting Narrative Narrative: Patient is a 49-year-old female presenting to the emergency department for intermittent painful paresthesias from the right mid upper arm distally as well as right lower extremity thigh cramps and intermittent painful paresthesias in her right foot. Patient has a past medical history of hyperlipidemia, GERD, fatty liver. 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 She states that the symptoms started 2-1/2 weeks ago. She states that they started after she was using her right arm to paint a room. States she had her arm above her head for significant mount of time. Started right after this. She states that the paresthesias in her foot are not present at time of evaluation. The thigh cramps are not present at time of evaluation. She states she is having painful paresthesias on the medial portion of her right arm. She denies any extremity weakness. Denies any headache, visual changes, slurred speech, numbness or weakness of her left arm or leg. Denies any neck or back pain. Denies any fever or chills. Denies any head trauma. Denies this ever happening to her before. Denies any recent medication changes. States that she has a primary care doctor appointment tomorrow however wanted to be seen here today because she felt off. She is unable to specify on how she feels off. Denies chest pain, SOB, abdominal pain, nausea, vomiting, diarrhea, dysuria or hematuria. Denies leg swelling. [facility] Medical History Gastritis Blood in stool Fatty liver Non-smoker Epigastric pain Wears glasses Thyroid nodule High cholesterol Gastric reflux GERD (gastroesophageal reflux disease) Hyperlipemia Home Medications ?Medication ?Instructions ?Recorded ?Last Taken ?Type pantoprazole 40 mg tablet,delayed 40 mg PO QDAY Unknown History release sucralfate 1 gram tablet 1 g PO 4X/DAY 11/10/24 Unkno wn History Allergy/AdvReac Type Severity Reaction Status Date / Time No Known Allergies Allergy Verified 02/03/25 17:34 Family History Grandfather Lung cancer Surgical History Hx of colonoscopy H/O: hysterectomy History of endometrial ablation S/P LEEP (~10/16/18) S/P bunionectomy s/p right hand surgery Social History Smoking Status: Never smoker alcohol intake: never substance use type: does not use caffeine: Yes what type of physical activity do you participate in: other details: crossfit frequency: 5-6 times per week seatbelt use: always do you feel safe at home: Yes additional social history: [employer] employed Patient works [employer] ROS ROS ED ROS Narrative see HPI EXAM Physical Exam Narrative Exam Narrative: Vital signs: Reviewed General: Alert and oriented. No acute distress HEENT: Head is normocephalic and atraumatic, sinuses nontender, pupils equal round and reactive. Nares are patent. Oropharynx and throat exams normal. Neck: Supple without lymphadenopathy nontender Cardiovascular: Regular rate and rhythm, no murmurs. No rubs or gallops. Normal S1 and S2 Respiratory: Clear to auscultation bilaterally. No wheezes, rales, rhonchi Abdominal: Soft and nontender. Normal bowel sounds. No guarding or rebound. Nonsurgical abdomen Extremities: No tenderness. No bruising. Normal range of motion. Normal sensation. Skin: No rash or redness. Neurological: Cranial nerves II through XII are grossly intact. Normal strength and sensation. Subjective painful sensation when touching the ulnar portion of the right arm from axillary to elbow and then mid forearm to hand. Normal cerebellar function. Sensation intact in bilateral lower extremities. The rest of the physical exam is unremarkable Const Vital Signs: 02/03/25 17:34 02/03/25 17:55 02/03/25 19:36 Temperature 97.8 F Temperature Source Temporal Pulse Rate 77 75 Respiratory Rate 18 Respiratory Pattern Normal Blood Pressure 133/88 H 121/81 H Blood Pressure Mean 103 94 Pulse Ox 100 95 Oxygen Delivery Method Room Air 02/03/25 20:12 Temperature 97.8 F Temperature Source Pulse Rate 75 Respiratory Rate 18 Respiratory Pattern Blood Pressure 121/81 H Blood Pressure Mean 94 Pulse Ox 95 Oxygen Delivery Method MDM MDM MDM Narrative Medical decision making narrative: Patient is a 49-year-old female presenting to the emergency department for paresthesias as noted in HPI. Patient was seen and examined. Vitals are stable. Patient resting in bed comfortably no acute distress. Symptoms have been going on for 2-1/2 weeks. There are intermittent. They are only occurring in the right arm and right leg however do not occur in a specific dermatome. Not consistent with stroke. Otherwise neurologically intact. Sensation is intact however she is endorsing painful nerve type pain. Symptoms do not change extremities and she has no visual changes I doubt multiple sclerosis. Will check electrolytes to evaluate for any abnormality. I did offer obtaining a CT brain but educated patient and significant other at bedside that is unlikely that there will be any mass, edema or bleed given she is neurologically intact and her symptoms do not fit a stroke like pattern given the painful paresthesias skipping portions of her upper extremity and only being in her right foot and again this is not present on arrival here. Shared decision making used and she does not want the CT at this time. I think this is appropriate. She states she has a primary care doctor visit tomorrow. I encouraged her to keep this appointment. Electrolytes are normal. Patient discharged from the Emergency Department. I do not feel that the patient's evaluation reveals any acute reason for admission at this time. I instructed them to either follow-up with their primary care physician or promptly return to the Emergency Department for reevaluation should symptoms worsen or new symptoms develop. I explained what symptoms would indicate the need to return to the emergency department. Shared decision making was used. The patient voiced understanding of the treatment plan and is agreeable with it. Clinical impression Arm paresthesias right Paresthesia of right foot Leg cramps History & Record Review Discussion w/independent historian: Patient and Significant other Lab Data Attestation: I reviewed the patient's lab results. Labs: Laboratory Results - last 24 hr 02/03/25 17:45 Sodium 140 Potassium 3.9 Chloride 104 Carbon Dioxide 24.3 Anion Gap 12 BUN 11 Creatinine 0.77 Estim Creat Clear Calc 91.54 Est GFR (MDRD) Non-Af 96 BUN/Creatinine Ratio 14.7 Glucose 94 Calcium 9.5 Discharge Plan Triage Chief Complaint: Numb/Ting ED Provider: Key Early Dx/Rx/DC Orders Clinical Impression: Arm paresthesia, right, Leg cramp, Paresthesia of right foot Instructions: ED Paresthesia Prescriptions: No Action sucralfate 1 gram tablet 1 g PO 4X/DAY pantoprazole 40 mg tablet,delayed release (DR/EC) 40 mg PO QDAY Primary Care Provider: Katja Baron Referrals: Katja Baron MD [Primary Care Provider, Family Practice] - As soon as possible Activity Restrictions/Additional Instructions: Follow-up with your primary care doctor tomorrow to discuss next steps. Your evaluation in the Emergency Department did not reveal any acute reason for admission. However, I want to emphasize that you may be early in the course of a disease process or illness even if it is not present. For this reason you should follow-up within 24 hours for reevaluation with either your primary care physician or if necessary back here in the Emergency Department. You should return to the Emergency Department immediately if your symptoms worsen or new symptoms develop. Print Language: Romanian Disposition Disposition: Home, Self Care Discharge Date/Time: 02/03/25 20:13
== END 2025-02-03 20:13 | disposition home or self-care (01) ==
PROVIDERS: Emergency Provider Student in an Organized Health Care Education/Training Program; PCP Family Medicine; Visit Provider Student in an Organized Health Care Education/Training Program
DX: R20.2 Paresthesia of skin (principal); E78.00 Pure hypercholesterolemia, unspecified; Z90.710 Acquired absence of both cervix and uterus; K21.9 Gastro-esophageal reflux disease without esophagitis; R25.2 Cramp and spasm
CPT/HCPCS: 80048; 99284; A4216

== ENCOUNTER → 2025-02-04 | Outpatient (CLI) | payer BC, OTHER, SELFPAY ==
[2025-02-04 17:31] LABS: Hematocrit 41.6 % (37-47); Hemoglobin 14.0 g/dL (12.0-15.0); Immature Granulocytes Count 0.010 X10^3/uL (0.0-0.0); Mean Corp Hgb Conc 33.7 g/dL (32-36); Mean Corpuscular Volume 87.4 fL (81-99); Mean Platelet Vol. 10.6 fl (6.2-12.0); NRBC Flagged by Analyzer 0 % (0-5); Platelet Count 240 K/mm3 (150-450); RBC Distribution Width CV 12.8 % (11.6-14.6); RBC Distribution Width SD 41.0 fl (35.1-43.9); Red Blood Count 4.76 M/mm3 (4.2-5.4); White Blood Count 8.8 K/mm3 (4.4-11.0)
[2025-02-04 18:38] LABS: Magnesium 2.3 mg/dL (1.5-2.2); Vitamin B12 421 pg/mL (180-914)
== END | disposition home or self-care (01) ==
LOC: MFPLAB 15:22
PROVIDERS: PCP Family Medicine; Visit Provider Family Medicine
DX: R20.0 Anesthesia of skin (principal); R20.2 Paresthesia of skin
CPT/HCPCS: 36415; 82607; 83735; 84443; 85025

== ENCOUNTER → 2025-02-08 | Outpatient (CLI) | payer BC, OTHER, SELFPAY ==
--- NOTE | 2025-02-08 07:55 | US_ITS ---
PROCEDURE: ELASTOGRAPHY PARENCHYMA/ORGAN 02/08/2025 REASON FOR EXAM: FATTY LIVER TECHNIQUE: Procedure Code: USELPAROG Modality: US Procedure: ELASTOGRAPHY PARENCHYMA/ORGAN COMPARISON: None FINDINGS: KPA: 3.7. Velocity: 1.11 m/sec. Metavir score: F 0. US/Elastography Parenchyma/Organ IMPRESSION: No evidence of hepatic fibrosis. Reading Location: [place] [id number]
== END | disposition home or self-care (01) ==
LOC: US 07:53
PROVIDERS: PCP Family Medicine; Referring Provider Student in an Organized Health Care Education/Training Program; Visit Provider Student in an Organized Health Care Education/Training Program
DX: K76.0 Fatty (change of) liver, not elsewhere classified (principal)
CPT/HCPCS: 76981